=== PATIENT | female | born 1945 | race Caucasian/White ===

== ENCOUNTER 2018-05-04 13:30 | Outpatient (RCR) | payer MEDICARE, OTHER, SELFPAY ==
--- NOTE | 2018-04-10 07:51 | HP.PTEVAL_ITS ---
Patient's Visit Information MAE ISRAEL is a 72 year old F referred to Physical Therapy by Eligio Hathaway PA-C with a diagnosis of L achilles tendonitis. Date of Evaluation: 04/10/18 Physical Therapist: Hai Renteria DPT - Visit Plan Frequency: 2-3x /Week Duration: 4-6 Weeks Plan: Start with US to L achilles tendon, graston/manual, DF stretching. Progress stretching for HEP. Once tolerating add in eccentric strengthening exercises. May trial DN. - Subjective Findings: Pt. is here today for her initial evaluation with diagnosis of L achilles tendonitis. Pt. reports symptoms have been going on for about 2-3 mo nths now, but has been progressively getting worse. Pt. reports increased pain with walking, especially with the first few steps in the morning then again by the end of the day. Pt. reports pain is at her achilles tendon, but does not migrate into the bottom of her foot. She denies N/T in either LE. No pain with sleeping or at rest. Pt. has not trialed any stretching at this point in time. She reports having something similar prior, but was unsure of what LE this occured on. She is hopeful to reduce symptoms in order to get back to all of her ADLs and community mobility with increased tolerance. - Pain L achilles tendon Pain Intensity (Out of 10): 4 Pain Intensity Range: 2, 6 - Objective POSTURE: Pt. has normal posture in stance, she does have increased L knee valgus and slight increased L pronation. . PALPATION: Pt. has increased tenderness at musculotendon junction of L achilles tendon and down to its insertion. Pt. has mild pain at G/S complex, but much less. No plantar fascia pain. NEURO: all intact no issues. ROM: L ankle- DF 6deg, PF 39deg, INV 18deg, IVR 12deg. R an kle- DF 9deg, PF 41deg, INV 28deg, EVR 15deg. MMT: Pt. has 4+/5 throughout bilateral ankles, except had 4/5 L PF with mild increase in symptoms with attempts. GAIT: Pt. has increased L knee valgus, slight increase in L forfoot pronation. Pt. does have an antalgic pattern during L stance phase as well. STAIRS: Step to pattern with loading RLE only. - Goals Goal 1:: Pt. to be I with HEP. Goal Time Frame: 4-6 Weeks Goal 2:: Pt. to have increased L ankle ROM by 25% into DF. Goal Time Frame: 4-6 Weeks Goal 3:: Pt. to have increased L ankle PF strength increased by 1/2 grade with MMT. Goal Time Frame: 4-6 Weeks Goal 4:: Pt. to ambulate community levels distances without increase in symptoms and with normal gait pattern. Goal Time Frame: 4-6 Weeks Goal 5:: Pt. to resume all ADLs without increase in symptoms of L achilles tendon. - Rehabilitation Potential Physical Therapy Diagnosis: Pt. has sigs and symptoms consistent with L achilles tendonitis. Pt. has increased hypomobiity at this region, she is painful to touch and difficulty with heel off phase of gait. Pt. would benefit from PT to increase ROM, decrease symptoms, and progress with eccentric exercises to increase tensile strength of her L achilles tendon. Rehabilitation Potential: Good - Anticipated Interventions Patient/Client Instruction: Educate patient on: Condition, Plan of Care, Risk Factors, Benefits of Fitness Program For the Purpose of:: To improve decision making, To facilitate caregiver knowledge, To improve self management, To prevent re-injury, To improve ability to perform tasks related to life management, To improve tolerance to ADL's Therapeutic Exercise to Include: Strength training, Power training, Flexibilty training, Gait and locomotor training, Passive ROM, Active ROM For the Purpose of:: To decrease pain, To decrease swelling/inflammation, To increase ROM, To improve nutrient delivery to tissue, To increase oxygenation perfusion, To improve muscle performance and motor function, To improve health of tissue, To decrease soft tissue restriction, To increase flexibility/ROM, To improve endurance Manual Therapy Techniques to Include: Passive ROM, Functional dry needling, Soft tissue mobilization Comment: cross friction massage For the Purpose of:: To decrease pain, To decrease swelling/inflammation, To increase ROM, To improve health of tissue Ultrasound (thermal/non thermal): Yes For the Purpose of:: To decrease pain, To decrease swelling/inflammation, To improve nutrient delivery to tissue, To increase oxygenation perfusion Thank you for the opportunity to evaluate your patient. For Medicare and Medicare HMO plans, please review the plan of care and approve it. It will need to be FAXED BACK to us at [phone] for Medicare purposes. For Medicare only, by signing this I certify the plan of care. Please let me know if there are questions or concerns regarding this plan of care. Physician Signature: Date:
--- NOTE | 2018-05-07 09:01 | HP.PTREVAL ---
Eligio Hathaway PA-C, It has been my pleasure to treat MAE ISRAEL over the last 7 visits for L achilles tendonitis. Please see the progress note below for an update on the physical therapy plan of care! Subjective: Pt. reports right now my pain is only like maybe .5 out of 10. She reports being HEp compliant without issues. Pt. reports minimal pain this AM. Objective/Function: pt. tolerated all PT without adverse reaction. pt. is progressing very well. Pt. has overall decreased pain. She is to continue with strengthening adn stretching for HEP. Pt consents. Plan Plan: Pt. to continue with HEP on her own and follow up with PT in 2 weeks if needed. If I do not hear from her I will DC case back to physician. Goals Goal 1:: Pt. to be I with HEP. Goal Time Frame: 4-6 Weeks Goal Progress: Goal Met Goal 2:: Pt. to have increased L ankle ROM by 25% into DF. Goal Time Frame: 4-6 Weeks Goal Progress: Goal Met Goal 3:: Pt. to have increased L ankle PF strength increased by 1/2 grade with MMT. Goal Time Frame: 4-6 Weeks Goal Progress: Goal Met Goal 4:: Pt. to ambulate community levels distances without increase in symptoms and with normal gait pattern. Goal Time Frame: 4-6 Weeks Goal Progress: Progressing Goal 5:: Pt. to resume all ADLs without increase in symptoms of L achilles tendon. Goal Progress: Progressing Anticipated Interventions Patient/Client Instruction: Educate patient on: Condition, Plan of Care, Risk Factors, Benefits of Fitness Program For the Purpose of:: To improve decision making, To facilitate caregiver knowledge, To improve self management, To prevent re-injury, To improve ability to perform tasks related to life management, To improve tolerance to ADL's Therapeutic Exercise to Include: Strength training, Power training, Flexibilty training, Gait and locomotor training, Passive ROM, Active ROM For the Purpose of:: To decrease pain, To decrease swelling/inflammation, To increase ROM, To improve nutrient delivery to tissue, To increase oxygenation perfusion, To improve muscle performance and motor function, To improve health of tissue, To decrease soft tissue restriction, To increase flexibility/ROM, To improve endurance Manual Therapy Techniques to Include: Passive ROM, Functional dry needling, Soft tissue mobilization Comment: cross friction massage For the Purpose of:: To decrease pain, To decrease swelling/inflammation, To increase ROM, To improve health of tissue Ultrasound (thermal/non thermal): Yes For the Purpose of:: To decrease pain, To decrease swelling/inflammation, To improve nutrient delivery to tissue, To increase oxygenation perfusion Please do not hesitate to contact me at [phone] by phone or if you have questions or concerns regarding this new plan of care! Sincerely, OLGA LIDIA WiseT
--- NOTE | 2018-06-27 12:33 | HP.PT.NRP ---
HP - Discharge Summary (1) - Patient Information MAE ISRAEL was seen in my office for initial evaluation on 04/10/18. The following Plan of Care was established for this patient: Initial Frequency: 2-3x /Week Initial Duration: 4-6 Weeks - Anticipated Interventions Patient/Client Instruction: Educate patient on: Condition, Plan of Care, Risk Factors, Benefits of Fitness Program For the Purpose of:: To improve decision making, To facilitate caregiver knowledge, To improve self management, To prevent re-injury, To improve ability to perform tasks related to life management, To improve tolerance to ADL's Therapeutic Exercise to Include: Strength training, Power training, Flexibilty training, Gait and locomotor training, Passive ROM, Active ROM For the Purpose of:: To decrease pain, To decrease swelling/inflammation, To increase ROM, To improve nutrient delivery to tissue, To increase oxygenation perfusion, To improve muscle performance and motor function, To improve health of tissue, To decrease soft tissue restriction, To increase flexibility/ROM, To improve endurance Manual Therapy Techniques to Include: Passive ROM, Functional dry needling, Soft tissue mobilization Comment: cross friction massage For the Purpose of:: To decrease pain, To decrease swelling/inflammation, To increase ROM, To improve health of tissue Ultrasound (thermal/non thermal): Yes For the Purpose of:: To decrease pain, To decrease swelling/inflammation, To improve nutrient delivery to tissue, To increase oxygenation perfusion This patient was last seen in our office 05/04/18. Pertinent comments regarding their Physical therapy will appear below: Pt. was seen for her achilles tendonitis. Pt. progressed very well and was 95% better at her last visit. Pt. has not been seen in ~7 weeks and will be DC from PT at this point in time. At this point I will be discontinuing this patient from physical therapy. I would be happy to see this patient again in the future if found appropriate by the physician. Thank you! OLGA LIDIA WiesT
== END 2018-05-04 19:00 | disposition home or self-care (01) ==
LOC: PT 13:30
PROVIDERS: Family Provider Internal Medicine; PCP Internal Medicine; Referring Provider Physician Assistant; Visit Provider Physician Assistant
DX: M76.62 Achilles tendinitis, left leg (principal)
CPT/HCPCS: 97035; 97110; 97140; 97161

== ENCOUNTER → 2018-11-29 15:37 | Outpatient (CLI) | payer MEDICARE, OTHER, SELFPAY ==
[2015-09-20 23:27] VITALS: BMI 39.1
== END ==
PROVIDERS: Family Provider Internal Medicine; PCP Internal Medicine; Referring Provider Otolaryngology Otolaryngology/Facial Plastic Surgery; Visit Provider Otolaryngology Otolaryngology/Facial Plastic Surgery
DX: H92.10 Otorrhea, unspecified ear (principal)
CPT/HCPCS: 87070; 87075; 87077; 87186; 87205

== ENCOUNTER 2018-12-11 06:42 | Day surgery (SDC) | payer MEDICARE, OTHER, SELFPAY ==
--- NOTE | 2018-12-05 14:58 | EKG12_ITS ---
Test Reason : PRE OP Blood Pressure : / mmHG Vent. Rate : 073 BPM Atrial Rate : 073 BPM P-R Int : 192 ms QRS Dur : 076 ms QT Int : 376 ms P-R-T Axes : -02 005 003 degrees QTc Int : 414 ms Normal sinus rhythm Nonspecific T wave abnormality Abnormal ECG Confirmed by TOYA ANNA ([id number]), manuscript editor CONCHIS WANG ([id number]) on 12/10/2018 3:29:45 PM Referred By: Stephen Solano Confirmed By:TOYA ANNA
[2018-12-05 15:20] LABS: Hematocrit 39.1 % (37-47); Hemoglobin 12.6 g/dL (12.0-15.0); Mean Corp Hgb Conc 32.2 g/dL (32-36); Mean Corpuscular Hgb 27.1 pg (27.0-32.0); Mean Corpuscular Volume 84.1 fL (81-99); Mean Platelet Vol. 10.2 fl (6.2-12.0); Platelet Count 202 K/mm3 (150-450); RBC Distribution Width CV 14.1 % (11.6-14.6); RBC Distribution Width SD 43.1 fl (35.1-43.9); Red Blood Count 4.65 M/mm3 (4.2-5.4); White Blood Count 7.1 K/mm3 (4.4-11.0)
[2018-12-05 15:44] LABS: Anion Gap 5 (5-15); BUN 19 mg/dL (7-18); BUN/Creat Ratio 18.1 RATIO (10-20); Calcium,Total 8.8 mg/dL (8.5-10.1); Chloride 109 mmol/L (98-107); Creatinine, Serum 1.05 mg/dL (0.55-1.02); EST Glomerular Filtration Rate 55 mL/min (>60); Est Glom Filt Rate - Afr Amer 66 mL/min (>60); Glucose 100 mg/dL (74-106); Potassium 4.1 mmol/L (3.5-5.1); Sodium Level 141 mmol/L (136-145)
[2018-12-11 07:00] VITALS: BP 137/71; PULSE 84; RESP 16; TEMP 36.7; O2SAT 98; BMI 40.6
[2018-12-11] MEDS: Lactated Ringers 1,000 ML 100 ML IV (07:40)
[2018-12-11] MEDS: Ciprofloxacin 0.3% 2.5ml Bottle 1 DRP (08:57)
--- NOTE | 2018-12-11 09:06 | OP.PCM_ITS ---
Report of Operation Date of Procedure: 12/11/18 Pre-Operative Diagnosis: Left serous otitis media Post-Operative Diagnosis: Same Surgery/Procedure Performed:: Left myringotomy and insertion of parasol tube Description of Surgical Findings:: Operative procedure left myringotomy and insertion of PE tube Operative diagnosis left serous otitis media Postoperative diagnosis same Procedure the patient was placed supine on the operating room table. After satisfactory general anesthesia been obtained the left ear was examined with the operating microscope. The canal and tympanic membrane were prepped with 70% alcohol. The tympanic membrane appeared to be dull and najma-colored. Inferior incision was made with the Cottonwood knife and copious najma-colored fluid aspirated from the middle ear cleft. After the melena had been evacuated this fluid a parasol tube was placed in position and the tube irrigated with ciprofloxacin ophthalmic solution. The procedure was considered terminated and the patient returned to the recovery room in satisfactory condition. Stephen Solano MD
[2018-12-11 09:15] VITALS: BP 137/68; BP 137/71; PULSE 89; RESP 14; TEMP 36.6; O2SAT 93
[2018-12-11 09:30] VITALS: BP 126/75; BP 137/71; PULSE 76; RESP 16; O2SAT 95
[2018-12-11 09:45] VITALS: BP 116/68; BP 137/71; PULSE 70; RESP 16; O2SAT 92
[2018-12-11 10:04] VITALS: BP 115/76; BP 137/71; PULSE 70; RESP 16; TEMP 36.8; O2SAT 93
[2018-12-11 10:25] VITALS: BP 137/71
== END 2018-12-11 10:33 | disposition home or self-care (01) ==
LOC: SDC 06:43 → AC 06:43
PROVIDERS: Family Provider Internal Medicine; PCP Internal Medicine; Referring Provider Otolaryngology Otolaryngology/Facial Plastic Surgery; Visit Provider Otolaryngology Otolaryngology/Facial Plastic Surgery
DX: H65.22 Chronic serous otitis media, left ear (principal); I10 Essential (primary) hypertension; G47.30 Sleep apnea, unspecified; K21.9 Gastro-esophageal reflux disease without esophagitis; F32.9 Major depressive disorder, single episode, unspecified; F41.9 Anxiety disorder, unspecified; Z78.0 Asymptomatic menopausal state; Z79.82 Long term (current) use of aspirin; Z79.899 Other long term (current) drug therapy; Z87.891 Personal history of nicotine dependence
CPT/HCPCS: 69436; 36415; 80048; 85027; 93005; J7120

== ENCOUNTER 2019-09-05 11:00 | Outpatient (RCR) | payer MEDICARE, OTHER, SELFPAY ==
--- NOTE | 2019-04-17 14:05 | HP.PTEVAL_ITS ---
Patient's Visit Information MAE ISRAEL is a 73 year old F referred to Physical Therapy by DAVIN Kc with a diagnosis of CHRONIC MIDLINE LOW BACK PAIN WITHOUT SCIATICA. Date of Evaluation: 04/17/19 Physical Therapist: Sulma Solorio, PT, Cert MDT - Visit Plan Frequency: 2-3x /Week Duration: 4-6 Weeks Plan: AQUATIC THERAPY FOR PAIN RELIEF, POSTURE CORRECTION/STRENGTHENING, INSTRUCTION IN APPROPRIATE BODY MECHANICS AND ACTIVITY MODIFICATIONS. DLS STARTING WITH A NEUTRAL SPINE PROGRESSING ROM TOLERATED. NAV LE ROM, STRETCHING AND STRENGTHENING. HEP INSTRUCTION. - Subjective Findings: Work/Leisure: RETIRED. Disability: NO. Present symptoms: LOW BACK PAIN. RIGHT HIP PAIN - NEAR CONSTANT. NO RIGHT LE SX'S OTHER THAN NEUROPATHY. NAV FOOT NEUROPATHY. NO LEFT LE SX'S OTHER THAN NEUROPATHY. Present since: CHRONIC LOW BACK AND HIP PAIN. Pain Scale: WORST 5/10, LEAST 1/10. Currently: 03/08. Commenced as a result of: NO APPARENT REASON. Symptoms at onset: LOW BACK. Worse: SITTING, *RISING FROM SITTING*, INITIATING GAIT, RIGHT SDLY, SUPINE LYING, BENDING, LIFTING, TWISTING. RAKING. VACUUMING. Better: IBUPROFEN, SOME EX'S: BRIDGES, WENDIE POSE, FIRE HYDRANTS, QUADRAPED HIP EXT, KITCHEN SINK EX'S. Disturbed sleep: YES. Previous history/Previous treatment: PATIENT THINKS SHE HAD PT FOR HER BACK IN THE PAST BUT IT HAS BEEN A LONG TIME. NO BACK SURGERY. NO BACK INJECTIONS. NO HIP SURGERY OR INJECTIONS. NO PAIN MGMT. CHIROPRACTOR A LONG TIME AGO - DIDN'T SEEM TO HELP. Treatment this episode: THIS PT CONSULT, DOCTOR ORDERED HEP. Coughing/sneezing/straining: POSTIVE. Gait: I FIND MYSELF WALKING WITH A LIMP ON BOTH LEGS TO PROTECT LEFT KNEE AND RIGHT HIP. MY RIGHT LEG IS SHORTER THAN MY LEFT. IT CAN BE PAINFUL TO WALK. I CAN BARELY WALK WHEN I GET OUT OF THE CAR. THEN I LOOSEN UP AND IT IS OK. Difficulty initiating urinatin: YES - CHRONIC. Accidents: NO. Unexplained weight loss: NO. Imaging: LOW BACK AND RIGHT HIP X-RAYS - MILD DDD PER PATIENT REPORT. PMH: SLEEP APNEA, HYPOTHYROIDISM, SLEEP MEDICINE, HTN. LEFT KNEE MENISCUS REPAIR. NAV CTR. OTHER: PATIENT REPORTS SHE INITIALLY WENT TO SEE THE NURSE PRACTITIONER FOR RIGHT RIB CAGE AREA SPASMS AND SHE STILL HAS A CATCH TYPE FEELING IN HER LIVER AREA AND SHE WANTS TO TALK TO THE DOCTOR ABOUT HER GALLBLADDER. SHE REPORTS IT IS BETTER BUT STILL THERE. PATIENT REPORTS SHE DID HAVE A FALL DOING YARD WORK LAST FALL BUT SHE DOESN'T REMEMBER ANY SPECIFICS ABOUT IT. - Objective Sitting/Standing Posture: POOR. Lordosis: REDUCED. Lateral shift: NO. Relev ant shift: N/A. Active Correction of posture: NE. Other Observations: INDEP GAIT INTO PT LIMPING ON LEFT LE. LLE IS LONGER THAN RIGHT WITH LEFT ILIAC CREST HIGHER THAN RIGHT. Motor deficit: NAV LE'S GROSSLY 5/5 WITH MMT'ING EXCEPT HIPS GRADED 4/5. Sensory deficit: NAV LE LIGHT TOUCH SENSATION INTACT AND SYMMETRICAL. ROM deficit: TIGHT NAV HS'S AND GASTROC SOLEUS COMPLEX'S. TIGHT NAV HIP IR AND ER BUT ESPECIALLY RIGHT HIP EXTERNAL ROTATION. Reflexes: NT. Dural Signs: NEGATIVE NAV LE'S. Lumbar mvmt loss: flex - MOD - VERY TIGHT. ext - VALERIA. R SG - VALERIA. L SG - VALERIA. Core strength: POOR. Palpation: NO ACUTE THORACIC, LUMBAR, SACRAL OR HIP TENDERNESS. VERY TIGHT LUMBAR PARASPINALS. OTHER: POSITIVE NAV HIP IVIS TESTS WITH ANTERIOR HIP PAIN BUT PATIENT REPORTS SHE HAS HAD THIS FOR MANY MANY YEARS. TREATMENT: NEUROMUSCULAR REEDUCATION - RETRAINING OF MVMT AND POSTURE FOR SITTING, LYING AND STANDING ACTIVITIES. - Goals Goal 1:: DECREASE C/O BACK AND RIGHT HIP PAIN Goal Time Frame: 4-6 Weeks Goal 2:: IMPROVE LIFTING, WALKING, SITTING, STANDING, SLEEP, TRAVEL AND HOMEMAKING FUNCTION Goal Time Frame: 4-6 Weeks Goal 3:: INSTRUCT IN PROPHYLAXIS Goal Time Frame: 4-6 Weeks - Rehabilitation Potential Rehabilitation Potential: Fair - Anticipated Interventions Patient/Client Instruction: Educate patient on: Condition, Plan of Care, Risk Factors, Benefits of Fitness Program For the Purpose of:: To improve self management Therapeutic Exercise to Include: Strength training, Body mechanics, Postural training, Flexibilty training, Neuromotor development, In an aquatic setting, Dynamic Lumbar Stabilization For the Purpose of:: To decrease pain, To increase ROM, To improve muscle performance and motor function, To increase tolerance to activity/condition/position, To improve ability of physical actions for home/community/work/leisure, To improve gait and locomotor functions Thank you for the opportunity to evaluate your patient. For Medicare and Medicare HMO plans, please review the plan of care and approve it. It will need to be FAXED BACK to us at [phone] for Medicare purposes. For Medicare only, by signing this I certify the plan of care. Please let me know if there are questions or concerns regarding this plan of care. Physician Signature: Date:
--- NOTE | 2019-05-10 13:46 | HP.PTREVAL_ITS ---
Belgica Gan, SALES AGENT [employer]-C, It has been my pleasure to treat MAE ISRAEL over the last 10 visits for CHRONIC MIDLINE LOW BACK PAIN WITHOUT SCIATICA. Please see the progress note below for an update on the physical therapy plan of care! Subjective: PATIENT REPORTS HER HIP PAIN HAS IMRPOVED OVER-ALL. IT STILL HURTS GETTING IN AND OUT OF THE CAR AND SITTING IN THE CAR BUT NOT MUCH BEFORE STARTING THERAPY. MY HIP DOESN'T HURT MUCH IT DID BEFORE. BEING ABLE TO SWEEP THE FLOOR IS BETTER NOW. SPASMS IN BACK ARE BETTER. I ENJOY THE WATER THERAPY EVEN THOUGH I DON'T SWIM BECAUSE LESS PAIN WITH LESS WEIGHT IN THE POOL. PATIENT REPORTS THE NEW EX'S HAVE HELPED HER RIGHT HIP. PROLONGED SITTING AT WAITING FOR DOCTOR TODAY. PATIENT REPORTS SHE HAS THE TIME TO CONTINUE EXERCISING ON HER OWN IT IS JUST A MATTER OR MOTIVATING HERSELF. HAS BEEN DOING HER HEP AT LEAST ONCE A DAY. PATIENT REPORTS 2/10 HIP PAIN ONLY BECAUSE SHE HAS SAT SO MUCH TODAY. Objective/Function: PATIENT WAS SEEN TODAY FOR RE-ASSESSMENT OF PROGRESS TOWARD THE SET PT GOALS AND THE NEED FOR FURTHER PHYSICAL THERAPY VS READINESS FOR DISCHARGE. PATIENT IS MAKING PROGRESS TOWARD ALL PT GOALS AND IS A GOOD CANDIDATE TO CONTINUE PT BASED ON PROGRESS MADE AND ROOM FOR FUTHER IMPROVEMENT. UPON EXAM TODAY: INDEP GAIT INTO PT LIMPING ON LEFT LE. LLE IS LONGER THAN RIGHT WITH LEFT ILIAC CREST HIGHER THAN RIGHT. Motor deficit: NAV LE'S GROSSLY 5/5 WITH MMT'ING EXCEPT HIPS GRADED 4/5. Sensory deficit: NAV LE LIGHT TOUCH SENSATION INTACT AND SYMMETRICAL. ROM deficit: TIGHT NAV HS'S AND GASTROC SOLEUS COMPLEX'S. TIGHT NAV HIP IR AND ER BUT ESPECIALLY RIGHT HIP EXTERNAL ROTATION. Reflexes: NT. Dural Signs: NEGATIVE NAV LE'S. Lumbar mvmt loss: flex - MIN. ext - MOD TO VALERIA. R SG - MOD. L SG - MOD. Core strength: POOR. Palpation: NO ACUTE THORACIC, LUMBAR, SACRAL OR HIP TENDERNESS. Plan Plan: CONT AQUATIC THERAPY PER ORIGINAL POC DECREASING TO 2X'S A WEEK X 2 WEEKS THEN 1 X A WEEK X 2 WEEKS TO PROGRESS THER EX AND HELP PATIENT TRANSITION TO INDEP POOL EX. Goals Goal 1:: DECREASE C/O BACK AND RIGHT HIP PAIN Goal Time Frame: 4-6 Weeks Goal Progress: Progressing Goal 2:: IMPROVE LIFTING, WALKING, SITTING, STANDING, SLEEP, TRAVEL AND HOMEMAKING FUNCTION Goal Time Frame: 4-6 Weeks Goal Progress: Progressing Goal 3:: INSTRUCT IN PROPHYLAXIS Goal Time Frame: 4-6 Weeks Goal Progress: Progressing Anticipated Interventions Patient/Client Instruction: Educate patient on: Condition, Plan of Care, Risk Factors, Benefits of Fitness Program For the Purpose of:: To improve self management Therapeutic Exercise to Include: Strength training, Body mechanics, Postural training, Flexibilty training, Neuromotor development, In an aquatic setting, Dynamic Lumbar Stabilization For the Purpose of:: To decrease pain, To increase ROM, To improve muscle performance and motor function, To increase tolerance to activity/condition/position, To improve ability of physical actions for home/community/work/leisure, To improve gait and locomotor functions Please do not hesitate to contact me at [phone] by phone or if you have questions or concerns regarding this new plan of care! Sincerely, Sulma Solorio, PT, Cert MDT
--- NOTE | 2019-08-06 10:18 | HP.PTREVAL ---
Belgica Gan, JUS-C, It has been my pleasure to treat MAE ISRAEL over the last 15 visits for CHRONIC MIDLINE LOW BACK PAIN WITHOUT SCIATICA. Please see the progress note below for an update on the physical therapy plan of care! Subjective: PATIENT REPORTS SHE HASN'T BEEN HERE BECAUSE OF THE VIRUS. STATES SHE STILL HAS BACK PROBLEMS. TAKING IBUPROFEN AND IT HELPS. STATES SHE ALSO HAD UPPER BACK PAIN DURING THE VIRUS AFTER WEED EATING. PATIENT REPORTS SHE HAS NOT DONE ANY WATER EX AND HAS NOT BEEN CONSISTANT WITH HER HEP SINCE THE VIRUS STARTED. STATES SHE REALLY LIKES THE WATER AND IT WAS REALLY HELPING HER BEFORE SHE HAD TO STOP COMING. Objective/Function: PATIENT WAS SEEN TODAY FOR RE-ASSESSMENT OF PROGRESS TOWARD THE SET PT GOALS AND THE NEED FOR FURTHER PHYSICAL THERAPY VS READINESS FOR DISCHARGE. PATIENT WAS MAKING PROGRESS TOWARD ALL PT GOALS PRIOR DISRUPTION FROM THE VIRUS AND IS A GOOD CANDIDATE TO RESUME PT BASED ON PROGRESS MADE AND ROOM FOR FUTHER IMPROVEMENT. SHE HAS A [employer] MEMBERSHIP HERE AT [employer] AND HER DAUGHTER HAS A POOL. UPON EXAM TODAY: INDEP GAIT INTO PT LIMPING ON LEFT LE. LLE IS LONGER THAN RIGHT WITH LEFT ILIAC CREST HIGHER THAN RIGHT. Motor deficit: NAV LE'S GROSSLY 5/5. Sensory deficit: NAV LE LIGHT TOUCH SENSATION INTACT AND SYMMETRICAL. FEET NT (NEUROPATHY). ROM deficit: TIGHT NAV HS'S AND GASTROC SOLEUS COMPLEX'S. TIGHT NAV HIP IR AND ER BUT ESPECIALLY RIGHT HIP EXTERNAL ROTATION. Reflexes: NT. Dural Signs: NEGATIVE NAV LE'S. Lumbar mvmt loss: flex - MIN. ext - MOD. R SG - MOD. L SG - MOD. Core strength: POOR Plan Plan: RESUME AQUATIC THERAPY PER ORIGINAL POC 2X'S A WEEK X 3 WEEKS THEN 1 X A WEEK X 2 WEEKS TO PROGRESS THER EX AND HELP PATIENT TRANSITION TO INDEP POOL EX. PATIENT IS AGREEABLE. Goals Goal 1:: DECREASE C/O BACK AND RIGHT HIP PAIN Goal Time Frame: 4-6 Weeks Goal Progress: Progressing Goal 2:: IMPROVE LIFTING, WALKING, SITTING, STANDING, SLEEP, TRAVEL AND HOMEMAKING FUNCTION Goal Time Frame: 4-6 Weeks Goal Progress: Progressing Goal 3:: INSTRUCT IN PROPHYLAXIS Goal Time Frame: 4-6 Weeks Goal Progress: Progressing Anticipated Interventions Patient/Client Instruction: Educate patient on: Condition, Plan of Care, Risk Factors, Benefits of Fitness Program For the Purpose of:: To improve self management Therapeutic Exercise to Include: Strength training, Body mechanics, Postural training, Flexibilty training, Neuromotor development, In an aquatic setting, Dynamic Lumbar Stabilization For the Purpose of:: To decrease pain, To increase ROM, To improve muscle performance and motor function, To increase tolerance to activity/condition/position, To improve ability of physical actions for home/community/work/leisure, To improve gait and locomotor functions Please do not hesitate to contact me at [phone] by phone or if you have questions or concerns regarding this new plan of care! Sincerely, Sulma Solorio, PT, Cert MDT
--- NOTE | 2019-09-05 11:37 | HP.PTDCSUM ---
It has been my pleasure to treat MAE ISRAEL referred by DAVIN Kc, with the diagnosis of CHRONIC MIDLINE LOW BACK PAIN WITHOUT SCIATICA for a total of 24 visit(s). Discharge Date: 09/05/19 Please see the following information for a summary of their discharge status. Subjective: I'VE IMPROVED QUITE A BIT. PATIENT REPORTS HER BACK IS REALLY REALLY BETTER AND EVEN HER HIP IS BETTER. ABLE TO SLEEP ON RIGHT HIP SOME NOW BUT NOT VERY LONG. RLE Pain Intensity (Out of 10): 0 SHOULDERS Pain Intensity (Out of 10): 1 Lumbar Spine Pain Intensity (Out of 10): 0 LLE Pain Intensity (Out of 10): 0 % Improvement: 75 Objective/Function: PATIENT WAS SEEN TODAY FOR RE-ASSESSMENT OF PROGRESS TOWARD THE SET PT GOALS AND THE NEED FOR FURTHER PHYSICAL THERAPY VS READINESS FOR DISCHARGE. ALL GOALS HAVE BEEN MET AND SHE IS APPROPRIATE FOR D/C TO INDEP EX AT THIS TIME. PATIENT IS AGREEABLE. UPON EXAM TODAY: Lumbar mvmt loss: flex - MIN. ext - MOD. R SG - MOD. L SG - MOD Goal 1:: DECREASE C/O BACK AND RIGHT HIP PAIN Goal Progress: Goal Met Goal 2:: IMPROVE LIFTING, WALKING, SITTING, STANDING, SLEEP, TRAVEL AND HOMEMAKING FUNCTION Goal Progress: Goal Met Goal 3:: INSTRUCT IN PROPHYLAXIS Goal Progress: Goal Met Plan: D/C TO INDP POOL PROGRAM AT [facility]. PATIENT IS AGREEABLE. If there are questions or concerns regarding this patient's physical therapy, please feel free to call me at [phone]. Thank you for the referral of this patient. Sincerely, Sulma Solorio, PT, Cert MDT
== END 2019-09-05 19:00 | disposition home or self-care (01) ==
LOC: PT 11:00
PROVIDERS: PCP Internal Medicine; Referring Provider Clinical Nurse Specialist; Visit Provider Clinical Nurse Specialist
DX: M54.5 Low back pain (principal); G89.29 Other chronic pain
CPT/HCPCS: 97112; 97113; 97162; 97164; 97530

== ENCOUNTER 2020-04-27 12:26 | Outpatient (RCR) | payer MEDICARE, SELFPAY | END 2020-04-27 23:59 | LOC: IMMUN 12:26 | PROVIDERS: PCP Internal Medicine; Visit Provider Family Medicine | DX: Z23 Encounter for immunization (principal) | CPT/HCPCS: 0011A; 0012A ==

== ENCOUNTER → 2020-09-08 12:42 | Outpatient (CLI) | payer MEDICARE, OTHER, SELFPAY ==
[2020-09-08] MEDS: Methacholine Chloride 18 ml neb kit INHALATION (13:19)
--- NOTE | 2020-09-09 09:54 | BRONCHALL ---
Bronchoprovocation Challenge Bronchoprovocation Challenge Bronchoprovocation Challenge: INTRODUCTION: The patient is a 75-year-old female that presents for a bronchoprovocation challenge secondary to a diagnosis of wheezing. Respiratory therapy reported good patient effort and reproducible results. INTERPRETATION: Initial spirometry did not show any large airways obstructive ventilatory defect and preserved airflows throughout. The patient was then given progressively increasing doses of methacholine in a standardized fashion. The patient did experience a 21% drop in FEV1 during testing, indicating a positive test. The patient's PD 20 FEV1 was noted to be a dose of 0.175. IMPRESSION: Positive methacholine challenge.
== END ==
PROVIDERS: PCP Internal Medicine; Referring Provider Internal Medicine Pulmonary Disease; Visit Provider Internal Medicine Pulmonary Disease
DX: R06.2 Wheezing (principal)
CPT/HCPCS: 94070; 95070

== ENCOUNTER → 2023-06-23 | Outpatient (CLI) | payer MEDICARE, OTHER, SELFPAY ==
--- NOTE | 2023-06-23 10:07 | RAD_ITS ---
STUDY: X-RAY - ESOPHAGUS (BARIUM SWALLOW) WITH FLUOROSCOPY REASON FOR EXAM: Female, 78 years old. HIATAL HERNIA TECHNIQUE: 16 view(s) of the esophagus were obtained following swallowing of barium. FLUOROSCOPY TIME (if supplied): (26 seconds) minutes/seconds COMPARISON: None. FINDINGS: There is no demonstrated esophageal foreign body. There is no demonstrated stricture or mucosal abnormality. Normal gastroesophageal junction, without a demonstrated hiatal hernia. The patient ingested a 12 mm tablet of barium without any difficulty. There is atherosclerotic calcification of the aortic arch with tortuosity of the descending aorta. Normal visualized pulmonary parenchyma. There are degenerative changes of the visualized thoracic spine. RAD/Esophagus Dual Contrast IMPRESSION: Normal plain film x-ray examination (barium swallow) of the esophagus. Electronically Signed: Osmany Wade MD at 10:34 EDT ,
== END | disposition home or self-care (01) ==
LOC: RAD 09:57
PROVIDERS: PCP Internal Medicine; Referring Provider Internal Medicine; Visit Provider Internal Medicine
DX: K44.9 Diaphragmatic hernia without obstruction or gangrene (principal)
CPT/HCPCS: 74221

== ENCOUNTER 2025-01-31 22:22 | Emergency (ER) | payer MEDICARE, OTHER, SELFPAY ==
[2025-01-31 22:23] VITALS: BP 221/133; PULSE 92; RESP 17; TEMP 36.4; O2SAT 97; BMI 38.5
[2025-01-31 22:26] VITALS: BP 181/116; PULSE 88; RESP 14; O2SAT 97
--- NOTE | 2025-01-31 22:44 | CT_ITS ---
PROCEDURE: CT BRAIN/HEAD WITHOUT CONTRAST 01/31/2025 REASON FOR EXAM: HYPERTENSION BLURRED VISION TECHNIQUE: Procedure Code: CTBR Modality: CT Procedure: BRAIN/HEAD WITHOUT CONTRAST Coronal and Sagittal reconstruction series were provided. One or more dose reduction techniques were used (e.g., Automated exposure control, adjustment of the mA and/or kV according to patient size, use of iterative reconstruction technique. RADIATION DOSE SUMMARY: CTDlvol: 44.99 mGy DLP: 829.85 mGycm COMPARISON: None. FINDINGS: No acute intracranial hemorrhage, extra-axial collection, mass effect or evidence of acute infarct. Age-appropriate mild generalized brain parenchymal volume loss and chronic microangiopathic changes. Atherosclerotic vascular calcifications. Absent pilot point ocular lenses. Intact skull base and calvarium. Well-aerated paranasal sinuses and mastoid air cells. CT/Brain/Head without Contrast IMPRESSION: No acute intracranial abnormality. Reading Location: [id number]
--- NOTE | 2025-01-31 22:44 | EKG12_ITS ---
Test Reason : DYSRHYTHMIA Blood Pressure : */* mmHG Vent. Rate : 81 BPM Atrial Rate : 81 BPM P-R Int : 194 ms QRS Dur : 82 ms QT Int : 378 ms P-R-T Axes : -15 4 31 degrees QTcB Int : 439 ms Normal sinus rhythm Normal ECG Confirmed by CARSON MONTEZ, RICK ([id number]), editorial project manager LINUS SHELLEY ([id number]) on 02/03/2025 6:08:35 AM Referred By: NC Confirmed By: RICK BYRD MD
--- OUTSIDE RECORDS SUMMARY | 2025-01-31 22:52 | XMS RPT_ITS | CCD ---
Author Organization [facility] Care Team Providers Care Inspector Finishing Name Role Phone Racquel Centeno MD Primary Care Provider Ria Banegas RN Unavailable Arian RN, Seda Herron Unavailable Racquel Centeno MD Primary Care Provider Arian PADILLA, Seda L Unavailable Christina PADILLA, Saima Unavailable Racquel Centeno MD Primary Care Provider Christina RN, Saima Unavailable Christina RN, Saima Unavailable Christina PADILLA, Saima Unavailable Racquel Centeno MD Primary Care Provider Racquel Centeno Primary Care Unavailable Natalie THERAPEUTIC CASE MANAGER, Felipe Referring Unavailable Natalie THERAPEUTIC CASE MANAGER, Felipe Attending Unavailable Arianna Lorenz RN Unavailable Christina PADILLA, Saima Unavailable Arian PADILLA, Seda L Unavailable Gan DIETITIAN TEACHER.MRI MANAGER, Ton Unavailable Natalie DIETITIAN TEACHER.TICK SEWER, Felipe Unavailable Natalie DIETITIAN TEACHER.TICK SEWER, Felipe Unavailable Natalie DIETITIAN TEACHER.TICK SEWER, Felipe Unavailable Gan DIETITIAN TEACHER.MRI MANAGER, Ton Unavailable Gan DIETITIAN TEACHER.MRI MANAGER, Ton Unavailable RACQUEL CENTENO Attending Unavailable RACQUEL CENTENO Primary Care Unavailable TALAMPAS, RACQUEL D Primary Care Unavailable JESSICA WONG Attending Unavailable TALAMPAS, RACQUEL D Primary Care Unavailable JOHANNE HUTCHINSON Attending Unavailable TALAMPAS, RACQUEL D Primary Care Unavailable FELIPE ESTRADA Attending Unavailable JESSICA WONG Attending Unavailable TALAMPAS, RACQUEL D Primary Care Unavailable TALAMPAS, RACQUEL D Primary Care Unavailable NATALIEFELIPE Referring Unavailable TALAMPAS, RACQUEL D Primary Care Unavailable NATALIEFELIPE Attending Unavailable TALAMPAS, RACQUEL D Referring Unavailable TALAMPAS, RACQUEL D Primary Care Unavailable TALAMPAS, RACQUEL D Primary Care Unavailable RENATO, NISHA Referring Unavailable TALAMPAS, RACQUEL D Primary Care Unavailable RENATO, NISHA Referring Unavailable TALAMPAS, RACQUEL D Primary Care Unavailable TALAMPAS, RACQUEL D Referring Unavailable TALAMPAS, RACQUEL D Primary Care Unavailable TON GAN Attending Unavailable GAN, TON Referring Unavailable TALAMPAS, RACQUEL D Primary Care Unavailable GANCHAPOI Attending Unavailable TALAMPAS, RACQUEL D Primary Care Unavailable ELIGIO FELIX Referring Unavailable TALAMPAS, RACQUEL D Primary Care Unavailable ELIGIO FELIX Attending Unavailable Allergies Allergy Classification Reported Allergen(s) Allergy Type Date of Onset Reaction(s) Facility (20 sources) Atenolol; Translations: [ATENOLOL] Drug Allergy 5 Unknown [facility] Work Phone: (20 sources) Doxepin; Translations: [DOXEPIN] Drug Allergy 6 Other: See Comments [facility] Work Phone: (20 sources) traMADol; Translations: [TRAMADOL] Drug Allergy 4 Other: See Comments [facility] Work Phone: (1 source) Atenolol Drug Allergy 9 [facility] (1 source) Doxepin Drug Allergy 9 [facility] (1 source) traMADol Drug Allergy 9 [facility] Medications Current Medications Medication Drug Class(es) Dates Sig (Normalized) Sig (Original) [id number] 200 actuat albuterol 0.09 mg/actuat metered dose inhaler (20 sources) beta2-Adrenergic Agonist Start: 12-02-2022 End: 10-24-2023 take 2 puff(s) by inhalation every four hours as needed for wheezing albuterol HFA (PROVENTIL HFA, VENTOLIN HFA) 90 mcg/actuation inhaler Inhale 2 Puffs as instructed every 4 hours as needed for wheezing/shortnes s of breath. 18 g 1 10/24/2023 Active Start: 04-29-2022 End: 12-02-2022 take 2 puff(s) by inhalation every four hours as needed for wheezing albuterol HFA (PROVENTIL HFA, VENTOLIN HFA) 90 mcg/actuation inhaler Inhale 2 Puffs as instructed every 4 hours as needed for wheezing/shortness of breath. 8 g 0 04/29/2022 12/02/2022 Discontinued Start: 07-20-2021 End: 04-29-2022 take 2 puff(s) by inhalation every four hours as needed for wheezing albuterol HFA (PROVENTIL HFA, VENTOLIN HFA) 90 mcg/actuation inhaler Inhale 2 Puffs as instructed every 4 hours as needed for wheezing/shortness of breath. 3 Inhaler 3 07/20/2021 09/13/2021 Discontinued Start: 01-14-2020 End: 07-20-2021 take 2 puff(s) by inhalation every four hours as needed albuterol HFA (PROAIR HFA) 90 mcg/actuation inhaler Indications: Wheezing Inhale 2 Puffs as instructed every 4 hours as needed. 18 g 11 01/14/2020 07/20/2021 Discontinued Comment on above: Inhale 2 Puffs as in structed every 4 hours as needed. Inhale 2 Puffs as in structed every 4 hours as needed for wheezing/shortness of breath. Budesonide / formoterol (20 sources) Corticosteroid, beta2-Adrenergic Agonist Start: take 2 puff(s) by inhalation twice daily budesonide-formoter ol (SYMBICORT) 160-4.5 mcg/actuation inhaler Inhale 2 puffs as instructed two times a day. 10.2 g 5 11/04/2024 Active Start: 09-25-2024 End: 11-03-2024 take 2 puff(s) by inhalation twice daily budesonide-formoterol (SYMBICORT) 160-4.5 mcg/actuation inhaler Inhale 2 puffs as instructed two times a day. 10.2 g 5 09/25/2024 11/03/2024 Discontinued Start: 09-25-2024 take 2 puff(s) by in halation twice daily budesonide-formoterol (SYMBICORT) 160-4.5 mcg/actuation inhaler Inhale 2 puffs as instructed two times a day. 10.2 g 5 09/25/2024 Active Start: 03-04-2024 End: 09-25-2024 take 2 puff(s) by inhalation twice daily budesonide-formoterol (SYMBICORT) 160-4.5 mcg/actuation inhaler Indications: Uncomplicated asthma, unspecified asthma severity, unspecified whether persistent (HCC) Inhale 2 Puffs as instructed two times a day. 1 Each 5 03/04/2024 09/25/2024 Discontinued Start: 03-04-2024 take 2 puff(s) by in halation twice daily budesonide-formoterol (SYMBICORT) 160-4.5 mcg/actuation inhaler Indications: Uncomplicated asthma, unspecified asthma severity, unspecified whether persistent (HCC) Inhale 2 Puffs as instructed two times a day. 1 Each 5 03/04/2024 Active Start: 03-04-2024 take 2 puff(s) by in halation twice daily budesonide-formoterol (SYMBICORT) 160-4.5 mcg/actuation inhaler Indications: Uncomplicated asthma, unspecified asthma severity, unspecified whether persistent Inhale 2 Puffs as instructed two times a day. 1 Each 5 03/04/2024 Active Start: 12-20-2023 End: 03-03-2024 take 2 puff(s) by inhalation twice daily budesonide-formoterol (SYMBICORT) 160-4.5 mcg/actuation inhaler Indications: Uncomplicated asthma, unspecified asthma severity, unspecified whether persistent Inhale 2 Puffs as instructed two times a day. 1 Each 5 12/20/2023 03/03/2024 Discontinued Start: 12-20-2023 take 2 puff(s) by in halation twice daily budesonide-formoterol (SYMBICORT) 160-4.5 mcg/actuation inhaler Indications: Uncomplicated asthma, unspecified asthma severity, unspecified whether persistent Inhale 2 Puffs as instructed two times a day. 1 Each 5 12/20/2023 Active Start: 11-27-2023 End: 12-20-2023 take 2 puff(s) by inhalation twice daily budesonide-formoterol (SYMBICORT) 80-4.5 mcg/actuation inhaler Indications: Moderate persistent asthma without complication Inhale 2 Puffs as instructed two times a day. 10.2 Each 2 11/27/2023 12/20/2023 Discontinued Start: 11-27-2023 take 2 puff(s) by in halation twice daily budesonide-formoterol (SYMBICORT) 80-4.5 mcg/actuation inhaler Indications: Moderate persistent asthma without complication Inhale 2 Puffs as instructed two times a day. 10.2 Each 2 11/27/2023 Active Start: 09-12-2023 End: 11-27-2023 take 2 puff(s) by inhalation twice daily budesonide-formoterol (SYMBICORT) 80-4.5 mcg/actuation inhaler Indications: Moderate persistent asthma without complication Inhale 2 Puffs as instructed two times a day. 10.2 Each 2 09/12/2023 11/27/2023 Discontinued Start: 09-12-2023 take 2 puff(s) by in halation twice daily budesonide-formoterol (SYMBICORT) 80-4.5 mcg/actuation inhaler Indications: Moderate persistent asthma without complication Inhale 2 Puffs as instructed two times a day. 10.2 Each 2 09/12/2023 Active Start: 04-14-2023 End: 09-12-2023 take 2 puff(s) by inhalation twice daily budesonide-formoterol (SYMBICORT) 160-4.5 mcg/actuation inhaler Indications: Moderate persistent asthma without complication Inhale 2 Puffs as instructed two times a day. 3 Each 3 04/14/2023 09/12/2023 Discontinued Start: 04-14-2023 take 2 puff(s) by in halation twice daily budesonide-formoterol (SYMBICORT) 160-4.5 mcg/actuation inhaler Indications: Moderate persistent asthma without complication Inhale 2 Puffs as instructed two times a day. 3 Each 3 04/14/2023 Active Comment on above: Inhale 2 Puffs as in structed two times a day. cholecalciferol 0.05 mg oral capsule (7 sources) Vitamin D Start: 10-22-19 take 1 capsule by mouth once daily Cholecalciferol, Vitamin D3, 50 mcg (2,000 unit) cap Take 1 capsule by mouth once daily. 10/21/2024 Active doxycycline hyclate 100 mg oral tablet (1 source) Tetracycline-class Drug Start: 07-31-19 End: 08-10-19 take 1 tablet by mouth twice daily doxycycline (VIBRA-TABS) 100 mg tablet Take 1 tablet by mouth twice daily for 10 days. 20 tablet 0 07/30/2021 08/09/2021 Active Comment on above: Take 1 tablet by nancy th twice daily for 10 days. fluticasone propionate 0.05 mg/actuat metered dose nasal spray (20 sources) Corticosteroid Start: 01-14-20 End: 04-02-19 take 2 spray(s) by mouth once daily fluticasone (FLONASE) 50 mcg/actuation nasal spray Indications: Dysfunction of both eustachian tubes Use 2 Sprays in each nostril once daily. Rinse mouth after 1 Each 11 04/03/2024 Active Comment on above: Use 2 Sprays in each nostril once daily. Rinse mouth after gabapentin 600 mg oral tablet (20 sources) Anti-epileptic Agent Start: 01-22-20 End: 04-03-19 26 take 1 tablet by mouth twice daily gabapentin (NEURONTIN) 600 mg tablet Indications: Idiopathic peripheral autonomic neuropathy Take 1 tablet by mouth two times a day. 180 tablet 3 04/03/2024 04/03/2025 Active Start: 01-13-2021 End: 01-13-2022 take 1 tablet by mouth twice daily gabapentin (NEURONTIN) 600 mg tablet Indications: Idiopathic peripheral autonomic neuropathy Take 1 tablet by mouth twice daily. 180 tablet 3 01/13/2021 01/13/2022 Discontinued Start: 09-20-2015 take 1 tablet by nanyc th twice daily Gabapentin (Gralise) 600 MG tablet extended release 24 hr Active 600 TABLET PO TWICE A DAY September 20, 2015 12:00am Comment on above: Take 1 tablet by nancy twice daily. Take 1 tablet by nancy th two times a day. levothyroxine sodium 0.15 mg oral tablet (20 sources) l-Thyroxine Start: 09-20-19 End: 12-06-19 take 1 tablet by mouth once daily for thyroid dysfunction levothyroxine (SYNTHROID) 150 mcg tablet Indications: Acquired hypothyroidism Take 1 tablet by mouth once daily. Take on empty stomach. For thyroid 90 tablet 3 12/06/2023 Active Comment on above: Take 1 tablet by nancy once daily. Take on empty stomach. For thyroid loratadine 10 mg oral tablet (20 sources) take 1 tablet by mouth once daily loratadine (CLARITIN) 10 mg tablet Take 10 mg by mouth once daily. Active End: 09-12-2023 take 1 capsule by mouth once daily loratadine 10 mg cap Take 1 capsule by mouth once daily. 09/12/2023 Discontinued Comment on above: Take 1 capsule by mo [facility] once daily. LORazepam 0.5 mg oral tablet (3 sources) Benzodiazepine Start: End: take 1 tablet by mouth three times daily as needed for anxiety LORazepam (ATIVAN) 0.5 mg Indications: Situational mixed anxiety and depressive disorder Take 1 tablet by mouth three times a day as needed (anxiety) for up to 7 days. 21 tablet 10/24/2023 10/31/2023 Active Start: 09-20-2015 take 0.5 mg by mouth once daily as needed Lorazepam Active 0.5 MG PO DAILY NEEDED September 20, 2015 12:00am meloxicam 15 mg oral tablet (7 sources) Nonsteroidal Anti-inflammatory Drug Start: 10-21-2024 take 1 tablet by mouth once daily meloxicam (MOBIC) 15 mg tablet Indications: Strain of left shoulder, initial encounter Take 1 tablet by mouth once daily. As directed 30 tablet 1 10/21/2024 Active montelukast 10 mg oral tablet (1 source) Leukotriene Receptor Antagonist Start: 09-25-2024 take 1 tablet by mouth once daily at bedtime montelukast (SINGULAIR) 10 mg tablet Take 1 tablet by mouth daily at bedtime. 30 tablet 5 09/25/2024 Active pantoprazole 40 mg delayed release oral tablet (20 sources) Proton Pump Inhibitor Start: 09-12-2023 End: 09-10-2024 take 1 tablet by mouth once daily before mealtime pantoprazole DR (PROTONIX) 40 mg tablet Take 1 tablet by mouth once daily. Take on empty stomach, 1/2 hr before meal. 90 tablet 3 09/10/2024 Active Start: 04-14-2023 End: 09-12-2023 take 1 tablet by mouth twice daily before mealtime pantoprazole DR (PROTONIX) 40 mg tablet Take 1 tablet by mouth two times a day. Take on empty stomach, 1/2 hr before meal. - September 13, 2021 - take morning and veneing. 180 tablet 3 04/14/2023 09/12/2023 Discontinued (Adjust Sig - Block E-Cancel) Start: 07-26-2022 End: 04-14-2023 take 1 tablet by mouth once daily before breakfast pantoprazole DR (PROTONIX) 40 mg tablet Take 1 tablet by mouth daily before breakfast. Take on empty stomach, 1/2 hr before meal. - September 13, 2021 - take morning and veneing. 180 tablet 3 03/15/2023 04/14/2023 Discontinued Start: 06-30-2020 End: 09-13-2021 take 1 tablet by mouth once daily before breakfast pantoprazole DR (PROTONIX) 40 mg tablet Take 1 tablet by mouth daily before breakfast. Take on empty stomach, 1/2 hr before meal. 180 tablet 3 06/30/2020 08/16/2021 Discontinued Comment on above: Take 1 tablet by nancy th daily before breakfast. Take on empty stomach, 1/2 hr before meal. Take 1 tablet by nancy th daily before breakfast. Take on empty stomach, 1/2 hr before meal. - September 13, 2021 - take morning and veneing. Take 1 tablet by nancy th two times a day. Take on empty stomach, 1/2 hr before meal. - September 13, 2021 - take morning and veneing. PARoxetine hydrochloride 20 mg oral tablet (20 sources) Serotonin Reuptake Inhibitor Start: End: take 1 tablet by mouth once daily PARoxetine (PAXIL) 20 mg tablet Indications: Panic disorder without agoraphobia Take 1 tablet by mouth once daily. 90 tablet 3 04/03/2024 Active Start: 09-20-2015 End: 08-13-2021 take 1 tablet by mouth once daily PARoxetine (PAXIL) 20 mg tablet Indications: Panic disorder without agoraphobia Take 1 tablet by mouth once daily. 90 tablet 3 01/13/2021 08/13/2021 Discontinued Comment on above: Take 1 tablet by nancy th once daily. predniSONE 10 mg oral tablet (1 source) Start: 01-28-2023 End: 02-03-2023 predniSONE (DELTASONE) 10 mg tablet Indications: Chronic cough , SOB (shortness of breath) Take by mouth 6 pills on day 1, 5 pills on day 2, 4 pills on day 3, 3 pills on day 4, 2 pills on day 5, 1 pill on day 6 21 tablet 0 01/28/2023 02/03/2023 Active Comment on above: Take by mouth 6 pill s on day 1, 5 pills on day 2, 4 pills on day 3, 3 pills on day 4, 2 pills on day 5, 1 pill on day 6 valsartan 160 mg oral tablet (5 sources) Angiotensin 2 Receptor Venkatesh Start: 11-07-2024 valsartan (DIOVAN) 160 mg tablet Indications: Essential hypertension Take one tablet two times per day 11/07/2024 Active Start: 10-29-2024 End: 11-07-2024 take 1 tablet by mouth once daily valsartan (DIOVAN) 160 mg tablet Indications: Essential hypertension Take 1 tablet by mouth once daily. 90 tablet 1 10/29/2024 11/07/2024 Discontinued zolpidem tartrate 10 mg oral tablet (20 sources) gamma-Aminobutyric Acid-ergic Agonist Start: 09-20-2015 End: 12-08-2024 take 1 tablet by mouth once daily at bedtime zolpidem (AMBIEN) 10 mg Indications: Insomnia, unspecified type Take 1 tablet by mouth daily at bedtime for 180 days. 90 tablet 1 06/11/2024 12/08/2024 Active Comment on above: Take 1 tablet by mouth daily at bedtime for 90 days. Take 1 tablet by nancy th daily at bedtime for 90 days. Do not start before June 19, 2022. Take 1 tablet by nancy th daily at bedtime for 180 days. Completed/Discontinued Medications Medication Drug Class(es) Dates Sig (Normalized) Sig (Original) 120 actuat budesonide 0.16 mg/actuat / formoterol fumarate 0.0048 mg/actuat / glycopyrrolate 0.009 mg/actuat metered dose inhaler (7 sources) Corticosteroid, beta2-Adrenergic Agonist Start: 03-28-2024 End: 06-11-2024 take 2 puff(s) by inhalation twice daily budesonide-glycopyr- formoterol (BREZTRI AEROSPHERE) 160-9-4.8 mcg/actuation HFA aerosol inhaler Inhale 2 Puffs as instructed two times a day. 1 Each 5 03/28/2024 06/11/2024 Discontinued cetirizine hydrochloride 10 mg oral tablet (2 sources) Histamine-1 Receptor Antagonist Start: 10-21-2024 End: 10-23-2024 take 1 tablet by mouth once daily cetirizine (ZYRTEC) 10 mg tablet Indications: Seasonal allergic rhinitis, unspecified trigger Take 1 tablet by mouth once daily. 10/21/2024 10/23/2024 Discontinued (Course of therapy completed) diphenhydrAMINE (20 sources) Histamine-1 Receptor Antagonist End: 09-12-2023 diphenhydramine HCl (ALLERGY ORAL) Take by mouth. 09/12/2023 Discontinued End: 09-12-2023 diphenhydramine HCl (ALLERGY ORAL) Take by mouth. 0 09/12/2023 Discontinued diphenhydramine HCl (ALLERGY ORAL) Take by mouth. 0 Active Comment on above: Take by mouth. fluticasone / salmeterol (6 sources) Corticosteroid, beta2-Adrenergic Agonist Start: 01-30-2023 End: 04-14-2023 take 1 puff(s) by mouth twice daily fluticasone-salmeterol (ADVAIR, WIXELA) 250-50 mcg/dose inhaler Indications: Moderate persistent asthma with acute exacerbation Inhale 1 Puff as instructed two times a day. Rinse mouth after use 60 Each 3 01/30/2023 04/14/2023 Discontinued Start: 01-30-2023 take 1 puff(s) by [facility] twice daily fluticasone-salmeterol (ADVAIR, WIXELA) 250-50 mcg/dose inhaler Indications: Moderate persistent asthma with acute exacerbation Inhale 1 Puff as instructed two times a day. Rinse mouth after use 60 Each 3 01/30/2023 Active Comment on above: Inhale 1 Puff as ins tructed two times a day. Rinse mouth after use 14 actuat fluticasone furoate 0.1 mg/actuat / vilanterol 0.025 mg/actuat dry powder inhaler (20 sources) Corticosteroid, beta2-Adrenergic Agonist Start: 09-13-2021 End: 03-28-2022 fluticasone-vilanterol (BREO ELLIPTA) 100-25 mcg/dose inhaler Inhale 1 Inhalation as instructed once daily. 30 Each 5 02/16/2022 03/28/2022 Discontinued Start: 08-13-2021 End: 09-13-2021 fluticasone-vilanterol (BREO ELLIPTA) 100-25 mcg/dose inhaler Inhale 1 Inhalation as instructed once daily. 30 Each 5 08/13/2021 09/13/2021 Discontinued Comment on above: Inhale 1 Inhalation as instructed once daily. fluticasone-umeclid in-vilanter (TRELEGY ELLIPTA) 200-62.5-25 mcg inhalation powder (18 sources) Start: End: take 1 puff(s) by inhalation once daily fluticasone-umeclidi n-vilanter (TRELEGY ELLIPTA) 200-62.5-25 mcg inhalation powder Indications: Chronic cough , Shortness of breath , Wheeze Inhale 1 Puff as instructed once daily. 60 Each 2 10/24/2022 12/02/2022 Discontinued Start: 10-24-2022 take 1 puff(s) by inhalation once daily pykcefynztp-iiichberr-mpuiekpy (TRELEGY ELLIPTA) 200-62.5-25 mcg inhalation powder Indications: Chronic cough , Shortness of breath , Wheeze Inhale 1 Puff as instructed once daily. 60 Each 2 10/24/2022 Active Start: 07-11-2022 End: 10-24-2022 take 1 puff(s) by inhalation once daily hjfydlnyijc-xralobeop-neyjtkgx (TRELEGY ELLIPTA) 200-62.5-25 mcg inhalation powder Indications: Chronic cough , Shortness of breath , Wheeze Inhale 1 Puff as instructed once daily. 60 Each 2 07/11/2022 10/24/2022 Discontinued Start: 07-11-2022 take 1 puff(s) by inhalation once daily hpeioxmiyic-vowdzhvsf-rlrjwuem (TRELEGY ELLIPTA) 200-62.5-25 mcg inhalation powder Indications: Chronic cough , Shortness of breath , Wheeze Inhale 1 Puff as instructed once daily. 60 Each 2 07/11/2022 Active Start: 03-28-2022 End: 07-11-2022 take 1 puff(s) by inhalation once daily vppggqmrxkb-zmwkdwbaq-ywmnspan (TRELEGY ELLIPTA) 200-62.5-25 mcg inhalation powder Indications: Chronic cough , Shortness of breath , Wheeze Inhale 1 Puff as instructed once daily. 60 Each 2 03/28/2022 07/11/2022 Discontinued Start: 03-28-2022 take 1 puff(s) by inhalation once daily iuxgdgwpygh-eqckuqhpt-tuzfvoqh (TRELEGY ELLIPTA) 200-62.5-25 mcg inhalation powder Indications: Chronic cough , Shortness of breath , Wheeze Inhale 1 Puff as instructed once daily. 60 Each 2 03/28/2022 Active Comment on above: Inhale 1 Puff as ins tructed once daily. hydroCHLOROthiazide 25 mg / triamterene 37.5 mg oral tablet (20 sources) Potassium-sparing Diuretic, Thiazide Diuretic Start: End: take 1 tablet by mouth once daily triamterene-hydroCH LOROthiazide (MAXZIDE-25) 37.5-25 mg per tablet Take 1 tablet by mouth once daily. 90 tablet 3 10/02/2020 08/13/2021 Discontinued Comment on above: Take 1 tablet by nancy th once daily. Take 0.5 tablets by mouth once daily. ibuprofen 200 mg oral capsule (20 sources) Nonsteroidal Anti-inflammatory Drug End: Ibuprofen 200 mg cap Take by mouth as needed. 12/20/2023 Discontinued (Course of therapy completed) Comment on above: Take by mouth as nee ded. Inhalational Spacing Device (20 sources) Start: End: 023 Inhalational Spacing Device Use as directed with albuterol 1 Each 07/20/2021 12/15/2022 Discontinued Start: 07-20-2021 End: 12-15-2022 Inhalational Spacing Device Use as directed with albuterol 1 Each 0 07/20/2021 12/15/2022 Discontinued Start: 07-20-2021 Inhalational S pacing Device Use as directed with albuterol 1 Each 0 07/20/2021 Active Comment on above: Use as directed with albuterol ipratropium bromide 0.042 mg/actuat metered dose nasal spray (18 sources) Anticholinergic Start: 12-03-19 End: 06-13-19 ipratropium bromide (ATROVENT) 42 mcg (0.06 %) nasal spray Use 2 Sprays in the nose four times a day as needed. 15 mL 1 12/02/2022 06/13/2023 Discontinued Comment on above: Use 2 Sprays in the nose four times a day as needed. losartan potassium 100 mg oral tablet (20 sources) Angiotensin 2 Receptor Venkatesh Start: 09-12-19 End: 10-30-19 take 1 tablet by mouth once daily losartan (COZAAR) 100 mg tablet Indications: Essential hypertension Take 1 tablet by mouth once daily. 90 tablet 1 06/11/2024 10/29/2024 Discontinued (Clinical Decision) Start: 07-26-2022 End: 09-12-2023 take 1 tablet by mouth once daily, then take 1 tablet by mouth once daily losartan (COZAAR) 50 mg tablet Indications: Essential hypertension Take 1 tablet by mouth once daily. PILL DOSE CHANGE DUE TO BACK ORDER, TAKE ONE 50 MG DAILY 90 tablet 3 07/26/2022 06/13/2023 Discontinued Start: 06-30-2020 End: 08-16-2021 take 1 tablet by mouth once daily, then take 1 tablet by mouth once daily losartan (COZAAR) 50 mg tablet Indications: Essential hypertension Take 1 tablet by mouth once daily. PILL DOSE CHANGE DUE TO BACK ORDER, TAKE ONE 50 MG DAILY 90 tablet 3 06/30/2020 08/16/2021 Discontinued Start: 09-20-2015 take 50 mg by mouth once daily Losartan Active 50 MG PO DAILY September 20, 2015 12:00am Comment on above: Take 1 tablet by nancy th once daily. PILL DOSE CHANGE DUE TO BACK ORDER, TAKE ONE 50 MG DAILY omeprazole 40 mg delayed release oral capsule (20 sources) Proton Pump Inhibitor Start: 0 End: 2 take 1 capsule by mouth twice daily omeprazole (PRILOSEC) 40 mg capsule Take 1 capsule by mouth twice daily. 180 capsule 3 01/14/2020 08/16/2021 Discontinued Start: 09-20-2015 take 20 mg by mouth twice mando y Omeprazole Active 20 MG PO TWICE A DAY September 20, 2015 12:00am Comment on above: Take 1 capsule by mo uth twice daily. vitamin b12 1 mg sublingual tablet (20 sources) Vitamin B12 Start: 07-22-2016 End: 06-13-2023 Cyanocobalamin (VITAMIN B-12) 1,000 mcg subl Dissolve 1 tablet under the tongue once daily. 07/22/2016 06/13/2023 Discontinued Start: 09-20-2015 take 1000 ug by mout h once daily Cyanocobalamin (Vitamin B-12) Active 1000 MCG PO DAILY September 20, 2015 12:00am Comment on above: Dissolve 1 tablet un flex the tongue once daily. Problems Active Problems Problem Classification Problem Date Documented Date Episodic/Chronic Abdominal hernia (2 sources) Hiatal hernia; Translations: [Diaphragmatic hernia without obstruction or gangrene] Onset: 06-28-2023 06-13-2023 Episodic Adjustment disorders (2 sources) Mixed anxiety and depressive disorder; Translations: [Adjustment disorder with mixed anxiety and depressed mood] 10-24-2023 Chronic Administrative/socia l admission (1 source) Sickness in the family; Translations: [Other stressful life events affecting family and household] Episodic Anxiety disorders (20 sources) Panic disorder without agoraphobia; Translations: [Panic disorder [episodic paroxysmal anxiety]] Onset: 04-26-2016 11-23-2004 Chronic Asthma (20 sources) Exacerbation of moderate persistent asthma; Translations: [Moderate persistent asthma with (acute) exacerbation] Onset: 03-28-2024 01-30-2023 Chronic Chronic kidney disease (20 sources) Chronic kidney disease stage 3A ; Translations: [Stage 3a chronic kidney disease (HCC)] Onset: 03-28-2021 Chronic Chronic obstructive pulmonary disease and bronchiectasis (1 source) Mucopurulent chronic bronchitis; Translations: [Mucopurulent chronic bronchitis] Chronic Diabetes mellitus without complication (2 sources) Impaired fasting glycemia; Translations: [Impaired fasting glucose] Episodic Disorders of lipid metabolism (1 source) Raised low density lipoprotein cholesterol; Translations: [Pure hypercholesterolemia, unspecified] 12-15-2022 Chronic Esophageal disorders (20 sources) Gastroesophageal reflux disease; Translations: [Gastro-esophageal reflux disease without esophagitis] Onset: 11-23-2004 11-23-2004 Chronic Essential hypertension (20 sources) Essential hypertension; Translations: [Essential (primary) hypertension] Onset: 03-11-2015 03-11-2015 Chronic Hypertension with complications and secondary hypertension (20 sources) Hypertensive renal disease; Translations: [Hypertensive chronic kidney disease with stage 1 through stage 4 chronic kidney disease, or unspecified chronic kidney disease] Onset: 04-27-2022 04-27-2022 Chronic Immunizations and screening for infectious disease (5 sources) Vaccination needed; Translations: [Encounter for immunization] Episodic Miscellaneous mental health disorders (1 source) Psychophysiologic insomnia; Translations: [Psychophysiologic insomnia] Chronic Mood disorders (20 sources) Recurrent major depressive episodes, moderate ; Translations: [Major depressive disorder, recurrent, moderate] Onset: 06-13-2023 06-13-2023 Chronic Nonspecific chest pain (2 sources) Precordial pain; Translations: [Precordial pain] 04-14-2023 Episodic Nutritional deficiencies (3 sources) Vitamin D deficiency; Translations: [Vitamin D deficiency, unspecified] Onset: 10-21-2024 06-11-2024 Chronic Other aftercare (3 sources) Patient encounter status; Translations: [Other halfway (current) drug therapy] 12-02-2022 Episodic Other aftercare (1 source) Long-term current use of drug therapy; Translations: [Other halfway (current) drug therapy] 12-06-2023 Episodic Other circulatory disease (1 source) Disorder of aorta; Translations: [Stricture of artery] 07-28-2023 Chronic Other hereditary and degenerative nervous system conditions (20 sources) Idiopathic peripheral autonomic neuropathy; Translations: [Other idiopathic peripheral autonomic neuropathy] Onset: 04-26-2016 04-26-2016 Chronic Other lower respiratory disease (7 sources) Cough; Translations: [Cough] Episodic Other lower respiratory disease (8 sources) Dyspnea; Translations: [Shortness of breath] Episodic Other lower respiratory disease (8 sources) Wheezing; Translations: [Wheezing] Episodic Other lower respiratory disease (6 sources) Chronic cough; Translations: [Chronic cough] Episodic Other lower respiratory disease (3 sources) Dyspnea on exertion; Translations: [Other forms of dyspnea] Episodic Other lower respiratory disease (1 source) Other forms of dyspnea; Translations: [BURNETT (dyspnea on exertion)] Onset: 11-22-2024 Episodic Other nervous system disorders (20 sources) Carpal tunnel syndrome of right wrist; Translations: [Carpal tunnel syndrome, right upper limb] Onset: 10-18-2013 10-18-2013 Chronic Other nervous system disorders (20 sources) Carpal tunnel syndrome of left wrist; Translations: [Carpal tunnel syndrome, left upper limb] Onset: 10-22-2013 10-22-2013 Chronic Other nervous system disorders (1 source) Polyneuropathy; Translations: [Other specified polyneuropathies] 12-06-2023 Chronic Other nervous system disorders (2 sources) Impaired cognition; Translations: [Other symptoms and signs involving cognitive functions and awareness] 06-11-2024 Episodic Other nutritional; endocrine; and metabolic disorders (20 sources) Obesity; Translations: [Other obesity due to excess calories] 03-28-2021 Chronic Other nutritional; endocrine; and metabolic disorders (20 sources) Obesity caused by energy imbalance; Translations: [Other obesity due to excess calories] 03-28-2021 Chronic Other nutritional; endocrine; and metabolic disorders (1 source) Obese class II; Translations: [Class 2 obesity] 03-28-2024 Chronic Other upper respiratory disease (20 sources) Allergic rhinitis; Translations: [Allergic rhinitis, unspecified] 11-23-2004 Chronic Other upper respiratory disease (1 source) Other seasonal allergic rhinitis; Translations: [Seasonal allergic rhinitis, unspecified trigger] Onset: 10-21-2024 Chronic Other upper respiratory disease (1 source) Allergic rhinitis, unspecified; Translations: [Allergic rhinitis, unspecified seasonality, unspecified trigger] Onset: 09-25-2024 Chronic Other upper respiratory infections (1 source) Upper respiratory infection; Translations: [Acute upper respiratory infection, unspecified] 01-30-2023 Episodic Otitis media and related conditions (3 sources) Dysfunction of bilateral eustachian tubes; Translations: [Other specified disorders of Eustachian tube, bilateral] Episodic Residual codes; unclassified (20 sources) Obstructive sleep apnea syndrome; Translations: [Obstructive sleep apnea (adult) (pediatric)] Onset: 04-26-2016 10-20-2016 Chronic Residual codes; unclassified (20 sources) Insomnia; Translations: [Insomnia, unspecified] 11-23-2004 Episodic Residual codes; unclassified (1 source) Edema of foot; Translations: [Localized edema] 12-06-2023 Episodic Sprains and strains (1 source) Strain of unspecified muscle, fascia and tendon at shoulder and upper arm level, left arm, initial encounter; Translations: [Strain of left shoulder, initial encounter] Onset: 10-21-2024 Episodic Thyroid disorders (20 sources) Hypothyroidism; Translations: [Hypothyroidism, unspecified] Onset: 03-15-2015 03-15-2015 Chronic Past or Other Problems Problem Classification Problem Date Documented Da te Episodic/Chronic Hepatitis (20 sources) 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; Translations: [Hepatitis in viral diseases classified elsewhere] Resolved: 10-25-2013 10-25-2013 Episodic Other aftercare (1 source) Encounter for therapeutic drug level monitoring; Translations: [Encounter for therapeutic drug monitoring] Onset: 09-09-2024 Episodic Other aftercare (1 source) Other ferry terminal agent (current) drug therapy; Translations: [Encounter for long-term current use of medication] Onset: 06-04-2024 Episodic Other and unspecified benign neoplasm (20 sources) Benign neoplasm of skin of upper limb; Translations: [Other benign neoplasm of skin of unspecified upper limb, including shoulder] Onset: 12-05-2008 12-05-2008 Episodic Other connective tissue disease (20 sources) Calcaneal spur; Translations: [Calcaneal spur, unspecified foot] Onset: 09-26-2006 09-26-2006 Episodic Other connective tissue disease (20 sources) Bilateral impingement syndrome of shoulders; Translations: [Impingement syndrome of right shoulder] Onset: 09-09-2013 09-09-2013 Episodic Other injuries and conditions due to external causes (20 sources) H/O: fracture; Translations: [Personal history of (healed) traumatic fracture] Onset: 04-22-2010 09-06-2019 Episodic Other nervous system disorders (1 source) Other symptoms and signs involving cognitive functions and awareness; Translations: [Cognitive impairment] Onset: 09-09-2024 Episodic Other non-traumatic joint disorders (20 sources) Bilateral hip joint pain; Translations: [Pain in right hip] Onset: 08-21-2018 08-21-2018 Episodic Other non-traumatic joint disorders (20 sources) Pain in lower limb; Translations: [Pain in unspecified knee] Onset: 08-13-2008 Resolved: 09-06-2019 09-06-2019 Episodic Other non-traumatic joint disorders (20 sources) Shoulder joint pain; Translations: [Pain in unspecified shoulder] Onset: 09-20-2013 Resolved: 09-06-2019 09-06-2019 Episodic Other nutritional; endocrine; and metabolic disorders (20 sources) Body mass index 40+ - severely obese; Translations: [Morbid (severe) obesity due to excess calories] Onset: 04-04-2019 Resolved: 12-15-2022 04-04-2019 Chronic Other screening for suspected conditions (not mental disorders or infectious disease) (20 sources) Mammography abnormal; Translations: [Other abnormal and inconclusive findings on diagnostic imaging of breast] Onset: 11-05-2008 11-05-2008 Episodic Residual codes; unclassified (1 source) Insomnia, unspecified; Translations: [Insomnia, unspecified type] Onset: 11-23-2004 Episodic Results Test Name Value Interpretation Reference Range Facility [facility] 11-22-2024 OV Office Visit (INTMWS ) MAE GRANT ([id number]) 1945 F Date Time Provider Department 11/22/24 1:00 PM TON GAN INTMWS During your visit today, we recorded the following information about you: Pulse Respiration Blood pressure Weight 71/minute 16/minute 144/89 109 kg Ton Gan APRN.MRI MANAGER 11/22/2024 1:47 PM Signed Subjective Patient ID: Mae is a 79 year old female who presents for Recheck. [facility] Mae Grant is a 79-year-old female with hypertension, presenting for evaluation and management of elevated home blood pressure readings. Hypertension: - Mae Grant is monitoring BP at home; readings range from 140/83 to 201/122. - Mae noted elevated BP after physical activity, such as walking around [employer]. - Mae takes antihypertensive medication at 08:00 and 20:00. - Mae reports occasional mild headaches. - Mae denies chest pain, palpitations, or significant dyspnea. She notes some BURNETT attributed to deconditioning as she has not recently gone to the gym. - Mae is reducing sodium intake. - Mae denies history of CVA or [place]. - Mae expresses concern about potential arterial blockage. - Mae reports being a worrier, which may contribute to stress levels. - Mae joined [employer] to increase physical activity. - Mae reports occasional wobbliness; attributes it to lack of exercise. HTN: Without report of headache, chest pain, palpitations, dyspnea, peripheral edema, orthopnea, fatigue, and PND. Last 14 Encounter BP Readings: Date: BP: 11/22/2024 144/89 11/07/2024 160/94[bp average[ 10/29/2024 164/112 10/21/2024 162/90 09/25/2024 155/94 09/10/2024 122/80 06/11/2024 154/82 03/28/2024 132/82 12/06/2023 137/82 10/24/2023 160/88 09/12/2023 118/68 06/13/2023 102/68 01/30/2023 130/78 01/28/2023 138/82 Objective BP 144/89 Pulse 71 Resp 16 Wt 109 kg (240 lb 4.8 oz) SpO2 94% BMI 38.79 kg/m? Physical Exam Vitals and nursing note reviewed. Constitutional: Appearance: Normal appearance. HENT: Head: Normocephalic and atraumatic. Eyes: Conjunctiva/sclera: Conjunctivae normal. Cardiovascular: Rate and Rhythm: Normal rate and regular rhythm. Heart sounds: Normal heart sounds. Pulmonary: Effort: Pulmonary effort is normal. Breath sounds: Normal breath sounds. Musculoskeletal: Right lower leg: No edema. Left lower leg: No edema. Neurological: Mental Status: She is alert. 1. Essential hypertension (I10) - BP improved by 20 points since last visit; home readings generally good, but occasional elevated readings noted after activity. - On maximum dose of current antihypertensive. - Start amlodipine 2.5 mg PO as needed for SBP >150 mmHg or DBP >80 mmHg. - Educated on proper BP measurement technique: sit and rest for 15 minutes before checking, feet on the floor, arm supported, avoid stressors. - Discussed age-adjusted BP targets (=150/80 mmHg) and rationale for not pursuing lower targets to avoid overtreatment and hypotension. - Advised to continue daily BP monitoring and to take additional amlodipine dose if BP exceeds 150/80 mmHg after proper rest. - Encouraged regular exercise to improve cardiovascular efficiency and overall BP control. - Advised to seek medical attention for chest pain, shortness of breath, or palpitations. If consistently needing amlodipine can switch to daily instead of as needed dosing. If shortness of breath on exertion persist after resuming exercise consider additional testing such as echocardiogram or PFT. Recheck BP NOv. 2. Acquired hypothyroidism (E03.9) Continue present management unchanged. - Refilled thyroid medication. 3. Insomnia, unspecified type (G47.00) Continue present management unchanged. Refilled zolpidem. 4. BURNETT (dyspnea on exertion) (R06.09) - Likely related to allergies and deconditioning. - Encouraged gradual increase in physical activity, starting with walking. Ton Gan APRN.MRI MANAGER Medical Decision Making: Problems: Moderate: 1+ chronic illnesses with change Risk: Moderate: Drug management Medical Decision Making Level: 4 - Moderate Ton Gan APRN.MRI MANAGER 11/22/2024 1:32 PM Addendum - Continue your current blood pressure pills twice daily (one pill at 8 AM and one at 8 PM) as you have been doing. - Sit quietly for 15 minutes before checking your blood pressure: keep your feet flat on the floor, rest your arm at heart level, and avoid stressful stimuli (for example, don?t watch the news--try a relaxing show). - Measure your blood pressure once a day for the next few weeks and record your readings. - If your blood pressure is 150/80 mmHg or higher when you check it, take the small dose of amlodipine that was prescribed as your ?backup? pill. - Start gentle exercise, such as walking with the [facility] bhupinder (more content not included)... Normal [facility] CNOVon 11-07-2024 CNOV Office Visit (INTMWS ) MAE GRANT ([id number]) 1945 F Date Time Provider Department 11/07/24 12:00 PM TON GAN INTMWS During your visit today, we recorded the following information about you: Pulse Respiration Blood pressure Weight 71/minute 16/minute 160/94 110.5 kg Ton Gan APRN.MRI MANAGER 11/07/2024 1:05 PM Addendum , so there Subjective HPI Mae Grant is a 79 year old female. 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 The patient is a 79-year-old female with hypertension, presenting for evaluation of uncontrolled blood pressure. Hypertension: - Recent medication change to Valsartan, taking once daily for at least a week. - Mae's home blood pressure readings consistently high, similar to today's office readings; highest recorded at 195/123 mmHg. - No adverse effects from Valsartan. - Mae has concerns about the effectiveness of current medication. - Denies chest pain or palpitations. - Occasional ankle edema, but not currently present. - Reducing salt intake; denies consuming frozen meals, but occasionally eats out. - Recent lab work showed normal kidney function. Home blood pressure readings are consistent with what is obtained in the office today. Dyspnea: - Dyspnea postprandially, especially when walking. - Denies chest pain, palpitations edema. Anxiety: - for the past year; describes herself as a worrier. - Mae has concerns about high blood pressure and family safety. Daughters are in [place] have included time. Musculoskeletal Pain: - Mild arm pain, suspected muscle strain from weeks ago. - Taking meloxicam PRN, not daily. ANA on CPAP - ICD9: 327.23, ICD10: G47.33 Uses daily with no issues HTN: Without report of headache, chest pain, palpitations, dyspnea, peripheral edema, orthopnea, fatigue, and PND. Last 14 Encounter BP Readings: Date: BP: 11/07/2024 160/94[bp average[ 10/29/2024 164/112 10/21/2024 162/90 09/25/2024 155/94 09/10/2024 122/80 06/11/2024 154/82 03/28/2024 132/82 12/06/2023 137/82 10/24/2023 160/88 09/12/2023 118/68 06/13/2023 102/68 01/30/2023 130/78 01/28/2023 138/82 12/02/2022 80/54 TSH Date Value 09/09/2024 0.968 mIU/L 06/04/2024 6.230 mIU/L 08/25/2020 3.060 uU/mL 09/11/2019 1.830 uU/mL ) Hyperlipidemia. Her most recent lipid panels are: Cholesterol, Total (mg/dL) Date Value 06/04/2024 151 05/24/2023 145 03/30/2017 166 04/06/2016 167 HDL Cholesterol (mg/dL) Date Value 06/04/2024 32 05/24/2023 27 03/30/2017 30 04/06/2016 26 LDL Cholesterol, Calculated (mg/dL) Date Value 06/04/2024 98 05/24/2023 85 03/30/2017 114 04/06/2016 110 LDL Cholesterol Calculated, Nonfasting (mg/dL) Date Value 12/02/2022 82 Triglyceride (mg/dL) Date Value 06/04/2024 104 05/24/2023 163 03/30/2017 110 04/06/2016 157 Creatinine Date Value Ref Range Status 10/29/2024 0.86 0.58 - 0.96 mg/dL Final 09/09/2024 0.92 0.58 - 0.96 mg/dL Final 06/04/2024 0.94 0.58 - 0.96 mg/dL Final 10/17/2023 0.96 0.58 - 0.96 mg/dL Final ROS Cardiovascular: (-) chest pain, (-) palpitations, (-) peripheral edema Respiratory: (+) shortness of breath Musculoskeletal: (+) arm pain Neurological: (+) memory impairment Psychiatric: (+) anxiety Objective BP 160/94 Pulse 71 Resp 16 Wt 110.5 kg (243 lb 9.7 oz) SpO2 96% BMI 39.32 kg/m? Physical Exam Vitals and nursing note reviewed. Constitutional: General: She is not in acute distress. Appearance: She is not ill-appearing or diaphoretic. HENT: Head: Normocephalic and atraumatic. Eyes: Conjunctiva/sclera: Conjunctivae normal. Cardiovascular: Rate and Rhythm: Normal rate. Pulmonary: Effort: Pulmonary effort is normal. No respiratory distress. Breath sounds: Normal breath sounds. No wheezing, rhonchi or rales. Musculoskeletal: Right lower leg: No edema. Left lower leg: No edema. Skin: General: Skin is warm and dry. Neurological: Mental Status: She is (more content not included)... Normal [facility] Basic metabolic 2000 panelon 10-29-2024 Anion gap [Moles/Vol] 12 mmol/L 8 - 15 mmol/L [facility] Calcium [Mass/Vol] 9.3 mg/dL 8.5 - 10. 2 mg/dL [facility] Chloride [Moles/Vol] 105 mmol/L 98 - 10 7 mmol/L [facility] CO2 [Moles/Vol] 22 mmol/L 22 - 30 mmol/L [facility] Creatinine [Mass/Vol] 0.86 mg/dL 0.58 - 0.96 mg/dL [facility] GFR/1.73 sq M.predicted among non-blacks MDRD (S/P/Bld) [Vol rate/Area] 69 mL/min/{1.73_m2} - PINF [facility] Comment on above: Estimated Glomerular Filtration Rate (eGFR) is calculated using the 2020 CKD-EPI creatinine equation. This equation utilizes serum creatinine, sex, and age as parameters. The creatinine assay has traceable calibration to isotope dilution-mass spectrometry. Refer to KDIGO guidelines for clinical interpretation. In patients with unstable renal function, e.g. those with acute kidney injury, the eGFR may not accurately reflect actual GFR. Glucose [Mass/Vol] 91 mg/dL 74 - 99 mg/dL [facility] Comment on above: The [place] Diab[employer] Association (ADA) provides guidance for cutoff values for fasting glucose and random glucose. The ADA defines fasting as no caloric intake for at least 8 hours. Fasting plasma glucose results between 100 to 125 mg/dL indicate increased risk for diabetes (prediabetes). Fasting plasma glucose results greater than or equal to 126 mg/dL meet the criteria for diagnosis of diabetes. In the absence of unequivocal hyperglycemia, results should be confirmed by repeat testing. In a patient with classic symptoms of hyperglycemia or hyperglycemic crisis, random plasma glucose results greater than or equal to 200 mg/dL meet the criteria for diagnosis of diabetes. Reference: Standards of Medical Care in Diabetes 2016, [place] Diabetes Association. Diabetes Care. 2016.39(Suppl 1). Interpretation and review of laboratory results Abnormal [facility] Potassium [Moles/Vol] 4.5 mmol/L 3.7 - 5.1 mmol/L [facility] Sodium [Moles/Vol] 139 mmol/L 136 - 144 mmol/L [facility] Urea nitrogen [Mass/Vol] 23 mg/dL High 7 - 21 mg/dL [facility] Anion gap [Moles/Vol] 12 mmol/L Normal 8-15 [facility] Comment on above: Order Comment: Speci men Type: BLOOD SPECIMEN Ordering Facility: [facility] Address: [address] [place] [address] Performed By: #### 5 7021-8 #### [facility] CLIA [id number] [address] [place], [place] [address] [address] [place] Calcium [Mass/Vol] 9.3 mg/dL Normal 8.5-10.2 [facility] Comment on above: Order Comment: Speci men Type: BLOOD SPECIMEN Ordering Facility: [facility] Address: [address] [place] [address] Performed By: #### 5 7021-8 #### [facility] CLIA [id number] [address] [place] [address] [place] Chloride [Moles/Vol] 105 mmol/L Normal 98-107 [facility] Comment on above: Order Comment: Speci men Type: BLOOD SPECIMEN Ordering Facility: [facility] Address: [address] [place] [address] Performed By: #### 5 7021-8 #### [facility] CLIA [id number] [address] [place] [address] [place] CO2 [Moles/Vol] 22 mmol/L Normal 22-30 [facility] Comment on above: Order Comment: Speci men Type: BLOOD SPECIMEN Ordering Facility: [facility] Address: [address] [place] [address] Performed By: #### 5 7021-8 #### [facility] CLIA [id number] [address] [place] [address] [place] Creatinine [Mass/Vol] 0.86 mg/dL Normal 0.58-0.96 [facility] Comment on above: Order Comment: Speci men Type: BLOOD SPECIMEN Ordering Facility: [facility] Address: [address] [place] [address] Performed By: #### 5 7021-8 #### [facility] CLIA [id number] [address] [place] [address] [place] eGFRcr SerPlBld CKD-EPI 2020 69 mL/min/1.73m??? Normal >=60 [facility] Comment on above: Order Comment: Speci men Type: BLOOD SPECIMEN Ordering Facility: [facility] Address: [address] [place] [address] Result Comment: Nikki mated Glomerular Filtration Rate (eGFR) is calculated using the 2020 CKD-EPI creatinine equation. This equation utilizes serum creatinine, sex, and age as parameters. The creatinine assay has traceable calibration to isotope dilution-mass spectrometry. Refer to KDIGO guidelines for clinical interpretation. In patients with unstable renal function, e.g. those with acute kidney injury, the eGFR may not accurately reflect actual GFR. Performed By: #### 5 7021-8 #### [facility] CLIA [id number] [address] [place] [address] [place] Glucose [Mass/Vol] 91 mg/dL Normal 74-99 [facility] Comment on above: Order Comment: Jennifer hollins Type: BLOOD SPECIMEN Ordering Facility: [facility] Address: [address] [place] [address] Result Comment: The [place] Diabetes Association (ADA) provides guidance for cutoff values for fasting glucose and random glucose. The ADA defines fasting as no caloric intake for at least 8 hours. Fasting plasma glucose results between 100 to 125 mg/dL indicate increased risk for diabetes (prediabetes). Fasting plasma glucose results greater than or equal to 126 mg/dL meet the criteria for diagnosis of diabetes. In the absence of unequivocal hyperglycemia, results should be confirmed by repeat testing. In a patient with classic symptoms of hyperglycemia or hyperglycemic crisis, random plasma glucose results greater than or equal to 200 mg/dL meet the criteria for diagnosis of diabetes. Reference: Standards of Medical Care in Diabetes 2016, [place] [employer]. Diabetes Care. 2016.39(Suppl 1). Performed By: #### 5 7021-8 #### [facility] CLIA [id number] [address] [place] [address] [place] Potassium [Moles/Vol] 4.5 mmol/L Normal 3.7-5.1 [facility] Comment on above: Order Comment: Jennifer hollins Type: BLOOD SPECIMEN Ordering Facility: [facility] Address: [address] [place] [address] Performed By: #### 5 7021-8 #### [facility] CLIA [id number] [address] [place] [address] [place] Sodium [Moles/Vol] 139 mmol/L Normal 136-144 [facility] Comment on above: Order Comment: Speci men Type: BLOOD SPECIMEN Ordering Facility: [facility] Address: [address] [place] [address] Performed By: #### 5 7021-8 #### [facility] CLIA [id number] [address] [place] [address] [place] Urea nitrogen [Mass/Vol] 23 mg/dL High 7-21 [facility] Comment on above: Order Comment: Speci men Type: BLOOD SPECIMEN Ordering Facility: [facility] Address: [address] [place] [address] Performed By: #### 5 7021-8 #### [facility] CLIA [id number] [address] [place] [address] [place] CNOVon 10-29-2024 CNOV Office Visit (FAMPWS ) MAE GRANT ([id number]) 1945 F Date Time Provider Department 10/29/24 11:40 AM [facility] During your visit today, we recorded the following information about you: Pulse Respiration Blood pressure Weight 72/minute 14/minute 164/112 111.3 kg Eligio Felix MD 10/29/2024 12:23 PM Signed Chief Complaint Patient presents with: Blood Pressure: Hypertension HPI Mae Grant is a 79 year old female who presents here today for Above Complaints.. Patient with Hx of HTN. Mae Grant is a 79-year-old female with a history of HTN, presenting with elevated blood pressure readings over the past week. Mae reports elevated blood pressure readings since the , with home measurements ranging from 123/77 to 183/111, most frequently in the 150s/90s. She denies cephalalgia, blurred vision, or chest tightness. She notes chronic dyspnea, particularly when walking uphill to retrieve mail, requiring occasional pauses to catch her breath; however, she reports no worsening of dyspnea over the past week. Mae has observed increased pedal edema but denies swelling extending to the legs. She mentions dietary habits have not changed recently. She took her antihypertensive medication, losartan 100 mg, this morning. Past medical history, appointments, medications, allergies reviewed. Previous Medical History PAST MEDICAL HISTORY Diagnosis Date Abdominal pain, unspecified site Acute gastritis without mention of hemorrhage Allergic rhinitis, cause unspecified Allergic rhinitis Arthritis Cough variant asthma (HCC) DDD (degenerative disc disease), cervical mild to moderate on MRI June 2013 Diarrhea Esophageal reflux Hepatitis in viral diseases classified elsewhere(573.1) Associated with mono (EBV) infection in early 2001 Insomnia, unspecified Obesity, unspecified ANA (obstructive sleep apnea) On CPAP Osteopenia Panic disorder without agoraphobia Unspecified essential hypertension Unspecified hypothyroidism Previous Surgical History PAST SURGICAL HISTORY Procedure Laterality Date ABDOMINAL SURGERY HX BIOPSY BREAST OPEN INCISIONAL Right Bx of breast, incisional BREAST SURGERY HX BX BREAST PERC VACUUM/ROTN 11/10/2008 Left COLONOSCOPY FLX DX W/COLLJ SPEC WHEN PFRMD 10/20/2006 10 yr repeat COLONOSCOPY FLX DX W/COLLJ SPEC WHEN PFRMD 05/12/2016 Colonoscopy mac EGD TRANSORAL BIOPSY SINGLE/MULTIPLE 10/20/2006 ESOPHAGOGASTRODUODENOS COPY TRANSORAL DIAGNOSTIC 05/12/2016 EGD mac EYE SURGERY HX INCISE FINGER TENDON SHEATH Right 09/10/2020 Right thumb and ring trigger finger releases KNEE ARTHROSCOPY Left 2016 LIG/TRNSXJ FLP TUBE ABDL/VAG APPR UNI/BI Tubal ligation NEUROPLASTY AND/TRANSPOS MEDIAN NRV CARPAL TUNNE 11/01/2013 Carpal tunnel decomp left PAST SURGICAL HISTORY OF 03/[address] solano , uvelctomy PAST SURGICAL HISTORY OF mole head and wrist PAST SURGICAL HISTORY OF b/l cataract surgery REVISE MEDIAN N/CARPAL TUNNEL SURG 10/18/2013 right Family History FAMILY HISTORY Problem Relation Age of Onset Cancer Father bladder Hypertension Father Diabetes Maternal Grandmother of blood clot Asthma Maternal Grandmother Heart Maternal Grandfather of mi , alcoholic Alzheimer's Disease Paternal Grandfather Allergies Paternal Grandfather other (Psoriatic arthritis) Grandson Asthma Granddaughter 2 granddaughters Patient Allergies ALLERGIES Allergen Reactions Atenolol palpitations, chest discomfort Silenor [Doxepin] Other: See Comments palpitations (heart fluttered and chest felt strange) Tramadol Other: See Comments Unable to sleep - keeps her hyper Current Medications Current Outpatient Medications on File Prior to Visit Medication Sig loratadine (CLARITIN) 10 mg tablet Take 10 mg by mouth once daily. meloxicam (MOBIC) 15 mg tablet Take 1 tablet by mouth once daily. As directed Cholecalciferol, Vitamin D3, 50 mcg (2,000 unit) cap Take 1 capsule by mouth once daily. budesonide-formoterol (SYMBICORT) 160-4.5 mcg/actuation inhaler Inhale 2 puffs as instructed two times a day. pantoprazole DR (PROTONIX) 40 mg tablet Take 1 tablet by mouth once daily. Take on empty stomach, 1/2 hr before meal. zolpidem (AMBIEN) 10 mg Take 1 tablet by mouth daily at bedtime for 180 days. losartan (COZAAR) 100 mg tablet Take 1 tablet by mouth once daily. fluticasone (FLONASE) 50 mcg/actuation nasal spray Use 2 Sprays in each nostril once daily. Rinse mouth after gabapentin (NEURONTIN) 600 mg tablet Take 1 tablet by mouth two times a day. PARoxetine (PAXIL) 20 mg tablet Take 1 tablet by mouth once daily. levothyroxine (SYNTHROID) 150 mcg tablet Take 1 tablet by mouth once daily. Take on empty stomach. For thyroid albuterol HFA (PROVENTIL HFA, VENTOLIN HFA) 90 mcg/actuation inhaler I (more content not included)... Normal [facility] CNOVon 10-23-2024 CNOV Office Visit (PULMWS ) MAE GRANT ([id number]) 1945 F Date Time Provider Department 10/23/24 8:30 AM JESSICA WONG [facility] During your visit today, we recorded the following information about you: Pulse Respiration Weight 85/minute 15/minute 110.7 kg Jessica Wong APRN.[facility] 10/23/2024 9:02 AM Signed Pulmonary Medicine Patients name: Mae Grant PCP: Racquel Centeno MD CC: follow-up HPI: Mae Grant is a 79 year old female never smoker with PMH significant for obesity, ANA on CPAP, HTN, hypothyroidism, GERD, allergic rhinitis, and chronic cough. Previously with normal Spirometry but Jong elevated. ADAMARIS 09/25/24 with persistent cough and exertional dyspnea, had run out of inhaled therapy. Started Singulair. Current therapy with Symbicort, Singulair, and Albuterol as needed. She presents today for follow-up. Since her last visit, she tried using Singulair for 3 weeks and didn't feel it was helpful. Discontinued use about a week ago and started Loratadine. Today, patient reports overall improvement in cough since using antihistamine. Cough with clear sputum. Sinus congestion is improved. No wheezing or chest tightness. Has had some hoarseness with the inhaler. Denies dyspnea at rest and exertional dyspnea has improved, especially with the cooler weather. No recent hospitalizations or ED visits or upper respiratory infections. Albuterol use about once a week. 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 If you have any questions, ask your nurse or doctor. CONTINUE taking these medications albuterol HFA 90 mcg/actuation inhaler Commonly known as: PROVENTIL HFA, VENTOLIN HFA Inhale 2 Puffs as instructed every 4 hours as needed for wheezing/shortness of breath. budesonide-formoterol 160-4.5 mcg/actuation inhaler Commonly known as: SYMBICORT Inhale 2 puffs as instructed two times a day. cetirizine 10 mg tablet Commonly known as: ZYRTEC Take 1 tablet by mouth once daily. Cholecalciferol (Vitamin D3) 50 mcg (2,000 unit) Cap Take 1 capsule by mouth once daily. fluticasone 50 mcg/actuation nasal spray Commonly known as: FLONASE Use 2 Sprays in each nostril once daily. Rinse mouth after gabapentin 600 mg tablet Commonly known as: NEURONTIN Take 1 tablet by mouth two times a day. levothyroxine 150 mcg tablet Commonly known as: SYNTHROID Take 1 tablet by mouth once daily. Take on empty stomach. For thyroid losartan 100 mg tablet Commonly known as: COZAAR Take 1 tablet by mouth once daily. meloxicam 15 mg tablet Commonly known as: MOBIC Take 1 tablet by mouth once daily. As directed pantoprazole DR 40 mg tablet Commonly known as: PROTONIX Take 1 tablet by mouth once daily. Take on empty stomach, 1/2 hr before meal. PARoxetine 20 mg tablet Commonly known as: PAXIL Take 1 tablet by mouth once daily. zolpidem 10 mg Commonly known as: AMBIEN Take 1 tablet by mouth daily at bedtime for 180 days. DATA: I personally reviewed and analyzed all labs, radiographs and available pulmonary function testing PFT: 03/28/2024 Spirometry is normal. Review of Systems Constitutional: Negative for activity change, appetite change, fever and unexpected weight change. HENT: Positive for postnasal drip. Negative for congestion, mouth sores and sinus pain. Respiratory: Positive for cough and shortness of breath. Negative for chest tightness and wheezing. Cardiovascular: Negative for chest pain, palpitations and leg swelling. Allergic/Immunologic: Positive for environmental allergies. Neurological: Negative for dizziness and weakness. BP (P) 148/94 Pulse 85 Resp 15 Wt 110.7 kg (244 lb) SpO2 95% BMI 39.38 kg/m? Physical Exam Vitals reviewed. Constitutional: General: She is not in acute distress. Appearance: Normal appearance. She is not ill-appearing. HENT: Head: Normocephalic. Mouth/Throat: Mouth: Mucous membranes are moist. Pharynx: No oropharyngeal exu (more content not included)... Normal [facility] CNOVon 10-21-2024 CNOV Office Visit (INTMWS ) MAE GRANT ([id number]) 1945 F Date Time Provider Department 10/21/24 6:20 PM RACQUEL CENTENO INTMWS During your visit today, we recorded the following information about you: Temperature Pulse Respiration Blood pressure 98.9 degrees 78/minute 14/minute 162/90 Weight Height 110.7 kg 1.676 m Racquel Centeno MD 11/28/2024 2:16 AM Signed Subjective Mae Grant is a 79 year old female. HPI SUBJECTIVE: Mae Grant is a 79-year-old female with a history of asthma, presenting with left shoulder pain. Mae reports left shoulder pain that began approximately one month ago while performing yard work, including weeding and mowing. She does not recall a specific injury but notes that the pain has persisted without improvement. The pain is localized to the deltoid region and is exacerbated by abduction of the arm. She denies pain at rest or with forward flexion of the arm. She has not been taking any regular medication for pain or inflammation, only occasionally taking something for pain. She also reports seasonal allergies and is currently taking [id number] cetirizine, which has helped with post-nasal drip. She was previously prescribed Singulair but discontinued it due to lack of efficacy. She is also on Symbicort for asthma management. She mentions a recent low vitamin D level but has not yet started supplementation. 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 Take on empty stomach, 1/2 hr before meal. fluticasone (FLONASE) 50 mcg/actuation nasal spray Use 2 Sprays in each nostril once daily. Rinse mouth after gabapentin (NEURONTIN) 600 mg tablet Take 1 tablet by mouth two times a day. PARoxetine (PAXIL) 20 mg tablet Take 1 tablet by mouth once daily. albuterol HFA (PROVENTIL HFA, VENTOLIN HFA) 90 mcg/actuation inhaler Inhale 2 Puffs as instructed every 4 hours as needed for wheezing/shortness of breath. levothyroxine (SYNTHROID) 150 mcg tablet Take 1 tablet by mouth once daily. Take on empty stomach. For thyroid [START ON 12/14/2024] zolpidem (AMBIEN) 10 mg Take 1 tablet by mouth daily at bedtime for 180 days. Patient should start on December 14, 2024. amLODIPine (NORVASC) 2.5 mg tablet Take 1 tablet by mouth once daily. Take this in addition to your valsartan for BP 150/80 or greater. valsartan (DIOVAN) 160 mg tablet Take one tablet two times per day budesonide-formoterol (SYMBICORT) 160-4.5 mcg/actuation inhaler Inhale 2 puffs as instructed two times a day. loratadine (CLARITIN) 10 mg tablet Take 10 mg by mouth once daily. meloxicam (MOBIC) 15 mg tablet Take 1 tablet by mouth once daily. As directed (Patient taking differently: Take 15 mg by mouth once daily as needed. As directed) Cholecalciferol, Vitamin D3, 50 mcg (2,000 unit) cap Take 1 capsule by mouth once daily. No current facility-administered medications for this visit. Review of Systems Objective BP 162/90 Pulse 78 Temp 37.2 ?C (98.9 ?F) (Temporal) Resp 14 Ht 167.6 cm (5' 6) Wt 110.7 kg (244 lb 0.8 oz) SpO2 97% BMI 39.39 kg/m? Last 5 Encounter Wt Readings: Date: Wt: 10/21/2024 110.7 kg (244 lb 0.8 oz) 09/25/2024 108 kg (238 lb) 09/10/2024 108.4 kg (238 lb 15.7 oz) 06/11/2024 108.9 kg (240 lb 1.3 oz) 03/28/2024 110.2 kg (243 lb) No waist measurement recorded Estimated body mass index is 39.39 kg/m? as calculated from the following: Height as of this encounter: 167.6 cm (5' 6). Weight as of this encounter: 110.7 kg (244 lb 0.8 oz). Last 5 Encounter BP Readings: Date: BP: 10/21/2024 144/90 09/25/2024 155/94 09/10/2024 122/80 06/11/2024 154/82 03/28/2024 132/82 Physical Exam Musculoskeletal: Left shoulder: No tenderness. Decreased range of motion (Cannot rabduct past 90 degresse but can forward extend shoulder almost all the way up but still hurts in deltoid muscle area). Arms: # Strain of left shoulder, initial encounter (S42.142J) - Persistent left shoulder pain for over a month, likely due to overuse during yard work; pain localized to the deltoid region, exacerbated by abduction and lifting, with no tenderness over the rotator cuff. (more content not included)... Normal [facility] CNOVon 09-25-2024 CNOV Office Visit (PULMWS ) MAE GRANT ([id number]) 1945 F Date Time Provider Department 09/25/24 1:00 PM JESSICA WONG PULMWS During your visit today, we recorded the following information about you: Pulse Blood pressure Weight 68/minute 155/94 108 kg Jessica Wong APRN.[facility] 09/25/2024 1:45 PM Signed Pulmonary Medicine Patients name: Mae Grant PCP: Racquel Centeno MD CC: follow-up cough HPI: Mae Grant is a 79 year old female never smoker with PMH significant for obesity, ANA on CPAP, HTN, hypothyroidism, GERD, allergic rhinitis, and chronic cough. Spirometry normal but Jong elevated. ADAMARIS 02/2024 with c/o exertional dypsnea and chest tightness. Current inhaled therapy with Symbicort and Albuterol as needed. She presents today for follow-up. At her ADAMARIS, she was prescribed Breztri d/t persistent symptoms. She reports today she never got it filled d/t cost. Has continued using Symbicort. Continues to experience exertional dyspnea, specifically with walking up an incline and is worse in the high heat/humidity. She also reports waking up in the morning with a cough in order to clear mucus but symptoms will often linger on through the day. Frequently feels like she's clearing her throat. Has sinus congestion and drainage, uses Flonase at night. She has always felt like she has allergies but does not know what exactly. Previously had negative [facility] testing in the fall and was negative. She ran out of Symbicort last week and didn't have it for a few days and felt like she coughed less and had less sputum production. Has since had it refilled and is now using again. Today, she denies wheezing or chest tightness. No dyspnea at rest. No fevers, chills, or night sweats. No unintended weight loss. GERD/heartburn managed with PPI. No recent hospitalizations or ED visits or upper respiratory infections. Albuterol use is approximately once a week and does find it beneficial. 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 If you have any questions, ask your nurse or doctor. CONTINUE taking these medications albuterol HFA 90 mcg/actuation inhaler Commonly known as: PROVENTIL HFA, VENTOLIN HFA Inhale 2 Puffs as instructed every 4 hours as needed for wheezing/shortness of breath. budesonide-formoterol 160-4.5 mcg/actuation inhaler Commonly known as: SYMBICORT Inhale 2 Puffs as instructed two times a day. fluticasone 50 mcg/actuation nasal spray Commonly known as: FLONASE Use 2 Sprays in each nostril once daily. Rinse mouth after gabapentin 600 mg tablet Commonly known as: NEURONTIN Take 1 tablet by mouth two times a day. levothyroxine 150 mcg tablet Commonly known as: SYNTHROID Take 1 tablet by mouth once daily. Take on empty stomach. For thyroid losartan 100 mg tablet Commonly known as: COZAAR Take 1 tablet by mouth once daily. pantoprazole DR 40 mg tablet Commonly known as: PROTONIX Take 1 tablet by mouth once daily. Take on empty stomach, 1/2 hr before meal. PARoxetine 20 mg tablet Commonly known as: PAXIL Take 1 tablet by mouth once daily. zolpidem 10 mg Commonly known as: AMBIEN Take 1 tablet by mouth daily at bedtime for 180 days. DATA: I personally reviewed and analyzed all labs, radiographs and available pulmonary function testing PFT: 02/2024 Oral Exhaled Nitric Oxide measurement (Previous Encounters) Test Date Oral Exhaled Nitric Oxide (ppb) 03/28/2024 25.0 12/20/2023 36.0 (A) 09/21/2021 37.0 (A) 05/20/2020 33.0 NAME: ROSANNA Kelly PATIENT NAME: Mae Grant DATE: March 28, 2024 TIME: 12:58 PM Spirometry is normal. CXR: Last XR Chest - Impression Only XR CHEST 2V FRONTAL/LAT Exam End: 01/28/2023 9:07 AM (Final result) Impression: IMPRESSION: No acute radiographic abnormality. ... Labs: WBC (k/uL) Date Value 09/09/2024 6.55 08/25/2020 8.05 RBC (m/uL) Date Value 09/09/2024 5.49 08/25/2020 5.10 Hemogl (more content not included)... Normal [facility] CNOVon 09-10-2024 CNOV Office Visit (INTMWS ) MAE GRANT ([id number]) 1945 F Date Time Provider Department 09/10/24 1:00 PM FELIPE ESTRADA INTMWS During your visit today, we recorded the following information about you: Pulse Respiration Blood pressure Weight 78/minute 16/minute 122/80 108.4 kg Felipe Estrada APRN.[facility] 09/10/2024 1:30 PM Signed SUBJECTIVE Mae Grant is a 79 year old female here today for a check up on her medical problems. Chief Complaint Patient presents with: Follow Up: 3 months HPI Mae Grant is a 79-year-old female with a history of hypothyroidism and asthma, presenting for follow-up on recent lab results. Mae expresses concern about her recent lab results, particularly noting elevated blood glucose levels, which she attributes to increased consumption of pastries and ice cream during a stressful August. She reports a history of improper levothyroxine administration, previously taking it with other medications and without regard to food intake. She has since adjusted her regimen, now taking levothyroxine a couple of hours after lunch, which she notes has made a significant difference. She inquires if this new timing is appropriate. She also reports difficulty getting sun exposure due to hot and humid weather, which exacerbates her asthma symptoms. She reports a history of anxiety, which has been exacerbated by a recent incident involving her 27-year-old grandson, who suffered a severe case of colitis leading to significant weight loss and a subsequent fall resulting in a head injury and colonic artery rupture. This event occurred during a family camping trip, and she expresses gratitude that her grandson was not alone during the incident. She describes herself as a worrier, particularly concerned about the safety of her family members. She reports good sleep quality, attributing it to the use of a sleeping pill and the absence of her hearing aids at night. She also notes a recent weight loss of 2 pounds, with a previous weight of 262-264 pounds last year, which she attributes to stress and loss of appetite following the deaths of her mother and . Recording using [employer] software for draft documentation of the visit was discussed with the patient/authorized food service representative; all questions welcomed and answered. Patient/authorized food service representative agreed to proceed Her medications were reviewed today and her list is now up to date. Medications Current Outpatient Medications Medication Sig zolpidem (AMBIEN) 10 mg Take 1 tablet by mouth daily at bedtime for 180 days. losartan (COZAAR) 100 mg tablet Take 1 tablet by mouth once daily. fluticasone (FLONASE) 50 mcg/actuation nasal spray Use 2 Sprays in each nostril once daily. Rinse mouth after gabapentin (NEURONTIN) 600 mg tablet Take 1 tablet by mouth two times a day. PARoxetine (PAXIL) 20 mg tablet Take 1 tablet by mouth once daily. budesonide-formoterol (SYMBICORT) 160-4.5 mcg/actuation inhaler Inhale 2 Puffs as instructed two times a day. levothyroxine (SYNTHROID) 150 mcg tablet Take 1 tablet by mouth once daily. Take on empty stomach. For thyroid albuterol HFA (PROVENTIL HFA, VENTOLIN HFA) 90 mcg/actuation inhaler Inhale 2 Puffs as instructed every 4 hours as needed for wheezing/shortness of breath. pantoprazole DR (PROTONIX) 40 mg tablet Take 1 tablet by mouth once daily. Take on empty stomach, 1/2 hr before meal. No current facility-administered medications for this visit. ALLERGIES Allergen Reactions Atenolol palpitations, chest discomfort Silenor [Doxepin] Other: See Comments palpitations (heart fluttered and chest felt strange) Tramadol Other: See Comments Unable to sleep - keeps her hyper ACTIVE PROBLEM LIST Moderate Persistent Asthma Without Complication ([facility]) - 09/10/2024 Moderate Recurrent Major Depression ([facility]) - 06/13/2023 Hypertensive Kidney Disease With Stage 3a Chronic Kidney Disease ([facility]) - 04/27/2022 Stage 3a Chronic Kidney Disease ([facility]) - 03/28/2021 Pain of Both Hip Joints - 08/21/2018 Ana On Cpap - 04/26/2016 Idiopathic Peripheral Autonomic Neuropathy - 04/26/2016 Anxiety and Depression - 04/26/2016 Left Carpal Tunnel Syndrome - 10/22/2013 Right Carpal Tunnel Syndrome - 10/18/2013 Impingement Syndrome of Both Shoulders - 09/09/2013 History of Fracture of Tibia - 04/22/2010 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, Including Shoulder - 12/05/2008 Abnormal Mammogram, Unspecified - 11/05/2008 [place] - 09/26/2006 Panic Disorder Without Agoraphobia Class 2 Obesity Due to Excess Calories Without Serious Comorbidity With Body Mass Index (Bmi) of 39.0 to 39.9 in Adult Insomnia, Unspecified Allergic Rhinitis, Cause Unspecified Comment: Allergic rhinitis Essential Hypertension Hypothyroidism Esophageal Reflux Social History Tobacco Use Smoking status: (more content not included)... Normal [facility] 25(OH)D3 [facility] 2024 25-hydroxyvitamin D3 [Mass/Vol] 18.6 ng/mL Low 31.0-80.0 [facility] Comment on above: Order Comment: Speci men Type: BLOOD SPECIMEN Ordering Facility: [facility] Address: [address] [place] [address] Result Comment: Clas sification of 25 [place] Vitamin D status: Deficiency/Insufficiency: < or = 30 ng/ml. Sufficiency/Optimal Levels: 31-80 ng/mL Toxicity: > 100 ng/mL. Test performed by chemiluminescent immunoassay. Performed By: #### 5 7021-8 #### [facility] CLIA [id number] [address] [place] [address] [place] [address] [place] CBC W Auto Differential pane l (Bld)on 09-09-2024 Basophils (Bld) [#/Vol] 0.05 10*3/uL Normal <0.11 [facility] Comment on above: Order Comment: Speci men Type: BLOOD SPECIMEN Ordering Facility: [facility] Address: [address] [place] [address] Performed By: #### 5 7021-8 #### [facility] CLIA [id number] [address] [place] [address] [place] Basophils/100 WBC (Bld) 0.8 % Normal [facility] Comment on above: Order Comment: Speci men Type: BLOOD SPECIMEN Ordering Facility: [facility] Address: [address] [place] [address] Performed By: #### 5 7021-8 #### [facility] CLIA [id number] [address] [place] [address] [place] Differential cell count method Nom (Bld) Auto Normal [facility] Comment on above: Order Comment: Speci men Type: BLOOD SPECIMEN Ordering Facility: [facility] Address: [address] [place] [address] Performed By: #### 5 7021-8 #### [facility] CLIA [id number] [address] [place] [address] [place] Eosinophils (Bld) [#/Vol] 0.15 10*3/uL Normal <0.46 [facility] Comment on above: Order Comment: Speci men Type: BLOOD SPECIMEN Ordering Facility: [facility] Address: [address] [place] [address] Performed By: #### 5 7021-8 #### [facility] CLIA [id number] [address] [place] [address] [place] Eosinophils/100 WBC (Bld) 2.3 % Normal [facility] Comment on above: Order Comment: Speci men Type: BLOOD SPECIMEN Ordering Facility: [facility] Address: [address] [place] [address] Performed By: #### 5 7021-8 #### [facility] CLIA [id number] [address] [place] [address] [place] Erythrocyte distribution width (RBC) [Ratio] 14.3 % Normal 11.5-15.0 [facility] Comment on above: Order Comment: Speci men Type: BLOOD SPECIMEN Ordering Facility: [facility] Address: [address] [place] [address] Performed By: #### 5 7021-8 #### [facility] CLIA [id number] [address] [place] [address] [place] Hematocrit (Bld) [Volume fraction] 44.8 % Normal 36.0-46.0 [facility] Comment on above: Order Comment: Speci men Type: BLOOD SPECIMEN Ordering Facility: [facility] Address: [address] [place] [address] Performed By: #### 5 7021-8 #### [facility] CLIA [id number] [address] [place] [address] [place] Hemoglobin (Bld) [Mass/Vol] 14.9 g/dL Normal 11.5-15.5 [facility] Comment on above: Order Comment: Speci men Type: BLOOD SPECIMEN Ordering Facility: [facility] Address: [address] [place] [address] Performed By: #### 5 7021-8 #### [facility] CLIA [id number] [address] [place] [address] [place] Immature granulocytes (Bld) [#/Vol] 0.03 10*3/uL Normal <0.10 [facility] Comment on above: Order Comment: Speci men Type: BLOOD SPECIMEN Ordering Facility: [facility] Address: [address] [place] [address] Performed By: #### 5 7021-8 #### [facility] CLIA [id number] [address] [place] [address] [place] Immature granulocytes/100 WBC (Bld) 0.5 % Normal [facility] Comment on above: Order Comment: Speci men Type: BLOOD SPECIMEN Ordering Facility: [facility] Address: [address] [place] [address] Performed By: #### 5 7021-8 #### [facility] CLIA [id number] [address] [place] [address] [place] Lymphocytes (Bld) [#/Vol] 1.65 10*3/uL Normal 1.00-4.00 [facility] Comment on above: Order Comment: Speci men Type: BLOOD SPECIMEN Ordering Facility: [facility] Address: [address] [place] [address] Performed By: #### 5 7021-8 #### [facility] CLIA [id number] [address] [place] [address] [place] Lymphocytes/100 WBC (Bld) 25.2 % Normal [facility] Comment on above: Order Comment: Speci men Type: BLOOD SPECIMEN Ordering Facility: [facility] Address: [address] [place] [address] Performed By: #### 5 7021-8 #### [facility] CLIA [id number] [address] [place] [address] [place] MCH (RBC) [Entitic mass] 27.1 pg Normal 26.0-34.0 [facility] Comment on above: Order Comment: Speci men Type: BLOOD SPECIMEN Ordering Facility: [facility] Address: [address] [place] [address] Performed By: #### 5 7021-8 #### [facility] CLIA [id number] [address] [place] [address] [place] MCHC (RBC) [Mass/Vol] 33.3 g/dL Normal 30.5-36.0 [facility] Comment on above: Order Comment: Speci men Type: BLOOD SPECIMEN Ordering Facility: [facility] Address: [address] [place] [address] Performed By: #### 5 7021-8 #### [facility] CLIA [id number] [address] [place] [address] [place] MCV (RBC) [Entitic vol] 81.6 fL Normal 80.0-100.0 [facility] Comment on above: Order Comment: Speci men Type: BLOOD SPECIMEN Ordering Facility: [facility] Address: [address] [place] [address] Performed By: #### 5 7021-8 #### [facility] CLIA [id number] [address] [place] [address] [place] Monocytes (Bld) [#/Vol] 0.51 10*3/uL Normal <0.87 [facility] Comment on above: Order Comment: Speci men Type: BLOOD SPECIMEN Ordering Facility: [facility] Address: [address] [place] [address] Performed By: #### 5 7021-8 #### [facility] CLIA [id number] [address] [place] [address] [place] Monocytes/100 WBC (Bld) 7.8 % Normal [facility] Comment on above: Order Comment: Speci men Type: BLOOD SPECIMEN Ordering Facility: [facility] Address: [address] [place] [address] Performed By: #### 5 7021-8 #### [facility] CLIA [id number] [address] [place] [address] [place] Neutrophils (Bld) [#/Vol] 4.16 10*3/uL Normal 1.45-7.50 [facility] Comment on above: Order Comment: Speci men Type: BLOOD SPECIMEN Ordering Facility: [facility] Address: [address] [place] [address] Performed By: #### 5 7021-8 #### [facility] CLIA [id number] [address] [place] [address] [place] Neutrophils/100 WBC (Bld) 63.4 % Normal [facility] Comment on above: Order Comment: Speci men Type: BLOOD SPECIMEN Ordering Facility: [facility] Address: [address] [place] [address] Performed By: #### 5 7021-8 #### [facility] CLIA [id number] [address] [place] [address] [place] Nucleated RBC (Bld) [#/Vol] 10*3/uL Normal <0.01 [facility] Comment on above: Order Comment: Speci men Type: BLOOD SPECIMEN Ordering Facility: [facility] Address: [address] [place] [address] Performed By: #### 5 7021-8 #### [facility] CLIA [id number] [address] [place] [address] [place] Nucleated RBC/100 WBC (Bld) [Ratio] 0.0 /100 WBC Normal [facility] Comment on above: Order Comment: Speci men Type: BLOOD SPECIMEN Ordering Facility: [facility] Address: [address] [place] [address] Performed By: #### 5 7021-8 #### [facility] CLIA [id number] [address] [place] [address] [place] Platelet mean volume (Bld) [Entitic vol] 10.6 fL Normal 9.0-12.7 [facility] Comment on above: Order Comment: Speci men Type: BLOOD SPECIMEN Ordering Facility: [facility] Address: [address] [place] [address] Performed By: #### 5 7021-8 #### [facility] CLIA [id number] [address] [place] [address] [place] Platelets (Bld) [#/Vol] 226 10*3/uL Normal 150-400 [facility] Comment on above: Order Comment: Speci men Type: BLOOD SPECIMEN Ordering Facility: [facility] Address: [address] [place] [address] Performed By: #### 5 7021-8 #### [facility] CLIA [id number] [address] [place] [address] [place] RBC (Bld) [#/Vol] 5.49 10*6/uL High 3.90-5.20 [facility] Comment on above: Order Comment: Speci men Type: BLOOD SPECIMEN Ordering Facility: [facility] Address: [address] [place] [address] Performed By: #### 5 7021-8 #### [facility] CLIA [id number] [address] [place] [address] [place] WBC (Bld) [#/Vol] 6.55 10*3/uL Normal 3.70-11.00 [facility] Comment on above: Order Comment: Speci men Type: BLOOD SPECIMEN Ordering Facility: [facility] Address: [address] [place] [address] Performed By: #### 5 7021-8 #### [facility] CLIA [id number] [address] [place] [address] [place] Comprehensive metabolic 2000 panelon 09-09-2024 Albumin [Mass/Vol] 4.1 g/dL Normal 3.9-4.9 [facility] Comment on above: Order Comment: Speci men Type: BLOOD SPECIMEN Ordering Facility: [facility] Address: [address] [place] [address] Performed By: #### 3 016-3, 3024-7, 3051-0, 51562-2 #### [facility] CLIA [id number] [address] [place] [address] [place] ALP [Catalytic activity/Vol] 117 U/L Normal 34-123 [facility] Comment on above: Order Comment: Speci men Type: BLOOD SPECIMEN Ordering Facility: [facility] Address: [address] [place] [address] Performed By: #### 3 016-3, 3024-7, 305-0, 23247-5 #### [facility] CLIA [id number] [address] [place] [address] [place] ALT [Catalytic activity/Vol] 10 U/L Normal 7-38 [facility] Comment on above: Order Comment: Speci men Type: BLOOD SPECIMEN Ordering Facility: [facility] Address: [address] [place] [address] Performed By: #### 3 016-3, 3024-7, 305-0, 34720-5 #### [facility] CLIA [id number] [address] [place] [address] [place] Anion gap [Moles/Vol] 11 mmol/L Normal 8-15 [facility] Comment on above: Order Comment: Speci men Type: BLOOD SPECIMEN Ordering Facility: [facility] Address: [address] [place] [address] Performed By: #### 3 016-3, 302-7, 305-0, 76180-4 #### [facility] CLIA [id number] [address] [place] [address] [place] AST [Catalytic activity/Vol] 13 U/L Normal 13-35 [facility] Comment on above: Order Comment: Speci men Type: BLOOD SPECIMEN Ordering Facility: [facility] Address: [address] [place] [address] Performed By: #### 3 016-3, 3024-7, 305-0, 90023-1 #### [facility] CLIA [id number] [address] [place] [address] [place] Bilirubin [Mass/Vol] 1.0 mg/dL Normal 0.2-1.3 [facility] Comment on above: Order Comment: Speci men Type: BLOOD SPECIMEN Ordering Facility: [facility] Address: [address] [place], [place] [address] Performed By: #### 3 016-3, 3024-7, 305-0, 33616-9 #### [facility] CLIA [id number] [address] [place] [address] [place] Calcium [Mass/Vol] 9.4 mg/dL Normal 8.5-10.2 [facility] Comment on above: Order Comment: Speci men Type: BLOOD SPECIMEN Ordering Facility: [facility] Address: [address] [place] [address] Performed By: #### 3 016-3, 3024-7, 305-0, 08533-7 #### [facility] CLIA [id number] [address] [place] [address] [place] Chloride [Moles/Vol] 104 mmol/L Normal 98-107 [facility] Comment on above: Order Comment: Speci men Type: BLOOD SPECIMEN Ordering Facility: [facility] Address: [address] [place] [address] Performed By: #### 3 016-3, 3024-7, 305-0, 51468-0 #### [facility] CLIA [id number] [address] [place] [address] [place] CO2 [Moles/Vol] 24 mmol/L Normal 22-30 [facility] Comment on above: Order Comment: Speci men Type: BLOOD SPECIMEN Ordering Facility: [facility] Address: [address] [place] [address] Performed By: #### 3 016-3, 3024-7, 305-0, 29974-0 #### [facility] CLIA [id number] [address] [place] [address] [place] Creatinine [Mass/Vol] 0.92 mg/dL Normal 0.58-0.96 [facility] Comment on above: Order Comment: Speci men Type: BLOOD SPECIMEN Ordering Facility: [facility] Address: [address] [place] [address] Performed By: #### 3 016-3, 3024-7, 3051-0, 22221-6 #### [facility] CLIA [id number] [address] [place] [address] [place] Creatinine and Glomerular filtration rate.predicted panel (S/P/Bld) 63 mL/min/1.73m??? Normal >=60 [facility] Comment on above: Order Comment: Jennifer hollins Type: BLOOD SPECIMEN Ordering Facility: [facility] Address: [address] [place] [address] Result Comment: Nikki mated Glomerular Filtration Rate (eGFR) is calculated using the 2020 CKD-EPI creatinine equation. This equation utilizes serum creatinine, sex, and age as parameters. The creatinine assay has traceable calibration to isotope dilution-mass spectrometry. Refer to KDIGO guidelines for clinical interpretation. In patients with unstable renal function, e.g. those with acute kidney injury, the eGFR may not accurately reflect actual GFR. Performed By: #### 3 016-3, 3024-7, 3051-0, 63456-3 #### [facility] CLIA [id number] [address] [place] [address] [place] Glucose [Mass/Vol] 105 mg/dL High 74-99 [facility] Comment on above: Order Comment: Jennifer hollins Type: BLOOD SPECIMEN Ordering Facility: [facility] Address: [address] [place] [address] Result Comment: The [place] [employer] (ADA) provides guidance for cutoff values for fasting glucose and random glucose. The ADA defines fasting as no caloric intake for at least 8 hours. Fasting plasma glucose results between 100 to 125 mg/dL indicate increased risk for diabetes (prediabetes). Fasting plasma glucose results greater than or equal to 126 mg/dL meet the criteria for diagnosis of diabetes. In the absence of unequivocal hyperglycemia, results should be confirmed by repeat testing. In a patient with classic symptoms of hyperglycemia or hyperglycemic crisis, random plasma glucose results greater than or equal to 200 mg/dL meet the criteria for diagnosis of diabetes. Reference: Standards of Medical Care in Diabetes 2016, [place] [employer]. Diabetes Care. 2016.39(Suppl 1). Performed By: #### 3 016-3, 3024-7, 3051-0, 31956-3 #### [facility] CLIA [id number] [address] [place] [address] [place] Potassium [Moles/Vol] 4.3 mmol/L Normal 3.7-5.1 [facility] Comment on above: Order Comment: Speci men Type: BLOOD SPECIMEN Ordering Facility: [facility] Address: [address] [place] [address] Performed By: #### 3 016-3, 3024-7, 3051-0, 37436-5 #### [facility] CLIA [id number] [address] [place] [address] [place] Protein [Mass/Vol] 7.5 g/dL Normal 6.3-8.0 [facility] Comment on above: Order Comment: Speci men Type: BLOOD SPECIMEN Ordering Facility: [facility] Address: [address] [place] [address] Performed By: #### 3 016-3, 3024-7, 305-0, 89053-8 #### [facility] CLIA [id number] [address] [place] [address] [place] Sodium [Moles/Vol] 139 mmol/L Normal 136-144 [facility] Comment on above: Order Comment: Speci men Type: BLOOD SPECIMEN Ordering Facility: [facility] Address: [address] [place] [address] Performed By: #### 3 016-3, 3024-7, 3051-0, 90020-1 #### [facility] CLIA [id number] [address] [place] [address] [place] Urea nitrogen [Mass/Vol] 17 mg/dL Normal 7-21 [facility] Comment on above: Order Comment: Speci men Type: BLOOD SPECIMEN Ordering Facility: [facility] Address: [address] [place] [address] Performed By: #### 3 016-3, 3024-7, 305-0, 34407-4 #### [facility] CLIA [id number] [address] [place] [address] [place] T3Free SerPl-mCncon 09-10-19 25 Free T3 [Mass/Vol] 2.8 pg/mL Normal 2.3-4.1 [facility] Comment on above: Order Comment: Speci men Type: BLOOD SPECIMEN Ordering Facility: [facility] Address: [address] [place] [address] Performed By: #### 3 016-3, 302-7, 3050, 79088-3 #### [facility] CLIA [id number] [address] [place] [address] [place] T4 Free SerPl-mCncon 025 Free T4 [Mass/Vol] 1.5 ng/dL Normal 0.9-1.7 [facility] Comment on above: Order Comment: Speci men Type: BLOOD SPECIMEN Ordering Facility: [facility] Address: [address] [place] [address] Performed By: #### 3 016-3, 302-7, 305-0, #### [facility] CLIA [id number] [address] [place] [address] [place] TSH SerPl-aCncon 09-09-2024 TSH Qn 0.968 m[IU]/L Normal 0.270-4.200 [facility] Comment on above: Order Comment: Speci men Type: BLOOD SPECIMEN Ordering Facility: [facility] Address: [address] [place] [address] Performed By: #### 3 016-3, 3024-7, 305-0, 12409-1 #### [facility] CLIA [id number] [address] [place] [address] [place] Vit B12 SerPl-mCncon 07-14-2 025 Cobalamin (Vitamin B12) [Mass/Vol] 264 pg/mL Normal 232-1245 [facility] Comment on above: Order Comment: Speci men Type: BLOOD SPECIMEN Ordering Facility: [facility] Address: [address] [place] [address] Performed By: #### 5 7021-8 #### [facility] CLIA [id number] [address] [place] [address] [facility] CNOVon 06-11-2024 CNOV Office Visit (INTMWS ) MAE GRANT ([id number]) 1945 F Date Time Provider Department 06/11/24 1:00 PM FELIPE ESTRADA INTMWS During your visit today, we recorded the following information about you: Pulse Blood pressure Weight Height 73/minute 154/82 108.9 kg 1.685 m Felipe Estrada APRN.TICK SEWER 06/11/2024 2:25 PM Signed SUBJECTIVE Maejoaquina Grant is a 79 year old female here today for a check up on her medical problems. Chief Complaint Patient presents with: Medicare Wellness Exam: left shoulder pain discuss labs of elevated TSH and alkaline phosphate HPI Maejm Grant is a 79 year old female. She is an established patient. Presents today for follow up, considered medicare wellness visit but has other issues to address. Recent labs showed elevated TSH. She has been taking synthroid with other pills. She also notes some issues with slower thinking- seems like she repeats, and poor recall, increased brain fog. She questions if this is from her thyroid being underactive. Concerned about possible cognitive impairment. She also has some sleep issues, Ambien still helpful. Using her CPAP: Feels like it disturbs her sleep more if she uses. Over the last month stopped using it. Will go to fresh air to see if can be replaced because mask is giving her issues.Mood is okay, still some increased depression with the loss of her mom and her . Blood pressure is doing okay outside of the office. Breathing is doing well. Taking Symbicort for her asthma. Her medications were reviewed today and her list is now up to date. Medications Current Outpatient Medications Medication Sig fluticasone (FLONASE) 50 mcg/actuation nasal spray Use 2 Sprays in each nostril once daily. Rinse mouth after gabapentin (NEURONTIN) 600 mg tablet Take 1 tablet by mouth two times a day. PARoxetine (PAXIL) 20 mg tablet Take 1 tablet by mouth once daily. budesonide-formoterol (SYMBICORT) 160-4.5 mcg/actuation inhaler Inhale 2 Puffs as instructed two times a day. levothyroxine (SYNTHROID) 150 mcg tablet Take 1 tablet by mouth once daily. Take on empty stomach. For thyroid albuterol HFA (PROVENTIL HFA, VENTOLIN HFA) 90 mcg/actuation inhaler Inhale 2 Puffs as instructed every 4 hours as needed for wheezing/shortness of breath. pantoprazole DR (PROTONIX) 40 mg tablet Take 1 tablet by mouth once daily. Take on empty stomach, 1/2 hr before meal. - September 13, 2021 - take morning and veneing. zolpidem (AMBIEN) 10 mg Take 1 tablet by mouth daily at bedtime for 180 days. losartan (COZAAR) 100 mg tablet Take 1 tablet by mouth once daily. No current facility-administered medications for this visit. ALLERGIES Allergen Reactions Atenolol palpitations, chest discomfort Silenor [Doxepin] Other: See Comments palpitations (heart fluttered and chest felt strange) Tramadol Other: See Comments Unable to sleep - keeps her hyper ACTIVE PROBLEM LIST Moderate Recurrent Major Depression (Hcc) - 06/13/2023 Hypertensive Kidney Disease With Stage 3a Chronic Kidney Disease (Hcc) - 04/27/2022 Stage 3a Chronic Kidney Disease (Hcc) - 03/28/2021 Pain of Both Hip Joints - 08/21/2018 Ana On Cpap - 04/26/2016 Idiopathic Peripheral Autonomic Neuropathy - 04/26/2016 Anxiety and Depression - 04/26/2016 Left Carpal Tunnel Syndrome - 10/22/2013 Right Carpal Tunnel Syndrome - 10/18/2013 Impingement Syndrome of Both Shoulders - 09/09/2013 History of Fracture of Tibia - 04/22/2010 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, 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 HENT: Negative. Respiratory: Negative. Cardiovascular: Negative. Gastrointestinal: Positive for abdominal distention. Musculoskeletal: Positive for arthralgias, back pain and myalgias. Neurological: Negative. Psychiatric/Behavioral : Positive for decreased concentration. All other systems reviewed and are negative. OBJECTIVE BP 154/82 Pulse 73 Ht 5' 6.339 (1.69m) Wt 240 lb 1.3 oz (108.9kg) SpO2 98% BMI 38.36 kg/(m2). Physical Exam Vitals and nursing note reviewed. Constitutional: General: She is awake. She is not in acute distress. Appearance: Normal appearance. She is well-developed and well-groomed. She is not ill-appearing, toxic-appearing or diaphoret (more content not included)... Normal [facility] CBC panel Auto (Bld)on 06-04 Erythrocyte distribution width (RBC) [Ratio] 14.6 % Normal 11.5-15.0 [facility] Comment on above: Order Comment: Jennifer hollins Type: BLOOD SPECIMEN Ordering Facility: [facility] Address: [address] [place] [address] Performed By: #### 5 7021-8 #### [facility] CLIA [id number] [address] [place] [address] [place] Hematocrit (Bld) [Volume fraction] 42.7 % Normal 36.0-46.0 [facility] Comment on above: Order Comment: Jennifer hollins Type: BLOOD SPECIMEN Ordering Facility: [facility] Address: [address] [place] [address] Performed By: #### 5 7021-8 #### [facility] CLIA [id number] [address] [place] [address] [place] Hemoglobin (Bld) [Mass/Vol] 14.1 g/dL Normal 11.5-15.5 [facility] Comment on above: Order Comment: Speci men Type: BLOOD SPECIMEN Ordering Facility: [facility] Address: [address] [place] [address] Performed By: #### 5 7021-8 #### [facility] CLIA [id number] [address] [place] [address] [place] MCH (RBC) [Entitic mass] 27.4 pg Normal 26.0-34.0 [facility] Comment on above: Order Comment: Speci men Type: BLOOD SPECIMEN Ordering Facility: [facility] Address: [address] [place] [address] Performed By: #### 5 7021-8 #### [facility] CLIA [id number] [address] [place] [address] [place] MCHC (RBC) [Mass/Vol] 33.0 g/dL Normal 30.5-36.0 [facility] Comment on above: Order Comment: Speci men Type: BLOOD SPECIMEN Ordering Facility: [facility] Address: [address] [place] [address] Performed By: #### 5 7021-8 #### [facility] CLIA [id number] [address] [place] [address] [place] MCV (RBC) [Entitic vol] 83.1 fL Normal 80.0-100.0 [facility] Comment on above: Order Comment: Speci men Type: BLOOD SPECIMEN Ordering Facility: [facility] Address: [address] [place] [address] Performed By: #### 5 7021-8 #### [facility] CLIA [id number] [address] [place] [address] [place] Nucleated RBC (Bld) [#/Vol] 10*3/uL Normal <0.01 [facility] Comment on above: Order Comment: Speci men Type: BLOOD SPECIMEN Ordering Facility: [facility] Address: [address] [place] [address] Performed By: #### 5 7021-8 #### [facility] CLIA [id number] [address] [place] [address] [place] Platelet mean volume (Bld) [Entitic vol] 10.4 fL Normal 9.0-12.7 [facility] Comment on above: Order Comment: Speci men Type: BLOOD SPECIMEN Ordering Facility: [facility] Address: [address] [place] [address] Performed By: #### 5 7021-8 #### [facility] CLIA [id number] [address] [place] [address] [place] Platelets (Bld) [#/Vol] 217 10*3/uL Normal 150-400 [facility] Comment on above: Order Comment: Speci men Type: BLOOD SPECIMEN Ordering Facility: [facility] Address: [address] [place] [address] Performed By: #### 5 7021-8 #### [facility] CLIA [id number] [address] [place] [address] [place] RBC (Bld) [#/Vol] 5.14 10*6/uL Normal 3.90-5.20 [facility] Comment on above: Order Comment: Speci men Type: BLOOD SPECIMEN Ordering Facility: [facility] Address: [address] [place] [address] Performed By: #### 5 7021-8 #### [facility] CLIA [id number] [address] [place] [address] [place] WBC (Bld) [#/Vol] 6.75 10*3/uL Normal 3.70-11.00 [facility] Comment on above: Order Comment: Speci men Type: BLOOD SPECIMEN Ordering Facility: [facility] Address: [address] [place] [address] Performed By: #### 5 7021-8 #### [facility] CLIA [id number] [address] [place] [address] [place] Comprehensive metabolic 2000 panelon 06-04-2024 Albumin [Mass/Vol] 4.0 g/dL Normal 3.9-4.9 [facility] Comment on above: Order Comment: Speci men Type: BLOOD SPECIMEN Ordering Facility: [facility] Address: [address] [place] [address] Performed By: #### 5 7021-8 #### [facility] CLIA [id number] [address] [place] [address] [place] ALP [Catalytic activity/Vol] 130 U/L High 34-123 [facility] Comment on above: Order Comment: Speci men Type: BLOOD SPECIMEN Ordering Facility: [facility] Address: [address] [place] [address] Performed By: #### 5 7021-8 #### [facility] CLIA [id number] [address] [place] [address] [place] ALT [Catalytic activity/Vol] 11 U/L Normal 7-38 [facility] Comment on above: Order Comment: Speci men Type: BLOOD SPECIMEN Ordering Facility: [facility] Address: [address] [place] [address] Performed By: #### 5 7021-8 #### [facility] CLIA [id number] [address] [place] [address] [place] Anion gap [Moles/Vol] 10 mmol/L Normal 8-15 [facility] Comment on above: Order Comment: Speci men Type: BLOOD SPECIMEN Ordering Facility: [facility] Address: [address] [place] [address] Performed By: #### 5 7021-8 #### [facility] CLIA [id number] [address] [place] [address] [place] AST [Catalytic activity/Vol] 13 U/L Normal 13-35 [facility] Comment on above: Order Comment: Speci men Type: BLOOD SPECIMEN Ordering Facility: [facility] Address: [address] [place] [address] Performed By: #### 5 7021-8 #### [facility] CLIA [id number] [address] [place] [address] [place] Bilirubin [Mass/Vol] 0.5 mg/dL Normal 0.2-1.3 [facility] Comment on above: Order Comment: Speci men Type: BLOOD SPECIMEN Ordering Facility: [facility] Address: [address] [place] [address] Performed By: #### 5 7021-8 #### [facility] CLIA [id number] [address] [place] [address] [place] Calcium [Mass/Vol] 9.4 mg/dL Normal 8.5-10.2 [facility] Comment on above: Order Comment: Speci men Type: BLOOD SPECIMEN Ordering Facility: [facility] Address: [address] [place] [address] Performed By: #### 5 7021-8 #### [facility] CLIA [id number] [address] [place] [address] [place] Chloride [Moles/Vol] 107 mmol/L Normal 98-107 [facility] Comment on above: Order Comment: Speci men Type: BLOOD SPECIMEN Ordering Facility: [facility] Address: [address] [place] [address] Performed By: #### 5 7021-8 #### [facility] CLIA [id number] [address] [place] [address] [place] CO2 [Moles/Vol] 24 mmol/L Normal 22-30 [facility] Comment on above: Order Comment: Speci men Type: BLOOD SPECIMEN Ordering Facility: [facility] Address: [address] [place] [address] Performed By: #### 5 7021-8 #### [facility] CLIA [id number] [address] [place] [address] [place] Creatinine [Mass/Vol] 0.94 mg/dL Normal 0.58-0.96 [facility] Comment on above: Order Comment: Speci men Type: BLOOD SPECIMEN Ordering Facility: [facility] Address: [address] [place] [address] Performed By: #### 5 7021-8 #### [facility] CLIA [id number] [address] [place] [address] [place] Creatinine and Glomerular filtration rate.predicted panel (S/P/Bld) 62 mL/min/1.73m??? Normal >=60 [facility] Comment on above: Order Comment: Speci men Type: BLOOD SPECIMEN Ordering Facility: [facility] Address: [address] [place] [address] Result Comment: Nikki mated Glomerular Filtration Rate (eGFR) is calculated using the 2020 CKD-EPI creatinine equation. This equation utilizes serum creatinine, sex, and age as parameters. The creatinine assay has traceable calibration to isotope dilution-mass spectrometry. Refer to KDIGO guidelines for clinical interpretation. In patients with unstable renal function, e.g. those with acute kidney injury, the eGFR may not accurately reflect actual GFR. Performed By: #### 5 7021-8 #### [facility] CLIA [id number] [address] [place] [address] [place] Glucose [Mass/Vol] 99 mg/dL Normal 74-99 [facility] Comment on above: Order Comment: Speci men Type: BLOOD SPECIMEN Ordering Facility: [facility] Address: [address] [place] [address] Result Comment: The [place] Diabetes Association (ADA) provides guidance for cutoff values for fasting glucose and random glucose. The ADA defines fasting as no caloric intake for at least 8 hours. Fasting plasma glucose results between 100 to 125 mg/dL indicate increased risk for diabetes (prediabetes). Fasting plasma glucose results greater than or equal to 126 mg/dL meet the criteria for diagnosis of diabetes. In the absence of unequivocal hyperglycemia, results should be confirmed by repeat testing. In a patient with classic symptoms of hyperglycemia or hyperglycemic crisis, random plasma glucose results greater than or equal to 200 mg/dL meet the criteria for diagnosis of diabetes. Reference: Standards of Medical Care in Diabetes 2016, [place] Diabetes Association. Diabetes Care. 2016.39(Suppl 1). Performed By: #### 5 7021-8 #### [facility] CLIA [id number] [address] [place] [address] [place] Potassium [Moles/Vol] 4.5 mmol/L Normal 3.7-5.1 [facility] Comment on above: Order Comment: Speci men Type: BLOOD SPECIMEN Ordering Facility: [facility] Address: [address] [place] [address] Performed By: #### 5 7021-8 #### [facility] CLIA [id number] [address] [place] [address] [place] Protein [Mass/Vol] 7.3 g/dL Normal 6.3-8.0 [facility] Comment on above: Order Comment: Speci men Type: BLOOD SPECIMEN Ordering Facility: [facility] Address: [address] [place] [address] Performed By: #### 5 7021-8 #### [facility] CLIA [id number] [address] [place] [address] [place] Sodium [Moles/Vol] 141 mmol/L Normal 136-144 [facility] Comment on above: Order Comment: Speci men Type: BLOOD SPECIMEN Ordering Facility: [facility] Address: [address] [place] [address] Performed By: #### 5 7021-8 #### [facility] CLIA [id number] [address] [place] [address] [place] Urea nitrogen [Mass/Vol] 18 mg/dL Normal 7-21 [facility] Comment on above: Order Comment: Jennifer hollins Type: BLOOD SPECIMEN Ordering Facility: [facility] Address: [address] [place] [address] Performed By: #### 5 7021-8 #### [facility] CLIA [id number] [address] [place] [address] [place] HbA1c (Bld)on 06-04-2024 Average glucose Estimated from glycated hemoglobin (Bld) [Mass/Vol] 100 mg/dL Normal [facility] Comment on above: Order Comment: Jennifer hollins Type: BLOOD SPECIMEN Ordering Facility: [facility] Address: [address] [place] [address] Result Comment: eAG: (Estimated average glucose) is a calculated value from HgbA1c and is food service representative of the average blood glucose level in the last 2-3 month period. Performed By: #### 5 7021-8 #### [facility] CLIA [id number] [address] [place] [address] [place] HbA1c (Bld) [Mass fraction] 5.1 % Normal 4.3-5.6 [facility] Comment on above: Order Comment: Jennifer hollins Type: BLOOD SPECIMEN Ordering Facility: [facility] Address: [address] [place] [address] Result Comment: [place] Diabetes Association guidelines indicate that patients with HgbA1c in the range 5.7-6.4% are at increased risk for development of diabetes, and intervention by lifestyle modification may be beneficial. HgbA1c greater or equal to 6.5% is considered diagnostic of diabetes. Performed By: #### 5 7021-8 #### [facility] CLIA [id number] [address] [place], [place] [address] [place] Lipid 1996 panelon Cholesterol [Mass/Vol] 151 mg/dL Normal <200 [facility] Comment on above: Order Comment: Speci men Type: BLOOD SPECIMEN Ordering Facility: [facility] Address: [address] [place] [address] Result Comment: <200 mg/dL, Desirable 200-239 mg/dL, Borderline high >239 mg/dL, High Performed By: #### 5 7021-8 #### [facility] CLIA [id number] [address] [place] [address] [place] Cholesterol in HDL [Mass/Vol] 32 mg/dL Low >39 [facility] Comment on above: Order Comment: Jacei men Type: BLOOD SPECIMEN Ordering Facility: [facility] Address: [address] [place] [address] Result Comment: 40-5 9 mg/dL, Acceptable >59 mg/dL, High: Negative risk factor for coronary heart disease <40 mg/dL, Low: Positive risk factor for coronary heart disease Performed By: #### 5 7021-8 #### [facility] CLIA [id number] [address] [place] [address] [place] Cholesterol in LDL [Mass/Vol] 98 mg/dL Normal <100 [facility] Comment on above: Order Comment: Jennifer gurvinder Type: BLOOD SPECIMEN Ordering Facility: [facility] Address: [address] [place] [address] Result Comment: <100 mg/dL, Optimal 100-129 mg/dL, Near optimal/above optimal 130-159 mg/dL, Borderline high 160-189 mg/dL, High >189 mg/dL, Very high Secondary prevention optimal LDL Cholesterol levels are recommended to be < 70 mg/dL Performed By: #### 5 7021-8 #### [facility] CLIA [id number] [address] [place] [address] [place] Cholesterol in LDL/Cholesterol in HDL [Mass ratio] 3.06 {ratio} High <2.54 [facility] Comment on above: Order Comment: Jennifer hollins Type: BLOOD SPECIMEN Ordering Facility: [facility] Address: [address] [place] [address] Result Comment: Refsanjuana avitia: 1. National Cholesterol Education Program ATP III Guideline At-A-Glance Quick Desk Reference: National Heart, Lung, and Blood [place]. National Institutes of Health. 2001: NIH Publication No. 01-3305. 2. An International Atherosclerosis Society position paper: global recommendations for the management of dyslipidemia: executive summary, Atherosclerosis. 2014: 232(2):410-413. Performed By: #### 5 7021-8 #### [facility] CLIA [id number] [address] [place], [place] [address] [place] [address] [place] Cholesterol in VLDL [Mass/Vol] 21 mg/dL Normal <30 [facility] Comment on above: Order Comment: Speci men Type: BLOOD SPECIMEN Ordering Facility: [facility] Address: [address] [place] [address] Performed By: #### 5 7021-8 #### [facility] CLIA [id number] [address] [place] [address] [place] Cholesterol non HDL [Mass/Vol] 119 mg/dL Normal <130 [facility] Comment on above: Order Comment: Jennifer hollins Type: BLOOD SPECIMEN Ordering Facility: [facility] Address: [address] [place] [address] Result Comment: <130 mg/dL, Optimal 130-159 mg/dL, Near optimal/above optimal 160-189 mg/dL, Borderline high 190-219 mg/dL, High >219 mg/dL, Very high Secondary prevention optimal non HDL Cholesterol levels are recommended to be <100 mg/dL Performed By: #### 5 7021-8 #### [facility] CLIA [id number] [address] [place] [address] [place] Cholesterol.total/Cho lesterol in HDL [Mass ratio] 4.72 {ratio} Normal <5.10 [facility] Comment on above: Order Comment: Jennifer hollins Type: BLOOD SPECIMEN Ordering Facility: [facility] Address: [address] [place] [address] Performed By: #### 5 7021-8 #### [facility] CLIA [id number] [address] [place] [address] [place] FASTING TIME 12 hrs Normal [facility] Comment on above: Order Comment: Speci men Type: BLOOD SPECIMEN Ordering Facility: [facility] Address: [address] [place] [address] Performed By: #### 5 7021-8 #### [facility] CLIA [id number] [address] [place] [address] [place] Triglyceride [Mass/Vol] 104 mg/dL Normal <150 [facility] Comment on above: Order Comment: Speci men Type: BLOOD SPECIMEN Ordering Facility: [facility] Address: [address] [place] [address] Result Comment: <150 mg/dL, Normal 150-199 mg/dL, Borderline high 200-499 mg/dL, High >499 mg/dL, Very high Performed By: #### 5 7021-8 #### [facility] CLIA [id number] [address] [place] [address] [place] Magnesium SerPl-mCncon 06-04 Magnesium [Mass/Vol] 2.2 mg/dL Normal 1.7-2.3 [facility] Comment on above: Order Comment: Speci men Type: BLOOD SPECIMEN Ordering Facility: [facility] Address: [address] [place] [address] Performed By: #### 3 016-3, 3024-7, 3051-0, 82318-4 #### [facility] CLIA [id number] [address] [place] [address] [place] T3Free SerPl-mCncon 06-05-19 25 Free T3 [Mass/Vol] 2.5 pg/mL Normal 2.3-4.1 [facility] Comment on above: Order Comment: Speci men Type: BLOOD SPECIMEN Ordering Facility: [facility] Address: [address] [place] [address] Performed By: #### 5 7021-8 #### [facility] CLIA [id number] [address] [place] [address] [place] T4 Free SerPl-mCncon 025 Free T4 [Mass/Vol] 1.1 ng/dL Normal 0.9-1.7 [facility] Comment on above: Order Comment: Speci men Type: BLOOD SPECIMEN Ordering Facility: [facility] Address: [address] [place] [address] Performed By: #### 5 7021-8 #### [facility] CLIA [id number] [address] [place] [address] [place] TSH SerPl-aCncon 06-04-2024 TSH Qn 6.230 m[IU]/L High 0.270-4.200 [facility] Comment on above: Order Comment: Speci men Type: BLOOD SPECIMEN Ordering Facility: [facility] Address: [address] [place] [address] Performed By: #### 3 016-3, 3024-7, 3051-0, 44664-7 #### [facility] CLIA [id number] [address] [place] [address] [place] CNOVon 03-28-2024 CNOV Office Visit (PULMWS ) JHONATANMAE Cohen ([id number]) 1945 F Date Time Provider Department 03/28/24 1:15 PM JOHANNE HUTCHINSON PULMWS During your visit today, we recorded the following information about you: Pulse Respiration Blood pressure Weight 74/minute 17/minute 132/82 110.2 kg Height 1.699 m Johanne Hutchinson MD 03/28/2024 2:49 PM [facility] Respiratory [place] Note Patient name: Mae Grant PCP: Racquel Centeno MD CC: Follow-up cough HPI: Mae Grant 78 year old female never smoker with PMH significant for obesity, ANA on CPAP, HTN, hypothyroidism, GERD, allergic rhinitis, and chronic cough. Spirometry normal but Jong elevated. Started on low dose Symbicort and as needed albuterol. She was last evaluated in clinic in November after a two year hiatus with complaints of increased cough. History notable for three parakeets at home. Exhaled nitric oxide remained elevated. Symbicort increased to 160 ug, continued PPI for GERD and labs ordered for HP. Her laboratory testing normal. Today she states her cough has improved but she has been having some difficulty with exertional shortness of breath and chest tightness. She feels as if she cannot take a deep breath. It has somewhat interfered with her activities. She has not heard any wheezing. She is not been recently ill. Her exhaled nitric oxide level today was normal and pulmonary function test showed minimal small airways obstruction. GERD symptoms controlled with proton pump inhibitor. No nocturnal awakenings. DATA: ASTHMA CONTROL TEST Date: 03/28/2024 In the last 4 weeks, how much of the time did your asthma keep you from getting as much done at work or home that you wanted to do? Some of the time (3) In the last 4 weeks, how often have you had shortness of breath? Once a day (2) In the last 4 weeks, how often did your asthma symptoms (wheezing, coughing, shortness of breath, chest tightness or pain) wake you up at night or earlier than usual? Not at all (5) In the last 4 weeks, how often have you used your rescue inhaler or nebulizer medication (such as Albuterol, Proventil, Ventolin, Maxair, Xoponex, or Primatene Mist)? A few times per week (3) In the last 4 weeks, how would you rate your asthma control? Somewhat controlled (3) Total: 16-19 SERVICE DATE: 03/28/2024 SERVICE TIME: 12:58 PM Oral Exhaled Nitric Oxide measurement: 25.0 (ppb) Oral Exhaled Nitric Oxide measurement (Previous Encounters) Test Date Oral Exhaled Nitric Oxide (ppb) 03/28/2024 25.0 12/20/2023 36.0 (A) 09/21/2021 37.0 (A) 05/20/2020 33.0 PFT: Labs: Component Ref Range AND Units 3 mo ago IgE <114.0 kU/l 21.0 Component Ref Range AND Units 3 mo ago Teec Nos Pos Tree IgE <0.35 kU/l <0.35 [place] Tree Class Class 0 Class 0 Maynor Grass IgE <0.35 kU/l <0.35 Maynor Grass Class Class 0 Class 0 Jamilah Grass IgE <0.35 kU/l <0.35 Jamilah Grass Class Class 0 Class 0 Short Ragweed IgE <0.35 kU/l <0.35 Short Ragweed Class Class 0 Class 0 Perea's Quarters IgE <0.35 kU/l <0.35 Perea's Quarters Class Class 0 Class 0 Cat Dander IgE <0.35 kU/l <0.35 Cat Dander Class Class 0 Class 0 Dog Dander IgE <0.35 kU/l <0.35 Dog Dander Class Class 0 Class 0 Cladosporium herbarum IgE <0.35 kU/l <0.35 Cladosporium herbarum Class Class 0 Class 0 Alternaria tenuis IgE <0.35 kU/l <0.35 Alternaria tenuis Class Class 0 Class 0 Dermatophagoides Farinae IgE <0.35 kU/l <0.35 Dermatophagoides Farinae Class Class 0 Class 0 Component Ref Range AND Units 3 mo ago Aspergillus fumigatus 1 None Detected None Detected Aspergillus fumigatus 6 None Detected See Note Comment: A. fumigatus #6 Ab, Precipitin testing not performed due to reagent backorder. A credit will be issued for this component. Aureobasidium pullulans None Detected None Detected [place] Serum AB None Detected None Detected Micropolyspora faeni None Detected None Detected PAST MEDICAL HISTORY Diagnosis Date Abdominal pain, unspecified site Acute gastritis without mention of hemorrhage Allergic rhinitis, cause unspecified Allergic rhinitis Arthritis Cough variant asthma DDD (degenerative disc disease), cervical mild to moderate on MRI June 2013 Diarrhea Esophageal reflux Hepatitis in viral diseases classified elsewhere(573.1) Associated with mono (EBV) infection in early 2001 Insomnia, unspecified Obesity, unspecified ANA (obstructive sleep apnea) On CPAP Osteopenia Panic disorder without agoraphobia Unspecified essential hypertension Unspecified hypothyroidism ALLERGIES Allergen Reactions Atenolol palpitations, chest discomfort Silenor [Doxepin] Other: See Comments palpitations (heart fluttered and chest felt strange) Tramadol Other: See Comments Unable to sleep - keeps her hyper (more content not included)... Normal [facility] NITRIC OXIDE, EXHALEDon 03-01 Jayson Trimble RPF T 03/28/2024 1:00 PM RESPIRATORY THERAPY ORAL EXHALED NITRIC OXIDE SERVICE DATE: 03/28/2024 SERVICE TIME: 12:58 PM Oral Exhaled Nitric Oxide measurement: 25.0 (ppb) Normal: Adult <25 ppb, pediatric (<12 years) <20 ppb High Normal / Increased: Adult 25-50 ppb, pediatric (<12 years) 20-35 ppb Moderately raised exhaled Nitric Oxide may indicate underlying inflammation, but note that: Cold and influenza can raise exhaled Nitric Oxide and some patients have higher baseline exhaled Nitric Oxide levels than others. High: Adult >50 ppb, pediatric (<12 years) >35 ppb Indicative of ongoing eosinophilic inflammation. Symptomatic patient likely to respond to steroids. Possible causes (if already on steroids): Poor compliance, recent allergen exposure, steroid dose inadequate, and steroid resistance. Note that not all patients with high exhaled nitric oxide levels display symptoms. Oral Exhaled Nitric Oxide measurement (Previous Encounters) Test Date Oral Exhaled Nitric Oxide (ppb) 03/28/2024 25.0 12/20/2023 36.0 (A) 09/21/2021 37.0 (A) 05/20/2020 33.0 NAME: Jayson TrimbleROSANNA PATIENT NAME: Mae Grant DATE: March 28, 2024 TIME: 12:58 PM [facility] NITRIC OXIDE, EXHALEDOrdered By: Jayson Trimble on 03-28-2024 [facility] SPIROMETRY WITH DILATOR IF O BSTRUCTEDon 03-28-2024 FEF25% PRE (L/S) 4.78 L/S [facility] OYV34-42% LLN (L/S) 0.71 L/S [facility] RDP38-32% PRE (L/S) 1.24 [facility] KPG46-04% PREDICTED (L/S) 1.69 L/S [facility] FEF75% LLN (L/S) 0.13 L/S [facility] FEF75% PRE (L/S0 0.40 L/S [facility] FEF75% PREDICTED (L/S) 0.38 L/S [facility] FEF75% ULN (L/S) 1.13 L/S [facility] FET PRE (S) 7.37 S [facility] FEV1 LLN (L) 1.49 L [facility] FEV1 PRE (L) 2.14 L [facility] FEV1 PREDICTED (L) 2.19 L [facility] FEV1 ULN (L) 2.84 L [facility] FEV1/FVC LLN (%) 64 % [facility] FEV1/FVC PRE (%) 72 % [facility] FEV1/FVC PREDICTED (%) 77 % [facility] FVC LLN (L) 2.00 L [facility] FVC PRE (L) 2.98 L [facility] FVC PREDICTED (L) 2.89 L [facility] FVC ULN (L) 3.81 L [facility] PEF LLN (L/S) 3.49 L/S [facility] PEF PRE (L/S) 6.60 L/S [facility] PEF ULN (L/S) 7.23 L/S [facility] [address] [place] [address] Test Date: 2024-03-28 Pat Name: MAE GRANT Department: Room: 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 No contraindications or sensitivities were noted. Meds taken: symbicort 4 /hours before testing. Current ATS/ERS acceptability and repeatability standards for spirometry met. Start of test and EOFE criteria met. IMPRESSION: Spirometry is normal. Electronically Signed On 03-28-2024 16:14:11 EST by Johanne Hutchinson MD ID: [id number] Name: MAE GRANT Race: White Ht: 66.91 in Wt: 243.00 lbs Age: 78 Gender: Female : 1945 Dx: Unspecified asthma, uncomplicated Smoking Hx: Non-smoker Doctor: NISHA GROSS Test Date: 03/28/2024 Site: Tech: Jayson Trimble PRE-BRONCH POST-BRONCH Pre LLN Pred ULN %Pred Post %Pred %Chg SPIROMETRY FVC (L) 2.98 2.00 2.89 3.81 102 FEV1 (L) 2.14 1.49 2.19 2.84 97 FEV1/FVC 0.72 0.64 0.77 0.88 93 PEF L/s (L/sec) 6.60 3.49 5.36 7.23 123 FEF50 (L/sec) 1.63 1.52 3.13 4.73 52 FIF50 (L/sec) 4.22 FEF50/FIF50 0.39 90-100 FIVC (L) 2.96 SQQ87-41 (L/sec) 1.24 0.71 1.69 3.15 73 Time (sec) 7.37 FET PEF (sec) 0.09 CLIVE (L) 0.07 Vol Extrap % (%) 2 Comments: Medications and Allergies were reviewed for possible drug interactions per policy. No contraindications or sensitivities were noted. Meds taken: symbicort 4 /hours before testing. Current ATS/ERS acceptability and repeatability standards for spirometry met. Start of test and EOFE criteria met. PULMONARY FUNCTION LAB [facility] Miguel 03-11-2024 JENNIFER Telephone (INTMWS) MAE GRANT ([id number]) 1945 F Date Time Provider Department 03/11/24 RACQUEL CENTENO INTYvanWS During your visit today, we recorded the following information about you: Nilsa Parker LPN 03/11/2024 3:21 PM Signed Received Pap 30 day Compliance report after pressure changes to patient's AutoCpap. Please review and advise. RC Nelson Liza D, MD 03/20/2024 2:36 PM Signed Noted Allergies As of Date: 03/11/2024 Noted Allergy Reaction ATENOLOL 11/23/2004 Comments: palpitations, chest discomfort SILENOR (DOXEPIN) 07/22/2015 14 - Other: See Comments Comments: palpitations (heart fluttered and chest felt strange) TRAMADOL 11/05/2013 14 - Other: See Comments Comments: Unable to sleep - keeps her hyper Date Reviewed: 12/20/2023 Reviewed by: Nisha Gross PA-C - Fully Assessed Reason for Visit: Pap compliance report after changes [Other] Prescriptions as of 03/21/2024 - losartan (COZAAR) 100 mg tablet Take 1 tablet by mouth once daily. - budesonide-formoterol (SYMBICORT) 160-4.5 mcg/actuation inhaler Inhale 2 Puffs as instructed two times a day. - levothyroxine (SYNTHROID) 150 mcg tablet Take 1 tablet by mouth once daily. Take on empty stomach. For thyroid - albuterol HFA (PROVENTIL HFA, VENTOLIN HFA) 90 mcg/actuation inhaler Inhale 2 Puffs as instructed every 4 hours as needed for wheezing/shortness of breath. - zolpidem (AMBIEN) 10 mg Take 1 tablet by mouth daily at bedtime for 180 days. - pantoprazole DR (PROTONIX) 40 mg tablet Take 1 tablet by mouth once daily. Take on empty stomach, 1/2 hr before meal. - September 13, 2021 - take morning and veneing. - gabapentin (NEURONTIN) 600 mg tablet Take 1 tablet by mouth two times a day. - PARoxetine (PAXIL) 20 mg tablet Take 1 tablet by mouth once daily. - fluticasone (FLONASE) 50 mcg/actuation nasal spray Use 2 Sprays in each nostril once daily. 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, Includin*12/05/2008 History of fracture of tibia [Z87.81] 04/22/2010 Impingement syndrome of both shoulders [M75.41,*09/09/2013 Pain in joint, shoulder region [M25.519] 09/20/2013 09/06/2019 Right carpal tunnel syndrome [G56.01] 10/18/2013 Left carpal tunnel syndrome [G56.02] 10/22/2013 ANA on CPAP [G47.33] 04/26/2016 Idiopathic peripheral autonomic neuropathy [G90*04/26/2016 Anxiety and depression [F41.9, F32.A] 04/26/2016 Pain of both hip joints [M25.551, M25.552] 08/21/2018 Obesity, Class III, BMI >= 40 [E66.01] 04/04/2019 12/15/2022 Stage 3a chronic kidney disease (HCC) [N18.31] 03/28/2021 Hypertensive kidney disease with stage 3a chron*04/27/2022 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 Routine screening mammogram is recommended. Annual mammogram will be due in 1 year. BI-RADS Category 2: Benign RISK: Based on the Tyrer-Cuzick (TC) risk assessment model, this patient has a 1.3% lifetime risk of developing breast cancer, meaning they are at average risk for developing breast cancer. However, this is only an estimate based on available history provided on the patient's questionnaire. We encourage all patients to talk with their providers about these results, further recommendations for managing breast health, and appropriate supplemental screening options if the patient has dense breast tissue. Interpreting Radiologist: Rosalinn Jania, M.D. Electronically signed on: 01/02/2024 Atomic Fuel Assembler: [email or web address] Montesribe Date/Time: Jan 01 2024 2:13P Dictated by: BERNARDINO DYKES MD This examination was interpreted and the report reviewed and electronically signed by: BERNARDINO DYKES MD on Jan 02 2024 9:58AM [facility] DIVISION OF RADIOLOGY * * *Final Report* * * DATE OF EXAM: Jan 01 2024 2:25PM [facility] 0581 - ANDRE SCREENING / PROCEDURE REASON: Encounter for screening mammogram for breast cancer * * * * Physician Interpretation * * * * RESULT: [facility] [address] [place] [address] HISTORY: Patient is 78 years old and is seen for screening and is asymptomatic in both breasts. Patient states no personal history of breast cancer. Patient states no personal history of other cancers. COMPARISON STUDIES: The present examination has been compared to prior imaging studies dated 05/08/2018 (mammogram), 06/26/2020 (mammogram), 06/30/2021 (mammogram) and 07/27/2022 (mammogram). MAMMOGRAM TECHNIQUE: The study was acquired using full field digital technology and interpreted from soft copy. Digital Breast Tomosynthesis (DBT) images were obtained and used to assist in the interpretation of this examination. Computer-aided detection was utilized by the radiologist in the interpretation of this examination. MAMMOGRAM FINDINGS: The breasts are almost entirely fatty. There is a stable biopsy marker in the left breast. No suspicious masses, calcifications or other abnormalities are seen in either breast. DIVISION OF RADIOLOGY Provider, [facility] - 01/02/2024 * * *Final Report* * * DATE OF EXAM: Jan 01 2024 2:25PM [facility] 0581 - ANDRE SCREENING / PROCEDURE REASON: Encounter for screening mammogram for breast cancer * * * * Physician Interpretation * * * * RESULT: [facility] [address] [place] [address] HISTORY: Patient is 78 years old and is seen for screening and is asymptomatic in both breasts. Patient states no personal history of breast cancer. Patient states no personal history of other cancers. COMPARISON STUDIES: The present examination has been compared to prior imaging studies dated 05/08/2018 (mammogram), 06/26/2020 (mammogram), 06/30/2021 (mammogram) and 07/27/2022 (mammogram). MAMMOGRAM TECHNIQUE: The study was acquired using full field digital technology and interpreted from soft copy. Digital Breast Tomosynthesis (DBT) images were obtained and used to assist in the interpretation of this examination. Computer-aided detection was utilized by the radiologist in the interpretation of this examination. MAMMOGRAM FINDINGS: The breasts are almost entirely fatty. There is a stable biopsy marker in the left breast. No suspicious masses, calcifications or other abnormalities are seen in either breast. IMPRESSION IMPRESSION: There is no mammographic evidence of malignancy. Routine screening mammogram is recommended. Annual mammogram will be due in 1 year. BI-RADS Category 2: Benign RISK: Based on the Tyrer-Cuzick (TC) risk assessment model, this patient has a 1.3% lifetime risk of developing breast cancer, meaning they are at average risk for developing breast cancer. However, this is only an estimate based on available history provided on the patient's questionnaire. We encourage all patients to talk with their providers about these results, further recommendations for managing breast health, and appropriate supplemental screening options if the patient has dense breast tissue. Interpreting Radiologist: Bernardino Dykes M.D. Electronically signed on: 01/02/2024 Atomic Fuel Assembler: [email or web address] Transcribe Date/Time: Jan 01 2024 2:13P Dictated by: BERNARDINO DYKES MD This examination was interpreted and the report reviewed and electronically signed by: BERNARDINO DYKES MD on Jan 02 2024 9:58AM EST [facility] MG Breast ScreeningOrdered B y: [facility] Provider on 01-02-2024 [facility] ANDRE SCREENINGon 01-01-2024 [facility] SCREENING * * *Final Report* * * DATE OF EXAM: Jan 01 2024 2:25PM [facility] 0581 - [facility] SCREENING / PROCEDURE REASON: Encounter for screening mammogram for breast cancer * * * * Physician Interpretation * * * * RESULT: [place] [address] [place] [address] HISTORY: Patient is 78 years old and is seen for screening and is asymptomatic in both breasts. Patient states no personal history of breast cancer. Patient states no personal history of other cancers. COMPARISON STUDIES: The present examination has been compared to prior imaging studies dated 05/08/2018 (mammogram), 06/26/2020 (mammogram), 06/30/2021 (mammogram) and 07/27/2022 (mammogram). MAMMOGRAM TECHNIQUE: The study was acquired using full field digital technology and interpreted from soft copy. Digital Breast Tomosynthesis (DBT) images were obtained and used to assist in the interpretation of this examination. Computer-aided detection was utilized by the radiologist in the interpretation of this examination. MAMMOGRAM FINDINGS: The breasts are almost entirely fatty. There is a stable biopsy marker in the left breast. No suspicious masses, calcifications or other abnormalities are seen in either breast. IMPRESSION: There is no mammographic evidence of malignancy. Routine screening mammogram is recommended. Annual mammogram will be due in 1 year. BI-RADS Category 2: Benign RISK: Based on the Tyrer-Cuzick (TC) risk assessment model, this patient has a 1.3% lifetime risk of developing breast cancer, meaning they are at average risk for developing breast cancer. However, this is only an estimate based on available history provided on the patient's questionnaire. We encourage all patients to talk with their providers about these results, further recommendations for managing breast health, and appropriate supplemental screening options if the patient has dense breast tissue. Interpreting Radiologist: Bernardino Dykes M.D. Electronically signed on: 01/02/2024 Atomic Fuel Assembler: [email or web address] Transcribe Date/Time: Jan 01 2024 2:13P Dictated by: BERNARDINO DYKES MD This examination was interpreted and the report reviewed and electronically signed by: BERNARDINO DYKES MD on Jan 02 2024 9:58AM EST [id number] Normal [facility] Breast Screeningon 2023 Radiology Study observation (narrative) [facility] No Panel Informationon 12-19 Jayson Trimble RPF T 12/20/2023 2:26 PM RESPIRATORY THERAPY ORAL EXHALED NITRIC OXIDE SERVICE DATE: 12/20/2023 SERVICE TIME: 2:26 PM Oral Exhaled Nitric Oxide measurement: 36.0 (ppb) Normal: Adult <25 ppb, pediatric (<12 years) <20 ppb High Normal / Increased: Adult 25-50 ppb, pediatric (<12 years) 20-35 ppb Moderately raised exhaled Nitric Oxide may indicate underlying inflammation, but note that: Cold and influenza can raise exhaled Nitric Oxide and some patients have higher baseline exhaled Nitric Oxide levels than others. High: Adult >50 ppb, pediatric (<12 years) >35 ppb Indicative of ongoing eosinophilic inflammation. Symptomatic patient likely to respond to steroids. Possible causes (if already on steroids): Poor compliance, recent allergen exposure, steroid dose inadequate, and steroid resistance. Note that not all patients with high exhaled nitric oxide levels display symptoms. Oral Exhaled Nitric Oxide measurement (Previous Encounters) Test Date Oral Exhaled Nitric Oxide (ppb) 12/20/2023 36.0 (A) 09/21/2021 37.0 (A) 05/20/2020 33.0 NAME: ROSANNA Kelly PATIENT NAME: Mae Grant DATE: December 20, 2023 TIME: 2:26 PM [facility] Esophagus Dual Contraston Esophagus Dual Contrast [facility] [address] [place] [id number] Esophagus Dual Contrast MR#: [id number] Acct: [id number] Name: MAE GRANT Rep #: [id number] : 1945 F 78 From: Osmany plasencia MD PCP: Dr. Racquel Centeno MD Status: REG CL Study: Esophagus Dual Contrast Date of Exam: 06/23/23 Exam# [id number] Ordering Dr: Felipe Estrada THERAPEUTIC CASE MANAGER THERAPEUTIC CASE MANAGER-C [id number] STUDY: X-RAY - ESOPHAGUS (BARIUM SWALLOW) WITH FLUOROSCOPY REASON FOR EXAM: Female, 78 years old. HIATAL HERNIA TECHNIQUE: 16 view(s) of the esophagus were obtained following swallowing of barium. FLUOROSCOPY TIME (if supplied): (26 seconds) minutes/seconds COMPARISON: None. FINDINGS: There is no demonstrated esophageal foreign body. There is no demonstrated stricture or mucosal abnormality. Normal gastroesophageal junction, without a demonstrated hiatal hernia. The patient ingested a 12 mm tablet of barium without any difficulty. There is atherosclerotic calcification of the aortic arch with tortuosity of the descending aorta. Normal visualized pulmonary parenchyma. There are degenerative changes of the visualized thoracic spine. RAD/Esophagus Dual Contrast IMPRESSION: Normal plain film x-ray examination (barium swallow) of the esophagus. Electronically Signed: Osmany Wade MD at 10:34 EDT , CC: DAVIN Estrada; Dr. Racquel Centeno MD Atomic Fuel Assembler: Signed Normal [facility] ECG COMPLETEon 04-18-2023 Atrial Rate 75 BPM [facility] Calculated R [place] -3 degrees [facility] Calculated T [place] 1 degrees [facility] P-R Interval 168 ms [facility] QRS Duration 74 ms [facility] QT Interval 376 ms [facility] QTC Calculation (Bazett) 419 ms [facility] Ventricular Rate 75 BPM [facility] XR Chest PA and Lateralon IMPRESSION: No acute radiographic abnormality. Atomic Fuel Assembler: PSCB Transcribe Date/Time: Jan 28 2023 10:30A Dictated by : JOSE RAMON HOLLEY MD This examination was interpreted and the report reviewed and electronically signed by: JOSE RAMON HOLLEY MD on Jan 28 2023 10:30AM [facility] DIVISION OF RADIOLOGY * * *Final Report* * * DATE OF EXAM: Jan 28 2023 9:07AM WOX [id number] - XR CHEST 2V FRONTAL/LAT / PROCEDURE REASON: multiple diagnoses * * * * Physician Interpretation * * * * EXAMINATION: CHEST RADIOGRAPH (2 VIEW FRONTAL & LATERAL) CLINICAL HISTORY: Chronic cough SOB (shortness of breath) MQ: XC2_6 EXAM DATE/TIME: 01/28/2023 9:07 AM COMPARISON: 09/13/2021 RESULT: Lines, tubes, and devices: None. Lungs and pleura: No consolidation. No lung mass. No pleural effusion. No pneumothorax. Bibasilar atelectasis/scar. Cardiomediastinal silhouette: Normal cardiomediastinal silhouette. Bones and soft tissues: Unremarkable. DIVISION OF RADIOLOGY Provider, [facility] - 01/28/2023 * * *Final Report* * * DATE OF EXAM: Jan 28 2023 9:07AM [facility] [id number] - XR CHEST 2V FRONTAL/LAT / PROCEDURE REASON: multiple diagnoses * * * * Physician Interpretation * * * * EXAMINATION: CHEST RADIOGRAPH (2 VIEW FRONTAL & LATERAL) CLINICAL HISTORY: Chronic cough SOB (shortness of breath) MQ: XC2_6 EXAM DATE/TIME: 01/28/2023 9:07 AM COMPARISON: 09/13/2021 RESULT: Lines, tubes, and devices: None. Lungs and pleura: No consolidation. No lung mass. No pleural effusion. No pneumothorax. Bibasilar atelectasis/scar. Cardiomediastinal silhouette: Normal cardiomediastinal silhouette. Bones and soft tissues: Unremarkable. IMPRESSION IMPRESSION: No acute radiographic abnormality. Atomic Fuel Assembler: CHUCKY Transcribe Date/Time: Jan 28 2023 10:30A Dictated by : JOSE RAMON HOLLEY MD This examination was interpreted and the report reviewed and electronically signed by: JOSE RAMON HOLLEY MD on Jan 28 2023 10:30AM EST [facility] Radiology Study observation (narrative) [facility] XR Chest PA and LateralOrder ed By: [facility] Provider on 01-28-2023 [facility] CBC panel Auto (Bld)on 12-03 Erythrocyte distribution width (RBC) [Ratio] 14.5 % 11.5 - 15.0 % [facility] Hematocrit (Bld) [Volume fraction] 46.0 % 36.0 - 46.0 % [facility] Hemoglobin (Bld) [Mass/Vol] 15.1 g/dL 11.5 - 15.5 g/dL [facility] MCH (RBC) [Entitic mass] 27.6 pg 26.0 - 34.0 pg [facility] MCHC (RBC) [Mass/Vol] 32.8 g/dL 30.5 - 36.0 g/dL [facility] MCV (RBC) [Entitic vol] 84.1 fL 80.0 - 100.0 fL [facility] Nucleated RBC (Bld) [#/Vol] <0.01 k/uL [facility] Platelet mean volume (Bld) [Entitic vol] 10.3 fL 9.0 - 12.7 fL [facility] Platelets (Bld) [#/Vol] 246 10*3/uL 150 - 400 k/uL [facility] RBC (Bld) [#/Vol] 5.47 10*6/uL High 3.90 - 5.2 0 m/uL [facility] WBC (Bld) [#/Vol] 9.79 10*3/uL 3.70 - 11. 00 k/uL [facility] Comprehensive metabolic 2000 panelon 12-03-2022 Albumin [Mass/Vol] 4.4 g/dL 3.9 - 4.9 g/dL Cl [facility] ALP [Catalytic activity/Vol] 100 U/L 34 - 123 U/L [facility] ALT [Catalytic activity/Vol] 14 U/L 7 - 38 U/L [facility] Anion gap [Moles/Vol] 12 mmol/L 9 - 18 mmol/L [facility] AST [Catalytic activity/Vol] 15 U/L 13 - 35 U/L [facility] Bilirubin [Mass/Vol] 0.8 mg/dL 0.2 - 1 .3 mg/dL [facility] Calcium [Mass/Vol] 9.9 mg/dL 8.5 - 10. 2 mg/dL [facility] Chloride [Moles/Vol] 102 mmol/L 97 - 10 5 mmol/L [facility] CO2 [Moles/Vol] 24 mmol/L 22 - 30 mmol/L [facility] Creatinine [Mass/Vol] 1.14 mg/dL High 0.58 - 0.96 mg/dL [facility] Estimated Glomerular Filtration Rate 50 mL/min/1.73m Low >=60 mL/min/1.73m [facility] Glucose [Mass/Vol] 129 mg/dL High 74 - 99 mg/dL [facility] Potassium [Moles/Vol] 4.0 mmol/L 3.7 - 5.1 mmol/L [facility] Protein [Mass/Vol] 7.6 g/dL 6.3 - 8.0 g/dL [facility] Sodium [Moles/Vol] 138 mmol/L 136 - 144 mmol/L [facility] Urea nitrogen [Mass/Vol] 27 mg/dL High 7 - 21 mg/dL [facility] HbA1c (Bld)on 12-03-2022 Average glucose Estimated from glycated hemoglobin (Bld) [Mass/Vol] 105 mg/dL [facility] HbA1c (Bld) [Mass fraction] 5.3 % 4.3 - 5.6 % [facility] LIPID PANEL, NONFASTINGon Cholesterol [Mass/Vol] 154 mg/dL <200 mg/dL [facility] HDL Cholesterol, Nonfasting 25 mg/dL Low >39 mg/dL [facility] LDL Cholesterol, Nonfasting 82 mg/dL <100 mg/dL [facility] LDL/HDL Ratio, Nonfasting 3.28 mg/dL High <2.54 mg/dL [facility] Non HDL Cholesterol, Nonfasting 129 mg/dL <130 mg/dL [facility] Total Chol/HDL Ratio, Nonfasting 6.16 mg/dL High <5.10 mg/dL [facility] Triglycerides, Nonfasting 235 mg/dL High <150 mg/dL [facility] VLDL Cholesterol, Nonfasting 47 mg/dL High <30 mg/dL [facility] MAGNESIUM Don 12-03-2022 Magnesium [Mass/Vol] 2.1 mg/dL 1.7 - 2 .3 mg/dL [facility] T4 FREE/FREE THYROXon 2022 Free T4 [Mass/Vol] 1.6 ng/dL 0.9 - 1.7 ng/dL [facility] TSH Don 12-03-2022 TSH Qn 0.615 m[IU]/L 0.270 - 4.200 mIU/L [facility] NITRIC OXIDE, EXHALEDon 08-28 [facility] SPIROMETRY WITH DILATOR IF O BSTRUCTEDon 09-21-2021 [id number]% PRE (L/S) 1.82 L/S [facility] FEV1 PRE (L) 2.37 L [facility] FEV1/FVC PRE (%) 0.75 % [facility] FVC PRE (L) 3.15 L [facility] PEF PRE (L/S) 6.72 L/S [facility] XR Chest PA and Lateralon IMPRESSION: Diminished interstitial prominence and bronchial wall thickening when compared to most recent July 2021 study. There is no focal consolidation or acute pleural process. There is no vascular redistribution to suggest pulmonary edema. [employer]er: CHUCKY Transcribe Date/Time: Sep 13 2021 5:20P Dictated by : RAJAN KATE MD This examination was interpreted and the report reviewed and electronically signed by: RAJAN KATE MD on Sep 13 2021 5:24PM EST ZZZ_DO_NOT_US E_DIVISION OF RADIOLOGY * * *Final Report* * * DATE OF EXAM: Sep 13 2021 1:27PM WOX 5291 - XR CHEST 2V FRONTAL/LAT / PROCEDURE REASON: multiple diagnoses * * * * Physician Interpretation * * * * EXAMINATION: CHEST RADIOGRAPH (2 VIEW FRONTAL & LATERAL) CLINICAL HISTORY: Chronic cough. iWbairon MQ: XC2_6 EXAM DATE/TIME: 09/13/2021 1:27 PM COMPARISON: No relevant prior studies available. RESULT: Lines, tubes, and devices: None. Lungs and pleura: Diffuse and bilateral interstitial prominence present on the prior study has improved. There is less bronchial wall thickening suggesting improving airways inflammation. Pleural parenchymal stranding at both bases could represent atelectasis or scar. There is no focal consolidation or acute pleural fluid. There is no vascular redistribution to suggest pulmonary edema. Cardiomediastinal silhouette: Unchanged cardiomediastinal silhouette with unfolded descending thoracic aorta. Bones/soft tissues: The bony structures are intact with mild degenerative change. No bony destructive process noted. ZZZ_DO_NOT_US E_DIVISION OF RADIOLOGY Provider, [facility] - 09/13/2021 * * *Final Report* * * DATE OF EXAM: Sep 13 2021 1:27PM WOX 5291 - XR CHEST 2V FRONTAL/LAT / PROCEDURE REASON: multiple diagnoses * * * * Physician Interpretation * * * * EXAMINATION: CHEST RADIOGRAPH (2 VIEW FRONTAL & LATERAL) CLINICAL HISTORY: Chronic cough. iWbairon MQ: XC2_6 EXAM DATE/TIME: 09/13/2021 1:27 PM COMPARISON: No relevant prior studies available. RESULT: Lines, tubes, and devices: None. Lungs and pleura: Diffuse and bilateral interstitial prominence present on the prior study has improved. There is less bronchial wall thickening suggesting improving airways inflammation. Pleural parenchymal stranding at both bases could represent atelectasis or scar. There is no focal consolidation or acute pleural fluid. There is no vascular redistribution to suggest pulmonary edema. Cardiomediastinal silhouette: Unchanged cardiomediastinal silhouette with unfolded descending thoracic aorta. Bones/soft tissues: The bony structures are intact with mild degenerative change. No bony destructive process noted. IMPRESSION IMPRESSION: Diminished interstitial prominence and bronchial wall thickening when compared to most recent July 2021 study. There is no focal consolidation or acute pleural process. There is no vascular redistribution to suggest pulmonary edema. [employer] As[employer]er: CHUCKY Transcribe Date/Time: Sep 13 2021 5:20P Dictated by : RAJAN KATE MD This examination was interpreted and the report reviewed and electronically signed by: RAJAN KATE MD on Sep 13 2021 5:24PM EST [facility] Radiology Study observation (narrative) [facility] XR Chest PA and LateralOrder ed By: [facility] Provider on 09-13-2021 [facility] XR Chest PA and Lateralon IMPRESSION: Diffuse interstitial prominence is present especially centrally and in the lower lung zones where there is either atelectasis or scar. Bilateral hilar prominence and central vascular redistribution is also present. There is no skin appreciable pleural fluid. Differential considerations would include interstitial pneumonitis/reactive airway disease or interstitial pneumonia. [employer] As[employer]er: [facility] Transcribe Date/Time: Aug 13 2021 1:58P Dictated by : RAJAN KATE MD This examination was interpreted and the report reviewed and electronically signed by: RAJAN KATE MD on Aug 13 2021 2:02PM EST [facility]_DO_NOT_US E_DIVISION OF RADIOLOGY * * *Final Report* * * DATE OF EXAM: Aug 13 2021 10:08AM WOX 5291 - XR CHEST 2V FRONTAL/LAT / PROCEDURE REASON: multiple diagnoses * * * * Physician Interpretation * * * * EXAMINATION: CHEST RADIOGRAPH (2 VIEW FRONTAL & LATERAL) CLINICAL HISTORY: Cough and SOB (shortness of breath). Wheezing. MQ: XC2_6 EXAM DATE/TIME: 08/13/2021 10:08 AM COMPARISON: There are no prior relevant examinations available for comparison within the [facility] Imaging Archives. Comparison to bilateral shoulder study dated 08/20/2013 performed which includes the mid and upper lung zones. RESULT: Lines, tubes, and devices: None. Lungs and pleura: Chronic interstitial lung changes with lingular and bibasilar fibrotic scarring is present. Diffuse interstitial prominence is present especially centrally and in the lower lung zones where there is either atelectasis or scar. Bilateral hilar prominence and central vascular redistribution is also present. There is no skin appreciable pleural fluid. Differential considerations would include interstitial pneumonitis/reactive airway disease or interstitial pneumonia. Cardiomediastinal silhouette: The cardiomediastinal silhouette demonstrates enlarged aortic knob and unfolded descending thoracic aorta as well as mildly prominent cardiac silhouette Bones/soft tissues: The bony structures are intact with mild degenerative change. No bony destructive process noted. ZZZ_DO_NOT_US E_DIVISION OF RADIOLOGY Provider, [facility] - 08/13/2021 * * *Final Report* * * DATE OF EXAM: Aug 13 2021 10:08AM WOX 5291 - XR CHEST 2V FRONTAL/LAT / PROCEDURE REASON: multiple diagnoses * * * * Physician Interpretation * * * * EXAMINATION: CHEST RADIOGRAPH (2 VIEW FRONTAL & LATERAL) CLINICAL HISTORY: Cough and SOB (shortness of breath). Wheezing. MQ: XC2_6 EXAM DATE/TIME: 08/13/2021 10:08 AM COMPARISON: There are no prior relevant examinations available for comparison within the [facility] Imaging Archives. Comparison to bilateral shoulder study dated 08/20/2013 performed which includes the mid and upper lung zones. RESULT: Lines, tubes, and devices: None. Lungs and pleura: Chronic interstitial lung changes with lingular and bibasilar fibrotic scarring is present. Diffuse interstitial prominence is present especially centrally and in the lower lung zones where there is either atelectasis or scar. Bilateral hilar prominence and central vascular redistribution is also present. There is no skin appreciable pleural fluid. Differential considerations would include interstitial pneumonitis/reactive airway disease or interstitial pneumonia. Cardiomediastinal silhouette: The cardiomediastinal silhouette demonstrates enlarged aortic knob and unfolded descending thoracic aorta as well as mildly prominent cardiac silhouette Bones/soft tissues: The bony structures are intact with mild degenerative change. No bony destructive process noted. IMPRESSION IMPRESSION: Diffuse interstitial prominence is present especially centrally and in the lower lung zones where there is either atelectasis or scar. Bilateral hilar prominence and central vascular redistribution is also present. There is no skin appreciable pleural fluid. Differential considerations would include interstitial pneumonitis/reactive airway disease or interstitial pneumonia. [employer] As[employer]er: [facility] Transcribe Date/Time: Aug 13 2021 1:58P Dictated by : RAJNA KATE MD This examination was interpreted and the report reviewed and electronically signed by: RAJAN KATE MD on Aug 13 2021 2:02PM EST [facility] Radiology Study observation (narrative) [facility] XR Chest PA and LateralOrder ed By: [facility] Provider on 08-13-2021 [facility] Vital Signs Date Time Vital Sign Value Performing Clinician Facility 11-07-2024 12:31-0400 Diastolic blood pressure 94 mm[Hg] [facility] DIETITIAN TEACHER.MRI MANAGER Work Phone: [facility] Comment on above: bp average 11-07-2024 12:31-0400 Heart rate 71 /min [facility] DIETITIAN TEACHER.MRI MANAGER Work Phone: [facility] 11-07-2024 12:31-0400 Systolic blood pressure 160 mm[Hg] [facility] DIETITIAN TEACHER.MRI MANAGER Work Phone: [facility] Comment on above: bp average 11-07-2024 12:23-0400 Body mass index (BMI) [Ratio] 39.32 kg/m2 [facility] DIETITIAN TEACHER.MRI MANAGER Work Phone: [facility] 11-07-2024 12:23-0400 Body weight 110.5 kg Tno Gan DIETITIAN TEACHER.MRI MANAGER Work Phone: [facility] 11-07-2024 12:23-0400 Respiratory rate 16 /min [facility] DIETITIAN TEACHER.MRI MANAGER Work Phone: [facility] 11-07-2024 12:23-0400 SaO2% (BldA) [Mass fraction] 96 % Ton Gan DIETITIAN TEACHER.MRI MANAGER Work Phone: [facility] 10-29-2024 11:37-0400 Body mass index (BMI) [Ratio] 39.61 kg/m2 Eligio Felix MD Work Phone: [facility] 10-29-2024 11:37-0400 Body weight 111.31 kg Eligio Felix MD Work Phone: [facility] 10-29-2024 11:37-0400 Diastolic blood pressure 112 mm[Hg] Eligio Felix MD Work Phone: [facility] 10-29-2024 11:37-0400 Heart rate 72 /min Eligio Felix MD Work Phone: [facility] 10-29-2024 11:37-0400 Respiratory rate 14 /min Eligio Felix MD Work Phone: [facility] 10-29-2024 11:37-0400 SaO2% (BldA) [Mass fraction] 96 % Eligio Felix MD Work Phone: [facility] 10-29-2024 11:37-0400 Systolic blood pressure 164 mm[Hg] Eligio Felix MD Work Phone: [facility] 10-23-2024 08:14-0400 Body mass index (BMI) [Ratio] 39.38 kg/m2 Jessica Click DIETITIAN TEACHER.TICK SEWER Work Phone: [facility] 10-23-2024 08:14-0400 Body weight 110.68 kg Jessica Click DIETITIAN TEACHER.TICK SEWER Work Phone: [facility] 10-23-2024 08:14-0400 Heart rate 85 /min Jessica Click DIETITIAN TEACHER.TICK SEWER Work Phone: [facility] 10-23-2024 08:14-0400 Respiratory rate 15 /min Jessica Click DIETITIAN TEACHER.TICK SEWER Work Phone: [facility] 10-23-2024 08:14-0400 SaO2% (BldA) [Mass fraction] 95 % Jessica Click DIETITIAN TEACHER.TICK SEWER Work Phone: [facility] 09-25-2024 12:42-0400 Body mass index (BMI) [Ratio] 38.02 kg/m2 Jessica Click DIETITIAN TEACHER.TICK SEWER Work Phone: [facility] 09-25-2024 12:42-0400 Body weight 107.96 kg Jessica Click DIETITIAN TEACHER.TICK SEWER Work Phone: [facility] 09-25-2024 12:42-0400 Diastolic blood pressure 94 mm[Hg] Jessica Click DIETITIAN TEACHER.TICK SEWER Work Phone: [facility] 09-25-2024 12:42-0400 Heart rate 68 /min Jessica Click DIETITIAN TEACHER.TICK SEWER Work Phone: [facility] 09-25-2024 12:42-0400 SaO2% (BldA) [Mass fraction] 97 % Jesscia Click DIETITIAN TEACHER.TICK SEWER Work Phone: [facility] 09-25-2024 12:42-0400 Systolic blood pressure 155 mm[Hg] Jessica Click DIETITIAN TEACHER.TICK SEWER Work Phone: [facility] 09-10-2024 12:48-0400 Body mass index (BMI) [Ratio] 38.18 kg/m2 Felipe Natalie DIETITIAN TEACHER.TICK SEWER Work Phone: [facility] 09-10-2024 12:48-0400 Body weight 108.4 kg Felipe Natalie DIETITIAN TEACHER.TICK SEWER Work Phone: [facility] 09-10-2024 12:48-0400 Diastolic blood pressure 80 mm[Hg] Felipe Natalie DIETITIAN TEACHER.TICK SEWER Work Phone: [facility] 09-10-2024 12:48-0400 Heart rate 78 /min Felipe Natalie DIETITIAN TEACHER.TICK SEWER Work Phone: [facility] 09-10-2024 12:48-0400 Respiratory rate 16 /min Felipe Natalie DIETITIAN TEACHER.TICK SEWER Work Phone: [facility] 09-10-2024 12:48-0400 SaO2% (BldA) [Mass fraction] 98 % Felipe Natalie DIETITIAN TEACHER.TICK SEWER Work Phone: [facility] 09-10-2024 12:48-0400 Systolic blood pressure 122 mm[Hg] Felipe Natalie DIETITIAN TEACHER.TICK SEWER Work Phone: [facility] 06-11-2024 13:13-0400 Diastolic blood pressure 82 mm[Hg] Felipe Natalie DIETITIAN TEACHER.TICK SEWER Work Phone: [facility] 06-11-2024 13:13-0400 Systolic blood pressure 154 mm[Hg] Felipe Natalie DIETITIAN TEACHER.TICK SEWER Work Phone: [facility] 06-11-2024 13:10-0400 Body height 168.5 cm Felipe Natalie DIETITIAN TEACHER.TICK SEWER Work Phone: [facility] 06-11-2024 13:10-0400 Body mass index (BMI) [Ratio] 38.36 kg/m2 Felipe Natalie DIETITIAN TEACHER.TICK SEWER Work Phone: [facility] 06-11-2024 13:10-0400 Body weight 108.9 kg Felipe Natalie DIETITIAN TEACHER.TICK SEWER Work Phone: [facility] 06-11-2024 13:10-0400 Heart rate 73 /min Felipe Natalie DIETITIAN TEACHER.TICK SEWER Work Phone: [facility] 06-11-2024 13:10-0400 SaO2% (BldA) [Mass fraction] 98 % Felipe Natalie DIETITIAN TEACHER.TICK SEWER Work Phone: [facility] 03-28-2024 13:00-0500 Diastolic blood pressure 82 mm[Hg] Johanne Hutchinson MD Work Phone: [facility] 03-28-2024 13:00-0500 Heart rate 74 /min Johanne Hutchinson MD Work Phone: [facility] 03-28-2024 13:00-0500 Respiratory rate 17 /min Johanne Hutchinson MD Work Phone: [facility] 03-28-2024 13:00-0500 SaO2% (BldA) [Mass fraction] 93 % Johanne Hutchinson MD Work Phone: [facility] 03-28-2024 13:00-0500 Systolic blood pressure 132 mm[Hg] Johanne Hutchinson MD Work Phone: [facility] 03-28-2024 12:56-0500 Body height 169.9 cm Pulm Wstr Work Phone: [facility] 03-28-2024 12:56-0500 Body mass index (BMI) [Ratio] 38.17 kg/m2 Pulm Wstr Work Phone: [facility] 03-28-2024 12:56-0500 Body weight 110.22 kg Pulm Wstr Work Phone: [facility] 12-20-2023 13:58-0400 Body mass index (BMI) [Ratio] 36.6 kg/m2 Nisha Mode De Faire PA-C Work Phone: [facility] 12-20-2023 13:58-0400 Body weight 105.69 kg Nisha Mode De Faire PA-C Work Phone: [facility] 12-06-2023 10:00-0400 Body mass index (BMI) [Ratio] 37.33 kg/m2 Racquel Centeno MD Work Phone: [facility] 12-06-2023 10:00-0400 Body temperature 98.01 [degF] Racquel Centeno MD Work Phone: [facility] 12-06-2023 10:00-0400 Body weight 107.8 kg Racquel Centeno MD Work Phone: [facility] 12-06-2023 10:00-0400 Diastolic blood pressure 82 mm[Hg] Racquel Centeno MD Work Phone: [facility] 12-06-2023 10:00-0400 Heart rate 75 /min Racquel Centeno MD Work Phone: [facility] 12-06-2023 10:00-0400 Respiratory rate 18 /min Racquel Centeno MD Work Phone: [facility] 12-06-2023 10:00-0400 SaO2% (BldA) [Mass fraction] 97 % Racquel Centeno MD Work Phone: [facility] 12-06-2023 10:00-0400 Systolic blood pressure 137 mm[Hg] Racquel Centeno MD Work Phone: [facility] 10-24-2023 10:01-0400 Diastolic blood pressure 88 mm[Hg] Felipe Natalie DIETITIAN TEACHER.TICK SEWER Work Phone: [facility] 10-24-2023 10:01-0400 Systolic blood pressure 160 mm[Hg] Felipe Natalie DIETITIAN TEACHER.TICK SEWER Work Phone: [facility] 10-24-2023 09:58-0400 Body mass index (BMI) [Ratio] 37.02 kg/m2 Felipe Natalie DIETITIAN TEACHER.TICK SEWER Work Phone: [facility] 10-24-2023 09:58-0400 Body weight 106.9 kg Felipe Natalie DIETITIAN TEACHER.TICK SEWER Work Phone: [facility] 10-24-2023 09:58-0400 Heart rate 73 /min Felipe Natalie DIETITIAN TEACHER.TICK SEWER Work Phone: [facility] 10-24-2023 09:58-0400 SaO2% (BldA) [Mass fraction] 97 % Felipe Natalie DIETITIAN TEACHER.TICK SEWER Work Phone: [facility] 09-12-2023 10:52-0400 Body mass index (BMI) [Ratio] 37.7 kg/m2 Felipe Natalie DIETITIAN TEACHER.TICK SEWER Work Phone: [facility] 09-12-2023 10:52-0400 Body weight 108.86 kg Felipe Natalie DIETITIAN TEACHER.TICK SEWER Work Phone: [facility] 09-12-2023 10:52-0400 Diastolic blood pressure 68 mm[Hg] Felipe Natalie DIETITIAN TEACHER.TICK SEWER Work Phone: [facility] 09-12-2023 10:52-0400 Heart rate 81 /min Felipe Natalie DIETITIAN TEACHER.TICK SEWER Work Phone: [facility] 09-12-2023 10:52-0400 SaO2% (BldA) [Mass fraction] 98 % Felipe Natalie DIETITIAN TEACHER.TICK SEWER Work Phone: [facility] 09-12-2023 10:52-0400 Systolic blood pressure 118 mm[Hg] Felipe Natalie DIETITIAN TEACHER.TICK SEWER Work Phone: [facility] 06-13-2023 11:13-0400 Body weight 110.22 kg Felipe Natalie DIETITIAN TEACHER.TICK SEWER Work Phone: [facility] 06-13-2023 11:13-0400 Diastolic blood pressure 68 mm[Hg] Felipe Natalie DIETITIAN TEACHER.TICK SEWER Work Phone: [facility] 06-13-2023 11:13-0400 Heart rate 77 /min Felipe Natalie DIETITIAN TEACHER.TICK SEWER Work Phone: [facility] 06-13-2023 11:13-0400 SaO2% (BldA) [Mass fraction] 93 % Felipe Natalie DIETITIAN TEACHER.TICK SEWER Work Phone: [facility] 06-13-2023 11:13-0400 Systolic blood pressure 102 mm[Hg] Felipe Natalie DIETITIAN TEACHER.TICK SEWER Work Phone: [facility] 01-30-2023 13:47-0500 Body weight 108.41 kg Felipe Natalie DIETITIAN TEACHER.TICK SEWER Work Phone: [facility] 01-30-2023 13:47-0500 Diastolic blood pressure 78 mm[Hg] Felipe Natalie DIETITIAN TEACHER.TICK SEWER Work Phone: [facility] 01-30-2023 13:47-0500 Heart rate 85 /min Felipe Natalie DIETITIAN TEACHER.TICK SEWER Work Phone: [facility] 01-30-2023 13:47-0500 Respiratory rate 16 /min Felipe Natalie DIETITIAN TEACHER.TICK SEWER Work Phone: [facility] 01-30-2023 13:47-0500 SaO2% (BldA) [Mass fraction] 97 % Felipe Natalie DIETITIAN TEACHER.TICK SEWER Work Phone: [facility] 01-30-2023 13:47-0500 Systolic blood pressure 130 mm[Hg] Felipe Baughr DIETITIAN TEACHER.TICK SEWER Work Phone: [facility] 12-02-2022 14:39-0400 Body weight 108.41 kg Racquel Centeno MD Work Phone: [facility] 12-02-2022 14:39-0400 Diastolic blood pressure 54 mm[Hg] Racquel Centeno MD Work Phone: [facility] 12-02-2022 14:39-0400 Heart rate 90 /min Racquel Centeno MD Work Phone: [facility] 12-02-2022 14:39-0400 SaO2% (BldA) [Mass fraction] 96 % Racquel Centeno MD Work Phone: [facility] 12-02-2022 14:39-0400 Systolic blood pressure 80 mm[Hg] Racquel Centeno MD Work Phone: [facility] 04-29-2022 16:35-0500 Body temperature 99.7 [degF] Racquel Centeno MD Work Phone: [facility] 04-29-2022 16:35-0500 Body weight 109.77 kg Racquel Centeno MD Work Phone: [facility] 04-29-2022 16:35-0500 Diastolic blood pressure 78 mm[Hg] Racquel Centeno MD Work Phone: [facility] 04-29-2022 16:35-0500 Heart rate 78 /min Racquel Centeno MD Work Phone: [facility] 04-29-2022 16:35-0500 Respiratory rate 18 /min Racquel Centeno MD Work Phone: [facility] 04-29-2022 16:35-0500 SaO2% (BldA) [Mass fraction] 98 % Racquel Centeno MD Work Phone: [facility] 04-29-2022 16:35-0500 Systolic blood pressure 126 mm[Hg] Racquel Centeno MD Work Phone: [facility] 09-21-2021 12:43-0400 Body height 169.9 cm Respiratory Wstr Work Phone: [facility] 09-21-2021 12:43-0400 Body weight 113.13 kg Respiratory Wstr Work Phone: [facility] 09-17-2021 09:49-0400 Body weight 113.4 kg Johanne Hutchinson MD Work Phone: [facility] 09-17-2021 09:49-0400 Diastolic blood pressure 82 mm[Hg] Johanne Hutchinson MD Work Phone: [facility] 09-17-2021 09:49-0400 Heart rate 83 /min Johanne Hutchinson MD Work Phone: [facility] 09-17-2021 09:49-0400 Respiratory rate 16 /min Johanne Hutchinson MD Work Phone: [facility] 09-17-2021 09:49-0400 SaO2% (BldA) [Mass fraction] 96 % Johanne Hutchinson MD Work Phone: [facility] 09-17-2021 09:49-0400 Systolic blood pressure 136 mm[Hg] Johanne Hutchinson MD Work Phone: [facility] 09-13-2021 12:21-0400 Body weight 110.68 kg Ton Gan DIETITIAN TEACHER.MRI MANAGER Work Phone: [facility] 09-13-2021 12:21-0400 Diastolic blood pressure 68 mm[Hg] Ton Gan DIETITIAN TEACHER.MRI MANAGER Work Phone: [facility] 09-13-2021 12:21-0400 Heart rate 71 /min Ton Gan DIETITIAN TEACHER.MRI MANAGER Work Phone: [facility] 09-13-2021 12:21-0400 Respiratory rate 16 /min Ton Gan DIETITIAN TEACHER.MRI MANAGER Work Phone: [facility] 09-13-2021 12:21-0400 SaO2% (BldA) [Mass fraction] 95 % Ton Gan APRN.MRI MANAGER Work Phone: [facility] 09-13-2021 12:21-0400 Systolic blood pressure 110 mm[Hg] Ton Gan APRN.MRI MANAGER Work Phone: [facility] 07-30-2021 11:22-0400 Body temperature 97.81 [degF] Lilliana Barker APRN.TICK SEWER Work Phone: [facility] 07-30-2021 11:22-0400 Body weight 115.21 kg Lilliana Barker APRN.TICK SEWER Work Phone: [facility] 07-30-2021 11:22-0400 Diastolic blood pressure 70 mm[Hg] Lilliana Barker APRN.TICK SEWER Work Phone: [facility] 07-30-2021 11:22-0400 Heart rate 87 /min Lilliana Barker APRN.TICK SEWER Work Phone: [facility] 07-30-2021 11:22-0400 Respiratory rate 20 /min Lilliana Barker APRN.TICK SEWER Work Phone: [facility] 07-30-2021 11:22-0400 SaO2% (BldA) [Mass fraction] 97 % Lilliana Barker APRN.TICK SEWER Work Phone: [facility] 07-30-2021 11:22-0400 Systolic blood pressure 122 mm[Hg] Lilliana Barker APRN.TICK SEWER Work Phone: [facility] Encounters Encounter Date Encounter Type Care Provider Facility Start: 11-22-2024 End: 11-22-2024 ambulatory RACQUEL CENTENO Facility:[facility] Start: 11-07-2024 End: 11-07-2024 E-mail encounter from caregiver Ton Gan MRI MANAGER Work Phone: [facility] [place] Start: 11-07-2024 End: 11-07-2024 Follow-up encounter Ton Gan APRN.MRI MANAGER Work Phone: [facility] [place] Comment on above: Follow up Start: 11-07-2024 End: 11-07-2024 Office outpatient visit 25 minutes Ton Gan APRN.MRI MANAGER Work Phone: [facility] [place] Comment on above: Essential hypertensi on Start: 11-07-2024 End: 11-07-2024 ambulatory RACQUEL D TALAMPAS Facility:[facility] Start: 11-03-2024 End: 11-04-2024 Refill Jessica Wong DIETITIAN TEACHER.TICK SEWER Work Phone: Pulmonary Medicine Comment on above: Refill Request Start: 10-29-2024 End: 10-29-2024 Patient encounter procedure Eligio Felix MD Work Phone: [facility] [place] Comment on above: Essential hypertensi on (Primary Dx) Start: 10-29-2024 End: 10-29-2024 ambulatory RACQUEL D TALAMPAS Facility:[facility] Start: 10-23-2024 End: 10-23-2024 Office outpatient visit 15 minutes Jessica Wong DIETITIAN TEACHER.TICK SEWER Work Phone: Pulmonary Medicine Comment on above: Cough variant asthma (HCC) (Primary Dx); Allergic rhinitis, unspecified seasonality, unspecified trigger; Essential hypertension Start: 10-23-2024 End: 10-25-2024 ambulatory Racquel Centeno MD Work Phone: [facility] [place] Comment on above: Blood pressure Start: 10-21-2024 End: 10-22-2024 ambulatory Racquel Centeno MD Work Phone: [facility] [place] Comment on above: Left shoulder Start: 09-25-2024 End: 09-25-2024 Office outpatient visit 40 minutes Jessica Wong DIETITIAN TEACHER.TICK SEWER Work Phone: Pulmonary Medicine Comment on above: Cough variant asthma (HCC) (Primary Dx); Allergic rhinitis, unspecified seasonality, unspecified trigger; Gastroesophageal reflux disease, unspecified whether esophagitis present Start: 09-25-2024 End: 09-25-2024 ambulatory RACQUEL D TALAMPAS Facility:[facility] Start: 09-10-2024 End: 09-10-2024 Patient encounter procedure Felipe Estrada DIETITIAN TEACHER.TICK SEWER Work Phone: [facility] [place] Comment on above: Insomnia, unspecifie d type (Primary Dx); Vitamin D deficiency; Essential hypertension; Moderate recurrent major depression (HCC); Situational mixed anxiety and depressive disorder; Acquired hypothyroidism; Moderate persistent asthma without complication (HCC) Start: 09-10-2024 End: 09-10-2024 [facility] Start: 09-09-2024 End: 09-09-2024 ambulatory [facility] Facility:[facility] Start: 07-09-2024 End: 09-08-2024 Follow-up encounter Felipe Estrada APRN.CNP Work Phone: [facility] [place] Start: 06-11-2024 End: 06-11-2024 ambulatory RACQUEL D [facility] Facility:[facility] Start: 06-11-2024 End: 06-11-2024 Patient encounter procedure Felipe Estrada APRN.CNP Work Phone: Internal [facility] [place] Comment on above: Insomnia, unspecifie d type (Primary Dx); ANA on CPAP; Moderate recurrent major depression (HCC); Cognitive impairment; Essential hypertension; Stage 3a chronic kidney disease (HCC); Acquired hypothyroidism; Moderate persistent asthma without complication (HCC); Encounter for therapeutic drug monitoring; Vitamin D deficiency Start: 06-04-2024 End: 06-04-2024 ambulatory RACQUEL D [facility] Facility:[facility] Start: 05-01-2024 End: 05-01-2024 ambulatory Stacy Vang MA [employer] [facility] [place] Start: 05-01-2024 End: 05-01-2024 Patient encounter procedure [facility] [place] Comment on above: Population Health Na vigation Outreach [facility] Start: 04-02-2024 End: 04-03-2024 ambulatory Johanne Hutchinson MD Work Phone: Pulmonary Medicine Comment on above: Breztri prescription Refill Request Start: 04-01-2024 End: 04-01-2024 ambulatory Stacy Vang MA [employer] [facility] [place] Start: 04-01-2024 End: 04-01-2024 Patient encounter [facility] [place] Comment on above: Population Health Na vigation Outreach (NICKO DONYA WALKER) Start: 03-28-2024 End: 03-28-2024 ambulatory Pulm Lab [facility] Work Phone: PULM LAB [facility] Comment on above: Spirometry Start: 03-28-2024 End: 03-28-2024 Patient encounter procedure Pulm Lab [facility] Work Phone: PUL [facility] Comment on above: Cough variant asthma (Primary Dx); Gastroesophageal reflux disease, unspecified whether esophagitis present; Class 2 obesity Start: 03-11-2024 End: 03-21-2024 Refill Racquel Centeno MD Work Phone: [facility] [place] Comment on above: Refill Request Pap compliance repor t after changes Start: 03-03-2024 End: 03-11-2024 Refill Nisha Gross PA-C Work Phone: Pulmonary Medicine Comment on above: Refill Request Losartan - new presc ription needed. Start: 03-01-2024 End: 03-01-2024 Refill Racquel Centeno MD Work Phone: [facility] [place] Comment on above: Refill Request Start: 01-30-2024 End: 01-30-2024 ambulatory Arianna Lorenz RN Work Phone: [employer] Comment on above: community monitoring outreach (Monthly cdm call) Start: 01-02-2024 End: 01-03-2024 ambulatory Arianna Lorenz RN Work Phone: [employer] Comment on above: community monitoring outreach (Monthly cdm call) Start: 01-01-2024 End: 01-01-2024 ambulatory RACQUEL CENTENO Facility:[facility] Start: 01-01-2024 End: 01-01-2024 Subsequent hospital visit by physician Screen Mammo [facility] Mammogram Comment on above: Encounter for screen ing mammogram for breast cancer [Z12.31] Start: 12-25-2023 End: 01-09-2024 Telephone encounter Racquel Centeno MD Work Phone: [facility] [place] Comment on above: Patient Question Start: 12-20-2023 End: 12-20-2023 ambulatory Pulm Lab [facility] Comment on above: Spirometry Start: 12-20-2023 End: 12-20-2023 Patient encounter procedure Pulm Lab [facility] Work Phone: PUL LAB [facility] Comment on above: Uncomplicated asthma , unspecified asthma severity, unspecified whether persistent (Primary Dx); Allergic rhinitis, unspecified seasonality, unspecified trigger; Gastroesophageal reflux disease, unspecified whether esophagitis present Start: 12-11-2023 End: 12-29-2023 ambulatory Racquel Centeno MD Work Phone: [facility] [place] Comment on above: C-Pap machine Start: 12-06-2023 End: 12-06-2023 Office outpatient visit 25 minutes Racquel Centeno MD Work Phone: [facility] [place] Comment on above: Acquired hypothyroid ism (Primary Dx); ANA on CPAP; Pedal edema; Encounter for immunization; Class 2 obesity due to excess calories without serious comorbidity with body mass index (BMI) of 37.0 to 37.9 in adult; Other polyneuropathy; Mild intermittent asthma without complication; Encounter for long-term current use of medication; Essential hypertension Start: 12-01-2023 End: 12-01-2023 ambulatory Arianna Lorenz RN Work Phone: [employer] Comment on above: community monitoring outreach (Monthly cdm call) Start: 11-27-2023 End: 11-27-2023 ambulatory Racquel Centeno MD Work Phone: [facility] [place] Comment on above: Budesonide and Formo terol Fuarate Dihydrate Refill Request Start: 11-07-2023 End: 11-07-2023 ambulatory Arianna Lorenz RN Work Phone: [employer] Comment on above: community monitoring outreach (Monthly cdm call) Start: 10-24-2023 End: 10-24-2023 Patient encounter procedure Felipe Estrada APRN.TICK SEWER Work Phone: Internal Medicine [place] Comment on above: Essential hypertensi on (Primary Dx); Situational mixed anxiety and depressive disorder; Acquired hypothyroidism; Insomnia, unspecified type; Stage 3a chronic kidney disease (HCC); Gastroesophageal reflux disease without esophagitis; Mild intermittent asthma without complication Start: 10-10-2023 ambulatory Saima herron RN Work Phone: [employer] Comment on above: community monitoring outreach (CDM outreach telephonic/) Start: 09-24-2023 ambulatory Felipe GRIMALDO.TICK SEWER Work Phone: [facility] [place] Comment on above: Pulmonary visit Start: 09-12-2023 ambulatory Saima herron RN Work Phone: [employer] Comment on above: community monitoring outreach (CDM outreach telephonic/) Start: 09-12-2023 End: 09-12-2023 Patient encounter procedure Felipe Estrada APRN.TICK SEWER Work Phone: [facility] [place] Comment on above: Stage 3a chronic kid stanton disease (HCC) (Primary Dx); Essential hypertension; Moderate persistent asthma without complication; Gastroesophageal reflux disease without esophagitis Start: 08-16-2023 End: 10-24-2023 ambulatory Saima Vasquez RN Work Phone: [employer] Comment on above: community monitoring outreach (CDM outreach telephonic/) My Mom, Marion menendez. She is your patient also. 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] Start: 07-17-2023 ambulatory Saima herron RN Work Phone: [employer] Comment on above: community monitoring outreach (CDM outreach telephonic/) Start: 06-23-2023 End: 06-23-2023 ambulatory Racquel Centeno [facility] Work Phone: Start: 06-23-2023 End: 06-23-2023 Patient encounter procedure [facility], [facility] Work Phone: Start: 06-14-2023 ambulatory Saima herron RN Work Phone: [employer] Comment on above: community monitoring outreach (CDM outreach telephonic/) Start: 06-13-2023 End: 06-13-2023 Patient encounter procedure Felipe Estrada TICK SEWER Work Phone: Internal Medicine [place] Comment on above: Hiatal hernia (Prima ry Dx); Precordial pain; Insomnia, unspecified type; Essential hypertension; Moderate recurrent major depression (HCC); Stage 3a chronic kidney disease (HCC) Start: 05-30-2023 ambulatory Racquel menendez MD Work Phone: [facility] [place] Comment on above: My recent stress norma t Start: 05-17-2023 ambulatory Saima herron RN Work Phone: [employer] Comment on above: community monitoring outreach (CDM outreach telephonic/) Start: 05-01-2023 ambulatory Racquel menendez MD Work Phone: [facility] [place] Comment on above: The old shortness o f breath issue Start: 04-19-2023 ambulatory Saima herron RN Work Phone: [employer] Comment on above: community monitoring outreach (CDM outreach telephonic/) Missed phone call Start: 04-17-2023 Telephone encounter Racquel ortiz MD Work Phone: [facility] [place] Comment on above: Insurance Authorizat ion Start: 04-14-2023 End: 04-19-2023 Office outpatient visit 25 minutes Racquel Centeno MD Work Phone: [facility] [place] Comment on above: Precordial pain (Cindy yara Dx); Shortness of breath; Moderate persistent asthma without complication; Essential hypertension Start: 04-10-2023 ambulatory Racquel menendez MD Work Phone: [facility] [place] Comment on above: Asthma Start: 04-05-2023 ambulatory Saima herron RN Work Phone: [employer] Comment on above: community monitoring outreach (CDM outreach telephonic/) Start: 04-04-2023 ambulatory Racquel menendez MD Work Phone: [facility] [place] Comment on above: Advair DiskU AER 250 /50 Start: 02-14-2023 ambulatory Saima herron RN Work Phone: [employer] Comment on above: community monitoring outreach (CDM outreach telephonic/) Start: 01-30-2023 End: 01-30-2023 Patient encounter procedure Felipe Estrada APRN.CNP Work Phone: [facility] [place] Comment on above: Moderate persistent asthma with acute exacerbation (Primary Dx); Upper respiratory tract infection, unspecified type Start: 01-28-2023 End: 01-28-2023 Subsequent hospital visit by physician Xr [facility] [place] Work Phone: Radiology Comment on above: Chronic cough [R05.3 ] Start: 12-21-2022 Telephone encounter Racquel ortiz MD Work Phone: [facility] [place] Comment on above: Insurance Authorizat ion Start: 12-19-2022 ambulatory Saima herron RN Work Phone: [employer] Comment on above: community monitoring outreach (CDM outreach telephonic/) Start: 12-14-2022 Refill Racquel menendez MD Work Phone: [facility] [place] Comment on above: Refill Request; Refi ll Request Start: 12-02-2022 End: 12-02-2022 Office outpatient visit 25 minutes Racquel Centeno MD Work Phone: [facility] [place] Comment on above: Essential hypertensi on (Primary Dx); IFG (impaired fasting glucose); Acquired hypothyroidism; Class 2 obesity due to excess calories with body mass index (BMI) of 37.0 to 37.9 in adult, unspecified whether serious comorbidity present; Elevated LDL cholesterol level; Encounter for immunization; Encounter for long-term current use of medication; Stage 3a chronic kidney disease (HCC) Start: 11-21-2022 Refill Racquel menendez MD Work Phone: [employer] Comment on above: Refill Request Start: 11-14-2022 ambulatory Saima herron RN Work Phone: [employer] Comment on above: community monitoring outreach (CDM outreach telephonic/) Start: 10-24-2022 Refill Racquel menendez MD Work Phone: [facility] [place] Comment on above: Refill Request Start: 10-17-2022 ambulatory Saima herron RN Work Phone: [employer] Comment on above: communiy monitoring outreach (CDM outreach telephonic/) Refill Request Start: 10-14-2022 ambulatory Saima herron RN Work Phone: [employer] Comment on above: community monitoring outreach (CDM outreach telephonic/) Start: 10-03-2022 Refill Racquel menendez MD Work Phone: [facility] [place] Comment on above: Refill Request Start: 09-16-2022 Refill Racquel menendez MD Work Phone: [facility] [place] Comment on above: Refill Request Start: 09-15-2022 ambulatory Saima herron RN Work Phone: [employer] Comment on above: community monitoring outreach (CDM outreach engagement/) Start: 08-31-2022 ambulatory [facility] Vang [facility] [place] Comment on above: Population Health Na vigation Outreach ([facility]I [place] [facility]) Start: 07-11-2022 Refill Racquel menendez MD Work Phone: [facility] [place] Comment on above: Refill Request Start: 07-06-2022 Refill Racquel menendez MD Work Phone: [facility] [place] Comment on above: Refill Request Start: 04-29-2022 End: 04-29-2022 Office outpatient visit 25 minutes Racquel Centeno MD Work Phone: [facility] [place] Comment on above: Insomnia, unspecifie d type (Primary Dx); Dysfunction of both eustachian tubes; Class 2 obesity due to excess calories without serious comorbidity with body mass index (BMI) of 38.0 to 38.9 in adult; Stress due to illness of family member Start: 04-20-2022 ambulatory Saima herron RN Work Phone: [employer] Comment on above: Community Monitoring Outreach (CDM outreach engagement/) Start: 03-26-2022 ambulatory Racquel menendez MD Work Phone: [facility] [place] Comment on above: fluticasone-vilanter ol 100-25 mcg/dose inhaler Commonly known as: BREO ELLIPTA Start: 02-16-2022 Refill Ton Gan A PRN.MRI MANAGER Work Phone: [facility] [place] Comment on above: Refill Request Start: 01-13-2022 Refill Ton Gan A PRN.MRI MANAGER Work Phone: [facility] [place] Comment on above: Refill Request Gabapentin 600 mg Start: 09-21-2021 End: 09-21-2021 ambulatory Respiratory Therapist [facility] Work Phone: Pulmonary Medicine Comment on above: Spirometry Zolpidem Testing Start: 09-21-2021 E-mail encounter fro m caregiver [facility] Hutchinson MD [facility] Start: 09-21-2021 End: 09-21-2021 Patient encounter procedure Respiratory Therapist [facility] Work Phone: [facility] Start: 09-17-2021 Telephone encounter Johanne Hutchinson MD Work Phone: Respiratory [place] Comment on above: Orders Start: 09-17-2021 End: 09-17-2021 Patient encounter procedure Johanne Hutchinson MD Work Phone: Pulmonary Medicine Comment on above: Subacute cough (Prim wilfredo Dx); Bronchitis, mucopurulent recurrent (HCC); Gastroesophageal reflux disease, unspecified whether esophagitis present Start: 09-13-2021 End: 09-13-2021 Subsequent hospital visit by physician Milly [facility] [place] Work Phone: Radiology Comment on above: Chronic cough [R05.3 ] Start: 09-13-2021 End: 09-13-2021 Patient encounter procedure Ton Gan APRN.MRI MANAGER Work Phone: [facility] [place] Comment on above: Chronic cough (Prima ry Dx); Wheeze; Encounter for immunization; Need for shingles vaccine; Stage 3a chronic kidney disease (HCC); Gastroesophageal reflux disease without esophagitis; Acquired hypothyroidism Start: 09-06-2021 ambulatory Ton LAKEMRI MANAGER Work Phone: [facility] [place] Comment on above: Lab work Start: 09-03-2021 Telephone encounter [facility] Comment on above: Scheduling Start: 08-16-2021 Refill Racquel menendez MD Work Phone: [facility] [place] Comment on above: Refill Request Start: 08-14-2021 ambulatory Racquel menendez MD Work Phone: Internal [facility] [place] Comment on above: Inhaler update Results of X-ray Start: 08-13-2021 End: 08-13-2021 Refill Ton Gan APRN.MRI MANAGER Work Phone: Internal Medicine [place] Comment on above: Refill Request Steroid inhaler New Prescriptions ne eded ov Start: 08-13-2021 End: 08-13-2021 Office outpatient visit 15 minutes Racquel Centeno MD Work Phone: [facility] [place] Comment on above: Wheezing (Primary Dx ); Cough, unspecified type; BURNETT (dyspnea on exertion) Start: 08-12-2021 Telephone encounter Racquel ortiz MD Work Phone: [facility] [place] Comment on above: patient update/futur e apt Start: 07-30-2021 End: 07-30-2021 Patient encounter procedure Lilliana Barker VERONICA.TICK SEWER Work Phone: [facility] Comment on above: Cough (Primary Dx) Start: 07-29-2021 ambulatory Racquel menendez MD Work Phone: [facility] [place] Comment on above: Excess phlem and tig htness, coughing, and spitting out the mucus Start: 07-20-2021 Refill Racquel menendez MD Work Phone: [facility] [place] Start: 07-13-2021 ambulatory Ria garcia RN Work Phone: [employer] Comment on above: community monitoring outreach (check-in) community monitoring outreach (escalation) Start: 06-30-2021 Documentation procedure Mammog bryan Coordinator [facility] Start: 06-30-2021 Letter encounter Mammography Coordinator [facility] Department Start: 06-25-2021 End: 06-25-2021 Nursing evaluation of patient and report Mi Nurse Work Phone: Family Medicine [place] Comment on above: Need for vaccination (Primary Dx) Start: 06-15-2021 ambulatory Racquel menendez MD Work Phone: Internal Medicine [place] Comment on above: Mammogram prescripti on needed at [facility] [place] Start: 05-26-2021 ambulatory Ria garcia RN Work Phone: [employer] Comment on above: community monitoring outreach (enrollment) Procedures Date Procedure Procedure Detail Performing Clinician Start: 03-28-2024 Nitric oxide gas determination Nisha DOLWINGC Work Phone: Start: 03-28-2024 Brncdilat rspse spmt ry pre&post-brncdilat admn Nisha DOWLINGC Work Phone: Start: 12-20-2023 Nitric oxide gas determination Nisha DOWLINGC Work Phone: Start: 06-23-2023 Radiography of esophagus Start: 04-14-2023 Ecg routine ecg w/le ast 12 lds i&r only Racquel Centeno MD Work Phone: Start: 01-28-2023 Radiologic exam ches t 2 views Heriberto Lynn MD Work Phone: Start: 12-02-2022 INFLUENZA VACCINE, P RSV FREE, AGE 65+ YR, HIGH DOSE, QUADRIVALENT (FLUZONE HIGH-DOSE) Racquel Centeno MD Work Phone: Start: 12-02-2022 PFIZER-BIONTECH COVI D-19 VACCINE ( SEASON) AGE 12+ YR Racquel Centeno MD Work Phone: Start: 09-21-2021 Nitric oxide gas determination Johanne Hutchinson MD Work Phone: Start: 09-21-2021 Brncdilat rspse spmt ry pre&post-brncdilat admn Johanne Hutchinson MD Work Phone: Start: 09-13-2021 Radiologic exam ches t 2 views Ton Gan DIETITIAN TEACHER.MRI MANAGER Work Phone: Start: 08-13-2021 Radiologic exam ches t 2 views Racquel Centeno MD Work Phone: Start: 06-25-2021 PFIZER-BIONTECH COVI D-19 VACCINE, AGE 12+ YR ([place] TOP) Racquel Centeno MD Work Phone: Plan of Treatment Date Care Activity Detail Author Start: 10-30-2027 Diabetes Screening Diabetes Screening [facility] Start: 09-10-2027 Diabetes Screening Diabetes Screening [facility] Start: 06-05-2027 Diabetes Screening Diabetes Screening [facility] Start: 10-16-2026 Diabetes Screening Diabetes Screening [facility] Start: 09-07-2026 Diabetes Screening Diabetes Screening [facility] Start: 05-23-2026 Diabetes Screening Diabetes Screening [facility] Start: 04-12-2026 Diabetes Screening Diabetes Screening [facility] Start: 12-02-2025 Diabetes Screening Diabetes Screening [facility] Start: 11-07-2025 Annual PCP Team Chronic Disease Visit Annual PCP Team Chronic Disease Visit [facility] Start: 10-29-2025 Annual PCP Team Chronic Disease Visit Annual PCP Team Chronic Disease Visit [facility] Start: 10-29-2025 Creatinine measurement Serum Creatinine [facility] Start: 10-21-2025 Annual PCP Team Chronic Disease Visit Annual PCP Team Chronic Disease Visit [facility] Start: 09-10-2025 Annual PCP Team Chronic Disease Visit Annual PCP Team Chronic Disease Visit [facility] Start: 09-09-2025 Creatinine measurement Serum Creatinine [facility] Start: 06-11-2025 Annual PCP Team Chronic Disease Visit Annual PCP Team Chronic Disease Visit [facility] Start: 06-04-2025 Creatinine measurement Serum Creatinine [facility] Start: 03-18-2025 End: 03-18-2025 Patient encounter procedure [facility] [place] Comment on above: Medicare Wellness follow up Start: 02-21-2025 End: 02-21-2025 Patient encounter procedure 02/21/2025 1:00 PM EST Office Visit Pulmonary Medicine [address] [place] [address] Jessica Wong APRN.TICK SEWER [address] [place] [address] 4 MTH F/U ASTHMA Pulmonary Medicine Comment on above: 4 MTH F/U ASTHMA Start: 02-19-2025 End: 02-19-2025 Patient encounter procedure 02/19/2025 11:30 AM EST Office Visit Pulmonary Medicine [address] [place] [address] Jessica Wong APRN.TICK SEWER [address] [place] [address] 4 MTH F/U ASTHMA Pulmonary Medicine Comment on above: 4 MTH F/U ASTHMA Start: 12-05-2024 Annual PCP Team Chronic Disease Visit Annual PCP Team Chronic Disease Visit [facility] Start: 11-22-2024 End: 11-22-2024 ambulatory 11/22/2024 1:00 PM EDT [facility] [place] [address] [place] [address] Ton Gan APRN.MRI MANAGER [address] [place] [address] medicare wellness per [facility] [place] Comment on above: medicare wellness per Start: 11-22-2024 End: 11-22-2024 Patient encounter procedure 11/22/2024 1:00 PM EDT Office Visit [facility] [place] [address] [facility] [place] [address] Ton Gan, DIETITIAN TEACHER.MRI MANAGER [address] [place] [address] medicare wellness per Internal Ulises Uribe Comment on above: medicare wellness per Start: 11-07-2024 End: 11-07-2024 Patient encounter procedure 11/07/2024 12:00 PM EDT Office Visit Internal [facility] [place] [address] [facility] [place] [address] Ton Gan, DIETITIAN TEACHER.MRI MANAGER [address] [place] [address] elevated blood pressure [facility] [place] Comment on above: elevated blood pressure Start: 10-28-2024 Influenza vaccination Influenza Vaccine (#1) [facility] Start: 10-23-2024 Annual PCP Team Chronic Disease Visit Annual PCP Team Chronic Disease Visit [facility] Start: 10-23-2024 End: 10-23-2024 Patient encounter procedure Pulmonary Medicine Comment on above: 6 MTH F/U ASTHMA Start: 10-16-2024 Creatinine measurement Serum Creatinine [facility] Start: 09-25-2024 End: 09-25-2024 Patient encounter procedure Pulmonary Medicine Comment on above: 6 MTH F/U ASTHMA Start: 09-11-2024 Annual PCP Team Chronic Disease Visit Annual PCP Team Chronic Disease Visit [facility] Start: 09-11-2024 BP Controlled (<130/80) BP Controlled (<130/80) [facility] in Start: 09-10-2024 End: 12-10-2024 25-hydroxyvitamin D3 [Mass/volume] in Serum or Plasma VITAMIN D 25 HYDROXY Lab Routine Cognitive impairment Vitamin D deficiency Expected: 09/10/2024, Expires: 12/10/2024 [facility] Comment on above: Expected: 09/10/2024, Expires: Start: 09-10-2024 End: 12-10-2024 CBC W Auto Differential panel - Blood COMPLETE BLOOD COUNT AND DIFFERENTIAL Lab Routine Encounter for therapeutic drug monitoring Expected: 09/10/2024, Expires: 12/10/2024 [facility] Work Phone: Comment on above: Expected: 09/10/2024, Expires: Start: 09-10-2024 End: 12-10-2024 Cobalamin (Vitamin B12) [Mass/volume] in Serum or Plasma VITAMIN B12 Lab Routine Cognitive impairment Expected: 09/10/2024, Expires: 12/10/2024 [facility] Comment on above: Expected: 09/10/2024, Expires: Start: 09-10-2024 End: 12-10-2024 Comprehensive metabolic 2000 panel - Serum or Plasma COMPREHENSIVE METABOLIC PANEL Lab Routine Cognitive impairment Encounter for therapeutic drug monitoring Expected: 09/10/2024, Expires: 12/10/2024 [facility] Comment on above: Expected: 09/10/2024, Expires: Start: 09-10-2024 End: 12-10-2024 Thyrotropin [Units/volume] in Serum or Plasma THYROID STIMULATING HORMONE Lab Routine Cognitive impairment Acquired hypothyroidism Expected: 09/10/2024, Expires: 12/10/2024 [facility] Comment on above: Expected: 09/10/2024, Expires: Start: 09-10-2024 End: 12-10-2024 Thyroxine (T4) free [Mass/volume] in Serum or Plasma T4 FREE/FREE THYROXINE Lab Routine Cognitive impairment Acquired hypothyroidism Expected: 09/10/2024, Expires: 12/10/2024 [facility] Comment on above: Expected: 09/10/2024, Expires: Start: 09-10-2024 End: 12-10-2024 Triiodothyronine (T3) Free [Mass/volume] in Serum or Plasma T3, FREE Lab Routine Cognitive impairment Acquired hypothyroidism Expected: 09/10/2024, Expires: 12/10/2024 [facility] Comment on above: Expected: 09/10/2024, Expires: Start: 09-10-2024 End: 09-10-2024 Patient encounter procedure 09/10/2024 1:00 PM EDT Office Visit [facility] [place] [address] [place] [address] Felipe Estrada APRN.TICK SEWER [address] [place] [address] 3 month follow up Internal [facility] [place] Comment on above: 3 month follow up Start: 09-10-2024 End: 09-10-2024 ambulatory 09/10/2024 8:30 AM EDT [facility] [address] [place] [address] [place] [facility] Start: 09-08-2024 DIABETES SCREEN DIABETES SCREEN [facility] Start: 09-08-2024 Diabetes Screening Diabetes Screening [facility] Start: 09-07-2024 Creatinine measurement Serum Creatinine [facility] Start: 06-12-2024 Annual PCP Team Chronic Disease Visit Annual PCP Team Chronic Disease Visit [facility] Start: 06-12-2024 BP Controlled (<130/80) BP Controlled (<130/80) [facility] Start: 06-11-2024 End: 06-11-2024 Patient encounter procedure 06/11/2024 1:00 PM EDT Office Visit Internal Medicine [place] [address] [place] [address] Felipe Estrada APRN.TICK SEWER [address] [place] [address] MEDICARE WELLNESS [facility] [place] Comment on above: MEDICARE WELLNESS Start: 05-23-2024 Creatinine measurement Serum Creatinine [facility] Start: 05-05-2024 End: 08-04-2024 CBC panel - Blood by Automated count COMPLETE BLOOD COUNT Lab Routine Encounter for long-term current use of medication Essential hypertension Expected: 05/05/2024 (Approximate), Expires: 08/04/2024 [facility] Comment on above: Expected: 05/05/2024 (Approximate), Expi res: 08/04/2024 Start: 05-05-2024 End: 08-04-2024 Comprehensive metabolic 2000 panel - Serum or Plasma COMPREHENSIVE METABOLIC PANEL Lab Routine Encounter for long-term current use of medication Essential hypertension Expected: 05/05/2024 (Approximate), Expires: 08/04/2024 [facility] Work Phone: Comment on above: Expected: 05/05/2024 (Approximate), Expi res: 08/04/2024 Start: 05-05-2024 End: 08-04-2024 Hemoglobin A1c in Blood HEMOGLOBIN A1C Lab Routine Encounter for long-term current use of medication Expected: 05/05/2024 (Approximate), Expires: 08/04/2024 [facility] Comment on above: Expected: 05/05/2024 (Approximate), Expi res: 08/04/2024 Start: 05-05-2024 End: 08-04-2024 Lipid 1996 panel - Serum or Plasma LIPID PANEL BASIC Lab Routine Encounter for long-term current use of medication Essential hypertension Expected: 05/05/2024 (Approximate), Expires: 08/04/2024 [facility] Comment on above: Expected: 05/05/2024 (Approximate), Expi res: 08/04/2024 Start: 05-05-2024 End: 08-04-2024 Magnesium [Mass/volume] in Serum or Plasma MAGNESIUM Lab Routine Encounter for long-term current use of medication Expected: 05/05/2024 (Approximate), Expires: 08/04/2024 [facility] Comment on above: Expected: 05/05/2024 (Approximate), Expi res: 08/04/2024 Start: 05-05-2024 End: 08-04-2024 Thyrotropin [Units/volume] in Serum or Plasma THYROID STIMULATING HORMONE Lab Routine Acquired hypothyroidism Encounter for long-term current use of medication Expected: 05/05/2024 (Approximate), Expires: 08/04/2024 [facility] Comment on above: Expected: 05/05/2024 (Approximate), Expi res: 08/04/2024 Start: 05-05-2024 End: 08-04-2024 Thyroxine (T4) free [Mass/volume] in Serum or Plasma T4 FREE/FREE THYROXINE Lab Routine Acquired hypothyroidism Encounter for long-term current use of medication Expected: 05/05/2024 (Approximate), Expires: 08/04/2024 [facility] Comment on above: Expected: 05/05/2024 (Approximate), Expi res: 08/04/2024 Start: 05-05-2024 End: 08-04-2024 Triiodothyronine (T3) Free [Mass/volume] in Serum or Plasma T3, FREE Lab Routine Acquired hypothyroidism Encounter for long-term current use of medication Expected: 05/05/2024 (Approximate), Expires: 08/04/2024 [facility] Comment on above: Expected: 05/05/2024 (Approximate), Expi res: 08/04/2024 Start: 04-14-2024 Annual PCP Team Chronic Disease Visit Annual PCP Team Chronic Disease Visit [facility] Start: 04-14-2024 BP Controlled (<130/80) BP Controlled (<130/80) [facility] Start: 04-12-2024 Complete blood count Hemoglobin/Hematocrit [facility] Start: 04-12-2024 Creatinine measurement Serum Creatinine [facility] Start: 03-28-2024 End: 03-28-2024 Patient encounter procedure 03/28/2024 1:15 PM EST Office Visit Pulmonary Medicine [address] [place] [address] Johanne Hutchinson MD [address] [place] [address] asthma Pulmonary Medicine Comment on above: asthma Start: 03-28-2024 End: 03-28-2024 ambulatory 03/28/2024 12:45 PM EST Procedure PULM LAB [facility] [address] [place] [address] Wstr, Pulm Lab [facility] [address] [place] [address] ana with dilator PULM LAB [facility] Comment on above: ana with dilator Start: 02-28-2024 Advance Directive Discussion Advance Directive Discussion [facility] Start: 01-31-2024 Annual PCP Team Chronic Disease Visit Annual PCP Team Chronic Disease Visit [facility] Start: 12-20-2023 End: 03-20-2024 ALGN [place] GRP [facility] Comment on above: Expected: 12/20/2023, Expires: 5 Start: 12-20-2023 End: 03-20-2024 HYPERSEN PNEUMON AB [facility] Comment on above: Expected: 12/20/2023, Expires: 5 Start: 12-20-2023 End: 03-20-2024 IgE [Units/volume] in Serum or Plasma [facility] Work Phone: Comment on above: Expected: 12/20/2023, Expires: 5 Start: 12-06-2023 End: 12-06-2023 Patient encounter procedure 12/06/2023 9:20 AM EDT Office Visit Internal Medicine [place] [address] [place] [address] Racquel Centeno MD [address] [place] [address] 6 month follow up/med check Internal Medicine [place] Comment on above: 6 month follow up/med check Start: 12-03-2023 Annual PCP Team Chronic Disease Visit Annual PCP Team Chronic Disease Visit [facility] Start: 12-03-2023 BP Controlled (<130/80) BP Controlled (<130/80) [facility] Start: 12-03-2023 Complete blood count Hemoglobin/Hematocrit [facility] Start: 12-03-2023 Creatinine measurement Serum Creatinine [facility] Start: 12-03-2023 Hemoglobin/Hematocrit Hemoglobin/Hematocrit [facility] Start: 12-03-2023 Serum Creatinine Serum Creatinine [facility] Start: 12-03-2023 Shingrix Vaccine (2 of 3) [facility]ingrix [facility]ine (2 of 3) [facility] Comment on above: Postponed from 04/19/2010 (Declined at t his time) Start: 12-03-2023 Urine microalbumin profile DTaP,Tdap,Td Vaccine (2 - Tdap) [facility] Comment on above: Postponed from 01/07/2006 (Declined at t his time) Start: 10-29-2023 Covid-19 Vaccine ( season) Covid-19 Vaccine ( season) [facility] Start: 10-29-2023 Covid-19 Vaccine ( season) Covid-19 Vaccine ( season) [facility] Start: 10-29-2023 Influenza vaccination Influenza Vaccine (#1) [facility] Start: 10-24-2023 End: 10-24-2023 Patient encounter procedure 10/24/2023 10:00 AM EDT Office Visit Internal Medicine [place] [address] [facility] [place] [address] Felipe Estrada APRN.TICK SEWER [address] [place] [address] medication follow up Internal Medicine [place] Comment on above: medication follow up Start: 10-17-2023 End: 01-16-2024 Basic metabolic 2000 panel - Serum or Plasma BASIC METABOLIC PANEL Lab Routine Essential hypertension Expected: 10/17/2023, Expires: 01/16/2024 [facility] Work Phone: Comment on above: Expected: 10/17/2023, Expires: Start: 10-17-2023 End: 10-17-2023 ambulatory 10/17/2023 10:30 AM EDT Results Only [facility] [address] [facility] [place] [address] [facility] Start: 09-12-2023 End: 12-12-2023 Comprehensive metabolic 2000 panel - Serum or Plasma COMPREHENSIVE METABOLIC PANEL Lab Routine Stage 3a chronic kidney disease (HCC) Expected: 09/12/2023, Expires: 12/12/2023 [facility] Work Phone: Comment on above: Expected: 09/12/2023, Expires: Start: 09-12-2023 End: 09-12-2023 Follow-up encounter Internal Medicine [place] Comment on above: 3 month follow up for blood pressure liam ck 3 month follow up fo r blood pressure check; Needs to address whether patinet is compliant with CPAP, and whether patient is benefiting from CPAP; Office note needs to be faxed to Brittany Start: 08-26-2023 DIABETES SCREEN DIABETES SCREEN [facility] Start: 07-28-2023 End: 07-28-2023 Patient encounter procedure 07/28/2023 9:00 AM EDT Appointment Radiology [address] [place] [address] 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] Radiology Comment on above: 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] Start: 04-30-2023 ANNUAL PCP TEAM CHRONIC DISEASE VISIT ANNUAL PCP TEAM CHRONIC DISEASE VISIT [facility] Start: 04-30-2023 BP CONTROLLED (<130/80) BP CONTROLLED (<130/80) [facility] Start: 04-10-2023 End: 07-10-2023 CBC panel - Blood by Automated count CBC Lab Routine BURNETT (dyspnea on exertion) Encounter for long-term current use of medication Expected: 04/10/2023, Expires: 07/10/2023 [facility] Work Phone: Comment on above: Expected: 04/10/2023, Expires: 4 Start: 04-10-2023 End: 07-10-2023 Comprehensive metabolic 2000 panel - Serum or Plasma COMP METABOLIC PANEL Lab Routine BURNETT (dyspnea on exertion) Encounter for long-term current use of medication Expected: 04/10/2023, Expires: 07/10/2023 [facility] Work Phone: Comment on above: Expected: 04/10/2023, Expires: 4 Start: 04-10-2023 End: 07-10-2023 Natriuretic peptide.B prohormone N-Terminal [Mass/volume] in Serum or Plasma NT PRO BNP Lab Routine BURNETT (dyspnea on exertion) Encounter for long-term current use of medication Expected: 04/10/2023, Expires: 07/10/2023 [facility] Work Phone: Comment on above: Expected: 04/10/2023, Expires: 4 Start: 04-10-2023 End: 07-10-2023 Thyrotropin [Units/volume] in Serum or Plasma TSH BLD Lab Routine BURNETT (dyspnea on exertion) Acquired hypothyroidism Encounter for long-term current use of medication Expected: 04/10/2023, Expires: 07/10/2023 [facility] Work Phone: Comment on above: Expected: 04/10/2023, Expires: 4 Start: 04-10-2023 End: 07-10-2023 Thyroxine (T4) free [Mass/volume] in Serum or Plasma T4 FREE/FREE THYROX Lab Routine BURNETT (dyspnea on exertion) Acquired hypothyroidism Encounter for long-term current use of medication Expected: 04/10/2023, Expires: 07/10/2023 [facility] Work Phone: Comment on above: Expected: 04/10/2023, Expires: 4 Start: 04-10-2023 End: 07-10-2023 Triiodothyronine (T3) Free [Mass/volume] in Serum or Plasma T3 FREE BLD Lab Routine BURNETT (dyspnea on exertion) Acquired hypothyroidism Encounter for long-term current use of medication Expected: 04/10/2023, Expires: 07/10/2023 [facility] Work Phone: Comment on above: Expected: 04/10/2023, Expires: 4 Start: 04-04-2023 Covid-19 Vaccine ( season) Covid-19 Vaccine () [facility] Start: 02-27-2023 Advance Directive Discussion Advance Directive Discussion [facility] Start: 10-28-2022 Influenza vaccination [facility] Start: 09-13-2022 BP CONTROLLED (<130/80) BP CONTROLLED (<130/80) [facility] Start: 09-08-2022 HEMOGLOBIN/HEMATOCRIT HEMOGLOBIN/HEMATOCRIT [facility] Start: 09-08-2022 SERUM CREATININE SERUM CREATININE [facility] Start: 08-28-2022 COVID-19 VACCINE (6 - Moderna series) COVID-19 VACCINE (6 - Moderna series) [facility] Start: 08-13-2022 ANNUAL PCP TEAM CHRONIC DISEASE VISIT ANNUAL PCP TEAM CHRONIC DISEASE VISIT [facility] Start: 07-30-2022 BP CONTROLLED (<130/80) BP CONTROLLED (<130/80) [facility] Start: 02-27-2022 ADVANCE DIRECTIVE DISCUSSION ADVANCE DIRECTIVE DISCUSSION [facility] Start: 01-13-2022 ANNUAL PCP TEAM CHRONIC DISEASE VISIT ANNUAL PCP TEAM CHRONIC DISEASE VISIT [facility] Start: 10-28-2021 Influenza vaccination INFLUENZA (#1) [facility] Start: 09-07-2021 End: 11-07-2021 CBC W Auto Differential panel - Blood CBC + DIFF Lab Routine Essential hypertension Gastroesophageal reflux disease without esophagitis Expected: 09/07/2021, Expires: 11/07/2021 [facility] Work Phone: Comment on above: Expected: 09/07/2021, Expires: 2 Start: 09-07-2021 End: 11-07-2021 Comprehensive metabolic 2000 panel - Serum or Plasma COMP METABOLIC PANEL Lab Routine Essential hypertension Acquired hypothyroidism Expected: 09/07/2021, Expires: 11/07/2021 [facility] Work Phone: Comment on above: Expected: 09/07/2021, Expires: 2 Start: 09-07-2021 End: 11-07-2021 Hemoglobin A1c in Blood HGB A1C Lab Routine IFG (impaired fasting glucose) Expected: 09/07/2021, Expires: 11/07/2021 [facility] Work Phone: Comment on above: Expected: 09/07/2021, Expires: 2 Start: 09-07-2021 End: 11-07-2021 Magnesium [Mass/volume] in Serum or Plasma MAGNESIUM BLD Lab Routine Gastroesophageal reflux disease without esophagitis Expected: 09/07/2021, Expires: 11/07/2021 [facility] Work Phone: Comment on above: Expected: 09/07/2021, Expires: 2 Start: 09-07-2021 End: 11-07-2021 Thyrotropin [Units/volume] in Serum or Plasma TSH BLD Lab Routine Acquired hypothyroidism Expected: 09/07/2021, Expires: 11/07/2021 [facility] Work Phone: Comment on above: Expected: 09/07/2021, Expires: 2 Start: 09-07-2021 End: 11-07-2021 Thyroxine (T4) free [Mass/volume] in Serum or Plasma T4 FREE/FREE THYROX Lab Routine Acquired hypothyroidism Expected: 09/07/2021, Expires: 11/07/2021 [facility] Work Phone: Comment on above: Expected: 09/07/2021, Expires: 2 Start: 08-25-2021 HEMOGLOBIN/HEMATOCRIT HEMOGLOBIN/HEMATOCRIT [facility] Start: 08-25-2021 SERUM CREATININE SERUM CREATININE [facility] Start: 08-20-2021 COVID-19 VACCINE (5 - Booster for Moderna series) COVID-19 VACCINE (5 - Booster for Moderna series) [facility] Start: 02-27-2021 ADVANCE DIRECTIVE DISCUSSION ADVANCE DIRECTIVE DISCUSSION [facility] Start: 2020 RSV Vaccine (1 - 1-dose 75+ series) RSV Vaccine (1 - 1-dose 75+ series) [facility] Start: 03-01-2012 PNEUMOCOCCAL: 65+ (1 - PCV) PNEUMOCOCCAL: 65+ (1 - PCV) [facility] Start: 04-27-2010 Medicare Annual Wellness Visit Medicare Annual Wellness Visit [facility] Start: 04-19-2010 SHINGRIX VACCINE (2 of 3) SHINGRIX VACCINE (2 of 3) [facility] Start: 01-07-2006 Urine microalbumin profile [facility] Start: 2005 RSV Vaccine (1 - 1-dose 60+ series) RSV Vaccine (1 - 1-dose 60+ series) [facility] Start: 05-23-1963 BP CONTROLLED (<130/80) BP CONTROLLED (<130/80) [facility] ECG COMPLETE ECG COMPLETE ECG 04/14/2023 11:27 AM EST [facility] MG Breast Screening ANDRE SCREENIN G Radiology Routine Encounter for screening mammogram for breast cancer 01/01/2024 2:26 PM EST [facility] Work Phone: End: 10-17-2022 NITRIC OXIDE, EXHALED NITRIC OXIDE, EXHALED PFT Routine Subacute cough 1 Occurrences starting 09/17/2021 until 10/17/2022 [facility] Work Phone: Comment on above: 1 Occurrences starting 09/17/2021 until 10/17/2022 End: 01-18-2025 NITRIC OXIDE, EXHALED NITRIC OXIDE, EXHALED PFT Routine Uncomplicated asthma, unspecified asthma severity, unspecified whether persistent Allergic rhinitis, unspecified seasonality, unspecified trigger 1 Occurrences starting 12/20/2023 until 01/18/2025 [facility] Comment on above: 1 Occurrences starting 12/20/2023 until 01/18/2025 End: 09-11-2022 Radiologic exam chest 2 views XR CHEST 2V FRONTAL/LAT Radiology Routine Cough SOB (shortness of breath) Wheezing 1 Occurrences starting 08/12/2021 until 09/11/2022 [facility] Work Phone: Comment on above: 1 Occurrences starting 08/12/2021 until 09/11/2022 Radiologic exam ches t 2 views XR CHEST 2V FRONTAL/LAT Radiology Routine Chronic cough Wheeze 09/13/2021 1:27 PM EDT [facility] Work Phone: End: 07-17-2022 Screening mammography bi 2-view breast inc cad ANDRE SCREENING Radiology Routine Encounter for screening mammogram for breast cancer 1 Occurrences starting 06/17/2021 until 07/17/2022 [facility] Work Phone: Comment on above: 1 Occurrences starting 06/17/2021 until 07/17/2022 End: 10-17-2022 SPIROMETRY WITH DILATOR IF OBSTRUCTED SPIROMETRY WITH DILATOR IF OBSTRUCTED PFT Routine Subacute cough 1 Occurrences starting 09/17/2021 until 10/17/2022 [facility] Work Phone: Comment on above: 1 Occurrences starting 09/17/2021 until 10/17/2022 End: 01-18-2025 SPIROMETRY WITH DILATOR IF OBSTRUCTED SPIROMETRY WITH DILATOR IF OBSTRUCTED PFT Routine Uncomplicated asthma, unspecified asthma severity, unspecified whether persistent 1 Occurrences starting 12/20/2023 until 01/18/2025 [facility] Comment on above: 1 Occurrences starting 12/20/2023 until 01/18/2025 End: 04-14-2024 STRESS ECHO TREADMILL STRESS ECHO TREADMILL Cardiology Routine Precordial pain Shortness of breath 1 Occurrences starting 04/14/2023 until 04/14/2024 [facility] Work Phone: Comment on above: 1 Occurrences starting 04/14/2023 until 04/14/2024 US Abdominal Aorta US ABD AORTA Radiology Routine Tortuous aorta (HCC) 07/28/2023 9:10 AM EDT [facility] Work Phone: US.doppler Thoracic and abdominal aorta US DOPPLER AORTA Radiology Routine Tortuous aorta (HCC) 07/28/2023 9:10 AM EDT [facility] End: 07-12-2024 XR Esophagus Views W contrast PO XR ESOPHAGRAM Radiology Routine Hiatal hernia 1 Occurrences starting 06/13/2023 until 07/12/2024 [facility] Work Phone: Comment on above: 1 Occurrences starting 06/13/2023 until 07/12/2024 [facility] Immunizations Immunization Date Immunization Notes Care Provider Mary hargrove 12-06-2023 influenza, high dose seasonal, [facility] 12-06-2023 influenza virus vacc ine, unspecified formulation Felipe Estrada DIETITIAN TEACHER.TICK SEWER Work Phone: [facility] 12-02-2022 COVID-19 vaccine, ag e 12+ yr, 2022- season (PFIZER-BIONTorgangir.am) Racquel Centeno MD Work Phone: [facility] Work Phone: 12-02-2022 influenza (HD-IIV4) vaccine, age 65+ yr, high dose, quadrivalent, PF (FLUZONE HIGH-DOSE) Racquel Centeno MD Work Phone: [facility] Work Phone: 12-02-2022 influenza virus vacc ine, unspecified formulation Felipe Estrada DIETITIAN TEACHER.TICK SEWER Work Phone: [facility] 04-28-2022 COVID-19 booster vaccine, age 12+ yr, bivalent (PFIZER-BIONTECH) Racquel Centeno MD Work Phone: [facility] 06-25-2021 COVID-19 vaccine, ag e 12+ yr (PFIZER-BIONTECH - [place]) Mi Nurse Work Phone: [facility] Work Phone: 01-13-2021 influenza, high-dose , quadrivalent vaccine (FLUZONE HIGH DOSE QUADRIVALENT) Ria Banegas RN Work Phone: [facility] 01-13-2021 influenza virus vacc ine, unspecified formulation Saima Vasquez RN Work Phone: [facility] 05-25-2020 COVID-19 vaccine, fu ll dose (MODERNA) Ria Banegas RN Work Phone: [facility] 04-27-2020 COVID-19 vaccine, fu ll dose (MODERNA) Ria Banegas RN Work Phone: [facility] 11-25-2019 influenza, high-dose , quadrivalent vaccine (FLUZONE HIGH DOSE QUADRIVALENT) Ria Banegas RN Work Phone: [facility] 12-19-2018 influenza, high dose seasonal, preservative-free Ria Banegas RN Work Phone: [facility] 11-18-2017 influenza, high dose seasonal, preservative-free Ria Banegas RN Work Phone: [facility] Work Phone: 11-29-2016 influenza, high dose seasonal, preservative-free Ria Banegas RN Work Phone: [facility] 01-02-2016 influenza, high dose seasonal, preservative-free Ria Banegas RN Work Phone: [facility] 11-05-2014 pneumococcal conjuga te vaccine, 13 valent Ria Banegas RN Work Phone: [facility] 10-30-2014 influenza, seasonal, injectable Ria Banegas RN Work Phone: [facility] 03-01-2011 pneumococcal polysaccharide vaccine, 23 valent Ria Banegas RN Work Phone: [facility] 02-22-2010 zoster vaccine, live Ria Banegas RN Work Phone: [facility] 01-08-1996 diphtheria and tetan us toxoids, adsorbed for pediatric use Ria Banegas RN Work Phone: [facility] Work Phone: Payers Date Payer Category Payer Self-pay [id number] [phone] [id number] 2015 Private Health Insurance HUMANA HUMANA MEDICARE SUPPLEMENT [id number] 2015-Present [phone] [address] [address] [place] [address] Indemnity [id number] 2015 Private Health Insurance [id number] 2012 Private Health Insurance [id number] 2010 Medicare MEDICARE MEDICAR E A AND B [id number] 2010-Present [phone] [address] [address] [place] [address] Medicare [id number] 2010 Medicare [id number] 2010 Medicare [id number] [facility] [id number] Social History Date Type Detail Facility Start: 10-21-2010 End: 01-28-2023 Tobacco smoking status NHIS Never smoked tobacco [facility] Work Phone: Start: 01-13-2021 End: 11-07-2024 Alcohol intake Current non-drinker of alcohol (finding) [facility] Start: 1945 Sex Assigned At Female C [facility] Start: 05-25-2021 End: 09-13-2021 Exposure to SARS-CoV-2 (event) Not sure [facility] Work Phone: Start: 10-21-2010 End: 01-28-2023 Tobacco use and exposure Smokeless tobacco non-user [facility] Work Phone: Start: 04-29-2022 End: 11-25-2022 History of Social function [facility] Start: 04-29-2022 End: 11-25-2022 Tobacco use panel [facility] Start: 05-16-2021 Gender identity Identifies as female gender (finding) [facility] Start: 01-29-2012 Adult Depression Screening Assessment 1 [facility] Start: 01-28-2023 Tobacco Comment dad was smoker when she was growing up [facility] Has the [employer], or [employer] threatened to shut off services in your home in past 12Mo No [facility] Do you belong to any clubs or organizations such as roman catholic groups, unions, fraternal or athletic groups, or school groups? Yes [facility] Are you now , , , , never or living with a partner? [facility] How often to you hav e a drink containing alcohol? Never [facility] Do you feel stress - tense, restless, nervous, or anxious, or unable to sleep at night because your mind is troubled all the time - these days [OSQ] To some extent [facility] (I/We) worried italo er (my/our) food would run out before (I/we) got money to buy more. Never true [facility] Start: 12-10-2018 Tobacco smoking stat us NHIS Unknown if ever smoked [facility] Start: 12-10-2018 Non-smoker [facility] Medical Equipment Procedure Code Equipment Code Equipment Origin al Text Equipment Identifier Dates TUBE, EAR PARASOL.040 [facility] Start: 12-11-2018 TUBE, EAR PARASOL.040 [facility] Start: 12-11-2018 Goals Date Patient Goal Desired Activity /State Personal health goal Comment on above: Formatting of this n ote might be different from the original. Looking forward to getting the garden beds ready for planting malik. Personal health goal Comment on above: Formatting of this n ote might be different from the original. Patient has the following High Blood Pressure/Hypertension Goals: Two PCP Visits annually and BMP annually HTN Education to be given and reviewed with patient -- Medication compliance education, Checking your Blood Pressure at Home, High Blood Pressure: Talking to Your Health Care Provider, High Blood Pressure - When to Seek Emergency Care, and High Blood Pressure and Nutrition Patient will meet these goals by 02/27/2024 Comment on above: Formatting of this n ote might be different from the original. Looking forward to getting the garden beds ready for planting malik. Functional Status Date Assessment Result Facility 09-05-2024 Total score [AUDIT-C] 0 09/06/19 10:49 PM EDT User, Daphne [facility] 09-05-2024 How often to you hav e a drink containing alcohol? Never 09/05/2024 10:49 PM EDT User, Daphne Never [facility] 09-05-2024 Functional status Patient does n ot drink 09/05/2024 10:49 PM EDT User, Daphne Patient does not drink [facility] 09-05-2024 How often do you hav e 6 or more drinks on 1 occasion? Never 09/05/2024 10:49 PM EDT User, Daphne Never [facility] 09-15-2014 Are you deaf, or do you have serious difficulty hearing No 09/15/2014 3:[address] RN No [facility] 09-15-2014 Are you blind, or do you have serious difficulty seeing, even when wearing glasses No 09/15/2014 3:[address] RN No [facility] 09-15-2014 Do you have serious difficulty walking or climbing stairs No 09/15/2014 3:[address] RN No [facility] 09-15-2014 Do you have difficul ty dressing or bathing No 09/15/2014 3:[address] RN No [facility] 09-15-2014 Because of a physica l, mental, or emotional condition, do you have difficulty doing errands alone such as visiting a physician's office or shopping No 09/15/2014 3:[address] RN No [facility] Mental Status Date Assessment Result Facility 09-15-2014 Because of a physica l, mental, or emotional condition, do you have serious difficulty concentrating, remembering, or making decisions No 09/15/2014 3:[address] RN No [facility] Clinical Notes 09-20-2013 to 11-22-2024 Patient InstructionsBroTon hernandez APRN.MRI MANAGER - 11/07/2024 12:40 PM EDTTelephone Encounter - Ivy Bo LPN - 11/04/2024 8:03 AM EDTPatient InstructionsPatient InstructionsPatient Instructions Note Date & Type Note Facility 11-22-2024 Note HNO ID: [id number] Author: TON GAN APRN.MRI MANAGER Service: ? Author Type: Nurse Specialist Type: Progress Notes Filed: 11/22/2024 13:47 Note Text: Subjective Patient ID: Mae is a 79 year old female who presents for Recheck. HPI Mae Grant is a 79-year-old female with hypertension, presenting for evaluation and management of elevated home blood pressure readings. Hypertension: - Mae Grant is monitoring BP at home; readings range from 140/83 to 201/122. - Mae noted elevated BP after physical activity, such as walking around [employer]. - Mae takes antihypertensive medication at 08:00 and 20:00. - Mae reports occasional mild headaches. - Mae denies chest pain, palpitations, or significant dyspnea. She notes some BURNETT attributed to deconditioning as she has not recently gone to the gym. - Mae is reducing sodium intake. - Mae denies history of CVA or [place]. - Mae expresses concern about potential arterial blockage. - Mae reports being a worrier, which may contribute to stress levels. - Mae joined [employer] to increase physical activity. - Mae reports occasional wobbliness; attributes it to lack of exercise. HTN: Without report of headache, chest pain, palpitations, dyspnea, peripheral edema, orthopnea, fatigue, and PND. Last 14 Encounter BP Readings: Date: BP: 11/22/2024 144/89 11/07/2024 160/94[bp average[ 10/29/2024 164/112 10/21/2024 162/90 09/25/2024 155/94 09/10/2024 122/80 06/11/2024 154/82 03/28/2024 132/82 12/06/2023 137/82 10/24/2023 160/88 09/12/2023 118/68 06/13/2023 102/68 01/30/2023 130/78 01/28/2023 138/82 Objective BP 144/89 Pulse 71 Resp 16 Wt 109 kg (240 lb 4.8 oz) SpO2 94% BMI 38.79 kg/m? Physical Exam Vitals and nursing note reviewed. Constitutional: Appearance: Normal appearance. HENT: Head: Normocephalic and atraumatic. Eyes: Conjunctiva/sclera: Conjunctivae normal. Cardiovascular: Rate and Rhythm: Normal rate and regular rhythm. Heart sounds: Normal heart sounds. Pulmonary: Effort: Pulmonary effort is normal. Breath sounds: Normal breath sounds. Musculoskeletal: Right lower leg: No edema. Left lower leg: No edema. Neurological: Mental Status: She is alert. 1. Essential hypertension (I10) - BP improved by 20 points since last visit; home readings generally good, but occasional elevated readings noted after activity. - On maximum dose of current antihypertensive. - Start amlodipine 2.5 mg PO as needed for SBP >150 mmHg or DBP >80 mmHg. - Educated on proper BP measurement technique: sit and rest for 15 minutes before checking, feet on the floor, arm supported, avoid stressors. - Discussed age-adjusted BP targets (=150/80 mmHg) and rationale for not pursuing lower targets to avoid overtreatment and hypotension. - Advised to continue daily BP monitoring and to take additional amlodipine dose if BP exceeds 150/80 mmHg after proper rest. - Encouraged regular exercise to improve cardiovascular efficiency and overall BP control. - Advised to seek medical attention for chest pain, shortness of breath, or palpitations. If consistently needing amlodipine can switch to daily instead of as needed dosing. If shortness of breath on exertion persist after resuming exercise consider additional testing such as echocardiogram or PFT. Recheck BP NOv. 2. Acquired hypothyroidism (E03.9) Continue present management unchanged. - Refilled thyroid medication. 3. Insomnia, unspecified type (G47.00) Continue present management unchanged. Refilled zolpidem. 4. BURNETT (dyspnea on exertion) (R06.09) - Likely related to allergies and deconditioning. - Encouraged gradual increase in physical activity, starting with walking. Ton Gna APRN.CNS Medical Decision Making: Problems: Moderate: 1+ chronic illnesses with change Risk: Moderate: Drug management Medical Decision Making Level: 4 - Moderate [facility] 11-07-2024 Instructions Ton Gan APRN.CNS - 11/07/2024 12:57 PM EDT - Increase your valsartan to two tablets per day--take one tablet in the morning and one in the evening. - Take your levothyroxine (Synthroid) at bedtime on an empty stomach. - Take your pantoprazole before breakfast on an empty stomach. - You may take all other prescribed medications with food as usual. - Continue using meloxicam as needed for your arm pain. - If you experience any side effects or do not feel well after increasing your valsartan dose, contact our office right away. - If your home blood pressure readings remain high after five days on the increased dose, call us to discuss adding another medication. - Attend your upcoming follow-up appointment in person so we can check your blood pressure and heart rate. documented in this encounter [facility] 11-07-2024 Note HNO ID: [id number] Author: JOHANNE SYED MA Service: ? Author Type: Nurse Specialist Type: Progress Notes Filed: 12/25/2024 11:35 Note Text: , so there Subjective HPI Mae Grant is a 79 year old female. 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 The patient is a 79-year-old female with hypertension, presenting for evaluation of uncontrolled blood pressure. Hypertension: - Recent medication change to Valsartan, taking once daily for at least a week. - Mae's home blood pressure readings consistently high, similar to today's office readings; highest recorded at 195/123 mmHg. - No adverse effects from Valsartan. - Mae has concerns about the effectiveness of current medication. - Denies chest pain or palpitations. - Occasional ankle edema, but not currently present. - Reducing salt intake; denies consuming frozen meals, but occasionally eats out. - Recent lab work showed normal kidney function. Home blood pressure readings are consistent with what is obtained in the office today. Dyspnea: - Dyspnea postprandially, especially when walking. - Denies chest pain, palpitations edema. Anxiety: - for the past year; describes herself as a worrier. - Mae has concerns about high blood pressure and family safety. Daughters are in [place] have included time. Musculoskeletal Pain: - Mild arm pain, suspected muscle strain from weeks ago. - Taking meloxicam PRN, not daily. ANA on CPAP - ICD9: 327.23, ICD10: G47.33 Uses daily with no issues HTN: Without report of headache, chest pain, palpitations, dyspnea, peripheral edema, orthopnea, fatigue, and PND. Last 14 Encounter BP Readings: Date: BP: 11/07/2024 160/94[bp average[ 10/29/2024 164/112 10/21/2024 162/90 09/25/2024 155/94 09/10/2024 122/80 06/11/2024 154/82 03/28/2024 132/82 12/06/2023 137/82 10/24/2023 160/88 09/12/2023 118/68 06/13/2023 102/68 01/30/2023 130/78 01/28/2023 138/82 12/02/2022 80/54 TSH Date Value 09/09/2024 0.968 mIU/L 06/04/2024 6.230 mIU/L 08/25/2020 3.060 uU/mL 09/11/2019 1.830 uU/mL ) Hyperlipidemia. Her most recent lipid panels are: Cholesterol, Total (mg/dL) Date Value 06/04/2024 151 05/24/2023 145 03/30/2017 166 04/06/2016 167 HDL Cholesterol (mg/dL) Date Value 06/04/2024 32 05/24/2023 27 03/30/2017 30 04/06/2016 26 LDL Cholesterol, Calculated (mg/dL) Date Value 06/04/2024 98 05/24/2023 85 03/30/2017 114 04/06/2016 110 LDL Cholesterol Calculated, Nonfasting (mg/dL) Date Value 12/02/2022 82 Triglyceride (mg/dL) Date Value 06/04/2024 104 05/24/2023 163 03/30/2017 110 04/06/2016 157 Creatinine Date Value Ref Range Status 10/29/2024 0.86 0.58 - 0.96 mg/dL Final 09/09/2024 0.92 0.58 - 0.96 mg/dL Final 06/04/2024 0.94 0.58 - 0.96 mg/dL Final 10/17/2023 0.96 0.58 - 0.96 mg/dL Final ROS Cardiovascular: (-) chest pain, (-) palpitations, (-) peripheral edema Respiratory: (+) shortness of breath Musculoskeletal: (+) arm pain Neurological: (+) memory impairment Psychiatric: (+) anxiety Objective BP 160/94 Pulse 71 Resp 16 Wt 110.5 kg (243 lb 9.7 oz) SpO2 96% BMI 39.32 kg/m? Physical Exam Vitals and nursing note reviewed. Constitutional: General: She is not in acute distress. Appearance: She is not ill-appearing or diaphoretic. HENT: Head: Normocephalic and atraumatic. Eyes: Conjunctiva/sclera: Conjunctivae normal. Cardiovascular: Rate and Rhythm: Normal rate. Pulmonary: Effort: Pulmonary effort is normal. No respiratory distress. Breath sounds: Normal breath sounds. No wheezing, rhonchi or rales. Musculoskeletal: Right lower leg: No edema. Left lower leg: No edema. Skin: General: Skin is warm and dry. Neurological: Mental Status: She is alert and oriented to person, place, and time. ALLERGIES Allergen Reactions Atenolol palpitations, chest discomfort Silenor [Doxepin] Other: See Comments palpitations (heart fluttered and chest felt strange) Tramadol Other: See Comments Unable to s (more content not included)... [facility] 11-07-2024 History of Present illness Narrative , so there Subjective HPI Mae Grant is a 79 year old female. 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 The patient is a 79-year-old female with hypertension, presenting for evaluation of uncontrolled blood pressure. Hypertension: - Recent medication change to Valsartan, taking once daily for at least a week. - Mae's home blood pressure readings consistently high, similar to today's office readings; highest recorded at 195/123 mmHg. - No adverse effects from Valsartan. - Mae has concerns about the effectiveness of current medication. - Denies chest pain or palpitations. - Occasional ankle edema, but not currently present. - Reducing salt intake; denies consuming frozen meals, but occasionally eats out. - Recent lab work showed normal kidney function. Home blood pressure readings are consistent with what is obtained in the office today. Dyspnea: - Dyspnea postprandially, especially when walking. - Denies chest pain, palpitations edema. Anxiety: - for the past year; describes herself as a worrier. - Mae has concerns about high blood pressure and family safety. Daughters are in [place] have included time. Musculoskeletal Pain: - Mild arm pain, suspected muscle strain from weeks ago. - Taking meloxicam PRN, not daily. HTN: Without report of headache, chest pain, palpitations, dyspnea, peripheral edema, orthopnea, fatigue, and PND. Last 14 Encounter BP Readings: Date: BP: 11/07/2024 160/94[bp average[ 10/29/2024 164/112 10/21/2024 162/90 09/25/2024 155/94 09/10/2024 122/80 06/11/2024 154/82 03/28/2024 132/82 12/06/2023 137/82 10/24/2023 160/88 09/12/2023 118/68 06/13/2023 102/68 01/30/2023 130/78 01/28/2023 138/82 12/02/2022 80/54 TSH Date Value 09/09/2024 0.968 mIU/L 06/04/2024 6.230 mIU/L 08/25/2020 3.060 uU/mL 09/11/2019 1.830 uU/mL ) Hyperlipidemia. Her most recent lipid panels are: Cholesterol, Total (mg/dL) Date Value 06/04/2024 151 05/24/2023 145 03/30/2017 166 04/06/2016 167 HDL Cholesterol (mg/dL) Date Value 06/04/2024 32 05/24/2023 27 03/30/2017 30 04/06/2016 26 LDL Cholesterol, Calculated (mg/dL) Date Value 06/04/2024 98 05/24/2023 85 03/30/2017 114 04/06/2016 110 LDL Cholesterol Calculated, Nonfasting (mg/dL) Date Value 12/02/2022 82 Triglyceride (mg/dL) Date Value 06/04/2024 104 05/24/2023 163 03/30/2017 110 04/06/2016 157 Creatinine Date Value Ref Range Status 10/29/2024 0.86 0.58 - 0.96 mg/dL Final 09/09/2024 0.92 0.58 - 0.96 mg/dL Final 06/04/2024 0.94 0.58 - 0.96 mg/dL Final 10/17/2023 0.96 0.58 - 0.96 mg/dL Final ROS Cardiovascular: (-) chest pain, (-) palpitations, (-) peripheral edema Respiratory: (+) shortness of breath Musculoskeletal: (+) arm pain Neurological: (+) memory impairment Psychiatric: (+) anxiety Objective BP 160/94 Pulse 71 Resp 16 Wt 110.5 kg (243 lb 9.7 oz) SpO2 96% BMI 39.32 kg/m Physical Exam Vitals and nursing note reviewed. Constitutional: General: She is not in acute distress. Appearance: She is not ill-appearing or diaphoretic. HENT: Head: Normocephalic and atraumatic. Eyes: Conjunctiva/sclera: Conjunctivae normal. Cardiovascular: Rate and Rhythm: Normal rate. Pulmonary: Effort: Pulmonary effort is normal. No respiratory distress. Breath sounds: Normal breath sounds. No wheezing, rhonchi or rales. Musculoskeletal: Right lower leg: No edema. Left lower leg: No edema. Skin: General: Skin is warm and dry. Neurological: Mental Status: She is alert and oriented to person, place, and time. ALLERGIES Allergen Reactions Atenolol palpitations, chest discomfort Silenor [Doxepin] Other: See Comments palpitations (heart fluttered and chest felt strange) Tramadol Other: See Comments Unable to sleep - keeps her hyper Current Outpatient Medications Medication Sig budesonide-formoterol (SYMBICORT) 160-4.5 mcg/actuation inhaler Inhale 2 puffs as instructed two times a day. valsartan (DIOVAN) 160 mg tablet Take 1 tablet by mouth once daily. loratadine (CLARITIN) 10 mg tablet Take 10 mg by mouth once daily. meloxicam (MOBIC) 15 mg tablet Take 1 tablet by mouth once daily. As directed Cholecalciferol, Vitamin D3, 50 mcg (2,000 unit) cap Take 1 capsule by mouth once daily. pantoprazole DR (PROTONIX) 40 mg tablet Take 1 tablet by mouth once daily. Take on empty stomach, 1/2 hr before meal. zolpidem (AMBIEN) 10 mg Take 1 tablet by mouth daily at bedtime for 180 days. fluticasone (FLONASE) 50 mcg/actuation nasal spray Use 2 Sprays in each nostril once daily. Rinse mouth after gabapentin (NEURONTIN) 600 mg tablet Take 1 tablet by mouth two times a day. PARoxetine (PAXIL) 20 mg tablet Take 1 tablet by mouth once daily. levothyroxine (SYNTHROID) 150 mcg tablet Take 1 tablet by mouth once daily. Take on empty stomach. For thyroid albuterol HFA (PROVENTIL HFA, VENTOLIN HFA) 90 mcg/actuation inhaler Inhale 2 Puffs as instructed every 4 hours as needed for wheezing/shortness of breath. No current facility-administered medications for this visit. PAST MEDICAL HISTORY Diagnosis Date Abdominal pain, unspecified site Acute gastritis without mention of hemorrhage Allergic rhinitis, cause unspecified Allergic rhinitis Arthritis Cough variant asthma (HCC) DDD (degenerative disc disease), cervical mild to moderate on MRI June 2013 Diarrhea Esophageal reflux Hepatitis in viral diseases classified elsewhere(573.1) Associated with mono (EBV) infection in early 2001 Insomnia, unspecified Obesity, unspecified ANA (obstructive sleep apnea) On CPAP Osteopenia Panic disorder without agoraphobia Unspecified essential hypertension Unspecified hypothyroidism reports that she has never smoked. She has never used smokeless tobacco. She reports that she does not drink alcohol and does not use drugs. Latest Ref Rng 06/04/2024 09/09/2024 10/29/2024 WBC 3.70 - 11.00 k/uL 6.75 6.55 RBC 3.90 - 5.20 m/uL 5.14 5.49 (H) Hemoglobin 11.5 - 15.5 g/dL 14.1 14.9 Hematocrit 36.0 - 46.0 % 42.7 44.8 MCV 80.0 - 100.0 fL 83.1 81.6 MCH 26.0 - 34.0 pg 27.4 27.1 MCHC 30.5 - 36.0 g/dL 33.0 33.3 RDW-CV 11.5 - 15.0 % 14.6 14.3 Platelet Count 150 - 400 k/uL 217 226 MPV 9.0 - 12.7 fL 10.4 10.6 Neut% % 63.4 Abs Neut (ANC) 1.45 - 7.50 k/uL 4.16 Lymph% % 25.2 Abs Lymph 1.00 - 4.00 k/uL 1.65 [place]% % 7.8 Abs [place] <0.87 k/uL 0.51 Eosin% % 2.3 Abs Eosin <0.46 k/uL 0.15 Baso% % 0.8 Abs Baso <0.11 k/uL 0.05 Immature Gran % % 0.5 IMMATURE GRANS (ABS) <0.10 k/uL 0.03 NRBC /100 WBC 0.0 Absolute nRBC <0.01 k/uL <0.01 <0.01 DTYPE Auto Protein, Total 6.3 - 8.0 g/dL 7.3 7.5 Albumin 3.9 - 4.9 g/dL 4.0 4.1 Calcium 8.5 - 10.2 mg/dL 9.4 9.4 9.3 Bilirubin, Total 0.2 - 1.3 mg/dL 0.5 1.0 Alkaline Phosphatase 34 - 123 U/L 130 (H) 117 AST 13 - 35 U/L 13 13 ALT 7 - 38 U/L 11 10 Glucose 74 - 99 mg/dL 99 105 (H) 91 BUN 7 - 21 mg/dL 18 17 23 (H) Creatinine 0.58 - 0.96 mg/dL 0.94 0.92 0.86 Sodium 136 - 144 mmol/L 141 139 139 Potassium 3.7 - 5.1 mmol/L 4.5 4.3 4.5 Chloride 98 - 107 mmol/L 107 104 105 CO2 22 - 30 mmol/L 24 24 22 Anion Gap 8 - 15 mmol/L 10 11 12 eGFR >=60 mL/min/1.73m 62 63 69 Cholesterol, Total <200 mg/dL 151 Triglyceride <150 mg/dL 104 HDL Cholesterol >39 mg/dL 32 (L) Non HDL Cholesterol <130 mg/dL 119 Fasting Time hrs 12 VLDL Cholesterol <30 mg/dL 21 TC:HDL Ratio <5.10 4.72 LDL Cholesterol, Calculated <100 mg/dL 98 LDL:HDL Ratio <2.54 3.06 (H) Hemoglobin A1C 4.3 - 5.6 % 5.1 Estimated Average Glucose mg/dL 100 Magnesium 1.7 - 2.3 mg/dL 2.2 TSH 0.270 - 4.200 mIU/L 6.230 (H) 0.968 Free T4 0.9 - 1.7 ng/dL 1.1 1.5 Free T3 2.3 - 4.1 pg/mL 2.5 2.8 Vitamin B12 232 - 1,245 pg/mL 264 Vitamin D 25 Hydroxy 31.0 - 80.0 ng/mL 18.6 (L) 1. Essential hypertension (I10) - Persistent elevated BP readings at home and in office; highest recorded 195/123 mmHg. - Recent medication change to valsartan with no significant improvement in BP control. - Kidney function labs reviewed and within normal limits. - Increase valsartan 160 mg to BID dosing; instructed to to take one tablet in the morning and one in the evening. - Advised to monitor BP at home and report if readings remain elevated after 5 days on increased dose; discussed potential to add another antihypertensive if necessary. - Educated on potential causes of elevated BP, including dietary sodium and stress; advised to continue reducing salt intake and monitor for patterns related to restaurant meals. - Follow-up in clinic for in-person BP and heart rate check at next scheduled appointment. Ton Gan APRN.KELSEY Medical Decision Making: Problems: Moderate: 1+ chronic illnesses with change Data: Unique test result(s) reviewed: 3+ Risk: Moderate: Drug management Medical Decision Making Level: 4 - Moderate documented in this encounter [facility] 11-04-2024 Telephone encounter Note [facility] 10/23/24 Patient phones requesting refills as follows: Requested Prescriptions Pending Prescriptions Disp Refills budesonide-formoterol (SYMBICORT) 160-4.5 mcg/actuation inhaler 10.2 g 5 Sig: Inhale 2 puffs as instructed two times a day. Please review and advise. Ivy Bo LPN [facility] 11-04-2024 Miscellaneous Notes [facility] 10/23/24 Patient phones requesting refills as follows: Requested Prescriptions Pending Prescriptions Disp Refills budesonide-formoterol (SYMBICORT) 160-4.5 mcg/actuation inhaler 10.2 g 5 Sig: Inhale 2 puffs as instructed two times a day. Please review and advise. Ivy Bo LPN documented in this encounter [facility] 10-29-2024 Instructions Eligio Felix MD - 10/29/2024 11:52 AM EDT We discussed your elevated blood pressure: - Your blood pressure readings at home have been elevated, ranging from 123/77 to 183/111, with most readings in the 150s/90s or higher. - I am changing your blood pressure medication from Losartan to Valsartan 160 mg once daily, as Losartan may not be providing full 24-hour coverage. This prescription has been sent to your preferred pharmacy ([facility]). - Please start Valsartan tomorrow morning. Today, you may take an extra dose of Losartan around 4:00 PM to help manage your blood pressure until you begin the new medication. - It may take up to 4 weeks for the Valsartan to fully stabilize your blood pressure, but you should notice some improvement within a few days. We discussed your kidney function: - I ordered a kidney function blood test to ensure there have been no changes from your baseline. You can complete this test today before leaving the clinic. We discussed your symptoms of shortness of breath and foot swelling: - Your shortness of breath when walking uphill and mild foot swelling are not new and have not worsened recently. - I did not find any concerning signs during your physical exam today. Follow-up: - Please monitor your blood pressure at home and let me know if it remains elevated or if you experience any new or worsening symptoms, such as severe shortness of breath, chest pain, or significant swelling in your legs. - Schedule a follow-up appointment with me in 4 weeks to assess how the new medication is working. documented in this encounter [facility] 10-29-2024 Note HNO ID: [id number] Author: ELIGIO FELIX MD Service: ? Author Type: Physician Type: Progress Notes Filed: 10/29/2024 12:23 Note Text: Chief Complaint Patient presents with: Blood Pressure: Hypertension HPI Mae Grant is a 79 year old female who presents here today for Above Complaints.. Patient with Hx of HTN. aMe Grant is a 79-year-old female with a history of HTN, presenting with elevated blood pressure readings over the past week. Mae reports elevated blood pressure readings since the , with home measurements ranging from 123/77 to 183/111, most frequently in the 150s/90s. She denies cephalalgia, blurred vision, or chest tightness. She notes chronic dyspnea, particularly when walking uphill to retrieve mail, requiring occasional pauses to catch her breath; however, she reports no worsening of dyspnea over the past week. Mae has observed increased pedal edema but denies swelling extending to the legs. She mentions dietary habits have not changed recently. She took her antihypertensive medication, losartan 100 mg, this morning. Past medical history, appointments, medications, allergies reviewed. Previous Medical History PAST MEDICAL HISTORY Diagnosis Date Abdominal pain, unspecified site Acute gastritis without mention of hemorrhage Allergic rhinitis, cause unspecified Allergic rhinitis Arthritis Cough variant asthma (HCC) DDD (degenerative disc disease), cervical mild to moderate on MRI June 2013 Diarrhea Esophageal reflux Hepatitis in viral diseases classified elsewhere(573.1) Associated with mono (EBV) infection in early 2001 Insomnia, unspecified Obesity, unspecified ANA (obstructive sleep apnea) On CPAP Osteopenia Panic disorder without agoraphobia Unspecified essential hypertension Unspecified hypothyroidism Previous Surgical History PAST SURGICAL HISTORY Procedure Laterality Date ABDOMINAL SURGERY HX BIOPSY BREAST OPEN INCISIONAL Right Bx of breast, incisional BREAST SURGERY HX BX BREAST PERC VACUUM/ROTN 11/10/2008 Left COLONOSCOPY FLX DX W/COLLJ SPEC WHEN PFRMD 10/20/2006 10 yr repeat COLONOSCOPY FLX DX W/COLLJ SPEC WHEN PFRMD 05/12/2016 Colonoscopy mac EGD TRANSORAL BIOPSY SINGLE/MULTIPLE 10/20/2006 ESOPHAGOGASTRODUODENOSCOPY TRANSORAL DIAGNOSTIC 05/12/2016 EGD mac EYE SURGERY HX INCISE FINGER TENDON SHEATH Right 09/10/2020 Right thumb and ring trigger finger releases KNEE ARTHROSCOPY Left 2015 LIG/TRNSXJ FLP TUBE ABDL/VAG APPR UNI/BI Tubal ligation NEUROPLASTY AND/TRANSPOS MEDIAN NRV CARPAL TUNNE 11/01/2013 Carpal tunnel decomp left PAST SURGICAL HISTORY OF 03/[address] solano , uvelctomy PAST SURGICAL HISTORY OF mole head and wrist PAST SURGICAL HISTORY OF b/l cataract surgery REVISE MEDIAN N/CARPAL TUNNEL SURG 10/18/2013 right Family History FAMILY HISTORY Problem Relation Age of Onset Cancer Father bladder Hypertension Father Diabetes Maternal Grandmother of blood clot Asthma Maternal Grandmother Heart Maternal Grandfather of mi , alcoholic Alzheimer's Disease Paternal Grandfather Allergies Paternal Grandfather other (Psoriatic arthritis) Grandson Asthma Granddaughter 2 granddaughters Patient Allergies ALLERGIES Allergen Reactions Atenolol palpitations, chest discomfort Silenor [Doxepin] Other: See Comments palpitations (heart fluttered and chest felt strange) Tramadol Other: See Comments Unable to sleep - keeps her hyper Current Medications Current Outpatient Medications on File Prior to Visit Medication Sig loratadine (CLARITIN) 10 mg tablet Take 10 mg by mouth once daily. meloxicam (MOBIC) 15 mg tablet Take 1 tablet by mouth once daily. As directed Cholecalciferol, Vitamin D3, 50 mcg (2,000 unit) cap Take 1 capsule by mouth once daily. budesonide-formoterol (SYMBICORT) 160-4.5 mcg/actuation inhaler Inhale 2 puffs as instructed two times a day. pantoprazole DR (PROTONIX) 40 mg tablet Take 1 tablet by mouth once daily. Take on empty stomach, 1/2 hr before meal. zolpidem (AMBIEN) 10 mg Take 1 tablet by mouth daily at bedtime for 180 days. losartan (COZAAR) 100 mg tablet Take 1 tablet by mouth once daily. fluticasone (FLONASE) 50 mcg/actuation nasal spray Use 2 Sprays in each nostril once daily. Rinse mouth after gabapentin (NEURONTIN) 600 mg tablet Take 1 tablet by mouth two times a day. PARoxetine (PAXIL) 20 mg tablet Take 1 tablet by mouth once daily. levothyroxine (SYNTHROID) 150 mcg tablet Take 1 tablet by mouth once daily. Take on empty stomach. For thyroid albuterol HFA (PROVENTIL HFA, VENTOLIN HFA) 90 mcg/actuation inhaler Inhale 2 Puffs as instructed every 4 hours as needed for wheezing/shortness of breath. No current facility-administered medications on file prior to visit. Social History SOCIAL HISTORY[1] Review of Symptoms REVIEW OF SYSTEMS Head: (-) headache Eyes: (-) blurred (more content not included)... [facility] 10-29-2024 History of Present illness Narrative Chief Complaint Patient presents with: Blood Pressure: Hypertension HPI Mae Grant is a 79 year old female who presents here today for Above Complaints.. Patient with Hx of HTN. Mae Grant is a 79-year-old female with a history of HTN, presenting with elevated blood pressure readings over the past week. Mae reports elevated blood pressure readings since the , with home measurements ranging from 123/77 to 183/111, most frequently in the 150s/90s. She denies cephalalgia, blurred vision, or chest tightness. She notes chronic dyspnea, particularly when walking uphill to retrieve mail, requiring occasional pauses to catch her breath; however, she reports no worsening of dyspnea over the past week. Mae has observed increased pedal edema but denies swelling extending to the legs. She mentions dietary habits have not changed recently. She took her antihypertensive medication, losartan 100 mg, this morning. Past medical history, appointments, medications, allergies reviewed. Previous Medical History PAST MEDICAL HISTORY Diagnosis Date Abdominal pain, unspecified site Acute gastritis without mention of hemorrhage Allergic rhinitis, cause unspecified Allergic rhinitis Arthritis Cough variant asthma (HCC) DDD (degenerative disc disease), cervical mild to moderate on MRI June 2013 Diarrhea Esophageal reflux Hepatitis in viral diseases classified elsewhere(573.1) Associated with mono (EBV) infection in early 2001 Insomnia, unspecified Obesity, unspecified ANA (obstructive sleep apnea) On CPAP Osteopenia Panic disorder without agoraphobia Unspecified essential hypertension Unspecified hypothyroidism Previous Surgical History PAST SURGICAL HISTORY Procedure Laterality Date ABDOMINAL SURGERY HX BIOPSY BREAST OPEN INCISIONAL Right Bx of breast, incisional BREAST SURGERY HX BX BREAST PERC VACUUM/ROTN 11/10/2008 Left COLONOSCOPY FLX DX W/COLLJ SPEC WHEN PFRMD 10/20/2006 10 yr repeat COLONOSCOPY FLX DX W/COLLJ SPEC WHEN PFRMD 05/12/2016 Colonoscopy mac EGD TRANSORAL BIOPSY SINGLE/MULTIPLE 10/20/2006 ESOPHAGOGASTRODUODENOSCOPY TRANSORAL DIAGNOSTIC 05/12/2016 EGD mac EYE SURGERY HX INCISE FINGER TENDON SHEATH Right 09/10/2020 Right thumb and ring trigger finger releases KNEE ARTHROSCOPY Left 2015 LIG/TRNSXJ FLP TUBE ABDL/VAG APPR UNI/BI Tubal ligation NEUROPLASTY &/TRANSPOS MEDIAN NRV CARPAL TUNNE 11/01/2013 Carpal tunnel decomp left PAST SURGICAL HISTORY OF 03/[address] solano , uvelctomy PAST SURGICAL HISTORY OF mole head and wrist PAST SURGICAL HISTORY OF b/l cataract surgery REVISE MEDIAN N/CARPAL TUNNEL SURG 10/18/2013 right Family History FAMILY HISTORY Problem Relation Age of Onset Cancer Father bladder Hypertension Father Diabetes Maternal Grandmother of blood clot Asthma Maternal Grandmother Heart Maternal Grandfather of mi , alcoholic Alzheimer's Disease Paternal Grandfather Allergies Paternal Grandfather other (Psoriatic arthritis) Grandson Asthma Granddaughter 2 granddaughters Patient Allergies ALLERGIES Allergen Reactions Atenolol palpitations, chest discomfort Silenor [Doxepin] Other: See Comments palpitations (heart fluttered and chest felt strange) Tramadol Other: See Comments Unable to sleep - keeps her hyper Current Medications Current Outpatient Medications on File Prior to Visit Medication Sig loratadine (CLARITIN) 10 mg tablet Take 10 mg by mouth once daily. meloxicam (MOBIC) 15 mg tablet Take 1 tablet by mouth once daily. As directed Cholecalciferol, Vitamin D3, 50 mcg (2,000 unit) cap Take 1 capsule by mouth once daily. budesonide-formoterol (SYMBICORT) 160-4.5 mcg/actuation inhaler Inhale 2 puffs as instructed two times a day. pantoprazole DR (PROTONIX) 40 mg tablet Take 1 tablet by mouth once daily. Take on empty stomach, 1/2 hr before meal. zolpidem (AMBIEN) 10 mg Take 1 tablet by mouth daily at bedtime for 180 days. losartan (COZAAR) 100 mg tablet Take 1 tablet by mouth once daily. fluticasone (FLONASE) 50 mcg/actuation nasal spray Use 2 Sprays in each nostril once daily. Rinse mouth after gabapentin (NEURONTIN) 600 mg tablet Take 1 tablet by mouth two times a day. PARoxetine (PAXIL) 20 mg tablet Take 1 tablet by mouth once daily. levothyroxine (SYNTHROID) 150 mcg tablet Take 1 tablet by mouth once daily. Take on empty stomach. For thyroid albuterol HFA (PROVENTIL HFA, VENTOLIN HFA) 90 mcg/actuation inhaler Inhale 2 Puffs as instructed every 4 hours as needed for wheezing/shortness of breath. No current facility-administered medications on file prior to visit. Social History SOCIAL HISTORY[1] Review of Symptoms REVIEW OF SYSTEMS Head: (-) headache Eyes: (-) blurred vision Cardiovascular: (+) pedal edema, (-) leg edema Respiratory: (+) dyspnea SEE HPI EXAM: BP 164/112 Pulse 72 Resp 14 Wt 111.3 kg (245 lb 6.4 oz) SpO2 96% BMI 39.61 kg/m Last 5 Encounter BP Readings: Date: BP: 10/29/2024 164/112 10/21/2024 162/90 09/25/2024 155/94 09/10/2024 122/80 06/11/2024 154/82 General Appearance: Well appearing, alert, in no acute distress, well-hydrated, well nourished.. Neck: Supple, no adenopathy; thyroid symmetric, normal size, no bruits. Lungs: Lungs clear to auscultation. No wheezing, rhonchi, rales.. Heart: RRR without murmur, gallop, or rubs. No ectopy. Abdomen: Normal abdominal exam, Abdomen soft, non-tender. Bowel sounds normal. No masses, organomegaly. Extremities: No deformities, edema, skin discoloration, . Good capillary refill. . Health Maintenance List DTaP,Tdap,Td Vaccine(2 - Tdap) due on 01/07/2006 Shingrix Vaccine(2 of 3) due on 04/19/2010 Medicare Annual Wellness Visit Never done RSV Vaccine(1 - 1-dose 75+ series) Never done Influenza Vaccine(1) due on 10/28/2024 Serum Creatinine due on 09/09/2025 Annual PCP Team Chronic Disease Visit due on 10/21/2025 Diabetes Screening due on 09/10/2027 Bone Density Screening Completed Advance Directive Discussion Completed Pneumococcal Vaccine: 50+ Completed Mammogram Screening Discontinued Colorectal Cancer Screening Discontinued Data reviewed Assessment and Plan 1. Essential hypertension (I10) Recent home BP readings have been consistently elevated, with systolic values ranging from 123 to 183 mmHg and diastolic values from 77 to 111 mmHg, most commonly in the 150s/90s or higher. Current regimen of losartan 100 mg daily appears to be insufficient for 24-hour BP control. - Discontinue losartan 100 mg daily. - Start valsartan 160 mg daily. - Advised patient to take an additional dose of losartan at 4 PM today, then begin valsartan tomorrow morning. - Ordered kidney function test to establish baseline prior to medication change. - Educated patient that improvement may be noticed within a few days, but full effect may take up to 4 weeks. Requested Prescriptions Signed Prescriptions Disp Refills valsartan (DIOVAN) 160 mg tablet 90 tablet 1 Sig: Take 1 tablet by mouth once daily. Has an appt in 2 weeks with diad team for HTN. Eligio Felix MD Recording using [employer] software for draft documentation of the visit was discussed with the patient/authorized food service representative; all questions welcomed and answered. Patient/authorized food service representative agreed to proceed [1] Social History Tobacco Use Smoking status: Never Smokeless tobacco: Never Tobacco comments: dad was smoker when she was growing up Substance Use Topics Alcohol use: No Drug use: No documented in this encounter [facility] 10-24-2024 Telephone encounter Note [facility] Work Phone: 10-24-2024 Miscellaneous Notes documented in this encounter [facility] 10-23-2024 Instructions Jessica Wong APRN.CNP - 10/23/2024 8:44 AM EDT Continue Symbicort. Try using the spacer and see if it helps with your voice. Continue rinsing your mouth out well after you use Symbicort. Continue Albuterol as needed. Continue on Claritin (over the counter allergy medicine). Follow-up in 4 months. documented in this encounter [facility] 10-23-2024 History of Present illness Narrative Images from the original note were not included. Pulmonary Medicine Patients name: Mae Grant PCP: Racquel Centeno MD CC: follow-up HPI: Mae Grant is a 79 year old female never smoker with PMH significant for obesity, ANA on CPAP, HTN, hypothyroidism, GERD, allergic rhinitis, and chronic cough. Previously with normal Spirometry but Jong elevated. ADAMARIS 09/25/24 with persistent cough and exertional dyspnea, had run out of inhaled therapy. Started Singulair. Current therapy with Symbicort, Singulair, and Albuterol as needed. She presents today for follow-up. Since her last visit, she tried using Singulair for 3 weeks and didn't feel it was helpful. Discontinued use about a week ago and started Loratadine. Today, patient reports overall improvement in cough since using antihistamine. Cough with clear sputum. Sinus congestion is improved. No wheezing or chest tightness. Has had some hoarseness with the inhaler. Denies dyspnea at rest and exertional dyspnea has improved, especially with the cooler weather. No recent hospitalizations or ED visits or upper respiratory infections. Albuterol use about once a week. 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 If you have any questions, ask your nurse or doctor. CONTINUE taking these medications albuterol HFA 90 mcg/actuation inhaler Commonly known as: PROVENTIL HFA, VENTOLIN HFA Inhale 2 Puffs as instructed every 4 hours as needed for wheezing/shortness of breath. budesonide-formoterol 160-4.5 mcg/actuation inhaler Commonly known as: SYMBICORT Inhale 2 puffs as instructed two times a day. cetirizine 10 mg tablet Commonly known as: ZYRTEC Take 1 tablet by mouth once daily. Cholecalciferol (Vitamin D3) 50 mcg (2,000 unit) Cap Take 1 capsule by mouth once daily. fluticasone 50 mcg/actuation nasal spray Commonly known as: FLONASE Use 2 Sprays in each nostril once daily. Rinse mouth after gabapentin 600 mg tablet Commonly known as: NEURONTIN Take 1 tablet by mouth two times a day. levothyroxine 150 mcg tablet Commonly known as: SYNTHROID Take 1 tablet by mouth once daily. Take on empty stomach. For thyroid losartan 100 mg tablet Commonly known as: COZAAR Take 1 tablet by mouth once daily. meloxicam 15 mg tablet Commonly known as: MOBIC Take 1 tablet by mouth once daily. As directed pantoprazole DR 40 mg tablet Commonly known as: PROTONIX Take 1 tablet by mouth once daily. Take on empty stomach, 1/2 hr before meal. PARoxetine 20 mg tablet Commonly known as: PAXIL Take 1 tablet by mouth once daily. zolpidem 10 mg Commonly known as: AMBIEN Take 1 tablet by mouth daily at bedtime for 180 days. DATA: I personally reviewed and analyzed all labs, radiographs and available pulmonary function testing PFT: 03/28/2024 Spirometry is normal. Review of Systems Constitutional: Negative for activity change, appetite change, fever and unexpected weight change. HENT: Positive for postnasal drip. Negative for congestion, mouth sores and sinus pain. Respiratory: Positive for cough and shortness of breath. Negative for chest tightness and wheezing. Cardiovascular: Negative for chest pain, palpitations and leg swelling. Allergic/Immunologic: Positive for environmental allergies. Neurological: Negative for dizziness and weakness. BP (P) 148/94 Pulse 85 Resp 15 Wt 110.7 kg (244 lb) SpO2 95% BMI 39.38 kg/m Physical Exam Vitals reviewed. Constitutional: General: She is not in acute distress. Appearance: Normal appearance. She is not ill-appearing. HENT: Head: Normocephalic. Mouth/Throat: Mouth: Mucous membranes are moist. Pharynx: No oropharyngeal exudate or posterior oropharyngeal erythema. Cardiovascular: Rate and Rhythm: Normal rate and regular rhythm. Heart sounds: Normal heart sounds. Pulmonary: Effort: Pulmonary effort is normal. No respiratory distress. Breath sounds: No wheezing or rhonchi. Musculoskeletal: Right lower leg: No edema. Left lower leg: No edema. Skin: General: Skin is warm and dry. Capillary Refill: Capillary refill takes less than 2 seconds. Neurological: General: No focal deficit present. Mental Status: She is alert. ASSESSMENT/PLAN: 1. Cough variant asthma (HCC) - ICD9: 493.82, ICD10: J45.991 (primary diagnosis) - symptoms improving with Loratadine. - Continue Symbicort. Provided with spacer d/t hoarse voice at times. - Continue Albuterol as needed. - discontinue Singulair as it was not helpful. - Asthma education: Reviewed asthma signs, symptoms and monitoring and Rinsing after each inhaled steroid use 2. Allergic rhinitis, unspecified seasonality, unspecified trigger - ICD9: 477.9, ICD10: J30.9 - continue Loratadine and Flonase. 3. Essential hypertension - ICD9: 401.9, ICD10: I10 - patient concerned about most recent blood pressure readings. Slightly elevated today despite recheck. She is being managed for BP by primary care. - Recommend obtaining home blood pressure monitor, to bring results to next PCP visit. - Encouraged monitoring of sodium intake, currently snacking a lot vs eating meals. - Recommend regular exercise. F/u 4 months Portions of this documentation were copied and pasted from previous office visit notes in order to provide a cohesive continuity of the history. The note has been reviewed and edited and updated as necessary. Jessica Wong APRN.KYLAH I spent a total of 20 minutes on the date of the service which included preparing to see the patient, [id number] patient care, completing clinical documentation, performing a medically appropriate examination, and counseling and educating the patient/family/caregiver. documented in this encounter [facility] 10-23-2024 Note HNO ID: [id number] Author: JESSICA WONG APRN.TICK SEWER Service: ? Author Type: Nurse Practitioner Type: Progress Notes Filed: 10/23/2024 09:02 Note Text: Pulmonary Medicine Patients name: Mae rGant PCP: Racquel Centeno MD CC: follow-up HPI: Mae Grant is a 79 year old female never smoker with PMH significant for obesity, ANA on CPAP, HTN, hypothyroidism, GERD, allergic rhinitis, and chronic cough. Previously with normal Spirometry but Jong elevated. ADAMARIS 09/25/24 with persistent cough and exertional dyspnea, had run out of inhaled therapy. Started Singulair. Current therapy with Symbicort, Singulair, and Albuterol as needed. She presents today for follow-up. Since her last visit, she tried using Singulair for 3 weeks and didn't feel it was helpful. Discontinued use about a week ago and started Loratadine. Today, patient reports overall improvement in cough since using antihistamine. Cough with clear sputum. Sinus congestion is improved. No wheezing or chest tightness. Has had some hoarseness with the inhaler. Denies dyspnea at rest and exertional dyspnea has improved, especially with the cooler weather. No recent hospitalizations or ED visits or upper respiratory infections. Albuterol use about once a week. 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 If you have any questions, ask your nurse or doctor. CONTINUE taking these medications albuterol HFA 90 mcg/actuation inhaler Commonly known as: PROVENTIL HFA, VENTOLIN HFA Inhale 2 Puffs as instructed every 4 hours as needed for wheezing/shortness of breath. budesonide-formoterol 160-4.5 mcg/actuation inhaler Commonly known as: SYMBICORT Inhale 2 puffs as instructed two times a day. cetirizine 10 mg tablet Commonly known as: ZYRTEC Take 1 tablet by mouth once daily. Cholecalciferol (Vitamin D3) 50 mcg (2,000 unit) Cap Take 1 capsule by mouth once daily. fluticasone 50 mcg/actuation nasal spray Commonly known as: FLONASE Use 2 Sprays in each nostril once daily. Rinse mouth after gabapentin 600 mg tablet Commonly known as: NEURONTIN Take 1 tablet by mouth two times a day. levothyroxine 150 mcg tablet Commonly known as: SYNTHROID Take 1 tablet by mouth once daily. Take on empty stomach. For thyroid losartan 100 mg tablet Commonly known as: COZAAR Take 1 tablet by mouth once daily. meloxicam 15 mg tablet Commonly known as: MOBIC Take 1 tablet by mouth once daily. As directed pantoprazole DR 40 mg tablet Commonly known as: PROTONIX Take 1 tablet by mouth once daily. Take on empty stomach, 1/2 hr before meal. PARoxetine 20 mg tablet Commonly known as: PAXIL Take 1 tablet by mouth once daily. zolpidem 10 mg Commonly known as: AMBIEN Take 1 tablet by mouth daily at bedtime for 180 days. DATA: I personally reviewed and analyzed all labs, radiographs and available pulmonary function testing PFT: 03/28/2024 Spirometry is normal. Review of Systems Constitutional: Negative for activity change, appetite change, fever and unexpected weight change. HENT: Positive for postnasal drip. Negative for congestion, mouth sores and sinus pain. Respiratory: Positive for cough and shortness of breath. Negative for chest tightness and wheezing. Cardiovascular: Negative for chest pain, palpitations and leg swelling. Allergic/Immunologic: Positive for environmental allergies. Neurological: Negative for dizziness and weakness. BP (P) 148/94 Pulse 85 Resp 15 Wt 110.7 kg (244 lb) SpO2 95% BMI 39.38 kg/m? Physical Exam Vitals reviewed. Constitutional: General: She is not in acute distress. Appearance: Normal appearance. She is not ill-appearing. HENT: Head: Normocephalic. Mouth/Throat: Mouth: Mucous membranes are moist. Pharynx: No oropharyngeal exudate or posterior oropharyngeal erythema. Cardiovascular: Rate and Rhythm: Normal rate and regular rhythm. Heart sounds: Normal heart sounds. Pulmonary: Effort: Pulmonary effort is normal. No respiratory distress. Breath sounds: No whe (more content not included)... [facility] 10-21-2024 Note HNO ID: [id number] Author: RACQUEL CENTENO MD Service: ? Author Type: Physician Type: Progress Notes Filed: 11/28/2024 02:16 Note Text: Subjective Mae Grant is a 79 year old female. HPI SUBJECTIVE: Mae Grant is a 79-year-old female with a history of asthma, presenting with left shoulder pain. Mae reports left shoulder pain that began approximately one month ago while performing yard work, including weeding and mowing. She does not recall a specific injury but notes that the pain has persisted without improvement. The pain is localized to the deltoid region and is exacerbated by abduction of the arm. She denies pain at rest or with forward flexion of the arm. She has not been taking any regular medication for pain or inflammation, only occasionally taking something for pain. She also reports seasonal allergies and is currently taking [id number] cetirizine, which has helped with post-nasal drip. She was previously prescribed Singulair but discontinued it due to lack of efficacy. She is also on Symbicort for asthma management. She mentions a recent low vitamin D level but has not yet started supplementation. 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 Take on empty stomach, 1/2 hr before meal. fluticasone (FLONASE) 50 mcg/actuation nasal spray Use 2 Sprays in each nostril once daily. Rinse mouth after gabapentin (NEURONTIN) 600 mg tablet Take 1 tablet by mouth two times a day. PARoxetine (PAXIL) 20 mg tablet Take 1 tablet by mouth once daily. albuterol HFA (PROVENTIL HFA, VENTOLIN HFA) 90 mcg/actuation inhaler Inhale 2 Puffs as instructed every 4 hours as needed for wheezing/shortness of breath. levothyroxine (SYNTHROID) 150 mcg tablet Take 1 tablet by mouth once daily. Take on empty stomach. For thyroid [START ON 12/14/2024] zolpidem (AMBIEN) 10 mg Take 1 tablet by mouth daily at bedtime for 180 days. Patient should start on December 14, 2024. amLODIPine (NORVASC) 2.5 mg tablet Take 1 tablet by mouth once daily. Take this in addition to your valsartan for BP 150/80 or greater. valsartan (DIOVAN) 160 mg tablet Take one tablet two times per day budesonide-formoterol (SYMBICORT) 160-4.5 mcg/actuation inhaler Inhale 2 puffs as instructed two times a day. loratadine (CLARITIN) 10 mg tablet Take 10 mg by mouth once daily. meloxicam (MOBIC) 15 mg tablet Take 1 tablet by mouth once daily. As directed (Patient taking differently: Take 15 mg by mouth once daily as needed. As directed) Cholecalciferol, Vitamin D3, 50 mcg (2,000 unit) cap Take 1 capsule by mouth once daily. No current facility-administered medications for this visit. Review of Systems Objective BP 162/90 Pulse 78 Temp 37.2 ?C (98.9 ?F) (Temporal) Resp 14 Ht 167.6 cm (5' 6) Wt 110.7 kg (244 lb 0.8 oz) SpO2 97% BMI 39.39 kg/m? Last 5 Encounter Wt Readings: Date: Wt: 10/21/2024 110.7 kg (244 lb 0.8 oz) 09/25/2024 108 kg (238 lb) 09/10/2024 108.4 kg (238 lb 15.7 oz) 06/11/2024 108.9 kg (240 lb 1.3 oz) 03/28/2024 110.2 kg (243 lb) No waist measurement recorded Estimated body mass index is 39.39 kg/m? as calculated from the following: Height as of this encounter: 167.6 cm (5' 6). Weight as of this encounter: 110.7 kg (244 lb 0.8 oz). Last 5 Encounter BP Readings: Date: BP: 10/21/2024 144/90 09/25/2024 155/94 09/10/2024 122/80 06/11/2024 154/82 03/28/2024 132/82 Physical Exam Musculoskeletal: Left shoulder: No tenderness. Decreased range of motion (Cannot rabduct past 90 degresse but can forward extend shoulder almost all the way up but still hurts in deltoid muscle area). Arms: # Strain of left shoulder, initial encounter (S46.049L) - Persistent left shoulder pain for over a month, likely due to overuse during yard work; pain localized to the deltoid region, exacerbated by abduction and lifting, with no tenderness over the rotator cuff. - Start meloxicam 15 mg PO daily for inflammation and pain; may reduce to half tablet if full dose is not tolerated. - Educated on alternating heat and cold therapy to manage inflammation and muscle tightness. - Advised to maintain range of motion exercises to prevent adhesive capsulitis. - If no improvemen (more content not included)... [facility] 09-25-2024 Instructions Jessica Wong APRN.KYLAH - 09/25/2024 1:30 PM EDT Continue Symbicort, 2 puffs twice a day. Remember to rinse your mouth after use. Continue Albuterol as needed. Start Singulair, 1 tablet at bedtime. Side effects to be aware of include Agitation, anxiety, depression, suicidal thoughts and actions, hallucinations, nightmares, sleepwalking, memory problems, confusion, irritability, hostility, and attention problems. If you experience any of these side effects, please discontinue immediately. If you take Singulair for a month and don't note any improvement, we will stop it and consider adjusting your inhaler. Follow-up in 1 month. documented in this encounter [facility] 09-25-2024 Note HNO ID: [id number] Author: JESSICA WONG APRN.KYLAH Service: ? Author Type: Nurse Practitioner Type: Progress Notes Filed: 09/25/2024 13:45 Note Text: Pulmonary Medicine Patients name: Mae Grant PCP: Racquel Centeno MD CC: follow-up cough HPI: Mae Grant is a 79 year old female never smoker with PMH significant for obesity, ANA on CPAP, HTN, hypothyroidism, GERD, allergic rhinitis, and chronic cough. Spirometry normal but Jong elevated. [facility] 02/2024 with c/o exertional dypsnea and chest tightness. Current inhaled therapy with Symbicort and Albuterol as needed. She presents today for follow-up. At her [facility], she was prescribed Breztri d/t persistent symptoms. She reports today she never got it filled d/t cost. Has continued using Symbicort. Continues to experience exertional dyspnea, specifically with walking up an incline and is worse in the high heat/humidity. She also reports waking up in the morning with a cough in order to clear mucus but symptoms will often linger on through the day. Frequently feels like she's clearing her throat. Has sinus congestion and drainage, uses Flonase at night. She has always felt like she has allergies but does not know what exactly. Previously had negative [facility] testing in the fall and was negative. She ran out of Symbicort last week and didn't have it for a few days and felt like she coughed less and had less sputum production. Has since had it refilled and is now using again. Today, she denies wheezing or chest tightness. No dyspnea at rest. No fevers, chills, or night sweats. No unintended weight loss. GERD/heartburn managed with PPI. No recent hospitalizations or ED visits or upper respiratory infections. Albuterol use is approximately once a week and does find it beneficial. 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 If you have any questions, ask your nurse or doctor. CONTINUE taking these medications albuterol HFA 90 mcg/actuation inhaler Commonly known as: PROVENTIL HFA, VENTOLIN HFA Inhale 2 Puffs as instructed every 4 hours as needed for wheezing/shortness of breath. budesonide-formoterol 160-4.5 mcg/actuation inhaler Commonly known as: SYMBICORT Inhale 2 Puffs as instructed two times a day. fluticasone 50 mcg/actuation nasal spray Commonly known as: FLONASE Use 2 Sprays in each nostril once daily. Rinse mouth after gabapentin 600 mg tablet Commonly known as: NEURONTIN Take 1 tablet by mouth two times a day. levothyroxine 150 mcg tablet Commonly known as: SYNTHROID Take 1 tablet by mouth once daily. Take on empty stomach. For thyroid losartan 100 mg tablet Commonly known as: COZAAR Take 1 tablet by mouth once daily. pantoprazole DR 40 mg tablet Commonly known as: PROTONIX Take 1 tablet by mouth once daily. Take on empty stomach, 1/2 hr before meal. PARoxetine 20 mg tablet Commonly known as: PAXIL Take 1 tablet by mouth once daily. zolpidem 10 mg Commonly known as: AMBIEN Take 1 tablet by mouth daily at bedtime for 180 days. DATA: I personally reviewed and analyzed all labs, radiographs and available pulmonary function testing PFT: 02/2024 Oral Exhaled Nitric Oxide measurement (Previous Encounters) Test Date Oral Exhaled Nitric Oxide (ppb) 03/28/2024 25.0 12/20/2023 36.0 (A) 09/21/2021 37.0 (A) 05/20/2020 33.0 NAME: ROSANNA Kelly PATIENT NAME: Mae Grant DATE: March 28, 2024 TIME: 12:58 PM Spirometry is normal. CXR: Last XR Chest - Impression Only XR CHEST 2V FRONTAL/LAT Exam End: 01/28/2023 9:07 AM (Final result) Impression: IMPRESSION: No acute radiographic abnormality. ... Labs: WBC (k/uL) Date Value 09/09/2024 6.55 08/25/2020 8.05 RBC (m/uL) Date Value 09/09/2024 5.49 08/25/2020 5.10 Hemoglobin (g/dL) Date Value 09/09/2024 14.9 08/25/2020 14.0 Hematocrit (%) Date Value 09/09/2024 44.8 08/25/2020 41.8 Platelet Count (k/uL) Date Value 09/09/2024 226 08/25/2020 216 MPV (fL) Date Value 09/09/2024 10.6 06/ (more content not included)... [facility] 09-25-2024 History of Present illness Narrative Images from the original note were not included. Pulmonary Medicine Patients name: Mae Grant PCP: Racquel Cneteno MD CC: follow-up cough HPI: Mae Grant is a 79 year old female never smoker with PMH significant for obesity, ANA on CPAP, HTN, hypothyroidism, GERD, allergic rhinitis, and chronic cough. Spirometry normal but Jong elevated. [facility] 02/2024 with c/o exertional dypsnea and chest tightness. Current inhaled therapy with Symbicort and Albuterol as needed. She presents today for follow-up. At her [facility], she was prescribed Breztri d/t persistent symptoms. She reports today she never got it filled d/t cost. Has continued using Symbicort. Continues to experience exertional dyspnea, specifically with walking up an incline and is worse in the high heat/humidity. She also reports waking up in the morning with a cough in order to clear mucus but symptoms will often linger on through the day. Frequently feels like she's clearing her throat. Has sinus congestion and drainage, uses Flonase at night. She has always felt like she has allergies but does not know what exactly. Previously had [place] [facility] [place] in the fall and was negative. She ran out of Symbicort last week and didn't have it for a few days and felt like she coughed less and had less sputum production. Has since had it refilled and is now using again. Today, she denies wheezing or chest tightness. No dyspnea at rest. No fevers, chills, or night sweats. No unintended weight loss. GERD/heartburn managed with PPI. No recent hospitalizations or ED visits or upper respiratory infections. Albuterol use is approximately once a week and does find it beneficial. 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 If you have any questions, ask your nurse or doctor. CONTINUE taking these medications albuterol HFA 90 mcg/actuation inhaler Commonly known as: PROVENTIL HFA, VENTOLIN HFA Inhale 2 Puffs as instructed every 4 hours as needed for wheezing/shortness of breath. budesonide-formoterol 160-4.5 mcg/actuation inhaler Commonly known as: SYMBICORT Inhale 2 Puffs as instructed two times a day. fluticasone 50 mcg/actuation nasal spray Commonly known as: FLONASE Use 2 Sprays in each nostril once daily. Rinse mouth after gabapentin 600 mg tablet Commonly known as: NEURONTIN Take 1 tablet by mouth two times a day. levothyroxine 150 mcg tablet Commonly known as: SYNTHROID Take 1 tablet by mouth once daily. Take on empty stomach. For thyroid losartan 100 mg tablet Commonly known as: COZAAR Take 1 tablet by mouth once daily. pantoprazole DR 40 mg tablet Commonly known as: PROTONIX Take 1 tablet by mouth once daily. Take on empty stomach, 1/2 hr before meal. PARoxetine 20 mg tablet Commonly known as: PAXIL Take 1 tablet by mouth once daily. zolpidem 10 mg Commonly known as: AMBIEN Take 1 tablet by mouth daily at bedtime for 180 days. DATA: I personally reviewed and analyzed all labs, radiographs and available pulmonary function testing PFT: 02/2024 Oral Exhaled Nitric Oxide measurement (Previous Encounters) Test Date Oral Exhaled Nitric Oxide (ppb) 03/28/2024 25.0 12/20/2023 36.0 (A) 09/21/2021 37.0 (A) 05/20/2020 33.0 NAME: Jayson Trimble [facility] PATIENT NAME: Mae Grant DATE: March 28, 2024 TIME: 12:58 PM Spirometry is normal. CXR: Last XR Chest - Impression Only XR CHEST 2V FRONTAL/LAT Exam End: 01/28/2023 9:07 AM (Final result) Impression: IMPRESSION: No acute radiographic abnormality. ... Labs: WBC (k/uL) Date Value 09/09/2024 6.55 08/25/2020 8.05 RBC (m/uL) Date Value 09/09/2024 5.49 08/25/2020 5.10 Hemoglobin (g/dL) Date Value 09/09/2024 14.9 08/25/2020 14.0 Hematocrit (%) Date Value 09/09/2024 44.8 08/25/2020 41.8 Platelet Count (k/uL) Date Value 09/09/2024 226 08/25/2020 216 MPV (fL) Date Value 09/09/2024 10.6 08/25/2020 9.8 Neutrophils % (%) Date Value 09/09/2024 63.4 Eosinophils % (%) Date Value 09/09/2024 2.3 Basophils % (%) Date Value 09/09/2024 0.8 Abs Neut (k/uL) Date Value 09/09/2024 4.16 Abs [place] (k/uL) Date Value 09/09/2024 0.51 Abs Eosin Date Value 09/09/2024 0.15 k/uL 08/25/2020 0.25 K/uL Abs Baso (k/uL) Date Value 09/09/2024 0.05 IgE Date Value 12/20/2023 21.0 kU/l 08/25/2020 19.1 kU/L Review of Systems Constitutional: Negative for activity change, appetite change, fever and unexpected weight change. HENT: Positive for congestion and postnasal drip. Negative for mouth sores and sinus pressure. Respiratory: Positive for cough and shortness of breath. Negative for chest tightness and wheezing. Cardiovascular: Negative for chest pain and palpitations. Neurological: Negative for dizziness and weakness. BP 155/94 Pulse 68 Wt 108 kg (238 lb) SpO2 97% BMI 38.02 kg/m Physical Exam Vitals reviewed. Constitutional: General: She is not in acute distress. Appearance: Normal appearance. She is not ill-appearing. HENT: Head: Normocephalic. Mouth/Throat: Mouth: Mucous membranes are moist. Pharynx: No oropharyngeal exudate. Cardiovascular: Rate and Rhythm: Normal rate and regular rhythm. Heart sounds: Normal heart sounds. Pulmonary: Effort: Pulmonary effort is normal. No respiratory distress. Breath sounds: No wheezing or rhonchi. Musculoskeletal: Right lower leg: No edema. Left lower leg: No edema. Lymphadenopathy: Cervical: No cervical adenopathy. Skin: General: Skin is warm and dry. Capillary Refill: Capillary refill takes less than 2 seconds. Neurological: General: No focal deficit present. Mental Status: She is alert. ASSESSMENT/PLAN: 1. Cough variant asthma (HCC) - ICD9: 493.82, ICD10: J45.991 (primary diagnosis) - persistent cough with mucus production and exertional dyspnea. - Continue Symbicort. - start Singulair, educated on adverse effects. If no improvement, will increase to triple therapy. - continue Albuterol as needed. - Avoidance of triggers recommended - Asthma education: Reviewed asthma signs, symptoms and monitoring and Rinsing after each inhaled steroid use 2. Allergic rhinitis, unspecified seasonality, unspecified trigger - ICD9: 477.9, ICD10: J30.9 - negative [place] - continue Flonase 3. Gastroesophageal reflux disease, unspecified whether esophagitis present - ICD9: 530.81, ICD10: K21.9 - controlled symptoms on PPI F/u 1 month Portions of this documentation were copied and pasted from previous office visit notes in order to provide a cohesive continuity of the history. The note has been reviewed and edited and updated as necessary. Jessica Wong APRN.CNP I spent a total of 44 minutes on the date of the service which included preparing to see the patient, [id number] patient care, completing clinical documentation, performing a medically appropriate examination, counseling and educating the patient/family/caregiver, and ordering medications, tests, or procedures. documented in this encounter [facility] 09-10-2024 Note HNO ID: [id number] Author: FELIPE ESTRADA APRN.CNP Service: ? Author Type: Nurse Practitioner Type: Progress Notes Filed: 09/10/2024 13:30 Note Text: SUBJECTIVE Mae Grant is a 79 year old female here today for a check up on her medical problems. Chief Complaint Patient presents with: Follow Up: 3 months HPI Mae Grant is a 79-year-old female with a history of hypothyroidism and asthma, presenting for follow-up on recent lab results. Mae expresses concern about her recent lab results, particularly noting elevated blood glucose levels, which she attributes to increased consumption of pastries and ice cream during a stressful August. She reports a history of improper levothyroxine administration, previously taking it with other medications and without regard to food intake. She has since adjusted her regimen, now taking levothyroxine a couple of hours after lunch, which she notes has made a significant difference. She inquires if this new timing is appropriate. She also reports difficulty getting sun exposure due to hot and humid weather, which exacerbates her asthma symptoms. She reports a history of anxiety, which has been exacerbated by a recent incident involving her 27-year-old grandson, who suffered a severe case of colitis leading to significant weight loss and a subsequent fall resulting in a head injury and colonic artery rupture. This event occurred during a family camping trip, and she expresses gratitude that her grandson was not alone during the incident. She describes herself as a worrier, particularly concerned about the safety of her family members. She reports good sleep quality, attributing it to the use of a sleeping pill and the absence of her hearing aids at night. She also notes a recent weight loss of 2 pounds, with a previous weight of 262-264 pounds last year, which she attributes to stress and loss of appetite following the deaths of her mother and . Recording using [employer] software for draft documentation of the visit was discussed with the patient/authorized food service representative; all questions welcomed and answered. Patient/authorized food service representative agreed to proceed Her medications were reviewed today and her list is now up to date. Medications Current Outpatient Medications Medication Sig zolpidem (AMBIEN) 10 mg Take 1 tablet by mouth daily at bedtime for 180 days. losartan (COZAAR) 100 mg tablet Take 1 tablet by mouth once daily. fluticasone (FLONASE) 50 mcg/actuation nasal spray Use 2 Sprays in each nostril once daily. Rinse mouth after gabapentin (NEURONTIN) 600 mg tablet Take 1 tablet by mouth two times a day. PARoxetine (PAXIL) 20 mg tablet Take 1 tablet by mouth once daily. budesonide-formoterol (SYMBICORT) 160-4.5 mcg/actuation inhaler Inhale 2 Puffs as instructed two times a day. levothyroxine (SYNTHROID) 150 mcg tablet Take 1 tablet by mouth once daily. Take on empty stomach. For thyroid albuterol HFA (PROVENTIL HFA, VENTOLIN HFA) 90 mcg/actuation inhaler Inhale 2 Puffs as instructed every 4 hours as needed for wheezing/shortness of breath. pantoprazole DR (PROTONIX) 40 mg tablet Take 1 tablet by mouth once daily. Take on empty stomach, 1/2 hr before meal. No current facility-administered medications for this visit. ALLERGIES Allergen Reactions Atenolol palpitations, chest discomfort Silenor [Doxepin] Other: See Comments palpitations (heart fluttered and chest felt strange) Tramadol Other: See Comments Unable to sleep - keeps her hyper ACTIVE PROBLEM LIST Moderate Persistent Asthma Without Complication (Hcc) - 09/10/2024 Moderate Recurrent Major Depression (Hcc) - 06/13/2023 Hypertensive Kidney Disease With Stage 3a Chronic Kidney Disease (Hcc) - 04/27/2022 Stage 3a Chronic Kidney Disease (Hcc) - 03/28/2021 Pain of Both Hip Joints - 08/21/2018 Ana On Cpap - 04/26/2016 Idiopathic Peripheral Autonomic Neuropathy - 04/26/2016 Anxiety and Depression - 04/26/2016 Left Carpal Tunnel Syndrome - 10/22/2013 Right Carpal Tunnel Syndrome - 10/18/2013 Impingement Syndrome of Both Shoulders - 09/09/2013 History of Fracture of Tibia - 04/22/2010 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, 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 Respiratory: Negative. Cardiovascular: Negative. OBJECTIVE (more content not included)... [facility] 09-10-2024 History of Present illness Narrative SUBJECTIVE Mae Grant is a 79 year old female here today for a check up on her medical problems. Chief Complaint Patient presents with: Follow Up: 3 months HPI Mae Grant is a 79-year-old female with a history of hypothyroidism and asthma, presenting for follow-up on recent lab results. Mae expresses concern about her recent lab results, particularly noting elevated blood glucose levels, which she attributes to increased consumption of pastries and ice cream during a stressful August. She reports a history of improper levothyroxine administration, previously taking it with other medications and without regard to food intake. She has since adjusted her regimen, now taking levothyroxine a couple of hours after lunch, which she notes has made a significant difference. She inquires if this new timing is appropriate. She also reports difficulty getting sun exposure due to hot and humid weather, which exacerbates her asthma symptoms. She reports a history of anxiety, which has been exacerbated by a recent incident involving her 27-year-old grandson, who suffered a severe case of colitis leading to significant weight loss and a subsequent fall resulting in a head injury and colonic artery rupture. This event occurred during a family camping trip, and she expresses gratitude that her grandson was not alone during the incident. She describes herself as a worrier, particularly concerned about the safety of her family members. She reports good sleep quality, attributing it to the use of a sleeping pill and the absence of her hearing aids at night. She also notes a recent weight loss of 2 pounds, with a previous weight of 262-264 pounds last year, which she attributes to stress and loss of appetite following the deaths of her mother and . Recording using [employer] software for draft documentation of the visit was discussed with the patient/authorized food service representative; all questions welcomed and answered. Patient/authorized food service representative agreed to proceed Her medications were reviewed today and her list is now up to date. Medications Current Outpatient Medications Medication Sig zolpidem (AMBIEN) 10 mg Take 1 tablet by mouth daily at bedtime for 180 days. losartan (COZAAR) 100 mg tablet Take 1 tablet by mouth once daily. fluticasone (FLONASE) 50 mcg/actuation nasal spray Use 2 Sprays in each nostril once daily. Rinse mouth after gabapentin (NEURONTIN) 600 mg tablet Take 1 tablet by mouth two times a day. PARoxetine (PAXIL) 20 mg tablet Take 1 tablet by mouth once daily. budesonide-formoterol (SYMBICORT) 160-4.5 mcg/actuation inhaler Inhale 2 Puffs as instructed two times a day. levothyroxine (SYNTHROID) 150 mcg tablet Take 1 tablet by mouth once daily. Take on empty stomach. For thyroid albuterol HFA (PROVENTIL HFA, VENTOLIN HFA) 90 mcg/actuation inhaler Inhale 2 Puffs as instructed every 4 hours as needed for wheezing/shortness of breath. pantoprazole DR (PROTONIX) 40 mg tablet Take 1 tablet by mouth once daily. Take on empty stomach, 1/2 hr before meal. No current facility-administered medications for this visit. ALLERGIES Allergen Reactions Atenolol palpitations, chest discomfort Silenor [Doxepin] Other: See Comments palpitations (heart fluttered and chest felt strange) Tramadol Other: See Comments Unable to sleep - keeps her hyper ACTIVE PROBLEM LIST Moderate Persistent Asthma Without Complication ([facility]) - 09/10/2024 Moderate Recurrent Major Depression ([facility]) - 06/13/2023 Hypertensive Kidney Disease With Stage 3a Chronic Kidney Disease ([facility]) - 04/27/2022 Stage 3a Chronic Kidney Disease ([facility]) - 03/28/2021 Pain of Both Hip Joints - 08/21/2018 Ana On Cpap - 04/26/2016 Idiopathic Peripheral Autonomic Neuropathy - 04/26/2016 Anxiety and Depression - 04/26/2016 Left Carpal Tunnel Syndrome - 10/22/2013 Right Carpal Tunnel Syndrome - 10/18/2013 Impingement Syndrome of Both Shoulders - 09/09/2013 History of Fracture of Tibia - 04/22/2010 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, 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 Respiratory: Negative. Cardiovascular: Negative. OBJECTIVE BP 122/80 Pulse 78 Resp 16 Wt 238 lb 15.7 oz (108.4kg) SpO2 98% Physical Exam Vitals and nursing note reviewed. Constitutional: General: She is awake. She is not in acute distress. Appearance: Normal appearance. She is well-developed and well-groomed. She is not ill-appearing, toxic-appearing or diaphoretic. HENT: Head: Normocephalic. Right Ear: External ear normal. Left Ear: External ear normal. Nose: Nose normal. Eyes: General: Vision grossly intact. Conjunctiva/sclera: Conjunctivae normal. Pupils: Pupils are equal, round, and reactive to light. Neck: Vascular: No JVD. Trachea: Trachea normal. Cardiovascular: Rate and Rhythm: Normal rate and regular rhythm. Pulses: Normal pulses. Heart sounds: Normal heart sounds. No murmur heard. Pulmonary: Effort: Pulmonary effort is normal. No accessory muscle usage, prolonged expiration or respiratory distress. Breath sounds: Normal breath sounds. Musculoskeletal: Cervical back: Neck supple. Skin: General: Skin is warm and dry. Capillary Refill: Capillary refill takes less than 2 seconds. Neurological: General: No focal deficit present. Mental Status: She is alert and oriented to person, place, and time. Mental status is at baseline. Psychiatric: Attention and Perception: Attention and perception normal. Mood and Affect: Mood and affect normal. Speech: Speech normal. Behavior: Behavior normal. Behavior is cooperative. Thought Content: Thought content normal. Cognition and Memory: Cognition and memory normal. Judgment: Judgment normal. ASSESSMENT/PLAN: 1. Insomnia, unspecified type (G47.00) Well-controlled with current medication. Continue current medication regimen. 2. Vitamin D deficiency (E55.9) Laboratory results indicate low vitamin D levels. Initiate [id number] vitamin D supplementation. 3. Essential hypertension (I10) Blood pressure readings are stable. Continue current management. 4. 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 Continue current management. Monitor for any changes in symptoms. 5. Acquired hypothyroidism (E03.9) Thyroid function tests are within normal limits. Patient has adjusted medication timing to improve absorption. Continue current medication regimen with adjusted timing. Re-evaluate thyroid function in 6 months. 6. Moderate persistent asthma without complication (HCC) (J45.40) Patient reports difficulty with outdoor activities due to humidity. Follow-up appointment scheduled with pulmonology on the of this month at 1300 with Jessica Click. Portions of this note have been entered by ancillary staff. I have reviewed and when necessary edited, so that they are an adequate record of my encounter with this patient Please note that parts of this document were created using voice recognition software and therefore may contain grammatical errors. Patient verbalizes understanding of instructions from today's visit and in agreement with treatment plan. Questions answered. Agrees to call the office if questions, concerns of issues with acute symptoms not improving or if they worsen. See diagnoses and orders for additional plan(s). Allergies and medications were reviewed, list was updated, and refills given if needed. Past medical, surgical, social, and family history reviewed and updated as appropriate. Encouraged proper diet & exercise as well as compliance with taking medications. Age-appropriate health preventative measures were discussed. Return in about 6 months (around 03/13/2025) for medicare wellness. PRICE Perez documented in this encounter [facility] 07-09-2024 Progress note Formatting of t his note might be different from the original. Plan to go over result at up coming follow up appointment. [facility] 07-09-2024 Miscellaneous Notes Plan to go over result at up coming follow up appointment. documented in this encounter [facility] 06-11-2024 Note HNO ID: [id number] Author: FELIPE ESTRADA APRN.CNP Service: ? Author Type: Nurse Practitioner Type: Progress Notes Filed: 06/11/2024 14:25 Note Text: SUBJECTIVE Mae Grant is a 79 year old female here today for a check up on her medical problems. Chief Complaint Patient presents with: Medicare Wellness Exam: left shoulder pain discuss labs of elevated TSH and alkaline phosphate HPI Mae Grant is a 79 year old female. She is an established patient. Presents today for follow up, considered medicare wellness visit but has other issues to address. Recent labs showed elevated TSH. She has been taking synthroid with other pills. She also notes some issues with slower thinking- seems like she repeats, and poor recall, increased brain fog. She questions if this is from her thyroid being underactive. Concerned about possible cognitive impairment. She also has some sleep issues, Ambien still helpful. Using her CPAP: Feels like it disturbs her sleep more if she uses. Over the last month stopped using it. Will go to fresh air to see if can be replaced because mask is giving her issues.Mood is okay, still some increased depression with the loss of her mom and her . Blood pressure is doing okay outside of the office. Breathing is doing well. Taking Symbicort for her asthma. Her medications were reviewed today and her list is now up to date. Medications Current Outpatient Medications Medication Sig fluticasone (FLONASE) 50 mcg/actuation nasal spray Use 2 Sprays in each nostril once daily. Rinse mouth after gabapentin (NEURONTIN) 600 mg tablet Take 1 tablet by mouth two times a day. PARoxetine (PAXIL) 20 mg tablet Take 1 tablet by mouth once daily. budesonide-formoterol (SYMBICORT) 160-4.5 mcg/actuation inhaler Inhale 2 Puffs as instructed two times a day. levothyroxine (SYNTHROID) 150 mcg tablet Take 1 tablet by mouth once daily. Take on empty stomach. For thyroid albuterol HFA (PROVENTIL HFA, VENTOLIN HFA) 90 mcg/actuation inhaler Inhale 2 Puffs as instructed every 4 hours as needed for wheezing/shortness of breath. pantoprazole DR (PROTONIX) 40 mg tablet Take 1 tablet by mouth once daily. Take on empty stomach, 1/2 hr before meal. - September 13, 2021 - take morning and veneing. zolpidem (AMBIEN) 10 mg Take 1 tablet by mouth daily at bedtime for 180 days. losartan (COZAAR) 100 mg tablet Take 1 tablet by mouth once daily. No current facility-administered medications for this visit. ALLERGIES Allergen Reactions Atenolol palpitations, chest discomfort Silenor [Doxepin] Other: See Comments palpitations (heart fluttered and chest felt strange) Tramadol Other: See Comments Unable to sleep - keeps her hyper ACTIVE PROBLEM LIST Moderate Recurrent Major Depression (Hcc) - 06/13/2023 Hypertensive Kidney Disease With Stage 3a Chronic Kidney Disease (Hcc) - 04/27/2022 Stage 3a Chronic Kidney Disease (Hcc) - 03/28/2021 Pain of Both Hip Joints - 08/21/2018 Ana On Cpap - 04/26/2016 Idiopathic Peripheral Autonomic Neuropathy - 04/26/2016 Anxiety and Depression - 04/26/2016 Left Carpal Tunnel Syndrome - 10/22/2013 Right Carpal Tunnel Syndrome - 10/18/2013 Impingement Syndrome of Both Shoulders - 09/09/2013 History of Fracture of Tibia - 04/22/2010 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, 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 HENT: Negative. Respiratory: Negative. Cardiovascular: Negative. Gastrointestinal: Positive for abdominal distention. Musculoskeletal: Positive for arthralgias, back pain and myalgias. Neurological: Negative. Psychiatric/Behavioral: Positive for decreased concentration. All other systems reviewed and are negative. OBJECTIVE BP 154/82 Pulse 73 Ht 5' 6.339 (1.69m) Wt 240 lb 1.3 oz (108.9kg) SpO2 98% BMI 38.36 kg/(m2). Physical Exam Vitals and nursing note reviewed. Constitutional: General: She is awake. She is not in acute distress. Appearance: Normal appearance. She is well-developed and well-groomed. She is not ill-appearing, toxic-appearing or diaphoretic. HENT: Head: Normocephalic. Right Ear: External ear normal. Left Ear: External ear normal. Nose: Nose normal. Eyes: General: Vision grossly intact. Conjunctiva/sclera: Conjunctivae normal. Pupils: Pupils are equal, round, and reactive (more content not included)... [facility] 06-11-2024 History of Present illness Narrative SUBJECTIVE Mae Grant is a 79 year old female here today for a check up on her medical problems. Chief Complaint Patient presents with: Medicare Wellness Exam: left shoulder pain discuss labs of elevated TSH and alkaline phosphate HPI Mae Grant is a 79 year old female. She is an established patient. Presents today for follow up, considered medicare wellness visit but has other issues to address. Recent labs showed elevated TSH. She has been taking synthroid with other pills. She also notes some issues with slower thinking- seems like she repeats, and poor recall, increased brain fog. She questions if this is from her thyroid being underactive. Concerned about possible cognitive impairment. She also has some sleep issues, Ambien still helpful. Using her CPAP: Feels like it disturbs her sleep more if she uses. Over the last month stopped using it. Will go to fresh air to see if can be replaced because mask is giving her issues.Mood is okay, still some increased depression with the loss of her mom and her . Blood pressure is doing okay outside of the office. Breathing is doing well. Taking Symbicort for her asthma. Her medications were reviewed today and her list is now up to date. Medications Current Outpatient Medications Medication Sig fluticasone (FLONASE) 50 mcg/actuation nasal spray Use 2 Sprays in each nostril once daily. Rinse mouth after gabapentin (NEURONTIN) 600 mg tablet Take 1 tablet by mouth two times a day. PARoxetine (PAXIL) 20 mg tablet Take 1 tablet by mouth once daily. budesonide-formoterol (SYMBICORT) 160-4.5 mcg/actuation inhaler Inhale 2 Puffs as instructed two times a day. levothyroxine (SYNTHROID) 150 mcg tablet Take 1 tablet by mouth once daily. Take on empty stomach. For thyroid albuterol HFA (PROVENTIL HFA, VENTOLIN HFA) 90 mcg/actuation inhaler Inhale 2 Puffs as instructed every 4 hours as needed for wheezing/shortness of breath. pantoprazole DR (PROTONIX) 40 mg tablet Take 1 tablet by mouth once daily. Take on empty stomach, 1/2 hr before meal. - September 13, 2021 - take morning and veneing. zolpidem (AMBIEN) 10 mg Take 1 tablet by mouth daily at bedtime for 180 days. losartan (COZAAR) 100 mg tablet Take 1 tablet by mouth once daily. No current facility-administered medications for this visit. ALLERGIES Allergen Reactions Atenolol palpitations, chest discomfort Silenor [Doxepin] Other: See Comments palpitations (heart fluttered and chest felt strange) Tramadol Other: See Comments Unable to sleep - keeps her hyper ACTIVE PROBLEM LIST Moderate Recurrent Major Depression (Hcc) - 06/13/2023 Hypertensive Kidney Disease With Stage 3a Chronic Kidney Disease (Hcc) - 04/27/2022 Stage 3a Chronic Kidney Disease (Hcc) - 03/28/2021 Pain of Both Hip Joints - 08/21/2018 Ana On Cpap - 04/26/2016 Idiopathic Peripheral Autonomic Neuropathy - 04/26/2016 Anxiety and Depression - 04/26/2016 Left Carpal Tunnel Syndrome - 10/22/2013 Right Carpal Tunnel Syndrome - 10/18/2013 Impingement Syndrome of Both Shoulders - 09/09/2013 History of Fracture of Tibia - 04/22/2010 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, 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 HENT: Negative. Respiratory: Negative. Cardiovascular: Negative. Gastrointestinal: Positive for abdominal distention. Musculoskeletal: Positive for arthralgias, back pain and myalgias. Neurological: Negative. Psychiatric/Behavioral: Positive for decreased concentration. All other systems reviewed and are negative. OBJECTIVE BP 154/82 Pulse 73 Ht 5' 6.339 (1.69m) Wt 240 lb 1.3 oz (108.9kg) SpO2 98% BMI 38.36 kg/(m^2). Physical Exam Vitals and nursing note reviewed. Constitutional: General: She is awake. She is not in acute distress. Appearance: Normal appearance. She is well-developed and well-groomed. She is not ill-appearing, toxic-appearing or diaphoretic. HENT: Head: Normocephalic. Right Ear: External ear normal. Left Ear: External ear normal. Nose: Nose normal. Eyes: General: Vision grossly intact. Conjunctiva/sclera: Conjunctivae normal. Pupils: Pupils are equal, round, and reactive to light. Neck: Vascular: No JVD. Trachea: Trachea normal. Cardiovascular: Rate and Rhythm: Normal rate and regular rhythm. Pulses: Normal pulses. Heart sounds: Normal heart sounds. No murmur heard. Pulmonary: Effort: Pulmonary effort is normal. No accessory muscle usage, prolonged expiration or respiratory distress. Breath sounds: Normal breath sounds. Musculoskeletal: Cervical back: Neck supple. Skin: General: Skin is warm and dry. Capillary Refill: Capillary refill takes less than 2 seconds. Neurological: General: No focal deficit present. Mental Status: She is alert and oriented to person, place, and time. Mental status is at baseline. Psychiatric: Attention and Perception: Attention and perception normal. Mood and Affect: Mood and affect normal. Speech: Speech normal. Behavior: Behavior normal. Behavior is cooperative. Thought Content: Thought content normal. Cognition and Memory: Cognition normal. Memory is impaired (very forgetful). Judgment: Judgment normal. Brief Assessment of Cognitive Health (BACH) Results: The patient endorsed mild depression symptoms on PHQ-8[1]. The patient endorsed a minimal level of stress. The patient reported getting about 8 hours of sleep per night, which falls into the recommended category based on National Sleep Foundation Guidelines [2].They endorsed mild recent sleep problems. The patient s cognitive test performance was VALID. When invalid, probability of cognitive impairment score should be disregarded. Probability of cognitive impairment [3]: 21.69% Above 50% - Probable cognitive impairment; Specialty evaluation may be warranted 20-50% - Possible cognitive impairment; Address moderate to severe depression and sleep issues and retest Below 20% - Very low chance of cognitive impairment Moderate to severe levels of depression or stress may contribute to subjective cognitive complaints in the absence of cognitive impairment [1] Leidy K, Niko TW, Marta RL, Seamus ALEX, Elias JT, Chel AH. The PHQ-8 as a measure of current depression in the general population. J Affect Disord. 2009;114(1-3):163-173. doi: 10.1016/j.gayle.2008.06.026 [2] Latricia et al. National Sleep Foundation's sleep time duration recommendations: methodology and results summary. Sleep Health. 2015 Mar;1(1):40-43. doi: 10.1016/j.sleh.2014.12.010. [3] Trevor RM, Bhavik O, Kyler AF, Ralph DP. Automated detection of cognitive impairment in clinical practice. J Neurol. 2023Jul 31. doi: 10.1007/z02860-049-13732-3. Epub ahead of print. PMID: [id number]. ASSESSMENT/PLAN: 1. Insomnia, unspecified type - ICD9: 780.52, ICD10: G47.00 (primary diagnosis) Sleep is not always the greatest, renew Ambien script, discussed strategies to get improved sleep. - ZOLPIDEM 10 MG TABLET 2. ANA on CPAP - ICD9: 327.23, ICD10: G47.33 Planning to go to PAP provider to get new mask and supplies. 3. Moderate recurrent major depression (HCC) - ICD9: 296.32, ICD10: F33.1 Doing okay mood escamilla but could be better. Still processing loss of her mother and . 4. Cognitive impairment - ICD9: 294.9, ICD10: R41.89 Mini-cog was 5 but CARLA has concern of possible cognitive impairment and patient does too. Check labs in 3 months, can schedule with geriatrics if she would like but right now she does not want to. - CONSULT TO GERIATRICS - COMPREHENSIVE METABOLIC PANEL - THYROID STIMULATING HORMONE - VITAMIN B12 - VITAMIN D 25 HYDROXY - T3, FREE - T4 FREE/FREE THYROXINE 5. Essential hypertension - ICD9: 401.9, ICD10: I10 - Factors affecting control: diet adherence - Continue current medications - Recommend home blood pressure monitoring, to bring results to next visit - Encouraged sodium restriction, DASH or Mediterranean diet - Recommend regular aerobic exercise - LOSARTAN 100 MG TABLET 6. Stage 3a chronic kidney disease (HCC) - ICD9: 585.3, ICD10: N18.31 - eGFR: 62 Stable - Counseled on avoiding NSAIDs, adequate hydration - Counseled on low sodium diet 7. Acquired hypothyroidism - ICD9: 244.9, ICD10: E03.9 - Instructed patient on importance of taking on an empty stomach either first thing in the morning or at bedtime. - THYROID STIMULATING HORMONE - T3, FREE - T4 FREE/FREE THYROXINE 8. Moderate persistent asthma without complication (HCC) - ICD9: 493.90, ICD10: J45.40 - Moderate persistent asthma stable - Continue current medications - Avoidance of triggers recommended 9. Encounter for therapeutic drug monitoring - ICD9: V58.83, ICD10: Z51.81 - COMPLETE BLOOD COUNT AND DIFFERENTIAL - COMPREHENSIVE METABOLIC PANEL 10. Vitamin D deficiency - ICD9: 268.9, ICD10: E55.9 - VITAMIN D 25 HYDROXY Felipe Natalie, DIETITIAN TEACHER.TICK SEWER Portions of this note have been entered by ancillary staff. I have reviewed and when necessary edited, so that they are an adequate record of my encounter with this patient Please note that parts of this document were created using voice recognition software and therefore may contain grammatical errors. Patient verbalizes understanding of instructions from today's visit and in agreement with treatment plan. Questions answered. Agrees to call the office if questions, concerns of issues with acute symptoms not improving or if they worsen. See diagnoses and orders for additional plan(s). Allergies and medications were reviewed, list was updated, and refills given if needed. Past medical, surgical, social, and family history reviewed and updated as appropriate. Encouraged proper diet & exercise as well as compliance with taking medications. Age-appropriate health preventative measures were discussed. Return in about 3 months (around 09/10/2024). Felipe Estrada APRN-KYLAH documented in this encounter [facility] 05-01-2024 Note HNO ID: [id number] Author: STACY VANG MA Service: ? Author Type: Transport Tech Type: Progress Notes Filed: 05/01/2024 13:09 Note Text: POPULATION HEALTH NAVIGATION OUTREACH Action/FYI Spoke to [facility]. Scheduled wellness exam Reason for Outreach Returned Call/MyChart Patient Contacted: Spoke to patient/parent/or legal guardian Patient identified by name and date of : Yes Returned call/MyChart actions taken: Patient scheduled/pended orders: Medicare Annual Wellness Visit Controlling Blood Pressure 06/11/2024 in [facility] with FELIPE ESTRADA - MEDICARE WELLNESS 09/25/2024 in [facility] with JESSICA WONG 6 [facility] F/U ASTHMA Navigation Signature: Stacy Vang MA May 01, 2024 1:08 PM [facility] 05-01-2024 History of Present illness Narrative POPULATION HEALTH NAVIGATION OUTREACH Action/FYI Spoke to [facility]. Scheduled wellness exam Reason for Outreach Returned Call/MyChart Patient Contacted: Spoke to patient/parent/or legal guardian Patient identified by name and date of : Yes Returned call/MyChart actions taken: Patient scheduled/pended orders: Medicare Annual Wellness Visit Controlling Blood Pressure 06/11/2024 [facility] with FELIPE ESTRADA - MEDICARE WELLNESS 09/25/2024 in [facility] with JESSICA WONG 6 M[facility] F/U ASTHMA Navigation Signature: Stacy Vang MA May 01, 2024 1:08 PM POPULATION HEALTH NAVIGATION OUTREACH Action/FYI [facility] VobiHART MESSAGE SENT HCC Topic Due (Y or N) Comments Medicare Wellness Y DUE IN MAY PCP Follow up Colorectal Cancer Screening Controlling Blood Pressure Y A1C HCC Y Flu Vaccine Care Everywhere Reviewed MyChart Activation Updated Appointment Note Reason for Outreach Care Gap/HCC or Scheduling Wellness Visits Care Gaps due: Medicare Annual Wellness Visit Controlling Blood Pressure Patient Contacted: Unable or unnecessary to reach patient: Left message Letter mailed HCC related Navigation Signature: Stacy Vang MA May 01, 2024 11:39 AM documented in this encounter [facility] 05-01-2024 Note HNO ID: [id number] Author: STACY VANG MA Service: ? Author Type: Transport Tech Type: Progress Notes Filed: 05/01/2024 11:44 Note Text: POPULATION HEALTH NAVIGATION OUTREACH Action/I [employer] MESSAGE SENT HCC Topic Due (Y or N) Comments Medicare Wellness Y DUE IN MAY PCP Follow up Colorectal Cancer Screening Controlling Blood Pressure Y A1C HCC Y Flu Vaccine Care Everywhere Reviewed SlimTraderhart Activation Updated Appointment Note Reason for Outreach Care Gap/HCC or Scheduling Wellness Visits Care Gaps due: Medicare Annual Wellness Visit Controlling Blood Pressure Patient Contacted: Unable or unnecessary to reach patient: Left message Letter mailed HCC related Navigation Signature: Stacy Vang MA May 01, 2024 11:39 AM [facility] 05-01-2024 Note Patient Outreach (TATI TNMYRIAM) JHONATANMAE ([id number]) 1945 F Date Time Provider Department 05/01/24 STACY VANG During your visit today, we recorded the following information about you: Stacy Vang MA 05/01/2024 11:44 AM Signed POPULATION HEALTH NAVIGATION OUTREACH Action/FYI [facility] MYCHART MESSAGE SENT HCC Topic Due (Y or N) Comments Medicare Wellness Y DUE IN MAY PCP Follow up Colorectal Cancer Screening Controlling Blood Pressure Y A1C HCC Y Flu Vaccine Care Everywhere Reviewed MyChart Activation Updated Appointment Note Reason for Outreach Care Gap/HCC or Scheduling Wellness Visits Care Gaps due: Medicare Annual Wellness Visit Controlling Blood Pressure Patient Contacted: Unable or unnecessary to reach patient: Left message Letter mailed HCC related Navigation Signature: Stacy Vang MA May 01, 2024 11:39 AM Stacy Vang MA 05/01/2024 1:09 PM Signed POPULATION HEALTH NAVIGATION OUTREACH Action/FYI Spoke to Mae. Scheduled wellness exam Reason for Outreach Returned Call/MyChart Patient Contacted: Spoke to patient/parent/or legal guardian Patient identified by name and date of : Yes Returned call/MyChart actions taken: Patient scheduled/pended orders: Medicare Annual Wellness Visit Controlling Blood Pressure 06/11/2024 in [facility] with FELIPE ESTRADA - MEDICARE WELLNESS 09/25/2024 in [facility] with JESSICA WONG 6 MTH F/U ASTHMA Navigation Signature: Stacy Vang MA May 01, 2024 1:08 PM Allergies As of Date: 05/01/2024 Noted Allergy Reaction ATENOLOL 11/23/2004 Comments: palpitations, chest discomfort SILENOR (DOXEPIN) 07/22/2015 14 - Other: See Comments Comments: palpitations (heart fluttered and chest felt strange) TRAMADOL 11/05/2013 14 - Other: See Comments Comments: Unable to sleep - keeps her hyper Date Reviewed: 03/28/2024 Reviewed by: Johanne Hutchinson MD - Fully Assessed Reason for Visit: Population Health Navigation Outreach [5190] Cmt: [employer] RONY PPCSA Prescriptions as of 05/01/2024 - fluticasone (FLONASE) 50 mcg/actuation nasal spray Use 2 Sprays in each nostril once daily. Rinse mouth after - gabapentin (NEURONTIN) 600 mg tablet Take 1 tablet by mouth two times a day. - PARoxetine (PAXIL) 20 mg tablet Take 1 tablet by mouth once daily. - snpxztktos-hyiumtzf-vcxwezitxa (BREZTRI AEROSPHERE) 160-9-4.8 mcg/actuation HFA aerosol inhaler Inhale 2 Puffs as instructed two times a day. - losartan (COZAAR) 100 mg tablet Take 1 tablet by mouth once daily. - budesonide-formoterol (SYMBICORT) 160-4.5 mcg/actuation inhaler Inhale 2 Puffs as instructed two times a day. - levothyroxine (SYNTHROID) 150 mcg tablet Take 1 tablet by mouth once daily. Take on empty stomach. For thyroid - albuterol HFA (PROVENTIL HFA, VENTOLIN HFA) 90 mcg/actuation inhaler Inhale 2 Puffs as instructed every 4 hours as needed for wheezing/shortness of breath. - zolpidem (AMBIEN) 10 mg Take 1 tablet by mouth daily at bedtime for 180 days. - pantoprazole DR (PROTONIX) 40 mg tablet Take 1 tablet by mouth once daily. Take on empty stomach, 1/2 hr before meal. - September 13, 2021 - take morning and veneing. 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, Includin*12/05/2008 History of fracture of tibia [Z87.81] 04/22/2010 Impingement syndrome of both shoulders [M75.41,*09/09/2013 Pain in joint, shoulder region [M25.519] 09/20/2013 09/06/2019 Right carpal tunnel syndrome [G56.01] 10/18/2013 Left carpal tunnel syndrome [G56.02] 10/22/2013 ANA on CPAP [G47.33] 04/26/2016 Idiopathic peripheral autonomic neuropathy [G90*04/26/2016 Anxiety and depression [F41.9, F32.A] 04/26/2016 Pain of both hip joints [M25.551, M25.552] 08/21/2018 Obesity, Class III, BMI >= 40 [E66.01] 04/04/2019 12/15/2022 Stage 3a chronic kidney disease (HCC) [N18.31] 03/28/2021 Hypertensive kidney disease with stage 3a chron*04/27/2022 Moderate recurrent major depression (HCC) [F33.*06/13/2023 Encounter Status:Closed by STACY VANG on 05/01/24 [facility] 04-03-2024 Telephone encounter Note The following approved medication requests have been transmitted electronically. Requested Prescriptions Signed Prescriptions Disp Refills gabapentin (NEURONTIN) 600 mg tablet 180 tablet 3 Sig: Take 1 tablet by mouth two times a day. Authorizing Provider: RACQUEL CENTENO PARoxetine (PAXIL) 20 mg tablet 90 tablet 3 Sig: Take 1 tablet by mouth once daily. Authorizing Provider: RACQUEL CENTENO MD [facility] 04-03-2024 Miscellaneous Notes The following approved medication requests have been transmitted electronically. Requested Prescriptions Signed Prescriptions Disp Refills gabapentin (NEURONTIN) 600 mg tablet 180 tablet 3 Sig: Take 1 tablet by mouth two times a day. Authorizing Provider: RACQUEL CENTENO PARoxetine (PAXIL) 20 mg tablet 90 tablet 3 Sig: Take 1 tablet by mouth once daily. Authorizing Provider: RACQUEL CENTENO MD Patient has been identified by name and date of : Yes Patient phones for refill(s): Requested Prescriptions Pending Prescriptions Disp Refills gabapentin (NEURONTIN) 600 mg tablet 180 tablet 3 Sig: Take 1 tablet by mouth two times a day. PARoxetine (PAXIL) 20 mg tablet 90 tablet 3 Sig: Take 1 tablet by mouth once daily. Date of last office visit in primary care: 12/06/2023 Date of next office visit in primary care: Visit date not found Please advise. Thank you. Jeniffer Alonzo LPN. documented in this encounter [facility] 04-03-2024 Telephone encounter Note The following approved medication requests have been transmitted electronically. Requested Prescriptions Signed Prescriptions Disp Refills fluticasone (FLONASE) 50 mcg/actuation nasal spray 1 Each 11 Sig: Use 2 Sprays in each nostril once daily. Rinse mouth after Authorizing Provider: RACQUEL CENTENO MD [facility] 04-03-2024 Miscellaneous Notes The following approved medication requests have been transmitted electronically. Requested Prescriptions Signed Prescriptions Disp Refills fluticasone (FLONASE) 50 mcg/actuation nasal spray 1 Each 11 Sig: Use 2 Sprays in each nostril once daily. Rinse mouth after Authorizing Provider: RACQUEL CENTENO MD Patient has been identified by name and date of : Yes Patient phones for refill(s): Requested Prescriptions Pending Prescriptions Disp Refills fluticasone (FLONASE) 50 mcg/actuation nasal spray 1 Each 11 Sig: Use 2 Sprays in each nostril once daily. Rinse mouth after Date of last office visit in primary care: 12/06/2023 Date of next office visit in primary care: 04/02/2024 Please advise. Thank you. Jeniffer Alonzo LPN. documented in this encounter [facility] 04-02-2024 Telephone encounter Note Patient has been identified by name and date of : Yes Patient phones for refill(s): Requested Prescriptions Pending Prescriptions Disp Refills fluticasone (FLONASE) 50 mcg/actuation nasal spray 1 Each 11 Sig: Use 2 Sprays in each nostril once daily. Rinse mouth after Date of last office visit in primary care: 12/06/2023 Date of next office visit in primary care: 04/02/2024 Please advise. Thank you. Jeniffer Alonzo LPN. [facility] 04-02-2024 Telephone encounter Note Patient has been identified by name and date of : Yes Patient phones for refill(s): Requested Prescriptions Pending Prescriptions Disp Refills gabapentin (NEURONTIN) 600 mg tablet 180 tablet 3 Sig: Take 1 tablet by mouth two times a day. PARoxetine (PAXIL) 20 mg tablet 90 tablet 3 Sig: Take 1 tablet by mouth once daily. Date of last office visit in primary care: 12/06/2023 Date of next office visit in primary care: Visit date not found Please advise. Thank you. Jeniffer Alonzo LPN. [facility] 04-01-2024 Note HNO ID: [id number] Author: STACY VANG MA Service: ? Author Type: Transport Tech Type: Progress Notes Filed: 04/01/2024 15:11 Note Text: POPULATION HEALTH NAVIGATION OUTREACH Action/FYI Topic Due (Y or N) Comments Medicare Wellness PCP Follow up Y DUE IN MAY Mammogram Colorectal Cancer Screening A1C Dilated Retinal Exam (RASHIDA) KED (UACR and eGFR) HCC Y Flu Vaccine Care Everywhere Reviewed MyChart Activation Updated Appointment Note BP CONTROL Y Reason for Outreach Care Gap/HCC or Scheduling Wellness Visits Care Gaps due: Follow-up Appointment Controlling Blood Pressure Patient Contacted: Unable or unnecessary to reach patient: Left message MyChart message sent HCC related Navigation Signature: Stacy Vang MA April 01, 2024 3:04 PM [facility] 04-01-2024 History of Present illness Narrative POPULATION HEALTH NAVIGATION OUTREACH Action/FYI Topic Due (Y or N) Comments Medicare Wellness PCP Follow up Y DUE IN MAY Mammogram Colorectal Cancer Screening A1C Dilated Retinal Exam (RASHIDA) KED (UACR and eGFR) HCC Y Flu Vaccine Care Everywhere Reviewed MyChart Activation Updated Appointment Note BP CONTROL Y Reason for Outreach Care Gap/HCC or Scheduling Wellness Visits Care Gaps due: Follow-up Appointment Controlling Blood Pressure Patient Contacted: Unable or unnecessary to reach patient: Left message SlimTraderhart message sent HCC related Navigation Signature: Stacy Vang MA April 01, 2024 3:04 PM documented in this encounter [facility] 04-01-2024 Note Patient Outreach (NE TNAV) MAE GRANT ([id number]) 1945 F Date Time Provider Department 04/01/24 STACY VANG NETNAV During your visit today, we recorded the following information about you: Stacy Vang MA 04/01/2024 3:11 PM Signed POPULATION HEALTH NAVIGATION OUTREACH Action/FYI Topic Due (Y or N) Comments Medicare Wellness PCP Follow up Y DUE IN MAY Mammogram Colorectal Cancer Screening A1C Dilated Retinal Exam (RASHIDA) KED (UACR and eGFR) HCC Y Flu Vaccine Care Everywhere Reviewed MyChart Activation Updated Appointment Note BP CONTROL Y Reason for Outreach Care Gap/HCC or Scheduling Wellness Visits Care Gaps due: Follow-up Appointment Controlling Blood Pressure Patient Contacted: Unable or unnecessary to reach patient: Left message SlimTraderhart message sent HCC related Navigation Signature: Stacy Vang MA April 01, 2024 3:04 PM Allergies As of Date: 04/01/2024 Noted Allergy Reaction ATENOLOL 11/23/2004 Comments: palpitations, chest discomfort SILENOR (DOXEPIN) 07/22/2015 14 - Other: See Comments Comments: palpitations (heart fluttered and chest felt strange) TRAMADOL 11/05/2013 14 - Other: See Comments Comments: Unable to sleep - keeps her hyper Date Reviewed: 03/28/2024 Reviewed by: Johanne Hutchinson MD - Fully Assessed Reason for Visit: Population Health Navigation Outreach [3910] Cmt: EDI URIBE PCSA Prescriptions as of 04/01/2024 - fxpbepykcd-qpmwukus-iukptslbxo (BREZTRI AEROSPHERE) 160-9-4.8 mcg/actuation HFA aerosol inhaler Inhale 2 Puffs as instructed two times a day. - losartan (COZAAR) 100 mg tablet Take 1 tablet by mouth once daily. - budesonide-formoterol (SYMBICORT) 160-4.5 mcg/actuation inhaler Inhale 2 Puffs as instructed two times a day. - levothyroxine (SYNTHROID) 150 mcg tablet Take 1 tablet by mouth once daily. Take on empty stomach. For thyroid - albuterol HFA (PROVENTIL HFA, VENTOLIN HFA) 90 mcg/actuation inhaler Inhale 2 Puffs as instructed every 4 hours as needed for wheezing/shortness of breath. - zolpidem (AMBIEN) 10 mg Take 1 tablet by mouth daily at bedtime for 180 days. - pantoprazole DR (PROTONIX) 40 mg tablet Take 1 tablet by mouth once daily. Take on empty stomach, 1/2 hr before meal. - September 13, 2021 - take morning and veneing. - gabapentin (NEURONTIN) 600 mg tablet Take 1 tablet by mouth two times a day. - PARoxetine (PAXIL) 20 mg tablet Take 1 tablet by mouth once daily. - fluticasone (FLONASE) 50 mcg/actuation nasal spray Use 2 Sprays in each nostril once daily. 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, Includin*12/05/2008 History of fracture of tibia [Z87.81] 04/22/2010 Impingement syndrome of both shoulders [M75.41,*09/09/2013 Pain in joint, shoulder region [M25.519] 09/20/2013 09/06/2019 Right carpal tunnel syndrome [G56.01] 10/18/2013 Left carpal tunnel syndrome [G56.02] 10/22/2013 ANA on CPAP [G47.33] 04/26/2016 Idiopathic peripheral autonomic neuropathy [G90*04/26/2016 Anxiety and depression [F41.9, F32.A] 04/26/2016 Pain of both hip joints [M25.551, M25.552] 08/21/2018 Obesity, Class III, BMI >= 40 [E66.01] 04/04/2019 12/15/2022 Stage 3a chronic kidney disease (HCC) [N18.31] 03/28/2021 Hypertensive kidney disease with stage 3a chron*04/27/2022 Moderate recurrent major depression (HCC) [F33.*06/13/2023 Encounter Status:Closed by STACY VANG on 04/01/24 [facility] 03-28-2024 History of Present illness Narrative Images from the original note were not included. . Respiratory [place] Note Patient name: Mae Grant PCP: Racquel Centeno MD CC: Follow-up cough HPI: Mae Grant 78 year old female never smoker with PMH significant for obesity, ANA on CPAP, HTN, hypothyroidism, GERD, allergic rhinitis, and chronic cough. Spirometry normal but Jong elevated. Started on low dose Symbicort and as needed albuterol. She was last evaluated in clinic in November after a two year hiatus with complaints of increased cough. History notable for three parakeets at home. Exhaled nitric oxide remained elevated. Symbicort increased to 160 ug, continued PPI for GERD and labs ordered for HP. Her laboratory testing normal. Today she states her cough has improved but she has been having some difficulty with exertional shortness of breath and chest tightness. She feels as if she cannot take a deep breath. It has somewhat interfered with her activities. She has not heard any wheezing. She is not been recently ill. Her exhaled nitric oxide level today was normal and pulmonary function test showed minimal small airways obstruction. GERD symptoms controlled with proton pump inhibitor. No nocturnal awakenings. DATA: ASTHMA CONTROL TEST Date: 03/28/2024 In the last 4 weeks, how much of the time did your asthma keep you from getting as much done at work or home that you wanted to do? Some of the time (3) In the last 4 weeks, how often have you had shortness of breath? Once a day (2) In the last 4 weeks, how often did your asthma symptoms (wheezing, coughing, shortness of breath, chest tightness or pain) wake you up at night or earlier than usual? Not at all (5) In the last 4 weeks, how often have you used your rescue inhaler or nebulizer medication (such as Albuterol, Proventil, Ventolin, Maxair, Xoponex, or Primatene Mist)? A few times per week (3) In the last 4 weeks, how would you rate your asthma control? Somewhat controlled (3) Total: 16-19 SERVICE DATE: 03/28/2024 SERVICE TIME: 12:58 PM Oral Exhaled Nitric Oxide measurement: 25.0 (ppb) Oral Exhaled Nitric Oxide measurement (Previous Encounters) Test Date Oral Exhaled Nitric Oxide (ppb) 03/28/2024 25.0 12/20/2023 36.0 (A) 09/21/2021 37.0 (A) 05/20/2020 33.0 PFT: Labs: Component Ref Range & Units 3 mo ago IgE <114.0 kU/l 21.0 Component Ref Range & Units 3 mo ago [place] IgE <0.35 kU/l <0.35 [place] Class Class 0 Class 0 [place] Grass IgE <0.35 kU/l <0.35 Maynor Grass Class Class 0 Class 0 Jamil[place] Grass IgE <0.35 kU/l <0.35 Jamilah Grass Class Class 0 Class 0 Short Ragweed IgE <0.35 kU/l <0.35 Short Ragweed Class Class 0 Class 0 [place] Quarters IgE <0.35 kU/l <0.35 [place] Class Class 0 Class 0 Cat Dander IgE <0.35 kU/l <0.35 Cat Dander Class Class 0 Class 0 Dog Dander IgE <0.35 kU/l <0.35 Dog Dander Class Class 0 Class 0 Cladosporium herbarum IgE <0.35 kU/l <0.35 Cladosporium herbarum Class Class 0 Class 0 Alternaria tenuis IgE <0.35 kU/l <0.35 Alternaria tenuis Class Class 0 Class 0 Dermatophagoides Farinae IgE <0.35 kU/l <0.35 Dermatophagoides Farinae Class Class 0 Class 0 Component Ref Range & Units 3 mo ago Aspergillus fumigatus 1 None Detected None Detected Aspergillus fumigatus 6 None Detected See Note Comment: A. fumigatus #6 Ab, Precipitin testing not performed due to reagent backorder. A credit will be issued for this component. Aureobasidium pullulans None Detected None Detected [place] Serum AB None Detected None Detected Micropolyspora faeni None Detected None Detected PAST MEDICAL HISTORY Diagnosis Date Abdominal pain, unspecified site Acute gastritis without mention of hemorrhage Allergic rhinitis, cause unspecified Allergic rhinitis Arthritis Cough variant asthma DDD (degenerative disc disease), cervical mild to moderate on MRI June 2013 Diarrhea Esophageal reflux Hepatitis in viral diseases classified elsewhere(573.1) Associated with mono (EBV) infection in early 2001 Insomnia, unspecified Obesity, unspecified ANA (obstructive sleep apnea) On CPAP Osteopenia Panic disorder without agoraphobia Unspecified essential hypertension Unspecified hypothyroidism ALLERGIES Allergen Reactions Atenolol palpitations, chest discomfort Silenor [Doxepin] Other: See Comments palpitations (heart fluttered and chest felt strange) Tramadol Other: See Comments Unable to sleep - keeps her hyper budesonide-formoterol (SYMBICORT) 160-4.5 mcg/actuation inhaler Inhale 2 Puffs as instructed two times a day. albuterol HFA (PROVENTIL HFA, VENTOLIN HFA) 90 mcg/actuation inhaler Inhale 2 Puffs as instructed every 4 hours as needed for wheezing/shortness of breath. pantoprazole DR (PROTONIX) 40 mg tablet Take 1 tablet by mouth once daily. Take on empty stomach, 1/2 hr before meal. - September 13, 2021 - take morning and veneing. fluticasone (FLONASE) 50 mcg/actuation nasal spray Use 2 Sprays in each nostril once daily. Rinse mouth after dxfgmzpmey-idkkdwvq-usaevloqmb (BREZTRI AEROSPHERE) 160-9-4.8 mcg/actuation HFA aerosol inhaler Inhale 2 Puffs as instructed two times a day. losartan (COZAAR) 100 mg tablet Take 1 tablet by mouth once daily. levothyroxine (SYNTHROID) 150 mcg tablet Take 1 tablet by mouth once daily. Take on empty stomach. For thyroid zolpidem (AMBIEN) 10 mg Take 1 tablet by mouth daily at bedtime for 180 days. gabapentin (NEURONTIN) 600 mg tablet Take 1 tablet by mouth two times a day. PARoxetine (PAXIL) 20 mg tablet Take 1 tablet by mouth once daily. Social History Tobacco Use Smoking status: Never Smokeless tobacco: Never Tobacco comments: dad was smoker when she was growing up Substance Use Topics Alcohol use: No Drug use: No FAMILY HISTORY Problem Relation Age of Onset Cancer Father bladder Hypertension Father Diabetes Maternal Grandmother of blood clot Asthma Maternal Grandmother Heart Maternal Grandfather of mi , alcoholic Alzheimer's Disease Paternal Grandfather Allergies Paternal Grandfather other (Psoriatic arthritis) Grandson Asthma Granddaughter 2 granddaughters PAST SURGICAL HISTORY Procedure Laterality Date ABDOMINAL SURGERY HX BIOPSY BREAST OPEN INCISIONAL Right Bx of breast, incisional BREAST SURGERY HX BX BREAST PERC VACUUM/ROTN 11/10/2008 Left COLONOSCOPY FLX DX W/COLLJ SPEC WHEN PFRMD 10/20/2006 10 yr repeat COLONOSCOPY FLX DX W/COLLJ SPEC WHEN PFRMD 05/12/2016 Colonoscopy mac EGD TRANSORAL BIOPSY SINGLE/MULTIPLE 10/20/2006 ESOPHAGOGASTRODUODENOSCOPY TRANSORAL DIAGNOSTIC 05/12/2016 EGD mac EYE SURGERY HX INCISE FINGER TENDON SHEATH Right 09/10/2020 Right thumb and ring trigger finger releases KNEE ARTHROSCOPY Left 2015 LIG/TRNSXJ FLP TUBE ABDL/VAG APPR UNI/BI Tubal ligation NEUROPLASTY &/TRANSPOS MEDIAN NRV CARPAL TUNNE 11/01/2013 Carpal tunnel decomp left PAST SURGICAL HISTORY OF 03/[address] solano , uvelctomy PAST SURGICAL HISTORY OF mole head and wrist PAST SURGICAL HISTORY OF b/l cataract surgery REVISE MEDIAN N/CARPAL TUNNEL SURG 10/18/2013 right PMH, Social history, family history and surgical history reviewed and updated in EMR REVIEW OF SYSTEMS: CONSTITUTIONAL: No fevers, chills, nightsweats, unintended weight loss HEENT: Denies nasal congestion/sinus symptoms, allergy problems. CARDIOVASCULAR: No angina, palpitations, orthopnea. Edema PULM: See HPI GI: No dysphagia/odynophagia, problematic reflux. INTEGUMENTARY: No new skin changes PHYSICAL EXAMINATION: BP 132/82 Pulse 74 Resp 17 Ht 5' 6.9 (1.70m) Wt 243 lb (110.2kg) SpO2 93% BMI 38.18 kg/(m^2). General Appearance: Obese female, NAD. Skin: Skin color, texture, turgor normal, no suspicious rashes or lesions. Head: Normocephalic, no masses, lesions, tenderness or abnormalities. Oropharynx: No oral lesions or thrush. Neck: No masses or adenopathy. Lungs: Not labored, normal to percussion, no wheezes or crackles. Heart: Regular rate and rhythm, no murmurs or gallops. Extremities: No clubbing. Mild edema Assessment/Plan: 1. Cough variant asthma -Although exhaled nitric oxide level has returned to normal level, she still has some symptoms of exertional dyspnea and chest tightness -Changed inhaled therapy to Breztri -Continue albuterol as needed 2. GERD -Antireflux measures including no late night snacking which is a problem for her -She will continue on her pump inhibitor -Weight loss advised 3. Class II obesity -BMI 38 -Weight loss advised as obesity pretends poor control of her asthma Johanne Hutchinson MD Respiratory [place] documented in this encounter [facility] 03-28-2024 Note HNO ID: [id number] Author: JOHANNE HUTCHINSON MD Service: ? Author Type: Physician Type: Progress Notes Filed: 03/28/2024 14:49 Note Text: . Res[facility] [place] Note Patient name: Mae Grant PCP: Racquel Centeno MD CC: Follow-up cough HPI: Mae Grant 78 year old female never smoker with PMH significant for obesity, ANA on CPAP, HTN, hypothyroidism, GERD, allergic rhinitis, and chronic cough. Spirometry normal but Jong elevated. Started on low dose Symbicort and as needed albuterol. She was last evaluated in clinic in November after a two year hiatus with complaints of increased cough. History notable for three parakeets at home. Exhaled nitric oxide remained elevated. Symbicort increased to 160 ug, continued PPI for GERD and labs ordered for HP. Her laboratory testing normal. Today she states her cough has improved but she has been having some difficulty with exertional shortness of breath and chest tightness. She feels as if she cannot take a deep breath. It has somewhat interfered with her activities. She has not heard any wheezing. She is not been recently ill. Her exhaled nitric oxide level today was normal and pulmonary function test showed minimal small airways obstruction. GERD symptoms controlled with proton pump inhibitor. No nocturnal awakenings. DATA: ASTHMA CONTROL TEST Date: 03/28/2024 In the last 4 weeks, how much of the time did your asthma keep you from getting as much done at work or home that you wanted to do? Some of the time (3) In the last 4 weeks, how often have you had shortness of breath? Once a day (2) In the last 4 weeks, how often did your asthma symptoms (wheezing, coughing, shortness of breath, chest tightness or pain) wake you up at night or earlier than usual? Not at all (5) In the last 4 weeks, how often have you used your rescue inhaler or nebulizer medication (such as Albuterol, Proventil, Ventolin, Maxair, Xoponex, or Primatene Mist)? A few times per week (3) In the last 4 weeks, how would you rate your asthma control? Somewhat controlled (3) Total: 16-19 SERVICE DATE: 03/28/2024 SERVICE TIME: 12:58 PM Oral Exhaled Nitric Oxide measurement: 25.0 (ppb) Oral Exhaled Nitric Oxide measurement (Previous Encounters) Test Date Oral Exhaled Nitric Oxide (ppb) 03/28/2024 25.0 12/20/2023 36.0 (A) 09/21/2021 37.0 (A) 05/20/2020 33.0 PFT: Labs: Component Ref Range AND Units 3 mo ago IgE <114.0 kU/l 21.0 Component Ref Range AND Units 3 mo ago [place] IgE <0.35 kU/l <0.35 [place] Class Class 0 Class 0 [place] Grass IgE <0.35 kU/l <0.35 [place] Grass Class Class 0 Class 0 [place]il[place] Grass IgE <0.35 kU/l <0.35 Jamilah Grass Class Class 0 Class 0 Short Ragweed IgE <0.35 kU/l <0.35 Short Ragweed Class Class 0 Class 0 Pe[place] Quarters IgE <0.35 kU/l <0.35 [place] Class Class 0 Class 0 Cat Dander IgE <0.35 kU/l <0.35 Cat Dander Class Class 0 Class 0 Dog Dander IgE <0.35 kU/l <0.35 Dog Dander Class Class 0 Class 0 Cladosporium herbarum IgE <0.35 kU/l <0.35 Cladosporium herbarum Class Class 0 Class 0 Alternaria tenuis IgE <0.35 kU/l <0.35 Alternaria tenuis Class Class 0 Class 0 Dermatophagoides Farinae IgE <0.35 kU/l <0.35 Dermatophagoides Farinae Class Class 0 Class 0 Component Ref Range AND Units 3 mo ago Aspergillus fumigatus 1 None Detected None Detected Aspergillus fumigatus 6 None Detected See Note Comment: A. fumigatus #6 Ab, Precipitin testing not performed due to reagent backorder. A credit will be issued for this component. Aureobasidium pullulans None Detected None Detected [place] Serum AB None Detected None Detected Micropolyspora faeni None Detected None Detected PAST MEDICAL HISTORY Diagnosis Date Abdominal pain, unspecified site Acute gastritis without mention of hemorrhage Allergic rhinitis, cause unspecified Allergic rhinitis Arthritis Cough variant asthma DDD (degenerative disc disease), cervical mild to moderate on MRI June 2013 Diarrhea Esophageal reflux Hepatitis in viral diseases classified elsewhere(573.1) Associated with mono (EBV) infection in early 2001 Insomnia, unspecified Obesity, unspecified ANA (obstructive sleep apnea) On CPAP Osteopenia Panic disorder without agoraphobia Unspecified essential hypertension Unspecified hypothyroidism ALLERGIES Allergen Reactions Atenolol palpitations, chest discomfort Silenor [Doxepin] Other: See Comments palpitations (heart fluttered and chest felt strange) Tramadol Other: See Comments Unable to sleep - keeps her hyper budesonide-formoterol (SYMBICORT) 160-4.5 mcg/actuation inhaler Inhale 2 Puffs as instructed two times a day. albuterol HFA (PROVENTIL HFA, VENTOLIN HFA) 90 mcg/actuation inhaler Inhale 2 Puffs as instructed every 4 hours as needed for wheezing/shortness of breath. pantoprazole DR (PROTONIX) (more content not included)... [facility] 03-28-2024 Note HNO ID: [id number] Author: JAYSON TRIMBLE RPFT Service: ? Author Type: Respiratory Therapist Type: Procedures Filed: 03/28/2024 13:00 Note Text: RESPIRATORY THERAPY ORAL EXHALED NITRIC OXIDE SERVICE DATE: 03/28/2024 SERVICE TIME: 12:58 PM Oral Exhaled Nitric Oxide measurement: 25.0 (ppb) Normal: Adult <25 ppb, pediatric (<12 years) <20 ppb High Normal / Increased: Adult 25-50 ppb, pediatric (<12 years) 20-35 ppb Moderately raised exhaled Nitric Oxide may indicate underlying inflammation, but note that: Cold and influenza can raise exhaled Nitric Oxide and some patients have higher baseline exhaled Nitric Oxide levels than others. High: Adult >50 ppb, pediatric (<12 years) >35 ppb Indicative of ongoing eosinophilic inflammation. Symptomatic patient likely to respond to steroids. Possible causes (if already on steroids): Poor compliance, recent allergen exposure, steroid dose inadequate, and steroid resistance. Note that not all patients with high exhaled nitric oxide levels display symptoms. Oral Exhaled Nitric Oxide measurement (Previous Encounters) Test Date Oral Exhaled Nitric Oxide (ppb) 03/28/2024 25.0 12/20/2023 36.0 (A) 09/21/2021 37.0 (A) 05/20/2020 33.0 NAME: Jayson ROSANNA Trimble PATIENT NAME: Mae Grant DATE: March 28, 2024 TIME: 12:58 PM [facility] 03-28-2024 Procedure note Associated Ord er(s): NITRIC OXIDE, EXHALED RESPIRATORY THERAPY ORAL EXHALED NITRIC OXIDE SERVICE DATE: 03/28/2024 SERVICE TIME: 12:58 PM Oral Exhaled Nitric Oxide measurement: 25.0 (ppb) Normal: Adult <25 ppb, pediatric (<12 years) <20 ppb High Normal / Increased: Adult 25-50 ppb, pediatric (<12 years) 20-35 ppb Moderately raised exhaled Nitric Oxide may indicate underlying inflammation, but note that: Cold and influenza can raise exhaled Nitric Oxide and some patients have higher baseline exhaled Nitric Oxide levels than others. High: Adult >50 ppb, pediatric (<12 years) >35 ppb Indicative of ongoing eosinophilic inflammation. Symptomatic patient likely to respond to steroids. Possible causes (if already on steroids): Poor compliance, recent allergen exposure, steroid dose inadequate, and steroid resistance. Note that not all patients with high exhaled nitric oxide levels display symptoms. Oral Exhaled Nitric Oxide measurement (Previous Encounters) Test Date Oral Exhaled Nitric Oxide (ppb) 03/28/2024 25.0 12/20/2023 36.0 (A) 09/21/2021 37.0 (A) 05/20/2020 33.0 NAME: Jayson McginnisROSANNA gerber PATIENT NAME: Mae Grant DATE: March 28, 2024 TIME: 12:58 PM [place] 03-28-2024 Procedure note Associated Ord er(s): NITRIC OXIDE, EXHALED RESPIRATORY THERAPY ORAL EXHALED NITRIC OXIDE SERVICE DATE: 03/28/2024 SERVICE TIME: 12:58 PM Oral Exhaled Nitric Oxide measurement: 25.0 (ppb) Normal: Adult <25 ppb, pediatric (<12 years) <20 ppb High Normal / Increased: Adult 25-50 ppb, pediatric (<12 years) 20-35 ppb Moderately raised exhaled Nitric Oxide may indicate underlying inflammation, but note that: Cold and influenza can raise exhaled Nitric Oxide and some patients have higher baseline exhaled Nitric Oxide levels than others. High: Adult >50 ppb, pediatric (<12 years) >35 ppb Indicative of ongoing eosinophilic inflammation. Symptomatic patient likely to respond to steroids. Possible causes (if already on steroids): Poor compliance, recent allergen exposure, steroid dose inadequate, and steroid resistance. Note that not all patients with high exhaled nitric oxide levels display symptoms. Oral Exhaled Nitric Oxide measurement (Previous Encounters) Test Date Oral Exhaled Nitric Oxide (ppb) 03/28/2024 25.0 12/20/2023 36.0 (A) 09/21/2021 37.0 (A) 05/20/2020 33.0 NAME: ROSANNA Kelly PATIENT NAME: Mae Grant DATE: March 28, 2024 TIME: 12:58 PM documented in this encounter [facility] 03-28-2024 Note HNO ID: [id number] Author: JAYSON TRIMBLE RPFT Service: ? Author Type: Respiratory Therapist Type: Progress Notes Filed: 03/28/2024 13:00 Note Text: PULM FUNCTION: Provider: Nisha Gross PA-C Assisting Tech: Jayson Trimble RPFT Spirometry: 1 [facility] 03-28-2024 History of Present illness Narrative PULM FUNCTION: Provider: Nisha Gross PA-C Assisting Tech: Jayson Trimble RPFT Spirometry: 1 documented in this encounter [facility] 03-20-2024 Telephone encounter Note Noted [facility] 03-20-2024 Miscellaneous Notes Noted Received Pap 30 day Compliance report after pressure changes to patient's AutoCpap. Please review and advise. Nilsa Parker LPN documented in this encounter [facility] 03-11-2024 Telephone encounter Note The following approved medication requests have been transmitted electronically. Requested Prescriptions Pending Prescriptions Disp Refills losartan (COZAAR) 100 mg tablet 90 tablet 1 Sig: Take 1 tablet by mouth once daily. Racquel Centeno MD [facility] 03-11-2024 Miscellaneous Notes The following approved medication requests have been transmitted electronically. Requested Prescriptions Pending Prescriptions Disp Refills losartan (COZAAR) 100 mg tablet 90 tablet 1 Sig: Take 1 tablet by mouth once daily. Racquel Centeno MD Patient only has 2 pills left. Please send as pended. Call patient if unable to complete request. The patient has been identified by name and date of : Yes Caregiver verified no other encounters exist for this prescription request: Yes Caregiver confirmed with patient/requestor that no other refills are due, in the near future, with this provider at this time: Yes The last office visit in the department: 12/06/2023 Does the patient have a future office visit with this provider/department: not scheduled yet Requested Prescriptions Pending Prescriptions Disp Refills losartan (COZAAR) 100 mg tablet 90 tablet 1 Sig: Take 1 tablet by mouth once daily. Breanne Daniels RN March 11, 2024 3:27 PM documented in this encounter [facility] 03-11-2024 Telephone encounter Note Patient only has 2 pills left. Please send as pended. Call patient if unable to complete request. The patient has been identified by name and date of : Yes Caregiver verified no other encounters exist for this prescription request: Yes Caregiver confirmed with patient/requestor that no other refills are due, in the near future, with this provider at this time: Yes The last office visit in the department: 12/06/2023 Does the patient have a future office visit with this provider/department: not scheduled yet Requested Prescriptions Pending Prescriptions Disp Refills losartan (COZAAR) 100 mg tablet 90 tablet 1 Sig: Take 1 tablet by mouth once daily. Breanne Daniels RN March 11, 2024 3:27 PM [facility] 03-11-2024 Telephone encounter Note See 03/11/24 phone encounter. Breanne Daniels RN [facility] 03-11-2024 Miscellaneous Notes See 03/11/24 phone encounter. Breanne Daniels RN documented in this encounter [facility] 03-11-2024 Telephone encounter Note Received Pap 30 day Compliance report after pressure changes to patient's AutoCpap. Please review and advise. Nilsa Parker LPN [facility] 03-04-2024 Telephone encounter Note ADAMARIS 12/20/23 Patient phones requesting refills as follows: Requested Prescriptions Pending Prescriptions Disp Refills budesonide-formoterol (SYMBICORT) 160-4.5 mcg/actuation inhaler 1 Each 5 Sig: Inhale 2 Puffs as instructed two times a day. Please review and advise. Ivy Bo LPN [facility] 03-04-2024 Miscellaneous Notes ADAMARIS 12/20/23 Patient phones requesting refills as follows: Requested Prescriptions Pending Prescriptions Disp Refills budesonide-formoterol (SYMBICORT) 160-4.5 mcg/actuation inhaler 1 Each 5 Sig: Inhale 2 Puffs as instructed two times a day. Please review and advise. Ivy Bo LPN documented in this encounter [facility] 01-30-2024 Note HNO ID: [id number] Author: ARIANNA LORENZ RN Service: ? Author Type: Registered Nurse Type: Progress Notes Filed: 01/30/2024 14:56 Note Text: CDM Telephonic Outreach Provider Action/GABRIELA Larackd, asthma Contacted for: Routine Telephonic Outreach Contact made with patient: Yes Patient identified by name and date of . Discussed care with patient Are you experiencing any new or worsening symptoms you need to talk about today? No Disease Specific Do you check your blood pressure at home? No Do you have new or worsening shortness of breath with activity? No Do you feel like you are dehydrated for any reason, including not being able to eat or drink normally, or having less urine/much darker urine than normal for you? No Do you check your daily weight at home? Yes, Have you noticed a sudden gain in weight greater than three pounds in a day or three pounds in a week? 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 Routed to: No Action Needed JACOB Education Provided this Outreach: No Arianna Lorenz RN January 30, 2024 2:55 PM [facility] 01-30-2024 History of Present illness Narrative CD Telephonic Outreach Provider Maryana/GABRIELA Larackd, asthma Contacted for: Routine Telephonic Outreach Contact made with patient: Yes Patient identified by name and date of . Discussed care with patient Are you experiencing any new or worsening symptoms you need to talk about today? No Disease Specific Do you check your blood pressure at home? No Do you have new or worsening shortness of breath with activity? No Do you feel like you are dehydrated for any reason, including not being able to eat or drink normally, or having less urine/much darker urine than normal for you? No Do you check your daily weight at home? Yes, Have you noticed a sudden gain in weight greater than three pounds in a day or three pounds in a week? 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 Routed to: No Action Needed JACOB Education Provided this Outreach: No Arianna Lorenz RN January 30, 2024 2:55 PM documented in this encounter [facility] 01-30-2024 Note Patient Outreach (AM [facility] [place] MAE GRANT ([id number]) 1945 F Date Time Provider Department 01/30/24 ARIANNA LORENZ [facility] During your visit today, we recorded the following information about you: Arianna Lorenz RN 01/30/2024 2:56 PM Signed [facility] Telephonic Outreach Provider Action/FYI -ckd, asthma Contacted for: Routine Telephonic Outreach Contact made with patient: Yes Patient identified by name and date of . Discussed care with patient Are you experiencing any new or worsening symptoms you need to talk about today? No Disease Specific Do you check your blood pressure at home? No Do you have new or worsening shortness of breath with activity? No Do you feel like you are dehydrated for any reason, including not being able to eat or drink normally, or having less urine/much darker urine than normal for you? No Do you check your daily weight at home? Yes, Have you noticed a sudden gain in weight greater than three pounds in a day or three pounds in a week? 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 Routed to: No Action Needed JACOB Education Provided this Outreach: No Arianna Lorenz RN January 30, 2024 2:55 PM Allergies As of Date: 01/30/2024 Noted Allergy Reaction ATENOLOL 11/23/2004 Comments: palpitations, chest discomfort SILENOR (DOXEPIN) 07/22/2015 14 - Other: See Comments Comments: palpitations (heart fluttered and chest felt strange) TRAMADOL 11/05/2013 14 - Other: See Comments Comments: Unable to sleep - keeps her hyper Date Reviewed: 12/20/2023 Reviewed by: Nisha Gross, PAAylin - Fully Assessed Reason for Visit: community monitoring outreach [Other] Cmt: Monthly cdm call Prescriptions as of 01/30/2024 - budesonide-formoterol (SYMBICORT) 160-4.5 mcg/actuation inhaler Inhale 2 Puffs as instructed two times a day. - levothyroxine (SYNTHROID) 150 mcg tablet Take 1 tablet by mouth once daily. Take on empty stomach. For thyroid - albuterol HFA (PROVENTIL HFA, VENTOLIN HFA) 90 mcg/actuation inhaler Inhale 2 Puffs as instructed every 4 hours as needed for wheezing/shortness of breath. - zolpidem (AMBIEN) 10 mg Take 1 tablet by mouth daily at bedtime for 180 days. - pantoprazole DR (PROTONIX) 40 mg tablet Take 1 tablet by mouth once daily. Take on empty stomach, 1/2 hr before meal. - September 13, 2021 - take morning and veneing. - losartan (COZAAR) 100 mg tablet Take 1 tablet by mouth once daily. - gabapentin (NEURONTIN) 600 mg tablet Take 1 tablet by mouth two times a day. - PARoxetine (PAXIL) 20 mg tablet Take 1 tablet by mouth once daily. - fluticasone (FLONASE) 50 mcg/actuation nasal spray Use 2 Sprays in each nostril once daily. 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, Includin*12/05/2008 History of fracture of tibia [Z87.81] 04/22/2010 Impingement syndrome of both shoulders [M75.41,*09/09/2013 Pain in joint, shoulder region [M25.519] 09/20/2013 09/06/2019 Right carpal tunnel syndrome [G56.01] 10/18/2013 Left carpal tunnel syndrome [G56.02] 10/22/2013 ANA on CPAP [G47.33] 04/26/2016 Idiopathic peripheral autonomic neuropathy [G90*04/26/2016 Anxiety and depression [F41.9, F32.A] 04/26/2016 Pain of both hip joints [M25.551, M25.552] 08/21/2018 Obesity, Class III, BMI >= 40 [E66.01] 04/04/2019 12/15/2022 Stage 3a chronic kidney disease (HCC) [N18.31] 03/28/2021 Hypertensive kidney disease with stage 3a chron*04/27/2022 Moderate recurrent major depression (HCC) [F33.*06/13/2023 Encounter Status:Closed by ARIANNA LORENZ on 01/30/24 [facility] 01-03-2024 Note HNO ID: [id number] Author: ARIANNA LORENZ RN Service: ? Author Type: Registered Nurse Type: Progress Notes Filed: 01/03/2024 09:43 Note Text: CDM Telephonic Outreach Provider Action/FYI -ckd, asthma Contacted for: Routine Telephonic Outreach Contact made with patient: No, left message. Arianna Lorenz RN January 03, 2024 9:43 AM [facility] 01-03-2024 History of Present illness Narrative CDM Telephonic Outreach Provider Action/FYI -ckd, asthma Contacted for: Routine Telephonic Outreach Contact made with patient: No, left message. Arianna Lorenz RN January 03, 2024 9:43 AM CD Telephonic Outreach Provider Action/FYI -ckd, asthma Contacted for: Routine Telephonic Outreach Contact made with patient: No, left message. Arianna Lorenz RN January 02, 2024 1:51 PM documented in this encounter [facility] 01-02-2024 Note HNO ID: [id number] Author: ARIANNA LORENZ RN Service: ? Author Type: Registered Nurse Type: Progress Notes Filed: 01/03/2024 09:43 Note Text: CDM Telephonic Outreach Provider Action/FYI -ckd, asthma Contacted for: Routine Telephonic Outreach Contact made with patient: No, left message. Arianna Lorenz RN January 02, 2024 1:51 PM [facility] 01-02-2024 Note Patient Outreach (AM [facility]) MAE [id number]) 1945 F Date Time Provider Department 01/02/24 ARIANNA LORENZ During your visit today, we recorded the following information about you: Arianna Lorenz RN 01/03/2024 9:43 AM Signed [facility] Telephonic Outreach Provider Action/URMILAI -ckd, asthma Contacted for: Routine Telephonic Outreach Contact made with patient: No, left message. Arianna Lorenz RN January 02, 2024 1:51 PM Arianna Lorenz RN 01/03/2024 9:43 AM Signed CD Telephonic Outreach Provider Maryana/GABRIELA -ckd, asthma Contacted for: Routine Telephonic Outreach Contact made with patient: No, left message. Arianna Lorenz RN January 03, 2024 9:43 AM Allergies As of Date: 01/02/2024 Noted Allergy Reaction ATENOLOL 11/23/2004 Comments: palpitations, chest discomfort SILENOR (DOXEPIN) 07/22/2015 14 - Other: See Comments Comments: palpitations (heart fluttered and chest felt strange) TRAMADOL 11/05/2013 14 - Other: See Comments Comments: Unable to sleep - keeps her hyper Date Reviewed: 12/20/2023 Reviewed by: Nisha Gross PA-C - Fully Assessed Reason for Visit: community monitoring outreach [Other] Cmt: Monthly cdm call Prescriptions as of 01/03/2024 - budesonide-formoterol (SYMBICORT) 160-4.5 mcg/actuation inhaler Inhale 2 Puffs as instructed two times a day. - levothyroxine (SYNTHROID) 150 mcg tablet Take 1 tablet by mouth once daily. Take on empty stomach. For thyroid - albuterol HFA (PROVENTIL HFA, VENTOLIN HFA) 90 mcg/actuation inhaler Inhale 2 Puffs as instructed every 4 hours as needed for wheezing/shortness of breath. - zolpidem (AMBIEN) 10 mg Take 1 tablet by mouth daily at bedtime for 180 days. - pantoprazole DR (PROTONIX) 40 mg tablet Take 1 tablet by mouth once daily. Take on empty stomach, 1/2 hr before meal. - September 13, 2021 - take morning and veneing. - losartan (COZAAR) 100 mg tablet Take 1 tablet by mouth once daily. - gabapentin (NEURONTIN) 600 mg tablet Take 1 tablet by mouth two times a day. - PARoxetine (PAXIL) 20 mg tablet Take 1 tablet by mouth once daily. - fluticasone (FLONASE) 50 mcg/actuation nasal spray Use 2 Sprays in each nostril once daily. 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, Includin*12/05/2008 History of fracture of tibia [Z87.81] 04/22/2010 Impingement syndrome of both shoulders [M75.41,*09/09/2013 Pain in joint, shoulder region [M25.519] 09/20/2013 09/06/2019 Right carpal tunnel syndrome [G56.01] 10/18/2013 Left carpal tunnel syndrome [G56.02] 10/22/2013 ANA on CPAP [G47.33] 04/26/2016 Idiopathic peripheral autonomic neuropathy [G90*04/26/2016 Anxiety and depression [F41.9, F32.A] 04/26/2016 Pain of both hip joints [M25.551, M25.552] 08/21/2018 Obesity, Class III, BMI >= 40 [E66.01] 04/04/2019 12/15/2022 Stage 3a chronic kidney disease (HCC) [N18.31] 03/28/2021 Hypertensive kidney disease with stage 3a chron*04/27/2022 Moderate recurrent major depression (HCC) [F33.*06/13/2023 Encounter Status:Closed by ARIANNA LORENZ on 01/03/24 [facility] 01-01-2024 History of Present illness Narrative Radiology Service Progress Note PATIENT NAME: Mae Grant DATE OF SERVICE: January 01, 2024 TIME: 2:55 PM PATIENT IDENTITY VERIFICATION COMPLETED USING TWO (2) IDENTIFIERS: Name and Date of confirmed by patient verbally. FALL SCREENING: Has the patient had 2 falls in the last year or 1 fall with injury or currently using an Ambulatory Assistive Device (Walker, Cane, Wheelchair, Crutches, etc.)? No PATIENT GENDER DATA: Female. status: : No status: NO. PATIENT RELEVANT IMPLANT DATA REVIEWED: Not Applicable PATIENT PRESENTS WITH AN IMPLANTABLE OR ATTACHED INTERNATIONAL COORDINATOR: No RADIOLOGY DEPARTMENT: Mammography PERIPHERAL IV DATA: Not applicable SIGNED BY: Pablito Olivera January 01, 2024 2:55 PM documented in this encounter [facility] 01-01-2024 Note HNO ID: [id number] Author: ELIZABETH IQBAL Mammo Tech Service: ? Author Type: Solder Technician Type: Progress Notes Filed: 01/01/2024 14:55 Note Text: Radiology Service Progress Note PATIENT NAME: Mae Grant DATE OF SERVICE: January 01, 2024 TIME: 2:55 PM PATIENT IDENTITY VERIFICATION COMPLETED USING TWO (2) IDENTIFIERS: Name and Date of confirmed by patient verbally. FALL SCREENING: Has the patient had 2 falls in the last year or 1 fall with injury or currently using an Ambulatory Assistive Device (Walker, Cane, Wheelchair, Crutches, etc.)? No PATIENT GENDER DATA: Female. status: : No status: NO. PATIENT RELEVANT IMPLANT DATA REVIEWED: Not Applicable PATIENT PRESENTS WITH AN IMPLANTABLE OR ATTACHED INTERNATIONAL COORDINATOR: No RADIOLOGY DEPARTMENT: Mammography PERIPHERAL IV DATA: Not applicable SIGNED BY: Pablito Olivera January 01, 2024 2:55 PM [facility] 12-29-2023 Telephone encounter Note 1st attempt: LVM for patient to schedule mammogram [facility] 12-29-2023 Miscellaneous Notes 1st attempt: LVM for patient to schedule mammogram Filed order Patient asking pcp to place mammogram order, and asking office to phone her to schedule appt. documented in this encounter [facility] 12-28-2023 Telephone encounter Note Noted signed [facility] 12-28-2023 Telephone encounter Note Filed order [facility] 12-28-2023 Miscellaneous Notes Noted signed Please complete office note so it may be sent with the order for CPAP and supplies. documented in this encounter [facility] 12-25-2023 Telephone encounter Note Patient asking pcp to place mammogram order, and asking office to phone her to schedule appt. [facility] 12-20-2023 Procedure note Associated Ord er(s): NITRIC OXIDE, EXHALED RESPIRATORY THERAPY ORAL EXHALED NITRIC OXIDE SERVICE DATE: 12/20/2023 SERVICE TIME: 2:26 PM Oral Exhaled Nitric Oxide measurement: 36.0 (ppb) Normal: Adult <25 ppb, pediatric (<12 years) <20 ppb High Normal / Increased: Adult 25-50 ppb, pediatric (<12 years) 20-35 ppb Moderately raised exhaled Nitric Oxide may indicate underlying inflammation, but note that: Cold and influenza can raise exhaled Nitric Oxide and some patients have higher baseline exhaled Nitric Oxide levels than others. High: Adult >50 ppb, pediatric (<12 years) >35 ppb Indicative of ongoing eosinophilic inflammation. Symptomatic patient likely to respond to steroids. Possible causes (if already on steroids): Poor compliance, recent allergen exposure, steroid dose inadequate, and steroid resistance. Note that not all patients with high exhaled nitric oxide levels display symptoms. Oral Exhaled Nitric Oxide measurement (Previous Encounters) Test Date Oral Exhaled Nitric Oxide (ppb) 12/20/2023 36.0 (A) 09/21/2021 37.0 (A) 05/20/2020 33.0 NAME: ROSANNA Kelly PATIENT NAME: Mae Grant DATE: December 20, 2023 TIME: 2:26 PM [facility] 12-20-2023 Procedure note Associated Ord er(s): NITRIC OXIDE, EXHALED RESPIRATORY THERAPY ORAL EXHALED NITRIC OXIDE SERVICE DATE: 12/20/2023 SERVICE TIME: 2:26 PM Oral Exhaled Nitric Oxide measurement: 36.0 (ppb) Normal: Adult <25 ppb, pediatric (<12 years) <20 ppb High Normal / Increased: Adult 25-50 ppb, pediatric (<12 years) 20-35 ppb Moderately raised exhaled Nitric Oxide may indicate underlying inflammation, but note that: Cold and influenza can raise exhaled Nitric Oxide and some patients have higher baseline exhaled Nitric Oxide levels than others. High: Adult >50 ppb, pediatric (<12 years) >35 ppb Indicative of ongoing eosinophilic inflammation. Symptomatic patient likely to respond to steroids. Possible causes (if already on steroids): Poor compliance, recent allergen exposure, steroid dose inadequate, and steroid resistance. Note that not all patients with high exhaled nitric oxide levels display symptoms. Oral Exhaled Nitric Oxide measurement (Previous Encounters) Test Date Oral Exhaled Nitric Oxide (ppb) 12/20/2023 36.0 (A) 09/21/2021 37.0 (A) 05/20/2020 33.0 NAME: ROSANNA Kelly PATIENT NAME: Mae Grant DATE: December 20, 2023 TIME: 2:26 PM documented in this encounter [facility] 12-20-2023 History of Present illness Narrative PULM FUNCTION: Provider: Nisha Gross PA-C Assisting Tech: Jayson Trimble RPFT Exhaled Nitric Oxide: 1 documented in this encounter [facility] 12-20-2023 History of Present illness Narrative Patient: Mae Grant PCP: Racquel Centeno MD CC: follow up HPI: Mae Grant 78 year old female never smoker with PMH significant for obesity, ANA on CPAP, HTN, hypothyroidism, GERD, allergic rhinitis last seen in pulmonary clinic 08/2021. Current maintenance therapy with low dose Symbicort and as needed Albuterol. Is requiring Albuterol mid-afternoon daily. Today, patient reports daily cough, primarily after eating to try to expel sputum that feels stuck. Denies dysphagia. Had an esophagram done in May 2023 at [facility] that was normal. No hemoptysis. Unsure if she wheezes. Exertional dyspnea with climbing stairs and walking up inclines. No fevers, chills, or night sweats. No unintended weight loss. No lower extremity edema. No GERD/heartburn. No recent hospitalizations or ED visits or upper respiratory infections. Consistently wearing CPAP at night. Has 3 parakeets in home. PAST MEDICAL HISTORY Diagnosis Date Abdominal pain, unspecified site Acute gastritis without mention of hemorrhage Allergic rhinitis, cause unspecified Allergic rhinitis Arthritis DDD (degenerative disc disease), cervical mild to moderate on MRI June 2013 Diarrhea Esophageal reflux Hepatitis in viral diseases classified elsewhere(573.1) Associated with mono (EBV) infection in early 2001 Insomnia, unspecified Obesity, unspecified ANA (obstructive sleep apnea) On CPAP Osteopenia Panic disorder without agoraphobia Unspecified essential hypertension Unspecified hypothyroidism Allergies: Atenolol Comment:palpitations, chest discomfort Silenor [Doxepin] Other: See Comments Comment:palpitations (heart fluttered and chest felt strange) Tramadol Other: See Comments Comment:Unable to sleep - keeps her hyper levothyroxine (SYNTHROID) 150 mcg tablet Take 1 tablet by mouth once daily. Take on empty stomach. For thyroid budesonide-formoterol (SYMBICORT) 80-4.5 mcg/actuation inhaler Inhale 2 Puffs as instructed two times a day. albuterol HFA (PROVENTIL HFA, VENTOLIN HFA) 90 mcg/actuation inhaler Inhale 2 Puffs as instructed every 4 hours as needed for wheezing/shortness of breath. zolpidem (AMBIEN) 10 mg Take 1 tablet by mouth daily at bedtime for [address] (PROTONIX) 40 mg tablet Take 1 tablet by mouth once daily. Take on empty stomach, 1/2 hr before meal. - September 13, 2021 - take morning and veneing. losartan (COZAAR) 100 mg tablet Take 1 tablet by mouth once daily. gabapentin (NEURONTIN) 600 mg tablet Take 1 tablet by mouth two times a day. PARoxetine (PAXIL) 20 mg tablet Take 1 tablet by mouth once daily. fluticasone (FLONASE) 50 mcg/actuation nasal spray Use 2 Sprays in each nostril once daily. Rinse mouth after Ibuprofen 200 mg cap Take by mouth as needed. (Patient not taking: Reported on 10/24/2023) Social History Tobacco Use Smoking status: Never Smokeless tobacco: Never Tobacco comments: dad was smoker when she was growing up Substance Use Topics Alcohol use: No Drug use: No Family History Problem Relation Age of Onset Cancer Father bladder Hypertension Father Diabetes Maternal Grandmother of blood clot Asthma Maternal Grandmother Heart Maternal Grandfather of mi , alcoholic Alzheimer's Disease Paternal Grandfather Allergies Paternal Grandfather other (Psoriatic arthritis) Grandson Asthma Granddaughter 2 granddaughters PAST SURGICAL HISTORY Procedure Laterality Date ABDOMINAL SURGERY HX BIOPSY BREAST OPEN INCISIONAL Right Bx of breast, incisional BREAST SURGERY HX BX BREAST PERC VACUUM/ROTN 11/10/2008 Left COLONOSCOPY FLX DX W/COLLJ SPEC WHEN PFRMD 10/20/2006 10 yr repeat COLONOSCOPY FLX DX W/COLLJ SPEC WHEN PFRMD 05/12/2016 Colonoscopy mac EGD TRANSORAL BIOPSY SINGLE/MULTIPLE 10/20/2006 ESOPHAGOGASTRODUODENOSCOPY TRANSORAL DIAGNOSTIC 05/12/2016 EGD mac EYE SURGERY HX INCISE FINGER TENDON SHEATH Right 09/10/2020 Right thumb and ring trigger finger releases KNEE ARTHROSCOPY Left 2015 LIG/TRNSXJ FLP TUBE ABDL/VAG APPR UNI/BI Tubal ligation NEUROPLASTY &/TRANSPOS MEDIAN NRV CARPAL TUNNE 11/01/2013 Carpal tunnel decomp left PAST SURGICAL HISTORY OF 03/[address] solano , uvelctomy PAST SURGICAL HISTORY OF mole head and wrist PAST SURGICAL HISTORY OF b/l cataract surgery REVISE MEDIAN N/CARPAL TUNNEL SURG 10/18/2013 right I reviewed the past medical history, family history, social history and surgical history with changes noted above and updated in EMR. IMMUNIZATIONS Immunization History Administered Date(s) Administered COVID-19 original vaccine, age 12+ yr, monovalent ([employer] [employer] - [place] TOP) 06/25/2021 COVID-19 original vaccine, full dose, monovalent (MODERNA) 04/27/2020 05/25/2020 01/16/2021 COVID-19 vaccine, age 12+ yr ([employer] COMIRNATY) 12/02/2022 COVID-19 vaccine, age 12+ yr, bivalent ([employer]) 04/28/2022 diphtheria tetanus (DT) vaccine, pediatric 01/08/1996 influenza (HD-IIV3) vaccine, age 65+ yr, high dose, trivalent, PF (FLUZONE HIGH-DOSE) 01/02/2016 11/29/2016 11/18/2017 12/19/2018 12/06/2023 influenza (HD-IIV4) vaccine, age 65+ yr, high dose, quadrivalent, PF (FLUZONE HIGH-DOSE) 11/25/2019 01/13/2021 12/02/2022 influenza (IIV3) vaccine, age 6 mo - 64 yr, trivalent (AFLURIA, FLULAVAL, FLUVIRIN, FLUZONE) 10/30/2014 pneumococcal conjugate (PCV13) vaccine, 13 valent (PREVNAR 13) 11/05/2014 pneumococcal polysaccharide (PPV23) vaccine, 23 valent (PNEUMOVAX 23) 03/01/2011 zoster (ZVL) vaccine, live (ZOSTAVAX) 02/22/2010 ROS: All other systems reviewed as negative except for what is noted in HPI and review of systems. PHYSICAL EXAMINATION: BP (P) 144/92 Pulse (P) 73 Resp (P) 14 Wt 105.7 kg (233 lb) SpO2 (P) 95% BMI 36.60 kg/m Gen: No acute distress. Cooperative with examination. Obese. HEENT: Normocephalic. Sclera, conjunctiva clear. Oral hygeine and dentition good. No thrush. Resp: No stridor, accessory respiratory muscle use, supra-sternal or intercostal retractions. No wheezes, crackles, or rhonchi. CV: Regular rythm. Heart tones normal. Radial pulses normal. Ext: Warm and well perfused. No clubbing, cyanosis, edema. Skin: No rash, ecchymoses. Neuro: Mental status normal. Affect normal. No tremor. DATA: Laboratory and Imaging: Exhaled nitric oxide (Jong), 12/20/2023: 36.0 09/21/2021: 37.0 (ppb) (A) (normal < 20). Last Spirometry SPIROMETRY WITH DILATOR IF OBSTRUCTED Collected: 09/21/2021 12:44 PM (Final result) Narrative: [facility] [id number] [place] [address] Test Date: 2021-09-21 Pat Name: MAE GRANT Department: Room: Gender: Female Solder Technician: : 1945 Requested By: Order Number: [id number] Reading MD: Johanne Hutchinson M.D. Interpretive Statements ATS/ERS acceptability and repeatability standards for spirometry met. Medications and Allergies were reviewed for possible drug interactions per policy. No contraindications or sensitivities were noted. RT meds taken: Breo 4.5 hours before testing. IMPRESSION: Spirometry is normal. Electronically Signed On 09-21-2021 13:37:02 EDT by Johanne Hutchinson M.D. Site: WO ID: [id number] Name: MAE GRANT Visit Date: 09/21/2021 Doctor: Solder Technician: Jayson Trimble Age: 76 Date of : 1945 Gender: Female Race: White Height: 66.90 in Weight: 249.40 lbs BSA: 2.219 Diagnosis: Cough Dyspnea: Cough: Wheeze: Tobacco Product: Years Smoked: Packs/Day: Years Quit: Medications: .Never Smoked Comments: ATS/ERS acceptability and repeatability standards for spirometry met. Medications and Allergies were reviewed for possible drug interactions per policy. No contraindications or sensitivities were noted. RT meds taken: Breo 4.5 hours before testing. Review Status: Not Reviewed PRE-BRONCH POST-BRONCH Pred LLN ULN Actual %Pred Actual %Chng SPIROMETRY FVC (L) 2.93 2.08 3.82 3.15 107 FEV1 (L) 2.23 1.58 2.85 2.37 106 FEV1/FVC 0.77 0.63 0.89 0.75 97 FEF25 (L/sec) 5.62 FEF50 (L/sec) 3.19 1.58 4.79 2.23 70 FEF75 (L/sec) 0.41 0.14 1.18 0.66 159 UWL60-50 (L/sec) 1.77 0.77 3.25 1.82 102 PEF L/s (L/sec) 5.59 3.72 7.46 6.72 120 FIVC (L) 3.08 FIF50 (L/sec) 4.48 PIF (L/sec) 4.58 Time (sec) 7.53 CLIVE (L) 0.10 FET PEF (sec) 0.08 CT Chest other findings: Last CT Chest - Impression Only No resulted procedures found. Last XR Chest - Impression Only XR CHEST 2V FRONTAL/LAT Exam End: 01/28/2023 9:07 AM (Final result) Impression: IMPRESSION: No acute radiographic abnormality. ... ASSESSMENT/PLAN: 1. Uncomplicated asthma, unspecified asthma severity, unspecified whether persistent - ICD9: 493.90, ICD10: J45.909 (primary diagnosis) Clinical history consistent with asthma. Elevated nitric oxide today. Will increase Symbicort to 160 mcg twice daily. Rinse mouth after each use to help prevent oral thrush. Albuterol HFA inhaler, 2 inhalations 10-15 minutes prior to activities associated with shortness of breath, and as needed for rescue relief of shortness of breath or wheezing, up to 4 times daily. - SPIROMETRY WITH DILATOR IF OBSTRUCTED - BUDESONIDE-FORMOTEROL HFA 160 MCG-4.5 MCG/ACTUATION AEROSOL INHALER - NITRIC OXIDE, EXHALED 2. Allergic rhinitis, unspecified seasonality, unspecified trigger - ICD9: 477.9, ICD10: J30.9 Check allergy labs. - IMMUNOGLOBULIN E - ALGN GERONIMO GRP - HYPERSEN PNEUMON AB - NITRIC OXIDE, EXHALED 3. Gastroesophageal reflux disease, unspecified whether esophagitis present - ICD9: 530.81, ICD10: K21.9 Continue PPI Portions of this documentation were copied and pasted from previous office visit notes in order to provide a cohesive continuity of the history. The note has been reviewed and edited and updated as necessary. Nisha Gross PA-C documented in this encounter [facility] 12-11-2023 Telephone encounter Note Please complete office note so it may be sent with the order for CPAP and supplies. [facility] 12-06-2023 History of Present illness Narrative This note was created using REBIScanter. Subjective Mae Grant is a 78 year old female. Patient presents with: F/U 6 months SUBJECTIVE: Mae Grant is a 78 year old year old lady here today for 6 month follow up appointment for review of medical conditions. The patient is a 78-year-old female with a history of hypothyroidism, neuropathy, asthma, and ANA, presenting for a 6-month follow-up visit. The patient reports running out of levothyroxine and requests a refill. She has been without the medication for a day or two. She also inquires about the need to see a auto parts clerk for her dyspnea, which occurs with fast walking or ascending hills. She has not yet scheduled the appointment. She mentions using a CPAP machine for ANA and asks if it is due for replacement, noting that it has been years since she received it and the warranty has . She also reports worsening memory and asks about potential treatments. The patient experiences intermittent swelling in her feet, which exacerbates her neuropathy and makes ambulation painful, contributing to balance issues. She denies wearing compression socks. She has been under significant stress due to the recent deaths of her mother in September and her in December of the previous year. She is currently managing the task of cleaning and organizing her mother's house, which she has purchased from her sister. Her middle daughter plans to buy the house eventually. PAST MEDICAL HISTORY Diagnosis Date Abdominal pain, unspecified site Acute gastritis without mention of hemorrhage Allergic rhinitis, cause unspecified Allergic rhinitis Arthritis DDD (degenerative disc disease), cervical mild to moderate on MRI June 2013 Diarrhea Esophageal reflux Hepatitis in viral diseases classified elsewhere(573.1) Associated with mono (EBV) infection in early 2001 Insomnia, unspecified Obesity, unspecified ANA (obstructive sleep apnea) On CPAP Osteopenia Panic disorder without agoraphobia Unspecified essential hypertension Unspecified hypothyroidism Current Outpatient Medications Medication Sig budesonide-formoterol (SYMBICORT) 80-4.5 mcg/actuation inhaler Inhale 2 Puffs as instructed two times a day. albuterol HFA (PROVENTIL HFA, VENTOLIN HFA) 90 mcg/actuation inhaler Inhale 2 Puffs as instructed every 4 hours as needed for wheezing/shortness of breath. zolpidem (AMBIEN) 10 mg Take 1 tablet by mouth daily at bedtime for [address] (PROTONIX) 40 mg tablet Take 1 tablet by mouth once daily. Take on empty stomach, 1/2 hr before meal. - September 13, 2021 - take morning and veneing. losartan (COZAAR) 100 mg tablet Take 1 tablet by mouth once daily. gabapentin (NEURONTIN) 600 mg tablet Take 1 tablet by mouth two times a day. PARoxetine (PAXIL) 20 mg tablet Take 1 tablet by mouth once daily. fluticasone (FLONASE) 50 mcg/actuation nasal spray Use 2 Sprays in each nostril once daily. Rinse mouth after levothyroxine (SYNTHROID) 150 mcg tablet Take 1 tablet by mouth once daily. Take on empty stomach. For thyroid (Patient not taking: Reported on 12/06/2023) Ibuprofen 200 mg cap Take by mouth as needed. (Patient not taking: Reported on 10/24/2023) No current facility-administered medications for this visit. Review of Systems Objective BP 137/82 Pulse 75 Temp 36.7 C (98 F) Resp 18 Wt 107.8 kg (237 lb 10.5 oz) SpO2 97% BMI 37.33 kg/m Physical Exam Constitutional: Appearance: Normal appearance. HENT: Head: Normocephalic. Eyes: Conjunctiva/sclera: Conjunctivae normal. Cardiovascular: Rate and Rhythm: Normal rate and regular rhythm. Heart sounds: Normal heart sounds. Pulmonary: Effort: Pulmonary effort is normal. Breath sounds: Normal breath sounds. Musculoskeletal: Right lower leg: Edema (trace ankle) present. Left lower leg: Edema (trace ankle) present. Skin: General: Skin is warm and dry. Neurological: General: No focal deficit present. Mental Status: She is alert and oriented to person, place, and time. Psychiatric: Mood and Affect: Mood normal. Behavior: Behavior normal. Thought Content: Thought content normal. Judgment: Judgment normal. Latest Ref Rng 04/12/2023 05/24/2023 09/08/2023 10/17/2023 Protein, Total 6.3 - 8.0 g/dL 7.4 7.1 7.2 Albumin 3.9 - 4.9 g/dL 4.2 3.9 3.9 Calcium 8.5 - 10.2 mg/dL 9.8 9.6 9.9 9.1 Bilirubin, Total 0.2 - 1.3 mg/dL 0.6 0.4 0.5 Alkaline Phosphatase 34 - 123 U/L 89 105 100 AST 13 - 35 U/L 12 (L) 15 14 ALT 7 - 38 U/L 9 12 10 Glucose 74 - 99 mg/dL 100 (H) 115 (H) 105 (H) 113 (H) BUN 7 - 21 mg/dL 18 28 (H) 28 (H) 14 Creatinine 0.58 - 0.96 mg/dL 1.12 (H) 1.09 (H) 1.31 (H) 0.96 Sodium 136 - 144 mmol/L 141 142 138 140 Potassium 3.7 - 5.1 mmol/L 4.5 4.1 4.1 3.8 Chloride 98 - 107 mmol/L 103 107 (H) 105 107 CO2 22 - 30 mmol/L 26 21 (L) 22 22 Anion Gap 8 - 15 mmol/L 12 14 11 11 eGFR >=60 mL/min/1.73m 51 (L) 52 (L) 42 (L) 61 WBC 3.70 - 11.00 k/uL 6.06 RBC 3.90 - 5.20 m/uL 5.35 (H) Hemoglobin 11.5 - 15.5 g/dL 14.5 Hematocrit 36.0 - 46.0 % 43.7 MCV 80.0 - 100.0 fL 81.7 MCH 26.0 - 34.0 pg 27.1 MCHC 30.5 - 36.0 g/dL 33.2 RDW-CV 11.5 - 15.0 % 14.6 Platelet Count 150 - 400 k/uL 240 MPV 9.0 - 12.7 fL 10.1 Absolute nRBC <0.01 k/uL <0.01 Cholesterol, Total <200 mg/dL 145 Triglyceride <150 mg/dL 163 (H) HDL Cholesterol >39 mg/dL 27 (L) Non HDL Cholesterol <130 mg/dL 118 Fasting Time hrs 12 VLDL Cholesterol <30 mg/dL 33 (H) TC:HDL Ratio <5.10 5.37 (H) LDL Cholesterol <100 mg/dL 85 LDL:HDL Ratio <2.54 3.15 (H) Hemoglobin A1C 4.3 - 5.6 % 5.6 Estimated Average Glucose mg/dL 114 TSH 0.270 - 4.200 mIU/L 1.030 0.551 Free T4 0.9 - 1.7 ng/dL 1.3 1.3 Free T3 2.3 - 4.1 pg/mL 2.6 2.6 NT Pro BNP <450 pg/mL 82 Magnesium 1.7 - 2.3 mg/dL 2.0 Legend: (L) Low (H) High Assessment and Plan # Acquired hypothyroidism (E03.9) - Levothyroxine refill sent to [facility]. - Advised patient to notify the office directly for future prescription requests to avoid delays. # ANA on CPAP (G47.33) - CPAP machine is due for replacement. - Patient has been using the CPAP routinely and benefiting from its use. - Ordered a new CPAP machine through [facility]. # Pedal edema (R60.0) - Mild edema noted on examination. - Discussed use of compression socks to reduce swelling and improve stability. - Advised patient to monitor for any significant changes in swelling. # Encounter for immunization (Z23) - Administered influenza vaccine. # Class 2 obesity due to excess calories without serious comorbidity with body mass index (BMI) of 37.0 to 37.9 in adult (E66.812) - Current BMI within the range of 37.0 to 37.9. - Patient has lost approximately 20 pounds over the past three years. - Encouraged continuation of healthy lifestyle changes, including balanced diet and regular exercise. 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 - Discussed potential benefits of compression socks to alleviate swelling and improve proprioception. # Mild intermittent asthma without complication (J45.20) - Symptoms stable, but patient reports dyspnea on exertion. - Previous pulmonary function tests in 2021 showed normal spirometry. - Stress echocardiogram did not reveal any signs of cardiac blockage. - Advised patient to follow up with pulmonology to further evaluate and manage asthma symptoms. Racquel Centeno MD documented in this encounter [facility] 12-01-2023 History of Present illness Narrative [facility] Telephonic Outreach Provider Action/FYI -ckd Contacted for: Routine Telephonic Outreach Contact made with patient: No, left message. Pt has appt w/ pcp 12/06/23 Arianna Lorenz RN December 01, 2023 2:12 PM documented in this encounter [facility] 11-27-2023 Telephone encounter Note Prescription Refill Information The patient has been identified by name and date of : Yes Caregiver verified no other encounters exist for this prescription request: Yes Caregiver confirmed with patient/requestor that no other refills are due, in the near future, with this provider at this time: Yes The last office visit in the department: 10/24/23 Does the patient have a future office visit with this provider/department: Yes 12/06/23 Requested Prescriptions Pending Prescriptions Disp Refills budesonide-formoterol (SYMBICORT) 80-4.5 mcg/actuation inhaler 10.2 Each 2 Sig: Inhale 2 Puffs as instructed two times a day. Lilian Amos LPN November 27, 2023 1:55 PM [facility] 11-27-2023 Miscellaneous Notes Prescription Refill Information The patient has been identified by name and date of : Yes Caregiver verified no other encounters exist for this prescription request: Yes Caregiver confirmed with patient/requestor that no other refills are due, in the near future, with this provider at this time: Yes The last office visit in the department: 10/24/23 Does the patient have a future office visit with this provider/department: Yes 12/06/23 Requested Prescriptions Pending Prescriptions Disp Refills budesonide-formoterol (SYMBICORT) 80-4.5 mcg/actuation inhaler 10.2 Each 2 Sig: Inhale 2 Puffs as instructed two times a day. Lilian Amos LPN November 27, 2023 1:55 PM documented in this encounter [facility] 11-07-2023 History of Present illness Narrative [facility] Telephonic Outreach Provider Action/FYI -ckd ADLs/fall risk/SDOH updated 06/14/23 Contacted for: Routine Telephonic Outreach Contact made with patient: Yes Patient identified by name and date of . Discussed care with patient Are you experiencing any new or worsening symptoms you need to talk about today? No Disease Specific Do you check your blood pressure at home? No Do you have new or worsening shortness of breath with activity? No Do you feel like you are dehydrated for any reason, including not being able to eat or drink normally, or having less urine/much darker urine than normal for you? No discussed ways to keep herself hydrated other than just water and to have the goal of keeping her urine color pale yellow to clear Do you check your daily weight at home? No discussed rational for daily wts in terms of fluid retention Based on masonry contractor administrator, the following disposition is advised: No symptoms or symptoms present, not severe. Routed to: No Action Needed JACOB Education Provided this Outreach: No Arianna Lorenz RN November 07, 2023 4:02 PM documented in this encounter [facility] 10-24-2023 Telephone encounter Note Patient was seen in office and notified this provider of her mother (Marion Torres) passing. [facility] 10-24-2023 Miscellaneous Notes Patient was seen in office and notified this provider of her mother (Marion Torres) passing. documented in this encounter [facility] 10-24-2023 History of Present illness Narrative SUBJECTIVE Mae Grant is a 78 year old female here today for a check up on her medical problems. Chief Complaint Patient presents with: Medication Follow-up HPI Mae Grant is a 78 year old female. She is an established patient of Racquel Centeno MD. Here today for follow up. Seen 09/11 and discussed several concerns that she had. GERD- decreased Protonix, tolerating well. CKD/HTN- Stopped Maxzide and increased losartan, kidney function better but bp up today but also is dealing with a lot of stress. Asthma- Decreased Symbicort dose, short of breath with exertion but overall stable. Updated labs show improvement in kidney function. Mom this past Monday, is tomorrow. Having more stress with this. Sleep wasn't great last night. Her medications were reviewed today and her list is now up to date. Medications Current Outpatient Medications Medication Sig losartan (COZAAR) 100 mg tablet Take 1 tablet by mouth once daily. budesonide-formoterol (SYMBICORT) 80-4.5 mcg/actuation inhaler Inhale 2 Puffs as instructed two times a day. gabapentin (NEURONTIN) 600 mg tablet Take 1 tablet by mouth two times a day. PARoxetine (PAXIL) 20 mg tablet Take 1 tablet by mouth once daily. fluticasone (FLONASE) 50 mcg/actuation nasal spray Use 2 Sprays in each nostril once daily. Rinse mouth after albuterol HFA (PROVENTIL HFA, VENTOLIN HFA) 90 mcg/actuation inhaler Inhale 2 Puffs as instructed every 4 hours as needed for wheezing/shortness of breath. levothyroxine (SYNTHROID) 150 mcg tablet Take 1 tablet by mouth once daily. Take on empty stomach. For thyroid zolpidem (AMBIEN) 10 mg Take 1 tablet by mouth daily at bedtime for [address] (PROTONIX) 40 mg tablet Take 1 tablet by mouth once daily. Take on empty stomach, 1/2 hr before meal. - September 13, 2021 - take morning and veneing. LORazepam (ATIVAN) 0.5 mg Take 1 tablet by mouth three times a day as needed (anxiety) for up to 7 days. Ibuprofen 200 mg cap Take by mouth as needed. (Patient not taking: Reported on 10/24/2023) No current facility-administered medications for this visit. ALLERGIES Allergen Reactions Atenolol palpitations, chest discomfort Silenor [Doxepin] Other: See Comments palpitations (heart fluttered and chest felt strange) Tramadol Other: See Comments Unable to sleep - keeps her hyper ACTIVE PROBLEM LIST Moderate Recurrent Major Depression (Hcc) - 06/13/2023 Hypertensive Kidney Disease With Stage 3a Chronic Kidney Disease (Hcc) - 04/27/2022 Stage 3a Chronic Kidney Disease (Hcc) - 03/28/2021 Pain of Both Hip Joints - 08/21/2018 Ana On Cpap - 04/26/2016 Idiopathic Peripheral Autonomic Neuropathy - 04/26/2016 Anxiety and Depression - 04/26/2016 Left Carpal Tunnel Syndrome - 10/22/2013 Right Carpal Tunnel Syndrome - 10/18/2013 Impingement Syndrome of Both Shoulders - 09/09/2013 History of Fracture of Tibia - 04/22/2010 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, Including Shoulder - 12/05/2008 Abnormal Mammogram, Unspecified - 11/05/2008 Calcaneal Spur - 09/26/2006 Panic Disorder Without Agoraphobia Class 2 Obesity Due to Excess Calories Without Serious Comorbidity With Body Mass Index (Bmi) of 39.0 to 39.9 in Adult Insomnia, Unspecified Allergic Rhinitis, Cause Unspecified Comment: Allergic rhinitis Essential Hypertension Hypothyroidism Esophageal Reflux Social History Tobacco Use Smoking status: Never Smokeless tobacco: Never Tobacco comments: dad was smoker when she was growing up Substance Use Topics Alcohol use: No Drug use: No Review of Systems Respiratory: Negative. Cardiovascular: Negative. Psychiatric/Behavioral: Positive for sleep disturbance. Negative for self-injury and suicidal ideas. The patient is nervous/anxious. OBJECTIVE BP 160/88 Pulse 73 Wt 235 lb 10.8 oz (106.9kg) SpO2 97% Physical Exam Vitals and nursing note reviewed. Constitutional: General: She is awake. She is not in acute distress. Appearance: Normal appearance. She is well-developed and well-groomed. She is not ill-appearing, toxic-appearing or diaphoretic. HENT: Head: Normocephalic. Right Ear: External ear normal. Left Ear: External ear normal. Nose: Nose normal. Eyes: General: Vision grossly intact. Conjunctiva/sclera: Conjunctivae normal. Pupils: Pupils are equal, round, and reactive to light. Neck: Vascular: No JVD. Trachea: Trachea normal. Cardiovascular: Rate and Rhythm: Normal rate and regular rhythm. Pulses: Normal pulses. Heart sounds: Normal heart sounds. No murmur heard. Pulmonary: Effort: Pulmonary effort is normal. No accessory muscle usage, prolonged expiration or respiratory distress. Breath sounds: Normal breath sounds. Musculoskeletal: Cervical back: Neck supple. Skin: General: Skin is warm and dry. Capillary Refill: Capillary refill takes less than 2 seconds. Neurological: General: No focal deficit present. Mental Status: She is alert and oriented to person, place, and time. Mental status is at baseline. Psychiatric: Attention and Perception: Attention and perception normal. Mood and Affect: Mood and affect normal. Speech: Speech normal. Behavior: Behavior normal. Behavior is cooperative. Thought Content: Thought content normal. Cognition and Memory: Cognition and memory normal. Judgment: Judgment normal. ASSESSMENT/PLAN: 1. Essential hypertension - ICD9: 401.9, ICD10: I10 (primary diagnosis) - Factors affecting control: Stress from mom passing and this week - Continue current medications - Recommend home blood pressure monitoring, to bring results to next visit - Encouraged sodium restriction, DASH or Mediterranean diet - Recommend regular aerobic exercise - Monitor, return in about 1 month and if still elevated then adjust medication further 2. Situational mixed anxiety and depressive disorder - ICD9: 309.28, ICD10: F43.23 Short term ativan for stress with mom passing. - LORAZEPAM 0.5 MG TABLET 3. Acquired hypothyroidism - ICD9: 244.9, ICD10: E03.9 Stable. - LEVOTHYROXINE 150 MCG TABLET 4. Insomnia, unspecified type - ICD9: 780.52, ICD10: G47.00 Continue Ambien. - ZOLPIDEM 10 MG TABLET 5. Stage 3a chronic kidney disease (HCC) - ICD9: 585.3, ICD10: N18.31 - eGFR: 61 Improving - Counseled on avoiding NSAIDs, adequate hydration - Counseled on low sodium diet - ACEi/ARB prescribed: Yes 6. Gastroesophageal reflux disease without esophagitis - ICD9: 530.81, ICD10: K21.9 - Stable. 7. Mild intermittent asthma without complication - ICD9: 493.90, ICD10: J45.20 - Mild intermittent asthma stable - Continue current medications - Avoidance of triggers recommended Portions of this note have been entered by ancillary staff. I have reviewed and when necessary edited, so that they are an adequate record of my encounter with this patient Please note that parts of this document were created using voice recognition software and therefore may contain grammatical errors. Patient verbalizes understanding of instructions from today's visit and in agreement with treatment plan. Questions answered. Agrees to call the office if questions, concerns of issues with acute symptoms not improving or if they worsen. See diagnoses and orders for additional plan(s). Allergies and medications were reviewed, list was updated, and refills given if needed. Past medical, surgical, social, and family history reviewed and updated as appropriate. Encouraged proper diet & exercise as well as compliance with taking medications. Age-appropriate health preventative measures were discussed. Return if symptoms worsen or fail to improve, for Keep next scheduled appointment.. Felipe Estrada APRN-KYLAH documented in this encounter [facility] 10-10-2023 History of Present illness Narrative [facility] Telephonic Outreach Provider Action/FYI Contacted for: Routine Telephonic Outreach Contact made with patient: Yes Patient identified by name and date of . Discussed care with patient Are you experiencing any new or worsening symptoms you need to talk about today? No Disease Specific Based on masonry contractor administrator, the following disposition is advised: No symptoms or symptoms present, not severe. Routed to: No Action Needed JACOB Education Provided this Outreach: No -recently moved mother in with her who is now on hospice care. Hospice team in home so call cut short Saima Vasquez RN October 10, 2023 documented in this encounter [facility] 09-12-2023 Instructions Felipe Estrada APRN.KYLAH - 09/12/2023 11:06 AM EDT 1.Get a water bottle and figure out how many ounces it holds, try to get 64 ounces daily of water. This can be flavored water. 2. Be mindful of how much salt you get and try to limit salt. 3. Limit your use of ibuprofen, Advil or Aleve etc. Maybe try Tylenol first. 4. Stop the Maxzide and increase losartan to 100 mg daily. 5. Decrease the Symbicort inhaler to the 80-4.5 dose. 6. Decrease the pantoprazole (Protonix) to once daily. 7. Get blood work and follow up with us in 6 weeks. documented in this encounter [facility] 09-12-2023 History of Present illness Narrative SUBJECTIVE Mae Grant is a 78 year old female here today for a check up on her medical problems. Chief Complaint Patient presents with: F/U 3 Month: discuss lab results HPI Mae Grant is a 78 year old female. She is an established patient of Racquel Centeno MD. Here today for follow up. Had her labs done prior to visit. Concerns that her kidney function is worsening. Questioning changes in her medications and what else she can do to help her kidneys. Asthma has been stable and reflux has been stable. Has used her CPAP for years. [employer]. Last sleep study 2014. Benefits from PAP therapy, needs updated equipment. Her medications were reviewed today and her list is now up to date. Medications Current Outpatient Medications Medication Sig zolpidem (AMBIEN) 10 mg Take 1 tablet by mouth daily at bedtime for 180 days. albuterol HFA (PROVENTIL HFA, VENTOLIN HFA) 90 mcg/actuation inhaler Inhale 2 Puffs as instructed every 4 hours as needed for wheezing/shortness of breath. gabapentin (NEURONTIN) 600 mg tablet Take 1 tablet by mouth two times a day. PARoxetine (PAXIL) 20 mg tablet Take 1 tablet by mouth once daily. levothyroxine (SYNTHROID) 150 mcg tablet Take 1 tablet by mouth once daily. Take on empty stomach. For thyroid fluticasone (FLONASE) 50 mcg/actuation nasal spray Use 2 Sprays in each nostril once daily. Rinse mouth after Ibuprofen 200 mg cap Take by mouth as needed. pantoprazole DR (PROTONIX) 40 mg tablet Take 1 tablet by mouth once daily. Take on empty stomach, 1/2 hr before meal. - September 13, 2021 - take morning and veneing. losartan (COZAAR) 100 mg tablet Take 1 tablet by mouth once daily. budesonide-formoterol (SYMBICORT) 80-4.5 mcg/actuation inhaler Inhale 2 Puffs as instructed two times a day. No current facility-administered medications for this visit. ALLERGIES Allergen Reactions Atenolol palpitations, chest discomfort Silenor [Doxepin] Other: See Comments palpitations (heart fluttered and chest felt strange) Tramadol Other: See Comments Unable to sleep - keeps her hyper ACTIVE PROBLEM LIST Moderate Recurrent Major Depression (Hcc) - 06/13/2023 Hypertensive Kidney Disease With Stage 3a Chronic Kidney Disease (Hcc) - 04/27/2022 Stage 3a Chronic Kidney Disease (Hcc) - 03/28/2021 Pain of Both Hip Joints - 08/21/2018 Ana On Cpap - 04/26/2016 Idiopathic Peripheral Autonomic Neuropathy - 04/26/2016 Anxiety and Depression - 04/26/2016 Left Carpal Tunnel Syndrome - 10/22/2013 Right Carpal Tunnel Syndrome - 10/18/2013 Impingement Syndrome of Both Shoulders - 09/09/2013 History of Fracture of Tibia - 04/22/2010 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, 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 Respiratory: Negative. Cardiovascular: Negative. OBJECTIVE BP 118/68 Pulse 81 Wt 240 lb (108.9kg) SpO2 98% Physical Exam Vitals and nursing note reviewed. Constitutional: General: She is awake. She is not in acute distress. Appearance: Normal appearance. She is well-developed and well-groomed. She is not ill-appearing, toxic-appearing or diaphoretic. HENT: Head: Normocephalic. Right Ear: External ear normal. Left Ear: External ear normal. Nose: Nose normal. Eyes: General: Vision grossly intact. Conjunctiva/sclera: Conjunctivae normal. Pupils: Pupils are equal, round, and reactive to light. Neck: Vascular: No JVD. Trachea: Trachea normal. Cardiovascular: Rate and Rhythm: Normal rate and regular rhythm. Pulses: Normal pulses. Heart sounds: Normal heart sounds. No murmur heard. Pulmonary: Effort: Pulmonary effort is normal. No accessory muscle usage, prolonged expiration or respiratory distress. Breath sounds: Normal breath sounds. Musculoskeletal: Cervical back: Neck supple. Skin: General: Skin is warm and dry. Capillary Refill: Capillary refill takes less than 2 seconds. Neurological: General: No focal deficit present. Mental Status: She is alert and oriented to person, place, and time. Mental status is at baseline. Psychiatric: Attention and Perception: Attention and perception normal. Mood and Affect: Mood and affect normal. Speech: Speech normal. Behavior: Behavior normal. Behavior is cooperative. Thought Content: Thought content normal. Cognition and Memory: Cognition and memory normal. Judgment: Judgment normal. ASSESSMENT/PLAN: 1. Stage 3a chronic kidney disease (HCC) - ICD9: 585.3, ICD10: N18.31 (primary diagnosis) - eGFR: 42 Worsening - Counseled on avoiding NSAIDs, adequate hydration - Counseled on low sodium diet - ACEi/ARB prescribed: Yes - Medications reviewed and renally adjusted 2. Essential hypertension - ICD9: 401.9, ICD10: I10 - Controlled - Stop Maxzide and increase losartan - Recommend home blood pressure monitoring, to bring results to next visit - Encouraged sodium restriction, DASH or Mediterranean diet - Recommend regular aerobic exercise - LOSARTAN 100 MG TABLET - BASIC METABOLIC PANEL 3. Moderate persistent asthma without complication - ICD9: 493.90, ICD10: J45.40 - Moderate persistent asthma stable - Avoidance of triggers recommended - BUDESONIDE-FORMOTEROL HFA 80 MCG-4.5 MCG/ACTUATION AEROSOL INHALER 4. Gastroesophageal reflux disease without esophagitis - ICD9: 530.81, ICD10: K21.9 - Discussed lifestyle modifications including losing weight, limiting caffeine, no meals three hours before sleep, and head of bed elevation - Decrease Protonix dose since doing well. Portions of this note have been entered by ancillary staff. I have reviewed and when necessary edited, so that they are an adequate record of my encounter with this patient Please note that parts of this document were created using voice recognition software and therefore may contain grammatical errors. Patient verbalizes understanding of instructions from today's visit and in agreement with treatment plan. Questions answered. Agrees to call the office if questions, concerns of issues with acute symptoms not improving or if they worsen. See diagnoses and orders for additional plan(s). Allergies and medications were reviewed, list was updated, and refills given if needed. Past medical, surgical, social, and family history reviewed and updated as appropriate. Encouraged proper diet & exercise as well as compliance with taking medications. Age-appropriate health preventative measures were discussed. Return in about 6 weeks (around 10/24/2023) for Follow up on chronic conditions and medications.. Felipe Estrada APRN-KYLAH documented in this encounter [facility] 09-12-2023 History of Present illness Narrative [facility] Telephonic Outreach Provider Action/FYI monthly Contacted for: Routine Telephonic Outreach Contact made with patient: Yes Patient identified by name and date of . Discussed care with patient Are you experiencing any new or worsening symptoms you need to talk about today? No Disease Specific Do you check your blood pressure at home? No Do you have new or worsening shortness of breath with activity? No Based on masonry contractor administrator, the following disposition is advised: No symptoms or symptoms present, not severe. Routed to: No Action Needed JACOB Education Provided this Outreach: No -had PCP visit today. Some medication changes were made -working on drinking more water Saima Vasquez RN September 12, 2023 documented in this encounter [facility] 08-16-2023 History of Present illness Narrative [facility] Telephonic Outreach Provider Action/FYI monthly Contacted for: Routine Telephonic Outreach Contact made with patient: Yes Patient identified by name and date of . Discussed care with patient Are you experiencing any new or worsening symptoms you need to talk about today? No Disease Specific Do you check your blood pressure at home? No Do you have new or worsening shortness of breath with activity? No Based on masonry contractor administrator, the following disposition is advised: No symptoms or symptoms present, not severe. Routed to: No Action Needed JACOB Education Provided this Outreach: No -patient is staying inside due to hot weather -feels if she is doing better than she had been previously Saima Vasquez RN August 16, 2023 documented in this encounter [facility] 07-28-2023 History of Present illness Narrative Radiology Service Progress Note PATIENT NAME: Mae Grant DATE OF SERVICE: July 28, 2023 TIME: 11:41 AM PATIENT IDENTITY VERIFICATION COMPLETED USING TWO (2) IDENTIFIERS: Name and Date of confirmed by patient verbally. FALL SCREENING: Has the patient had 2 falls in the last year or 1 fall with injury or currently using an Ambulatory Assistive Device (Walker, Cane, Wheelchair, Crutches, etc.)? No PATIENT GENDER DATA: Female. status: Unknown status: NO. PATIENT RELEVANT IMPLANT DATA REVIEWED: Not Applicable PATIENT PRESENTS WITH AN IMPLANTABLE OR ATTACHED INTERNATIONAL COORDINATOR: No RADIOLOGY DEPARTMENT: Ultrasound PERIPHERAL IV DATA: Not applicable SIGNED BY: Saima Wright RDMS RVT July 28, 2023 11:41 AM documented in this encounter [facility] 07-17-2023 History of Present illness Narrative [facility] Telephonic Outreach Provider Action/FYI monthly Contacted for: Routine Telephonic Outreach Contact made with patient: Yes Patient identified by name and date of . Discussed care with patient Are you experiencing any new or worsening symptoms you need to talk about today? No Disease Specific Based on masonry contractor administrator, the following disposition is advised: No symptoms or symptoms present, not severe. Routed to: No Action Needed JACOB Education Provided this Outreach: No -had to reschedule US appt due to getting a flat on the way into the appt. -otherwise no concerns today -has been making it a point to not eat before she goes outside to do any work and this has really helped her pain as well as eating more small meals a day Saima Vasquez RN July 17, 2023 documented in this encounter [facility] 06-14-2023 History of Present illness Narrative [facility] Telephonic Outreach Provider Action/FYI monthly Contacted for: Routine Telephonic Outreach Contact made with patient: Yes Patient identified by name and date of . Discussed care with patient Are you experiencing any new or worsening symptoms you need to talk about today? No Disease Specific Do you check your blood pressure at home? Yes, Enter readings: 102/60 Do you have new or worsening shortness of breath with activity? No Based on masonry contractor administrator, the following disposition is advised: No symptoms or symptoms present, not severe. Routed to: No Action Needed JACOB Education Provided this Outreach: No -very happy to have some more answers to help find out the issues related to her chest pain PCP has set up more testing to further eval -has noted that breathing has been decent but has had some changes as the weather is changing. Looking forward to weather getting nice and being outside and getting more exercise Saima Vasquez RN June 14, 2023 documented in this encounter [facility] 06-13-2023 History of Present illness Narrative SUBJECTIVE Mae Grant is a 78 year old female here today for a check up on her medical problems. Chief Complaint Patient presents with: F/U 6 months: would like results of stress test explained to her. HPI Mae Grant is a 78 year old female. She is an established patient of Racquel Centeno MD. Here today for a 6 month follow up. She was recently seen in our office for concerns of chest pain. She completed a stress test. Negative for signs of ischemia, mild left vent hypertrophy, EF 65%, mild mitral regurg. She states that her chest pain happens if her stomach is full. Questioning control of her asthma. Gets out of breath with activities or if stomach is filled. Prior hiatal hernia noted on an EGD years ago. No recent imaging. Also she has concerns that she has a prior CKD diagnosis. Trying to limit NSAID use, wondering what other medication changes need made. Her medications were reviewed today and her list is now up to date. Medications Current Outpatient Medications Medication Sig pantoprazole DR (PROTONIX) 40 mg tablet Take 1 tablet by mouth two times a day. Take on empty stomach, 1/2 hr before meal. - September 13, 2021 - take morning and veneing. budesonide-formoterol (SYMBICORT) 160-4.5 mcg/actuation inhaler Inhale 2 Puffs as instructed two times a day. gabapentin (NEURONTIN) 600 mg tablet Take 1 tablet by mouth two times a day. PARoxetine (PAXIL) 20 mg tablet Take 1 tablet by mouth once daily. levothyroxine (SYNTHROID) 150 mcg tablet Take 1 tablet by mouth once daily. Take on empty stomach. For thyroid fluticasone (FLONASE) 50 mcg/actuation nasal spray Use 2 Sprays in each nostril once daily. Rinse mouth after loratadine 10 mg cap Take 1 capsule by mouth once daily. zolpidem (AMBIEN) 10 mg Take 1 tablet by mouth daily at bedtime for 180 days. losartan (COZAAR) 50 mg tablet Take 1 tablet by mouth once daily. PILL DOSE CHANGE DUE TO BACK ORDER, TAKE ONE 50 MG DAILY albuterol HFA (PROVENTIL HFA, VENTOLIN HFA) 90 mcg/actuation inhaler Inhale 2 Puffs as instructed every 4 hours as needed for wheezing/shortness of breath. triamterene-hydroCHLOROthiazide (MAXZIDE-25) 37.5-25 mg per tablet Take 0.5 tablets by mouth once daily. diphenhydramine HCl (ALLERGY ORAL) Take by mouth. Ibuprofen 200 mg cap Take by mouth as needed. No current facility-administered medications for this visit. ALLERGIES Allergen Reactions Atenolol palpitations, chest discomfort Silenor [Doxepin] Other: See Comments palpitations (heart fluttered and chest felt strange) Tramadol Other: See Comments Unable to sleep - keeps her hyper ACTIVE PROBLEM LIST Moderate Recurrent Major Depression (Hcc) - 06/13/2023 Hypertensive Kidney Disease With Stage 3a Chronic Kidney Disease (Hcc) - 04/27/2022 Stage 3a Chronic Kidney Disease (Hcc) - 03/28/2021 Pain of Both Hip Joints - 08/21/2018 Ana On Cpap - 04/26/2016 Idiopathic Peripheral Autonomic Neuropathy - 04/26/2016 Anxiety and Depression - 04/26/2016 Left Carpal Tunnel Syndrome - 10/22/2013 Right Carpal Tunnel Syndrome - 10/18/2013 Impingement Syndrome of Both Shoulders - 09/09/2013 History of Fracture of Tibia - 04/22/2010 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, 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 Respiratory: Negative. Cardiovascular: Negative. OBJECTIVE BP 102/68 Pulse 77 Wt 243 lb (110.2kg) SpO2 93% Physical Exam Vitals and nursing note reviewed. Constitutional: General: She is awake. She is not in acute distress. Appearance: Normal appearance. She is well-developed and well-groomed. She is not ill-appearing, toxic-appearing or diaphoretic. HENT: Head: Normocephalic. Right Ear: External ear normal. Left Ear: External ear normal. Nose: Nose normal. Eyes: General: Vision grossly intact. Conjunctiva/sclera: Conjunctivae normal. Pupils: Pupils are equal, round, and reactive to light. Neck: Vascular: No JVD. Trachea: Trachea normal. Cardiovascular: Rate and Rhythm: Normal rate and regular rhythm. Pulses: Normal pulses. Heart sounds: Normal heart sounds. No murmur heard. Pulmonary: Effort: Pulmonary effort is normal. No accessory muscle usage, prolonged expiration or respiratory distress. Breath sounds: Normal breath sounds. Musculoskeletal: Cervical back: Neck supple. Skin: General: Skin is warm and dry. Capillary Refill: Capillary refill takes less than 2 seconds. Neurological: General: No focal deficit present. Mental Status: She is alert and oriented to person, place, and time. Mental status is at baseline. Psychiatric: Attention and Perception: Attention and perception normal. Mood and Affect: Mood and affect normal. Speech: Speech normal. Behavior: Behavior normal. Behavior is cooperative. Thought Content: Thought content normal. Cognition and Memory: Cognition and memory normal. Judgment: Judgment normal. ASSESSMENT/PLAN: 1. Hiatal hernia - ICD9: 553.3, ICD10: K44.9 (primary diagnosis) Suspect this as a cause for a lot of her symptoms. - XR ESOPHAGRAM 2. Precordial pain - ICD9: 786.51, ICD10: R07.2 Reviewed recent stress ECHO results. 3. Insomnia, unspecified type - ICD9: 780.52, ICD10: G47.00 - ZOLPIDEM 10 MG TABLET 4. Essential hypertension - ICD9: 401.9, ICD10: I10 - Controlled - Decrease Maxzide - Recommend home blood pressure monitoring, to bring results to next visit - Encouraged sodium restriction, DASH or Mediterranean diet - Recommend regular aerobic exercise - LOSARTAN 50 MG TABLET - TRIAMTERENE 37.5 MG-HYDROCHLOROTHIAZIDE 25 MG TABLET 5. Moderate recurrent major depression (HCC) - ICD9: 296.32, ICD10: F33.1 We Will try adding Wellbutrin and see if helpful. 6. Stage 3a chronic kidney disease (HCC) - ICD9: 585.3, ICD10: N18.31 - eGFR: 52 Stable - Counseled on avoiding NSAIDs, adequate hydration - Counseled on low sodium diet - Medications reviewed and renally adjusted - COMPREHENSIVE METABOLIC PANEL Felipe Estrada APRN.CNP Portions of this note have been entered by ancillary staff. I have reviewed and when necessary edited, so that they are an adequate record of my encounter with this patient Please note that parts of this document were created using voice recognition software and therefore may contain grammatical errors. Patient verbalizes understanding of instructions from today's visit and in agreement with treatment plan. Questions answered. Agrees to call the office if questions, concerns of issues with acute symptoms not improving or if they worsen. See diagnoses and orders for additional plan(s). Allergies and medications were reviewed, list was updated, and refills given if needed. Past medical, surgical, social, and family history reviewed and updated as appropriate. Encouraged proper diet & exercise as well as compliance with taking medications. Age-appropriate health preventative measures were discussed. Return in about 3 months (around 09/12/2023) for recheck on blood pressure. Felipe Estrada APRN-KYLAH documented in this encounter [facility] 06-05-2023 Telephone encounter Note Noted no inducible ishemia and was able to get HR up to 86% MPHR. Good left ventricular ejection fraction at 65%. Noted abnormal chronotropic response index and heart rate recovery. This has to due with blunted heart rate response to activity and delayed return to normal range after exercise, respectively. This can be due to deconditioning. Poor exercise tolerance can be associated with poor health and prognosis. She can discuss with Felipe at upcoming appointment plans for improving exercise tolerance and whether to refer to cardiology to consider further cardiac testing. Would recommend follow up with Dr. Johanne Hutchinson to see whether should do just follow up PFTs or if other test for lung function needs done. Has eating smaller meals and avoiding eating before exercises decreased symptoms with activity? Has postnasal drainage improved since March? Will forward above to patient via MyChart message. Make sure she sees note. See MyChart reply [facility] 06-05-2023 Miscellaneous Notes Noted no inducible ishemia and was able to get HR up to 86% MPHR. Good left ventricular ejection fraction at 65%. Noted abnormal chronotropic response index and heart rate recovery. This has to due with blunted heart rate response to activity and delayed return to normal range after exercise, respectively. This can be due to deconditioning. Poor exercise tolerance can be associated with poor health and prognosis. She can discuss with Felipe at upcoming appointment plans for improving exercise tolerance and whether to refer to cardiology to consider further cardiac testing. Would recommend follow up with Dr. Johanne Hutchinson to see whether should do just follow up PFTs or if other test for lung function needs done. Has eating smaller meals and avoiding eating before exercises decreased symptoms with activity? Has postnasal drainage improved since March? Will forward above to patient via MyChart message. Make sure she sees note. See MyChart reply documented in this encounter [facility] 05-17-2023 History of Present illness Narrative [facility] Telephonic Outreach Provider Action/FYI monthly Contacted for: Routine Telephonic Outreach Contact made with patient: Yes Patient identified by name and date of . Discussed care with patient Are you experiencing any new or worsening symptoms you need to talk about today? No Disease Specific Do you have new or worsening shortness of breath with activity? No Based on masonry contractor administrator, the following disposition is advised: No symptoms or symptoms present, not severe. Routed to: No Action Needed JACOB Education Provided this Outreach: No -shares was doing better with inhaler -notes increased hoarseness but not sure if it is related to weather changes. Is not using nasal spray as she should but working on getting back to using it daily -the horrible feeling in my chest is not like it was knows now its time for inhaler Saima Vasquez RN May 17, 2023 documented in this encounter [facility] 05-03-2023 Miscellaneous Notes See other encounter. documented in this encounter [facility] 05-02-2023 Miscellaneous Notes See other message. documented in this encounter [facility] 04-19-2023 History of Present illness Narrative [facility] Telephonic Outreach Provider Action/FYI monthly Contacted for: Routine Telephonic Outreach Contact made with patient: Yes Patient identified by name and date of . Discussed care with patient Are you experiencing any new or worsening symptoms you need to talk about today? No Disease Specific Do you have new or worsening shortness of breath with activity? Yes Based on masonry contractor administrator, the following disposition is advised: No symptoms or symptoms present, not severe. Routed to: No Action Needed JACOB Education Provided this Outreach: No -working with PCP due to some newer shortness of breath issues upcoming stress test to help determine potential root causes -still dealing with phlegm utilizing treatments PCP suggested Saima Vasquez RN April 19, 2023 documented in this encounter [facility] 04-17-2023 Miscellaneous Notes Rec'd em [facility] for Budesonide formoterol. PA completed and this is the response. MAE GRANT (Bruce: [id number]) Rx #: [id number] Need Help? Call us at Outcome Additional Information Required The patient currently has access to the requested medication and a Prior Authorization is not needed for the patient/medication. Drug Budesonide-Formoterol Fumarate 160-4.5MCG/ACT aerosol ePA cloud logo Form [employer] Medicare Electronic PA Form (2016 NCPDP) Original Claim Info [id number] CONTACT [facility] DAILY DOSE OF .3400(PHARMACY HELP DESK )[id number]: Patient appeal noticerequired by [facility].[id number]: For RxLocal Coupon [place] of: $733.42 submit to BIN: [id number] PCN: LOCO Group: COUPON --Service provided at no cost and no switch fee to the pharmacy-- documented in this encounter [facility] 04-14-2023 Instructions Racquel Centeno MD - 04/14/2023 11:11 AM EST Try taking albuterol 2 puffs prior to exercise to see if helps with decreasing shortness of breath with exertion. May still take albuterol 2 puffs every 4 hours a needed. documented in this encounter [facility] 04-14-2023 History of Present illness Narrative This note was created using Single Touch Systems. Subjective Mae Grant is a 77 year old female. Patient presents with: Asthma SUBJECTIVE: Mae Grant is a 77 year old year old lady here today for follow up appointment for review of medical conditions. Feels like could be asthma or reflux being flared up Hard to go up hill--gets pain in midchest. Has to stop walking. No pain if had not eaten before walking up a hill, but still gets out of breath Pain between breast after eating and then moving and doing stuff. Does not bother her while sitting. Does worry about heart. Not hearing wheezing as much lately. Always having mucus--draining from sinuses or from chest. Feels film of it in mouth and down throat. Hot coffee helps. Has to get stuff out of sinuses and nose. Noted last stress test was done 2020 Still using CPAP. Uses the humidification. Has probiotics. Discussed okay to use for GI. Gas and fullness after meals so uses heartburn and gas chews. More for gas than for acid issues. Uses PPI two times daily. PAST MEDICAL HISTORY Diagnosis Date Abdominal pain, unspecified site Acute gastritis without mention of hemorrhage Allergic rhinitis, cause unspecified Allergic rhinitis Arthritis DDD (degenerative disc disease), cervical mild to moderate on MRI June 2013 Diarrhea Esophageal reflux Hepatitis in viral diseases classified elsewhere(573.1) Associated with mono (EBV) infection in early 2001 Insomnia, unspecified Obesity, unspecified ANA (obstructive sleep apnea) On CPAP Osteopenia Panic disorder without agoraphobia Unspecified essential hypertension Unspecified hypothyroidism Current Outpatient Medications Medication Sig gabapentin (NEURONTIN) 600 mg tablet Take 1 tablet by mouth two times a day. PARoxetine (PAXIL) 20 mg tablet Take 1 tablet by mouth once daily. pantoprazole DR (PROTONIX) 40 mg tablet Take 1 tablet by mouth daily before breakfast. Take on empty stomach, 1/2 hr before meal. - September 13, 2021 - take morning and veneing. fluticasone-salmeterol (ADVAIR, WIXELA) 250-50 mcg/dose inhaler Inhale 1 Puff as instructed two times a day. Rinse mouth after use zolpidem (AMBIEN) 10 mg Take 1 tablet by mouth daily at bedtime for 180 days. albuterol HFA (PROVENTIL HFA, VENTOLIN HFA) 90 mcg/actuation inhaler Inhale 2 Puffs as instructed every 4 hours as needed for wheezing/shortness of breath. ipratropium bromide (ATROVENT) 42 mcg (0.06 %) nasal spray Use 2 Sprays in the nose four times a day as needed. levothyroxine (SYNTHROID) 150 mcg tablet Take 1 tablet by mouth once daily. Take on empty stomach. For thyroid triamterene-hydroCHLOROthiazide (MAXZIDE-25) 37.5-25 mg per tablet Take 1 tablet by mouth once daily. losartan (COZAAR) 50 mg tablet Take 1 tablet by mouth once daily. PILL DOSE CHANGE DUE TO BACK ORDER, TAKE ONE 50 MG DAILY fluticasone (FLONASE) 50 mcg/actuation nasal spray Use 2 Sprays in each nostril once daily. Rinse mouth after loratadine 10 mg cap Take 1 capsule by mouth once daily. diphenhydramine HCl (ALLERGY ORAL) Take by mouth. Cyanocobalamin (VITAMIN B-12) 1,000 mcg subl Dissolve 1 tablet under the tongue once daily. Ibuprofen 200 mg cap Take by mouth as needed. No current facility-administered medications for this visit. Review of Systems Objective BP (P) 114/64 (BP Site: Left Arm, BP Position: Sitting, BP Cuff Size: Large Adult) Pulse (P) 78 Resp (P) 18 Wt (P) 109.8 kg (242 lb) BMI (P) 38.02 kg/m Last 5 Encounter Wt Readings: Date: Wt: 01/30/2023 108.4 kg (239 lb) 01/28/2023 109.7 kg (241 lb 12.8 oz) 12/02/2022 108.4 kg (239 lb) 04/29/2022 109.8 kg (242 lb) 09/21/2021 113.1 kg (249 lb 6.4 oz) No waist measurement recorded Estimated body mass index is 38.02 kg/m (pended) as calculated from the following: Height as of 09/21/21: 169.9 cm (5' 6.9). Weight as of this encounter: (P) 109.8 kg (242 lb). Last 5 Encounter BP Readings: Date: BP: 01/30/2023 130/78 01/28/2023 138/82 12/02/2022 80/54 04/29/2022 126/78 09/17/2021 136/82 Physical Exam Constitutional: Appearance: Normal appearance. HENT: Head: Normocephalic. Eyes: Conjunctiva/sclera: Conjunctivae normal. Cardiovascular: Rate and Rhythm: Normal rate and regular rhythm. Heart sounds: Normal heart sounds. Pulmonary: Effort: Pulmonary effort is normal. Breath sounds: Normal breath sounds. Musculoskeletal: Right lower leg: No edema. Left lower leg: No edema. Skin: General: Skin is warm and dry. Neurological: General: No focal deficit present. Mental Status: She is alert and oriented to person, place, and time. Psychiatric: Mood and Affect: Mood normal. Behavior: Behavior normal. Thought Content: Thought content normal. Judgment: Judgment normal. Component Latest Ref Rng & Units 09/08/2021 12/02/2022 04/12/2023 WBC 3.70 - 11.00 k/uL 8.34 6.06 RBC 3.90 - 5.20 m/uL 4.91 5.35 (H) Hemoglobin 11.5 - 15.5 g/dL 13.3 14.5 Hematocrit 36.0 - 46.0 % 40.6 43.7 MCV 80.0 - 100.0 fL 82.7 81.7 MCH 26.0 - 34.0 pg 27.1 27.1 MCHC 30.5 - 36.0 g/dL 32.8 33.2 RDW-CV 11.5 - 15.0 % 14.8 14.6 Platelet Count 150 - 400 k/uL 256 240 MPV 9.0 - 12.7 fL 10.5 10.1 Neut% % 62.6 Abs Neut (ANC) 1.45 - 7.50 k/uL 5.22 Lymph% % 23.7 Abs Lymph 1.00 - 4.00 k/uL 1.98 [place]% % 9.5 Abs [place] <0.87 k/uL 0.79 Eosin% % 2.9 Abs Eosin <0.46 k/uL 0.24 Baso% % 0.6 Abs Baso <0.11 k/uL 0.05 Immature Gran % % 0.7 IMMATURE GRANS (ABS) <0.10 k/uL 0.06 NRBC /100 WBC 0.0 Absolute nRBC <0.01 k/uL <0.01 <0.01 DTYPE Auto Protein, Total 6.3 - 8.0 g/dL 7.1 7.6 7.4 Albumin 3.9 - 4.9 g/dL 4.0 4.4 4.2 Calcium 8.5 - 10.2 mg/dL 9.9 9.9 9.8 Bilirubin, Total 0.2 - 1.3 mg/dL 0.4 0.8 0.6 Alkaline Phosphatase 34 - 123 U/L 93 100 89 AST 13 - 35 U/L 15 15 12 (L) ALT 7 - 38 U/L 12 14 9 Glucose 74 - 99 mg/dL 106 (H) 129 (H) 100 (H) BUN 7 - 21 mg/dL 25 (H) 27 (H) 18 Creatinine 0.58 - 0.96 mg/dL 1.11 (H) 1.14 (H) 1.12 (H) Sodium 136 - 144 mmol/L 139 138 141 Potassium 3.7 - 5.1 mmol/L 3.9 4.0 4.5 Chloride 97 - 105 mmol/L 103 102 103 CO2 22 - 30 mmol/L 25 24 26 Anion Gap 9 - 18 mmol/L 11 12 12 eGFR >=60 mL/min/1.73m 52 (L) 50 (L) 51 (L) Total Cholesterol, Nonfasting <200 mg/dL 154 Triglycerides, Nonfasting <150 mg/dL 235 (H) HDL Cholesterol, Nonfasting >39 mg/dL 25 (L) LDL Cholesterol, Nonfasting <100 mg/dL 82 Non HDL Cholesterol, Nonfasting <130 mg/dL 129 VLDL Cholesterol, Nonfasting <30 mg/dL 47 (H) Total Chol/HDL Ratio, Nonfasting <5.10 mg/dL 6.16 (H) LDL/HDL Ratio, Nonfasting <2.54 mg/dL 3.28 (H) Hemoglobin A1C 4.3 - 5.6 % 5.6 5.3 Estimated Average Glucose mg/dL 114 105 TSH 0.270 - 4.200 mIU/L 1.480 0.615 1.030 Free T4 0.9 - 1.7 ng/dL 1.3 1.6 1.3 Magnesium 1.7 - 2.3 mg/dL 2.0 2.1 Free T3 2.3 - 4.1 pg/mL 2.6 NT Pro BNP <450 pg/mL 82 The 10-year ASCVD risk score (Denisa RUSSO, et al., 2019) is: 19.4% Values used to calculate the score: Age: 77 years Sex: Female Is Non- : No Diabetic: No Tobacco smoker: No Systolic Blood Pressure: 114 mmHg Is BP treated: Yes HDL Cholesterol: 25 mg/dL Total Cholesterol: 154 mg/dL Assessment and Plan Encounter Diagnosis ICD-10-CM 1. Precordial pain R07.2 STRESS ECHO TREADMILL perflutren lipid microspheres 1.3 mL in NaCl (PF) 0.9% 10 mL injection (DEFINITY) sodium chloride 0.9 % (flush) 10 mL (BD POSIFLUSH) Substernal chestp pain with exertion, worse after eating 2. Shortness of breath R06.02 STRESS ECHO TREADMILL perflutren lipid microspheres 1.3 mL in NaCl (PF) 0.9% 10 mL injection (DEFINITY) sodium chloride 0.9 % (flush) 10 mL (BD POSIFLUSH) with exertion 3. Moderate persistent asthma with acute exacerbation J45.41 budesonide-formoterol (SYMBICORT) 160-4.5 mcg/actuation inhaler Above issues addressed with patient. Patient involved in shared decision making for management of medical issues. History and medications reviewed. Epic updated as needed Refills and/or prescriptions taken care of and meds adjusted as indicated after reviewed history, exam and labs. Health Maintenance reviewed. Updated record and/or ordered tests as recorded. Encouraged on efforts at healthy diet and regular exercise and adequate sleep. I spent a total of 39 minutes on the date of the service which included [id number] patient care, completing clinical documentation, obtaining and/or reviewing separately obtained history, performing a medically appropriate examination, counseling and educating the patient/family/caregiver, ordering medications, tests, or procedures, independently interpreting results (not separately reported), and communicating results to the patient/family/caregiver. Racquel Centeno MD documented in this encounter [facility] 04-12-2023 Miscellaneous Notes To be addressed at appointment on 04/14 Breanna Castanon APRN.TICK SEWER documented in this encounter [facility] 04-11-2023 Miscellaneous Notes Patient notified of providers message and verbalized understanding. Appointment scheduled. See MyChart reply Help make follow up appointment to decide on further evaluation and treatment. I filed lab orders so may update anytime to maker no issues such as anemia, problems with kidney function or electrolytes, and check blood test to screen for signs of CHF. documented in this encounter [facility] 04-05-2023 History of Present illness Narrative [facility] Telephonic Outreach Provider Action/FYI monthly Contacted for: Routine Telephonic Outreach Contact made with patient: No, unable to leave message. Phone rings and then silence Will reattempt call Saima Vasquez RN April 05, 2023 1:01 PM documented in this encounter [facility] 02-14-2023 History of Present illness Narrative [facility] Telephonic Outreach Provider Action/FYI Contacted for: Routine Telephonic Outreach Contact made with patient: No, left message. Saima Vasquez RN February 14, 2023 12:54 PM documented in this encounter [facility] 01-30-2023 Instructions Felipe Estrada APRN.KYLAH - 01/30/2023 2:02 PM EST Ok to use the albuterol inhaler as needed (Proventil or Ventolin because either is ok) you can use this as often as every 4 hours. Keep taking the prednisone. Use the Flonase if you have a lot of drainage needing dried up like runny nose or post-nasal drainage, not ideal to use if feeling dried up already. To replace Trellegy start Advair two times daily, 1 puff and rinse mouth after use. If the Advair is expensive, tell them to put it back and call and let us know. documented in this encounter [facility] 01-30-2023 History of Present illness Narrative SUBJECTIVE Mae Grant is a 77 year old female here today for an Express Care follow up. Chief Complaint Patient presents with: Ectropion Follow Up HPI Mae Grant is a 77 year old female. Here today for an Express Care follow up. Issues with cough, shortness of breath, prednisone is helping. CXR was clear. No flu, COVID or RSV. Overall she is noticing some improvement. Her main concern is figuring out what medications she should be taking and is best for her. Her medications were reviewed today and her list is now up to date. Medications Current Outpatient Medications Medication Sig predniSONE (DELTASONE) 10 mg tablet Take by mouth 6 pills on day 1, 5 pills on day 2, 4 pills on day 3, 3 pills on day 4, 2 pills on day 5, 1 pill on day 6 zolpidem (AMBIEN) 10 mg Take 1 tablet by mouth daily at bedtime for 180 days. albuterol HFA (PROVENTIL HFA, VENTOLIN HFA) 90 mcg/actuation inhaler Inhale 2 Puffs as instructed every 4 hours as needed for wheezing/shortness of breath. ipratropium bromide (ATROVENT) 42 mcg (0.06 %) nasal spray Use 2 Sprays in the nose four times a day as needed. levothyroxine (SYNTHROID) 150 mcg tablet Take 1 tablet by mouth once daily. Take on empty stomach. For thyroid triamterene-hydroCHLOROthiazide (MAXZIDE-25) 37.5-25 mg per tablet Take 1 tablet by mouth once daily. PARoxetine (PAXIL) 20 mg tablet Take 1 tablet by mouth once daily. losartan (COZAAR) 50 mg tablet Take 1 tablet by mouth once daily. PILL DOSE CHANGE DUE TO BACK ORDER, TAKE ONE [address] (PROTONIX) 40 mg tablet Take 1 tablet by mouth daily before breakfast. Take on empty stomach, 1/2 hr before meal. - September 13, 2021 - take morning and veneing. fluticasone (FLONASE) 50 mcg/actuation nasal spray Use 2 Sprays in each nostril once daily. Rinse mouth after loratadine 10 mg cap Take 1 capsule by mouth once daily. diphenhydramine HCl (ALLERGY ORAL) Take by mouth. Ibuprofen 200 mg cap Take by mouth as needed. fluticasone-salmeterol (ADVAIR, WIXELA) 250-50 mcg/dose inhaler Inhale 1 Puff as instructed two times a day. Rinse mouth after use gabapentin (NEURONTIN) 600 mg tablet Take 1 tablet by mouth twice daily. Cyanocobalamin (VITAMIN B-12) 1,000 mcg subl Dissolve 1 tablet under the tongue once daily. (Patient not taking: Reported on 12/02/2022) No current facility-administered medications for this visit. ALLERGIES Allergen Reactions Atenolol palpitations, chest discomfort Silenor [Doxepin] Other: See Comments palpitations (heart fluttered and chest felt strange) Tramadol Other: See Comments Unable to sleep - keeps her hyper ACTIVE PROBLEM LIST Hypertensive Kidney Disease With Stage 3a Chronic Kidney Disease (Hcc) - 04/27/2022 Stage 3a Chronic Kidney Disease (Hcc) - 03/28/2021 Pain of Both Hip Joints - 08/21/2018 Ana On Cpap - 04/26/2016 Idiopathic Peripheral Autonomic Neuropathy - 04/26/2016 Anxiety and Depression - 04/26/2016 Left Carpal Tunnel Syndrome - 10/22/2013 Right Carpal Tunnel Syndrome - 10/18/2013 Impingement Syndrome of Both Shoulders - 09/09/2013 History of Fracture of Tibia - 04/22/2010 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, Including Shoulder - 12/05/2008 Abnormal Mammogram, Unspecified - 11/05/2008 [place] Sp[place] - 09/26/2006 Panic Disorder Without Agoraphobia Class 2 Obesity Due to Excess Calories Without Serious Comorbidity With Body Mass Index (Bmi) of 39.0 to 39.9 in Adult Insomnia, Unspecified Allergic Rhinitis, Cause Unspecified Comment: Allergic rhinitis Essential Hypertension Hypothyroidism Esophageal Reflux Social History Tobacco Use Smoking status: Never Smokeless tobacco: Never Tobacco comments: dad was smoker when she was growing up Substance Use Topics Alcohol use: No Drug use: No Review of Systems Respiratory: Positive for cough, chest tightness and shortness of breath. Negative for apnea, choking, wheezing and stridor. Cardiovascular: Negative. OBJECTIVE BP 130/78 Pulse 85 Resp 16 Wt 239 lb (108.4kg) SpO2 97% Physical Exam Vitals and nursing note reviewed. Constitutional: General: She is awake. She is not in acute distress. Appearance: Normal appearance. She is well-developed and well-groomed. She is not ill-appearing, toxic-appearing or diaphoretic. HENT: Head: Normocephalic. Right Ear: External ear normal. Left Ear: External ear normal. Nose: Nose normal. Eyes: General: Vision grossly intact. Conjunctiva/sclera: Conjunctivae normal. Pupils: Pupils are equal, round, and reactive to light. Neck: Vascular: No JVD. Trachea: Trachea normal. Cardiovascular: Rate and Rhythm: Normal rate and regular rhythm. Pulses: Normal pulses. Heart sounds: Normal heart sounds. No murmur heard. Pulmonary: Effort: Pulmonary effort is normal. No accessory muscle usage, prolonged expiration or respiratory distress. Breath sounds: Normal breath sounds. Musculoskeletal: Cervical back: Neck supple. Skin: General: Skin is warm and dry. Capillary Refill: Capillary refill takes less than 2 seconds. Neurological: General: No focal deficit present. Mental Status: She is alert and oriented to person, place, and time. Mental status is at baseline. Psychiatric: Attention and Perception: Attention and perception normal. Mood and Affect: Mood and affect normal. Speech: Speech normal. Behavior: Behavior normal. Behavior is cooperative. Thought Content: Thought content normal. Cognition and Memory: Cognition and memory normal. Judgment: Judgment normal. ASSESSMENT/PLAN: 1. Moderate persistent asthma with acute exacerbation - ICD9: 493.92, ICD10: J45.41 (primary diagnosis) - Moderate persistent asthma acute excacerbation without status and no respiratory distress - Continue current medications - Start fluticasone-salmeterol (ADVAIR DISKUS) - Albuterol 2 puffs prn - Exacerbation treatment of steroid as prescribed by EC. - Avoidance of triggers recommended - FLUTICASONE 250 MCG-SALMETEROL 50 MCG/DOSE BLISTR POWDR FOR INHALATION 2. Upper respiratory tract infection, unspecified type - ICD9: 465.9, ICD10: J06.9 - Discussed viral etiology and rationale for treatment. - Symptomatic treatment with prn analgesia - Supportive care with fluids and rest Portions of this note have been entered by ancillary staff. I have reviewed and when necessary edited, so that they are an adequate record of my encounter with this patient Please note that parts of this document were created using voice recognition software and therefore may contain grammatical errors. Patient verbalizes understanding of instructions from today's visit and in agreement with treatment plan. Questions answered. Agrees to call the office if questions, concerns of issues with acute symptoms not improving or if they worsen. See diagnoses and orders for additional plan(s). Allergies and medications were reviewed, list was updated, and refills given if needed. Past medical, surgical, social, and family history reviewed and updated as appropriate. Encouraged proper diet & exercise as well as compliance with taking medications. Age-appropriate health preventative measures were discussed. Return if symptoms worsen or fail to improve, for Keep next scheduled appointment.. Felipe Estrada APRN-KYLAH documented in this encounter [facility] 01-28-2023 History of Present illness Narrative Radiology Service Progress Note PATIENT NAME: Mae Grant DATE OF SERVICE: January 28, 2023 TIME: 9:00 AM PATIENT IDENTITY VERIFICATION COMPLETED USING TWO (2) IDENTIFIERS: Name and Date of confirmed by patient verbally. FALL SCREENING: Has the patient had 2 falls in the last year or 1 fall with injury or currently using an Ambulatory Assistive Device (Walker, Cane, Wheelchair, Crutches, etc.)? No PATIENT GENDER DATA: Female. status: : No status: NO. PATIENT RELEVANT IMPLANT DATA REVIEWED: Not Applicable RADIOLOGY DEPARTMENT: General X-ray: Exam(s) Completed: Chest X-Ray PERIPHERAL IV DATA: Not applicable SIGNED BY: RT Perlita(R) January 28, 2023 9:00 AM documented in this encounter [facility] 12-21-2022 Miscellaneous Notes This has been approved from 02/27/22 to 12/21/2023. Pharmacy notified. Pt notified via my chart. MAE GRANT (Bruce: [id number]) - [id number] Ambien 10MG tablets Status: PA Response - Approved Created: December 21, 2022 Sent: December 21, 2022 Per closed encounter PA needed for ambien. This was completed on covermymeds. MAE GRANT (Bruce: [id number]) - [id number] Ambien 10MG tablets Status: PA Request Created: December 21, 2022 Sent: December 21, 2022 documented in this encounter [facility] 12-19-2022 History of Present illness Narrative M Telephonic Outreach Provider Action/FYI CKD monthly Contacted for: Routine Telephonic Outreach Contact made with patient: Yes Patient identified by name and date of . Discussed care with patient Are you experiencing any new or worsening symptoms you need to talk about today? No Disease Specific Do you have new or worsening shortness of breath with activity? No Based on masonry contractor administrator, the following disposition is advised: No symptoms or symptoms present, not severe. Routed to: No Action Needed JACOB Education Provided this Outreach: No -patient shares that her is currently at the [place] [facility] and not doing well so she is very stressed due to all of the traveling back and forth -shares that her hoarseness is also clearing up well -still using inhaler morning and evening with good results -denies any other concerns at this time Saima Vasquez RN December 19, 2022 documented in this encounter [facility] 12-15-2022 Miscellaneous Notes Spoke with pt and information listed below given. Pt verbalizes understanding. Yoana Harrison LPN The following approved medication requests have been transmitted electronically. Requested Prescriptions Signed Prescriptions Disp Refills zolpidem (AMBIEN) 10 mg 90 tablet 1 Sig: Take 1 tablet by mouth daily at bedtime for 180 days. Authorizing Provider: RACQUEL CENTENO MD Patient calling and requesting refill of Zolpidem, as pended. Thank you. Requested Prescriptions Pending Prescriptions Disp Refills zolpidem (AMBIEN) 10 mg 90 tablet 0 Sig: Take 1 tablet by mouth daily at bedtime for 90 days. Last encounter with this provider: 12/02/2022 Next appt: 06/05/2023 Breanne Daniels RN documented in this encounter [facility] 12-02-2022 History of Present illness Narrative This note was created using [employer]. Subjective Mae Grant is a 77 year old female. Patient presents with: F/U 6 months SUBJECTIVE: Mae Grant is a 77 year old year old lady here today for 6 month follow up appointment for review of medical conditions. Cost of Trelegy prohibitive. Needing albuterol once daily. Gets hoarse and lots of nasal drainage and phlegm. Even before stopping Trelegy. Resumed Flonase in the past month or so. Not helping in [place] [facility]. PAST MEDICAL HISTORY Diagnosis Date Abdominal pain, unspecified site Acute gastritis without mention of hemorrhage Allergic rhinitis, cause unspecified Allergic rhinitis Arthritis DDD (degenerative disc disease), cervical mild to moderate on MRI June 2013 Diarrhea Esophageal reflux Hepatitis in viral diseases classified elsewhere(573.1) Associated with mono (EBV) infection in early 2001 Insomnia, unspecified Obesity, unspecified ANA (obstructive sleep apnea) On CPAP Osteopenia Panic disorder without agoraphobia Unspecified essential hypertension Unspecified hypothyroidism Current Outpatient Medications Medication Sig npfpnpbksdz-vnnhqyiso-aewbsmqo (TRELEGY ELLIPTA) 200-62.5-25 mcg inhalation powder Inhale 1 Puff as instructed once daily. levothyroxine (SYNTHROID) 150 mcg tablet Take 1 tablet by mouth once daily. Take on empty stomach. For thyroid triamterene-hydroCHLOROthiazide (MAXZIDE-25) 37.5-25 mg per tablet Take 1 tablet by mouth once daily. zolpidem (AMBIEN) 10 mg Take 1 tablet by mouth daily at bedtime for 90 days. PARoxetine (PAXIL) 20 mg tablet Take 1 tablet by mouth once daily. losartan (COZAAR) 50 mg tablet Take 1 tablet by mouth once daily. PILL DOSE CHANGE DUE TO BACK ORDER, TAKE ONE [address] (PROTONIX) 40 mg tablet Take 1 tablet by mouth daily before breakfast. Take on empty stomach, 1/2 hr before meal. - September 13, 2021 - take morning and veneing. fluticasone (FLONASE) 50 mcg/actuation nasal spray Use 2 Sprays in each nostril once daily. Rinse mouth after albuterol HFA (PROVENTIL HFA, VENTOLIN HFA) 90 mcg/actuation inhaler Inhale 2 Puffs as instructed every 4 hours as needed for wheezing/shortness of breath. gabapentin (NEURONTIN) 600 mg tablet Take 1 tablet by mouth twice daily. diphenhydramine HCl (ALLERGY ORAL) Take by mouth. Ibuprofen 200 mg cap Take by mouth as needed. zolpidem (AMBIEN) 10 mg Take 1 tablet by mouth daily at bedtime for 90 days. loratadine 10 mg cap Take 1 capsule by mouth once daily. Inhalational Spacing Device Use as directed with albuterol Cyanocobalamin (VITAMIN B-12) 1,000 mcg subl Dissolve 1 tablet under the tongue once daily. (Patient not taking: Reported on 12/02/2022) No current facility-administered medications for this visit. Review of Systems Objective BP 80/54 Pulse 90 Wt 108.4 kg (239 lb) SpO2 96% BMI 37.54 kg/m Physical Exam Constitutional: Appearance: Normal appearance. HENT: Head: Normocephalic. Eyes: Conjunctiva/sclera: Conjunctivae normal. Cardiovascular: Rate and Rhythm: Normal rate and regular rhythm. Heart sounds: Normal heart sounds. Pulmonary: Effort: Pulmonary effort is normal. Breath sounds: Normal breath sounds. Musculoskeletal: Right lower le+ Edema present. Left lower le+ Edema present. Skin: General: Skin is warm and dry. Neurological: General: No focal deficit present. Mental Status: She is alert and oriented to person, place, and time. Psychiatric: Mood and Affect: Mood normal. Behavior: Behavior normal. Thought Content: Thought content normal. Judgment: Judgment normal. Component Latest Ref Rng & Units 08/25/2020 09/08/2021 12/02/2022 WBC 3.70 - 11.00 k/uL 8.05 8.34 9.79 RBC 3.90 - 5.20 m/uL 5.10 4.91 5.47 (H) Hemoglobin 11.5 - 15.5 g/dL 14.0 13.3 15.1 Hematocrit 36.0 - 46.0 % 41.8 40.6 46.0 MCV 80.0 - 100.0 fL 82.0 82.7 84.1 MCH 26.0 - 34.0 pg 27.5 27.1 27.6 MCHC 30.5 - 36.0 g/dL 33.5 32.8 32.8 RDW-CV 11.5 - 15.0 % 14.5 14.8 14.5 Platelet Count 150 - 400 k/uL 216 256 246 MPV 9.0 - 12.7 fL 9.8 10.5 10.3 Neut% % 62.6 Abs Neut (ANC) 1.45 - 7.50 k/uL 5.22 Lymph% % 23.7 Abs Lymph 1.00 - 4.00 k/uL 1.98 [place]% % 9.5 Abs [place] <0.87 k/uL 0.79 Eosin% % 2.9 Abs Eosin <0.46 k/uL 0.24 Baso% % 0.6 Abs Baso <0.11 k/uL 0.05 Immature Gran % % 0.7 IMMATURE GRANS (ABS) <0.10 k/uL 0.06 NRBC /100 WBC 0.0 Absolute nRBC <0.01 k/uL <0.01 <0.01 <0.01 DTYPE Auto Protein, Total 6.3 - 8.0 g/dL 7.2 7.1 7.6 Albumin 3.9 - 4.9 g/dL 4.5 4.0 4.4 Calcium 8.5 - 10.2 mg/dL 9.7 9.9 9.9 Bilirubin, Total 0.2 - 1.3 mg/dL 0.5 0.4 0.8 Alkaline Phosphatase 34 - 123 U/L 100 93 100 AST 13 - 35 U/L 16 15 15 Glucose 74 - 99 mg/dL 120 (H) 106 (H) 129 (H) BUN 7 - 21 mg/dL 26 (H) 25 (H) 27 (H) Creatinine 0.58 - 0.96 mg/dL 0.98 (H) 1.11 (H) 1.14 (H) Sodium 136 - 144 mmol/L 138 139 138 Potassium 3.7 - 5.1 mmol/L 3.9 3.9 4.0 Chloride 97 - 105 mmol/L 103 103 102 CO2 22 - 30 mmol/L 25 25 24 Anion Gap 9 - 18 mmol/L 10 11 12 ALT 7 - 38 U/L 18 12 14 eGFR- >60 eGFR-All Other Races . 55 eGFR >=60 mL/min/1.73m 52 (L) 50 (L) Total Cholesterol, Nonfasting <200 mg/dL 154 Triglycerides, Nonfasting <150 mg/dL 235 (H) HDL Cholesterol, Nonfasting >39 mg/dL 25 (L) LDL Cholesterol, Nonfasting <100 mg/dL 82 Non HDL Cholesterol, Nonfasting <130 mg/dL 129 VLDL Cholesterol, Nonfasting <30 mg/dL 47 (H) Total Chol/HDL Ratio, Nonfasting <5.10 mg/dL 6.16 (H) LDL/HDL Ratio, Nonfasting <2.54 mg/dL 3.28 (H) Hemoglobin A1C 4.3 - 5.6 % 5.8 (H) 5.6 5.3 Estimated Average Glucose mg/dL 120 114 105 TSH 0.270 - 4.200 mIU/L 3.060 1.480 0.615 Free T4 0.9 - 1.7 ng/dL 1.2 1.3 1.6 Free T3 2.3 - 4.1 pg/mL 2.4 Magnesium 1.7 - 2.3 mg/dL 1.9 2.0 2.1 Component Latest Ref Rng & Units 04/23/2013 10/15/2013 07/09/2015 04/06/2016 03/30/2017 12/02/2022 Triglyceride <150 mg/dL 131 84 172 (H) 157 (H) 110 Cholesterol, Total <200 mg/dL 168 183 175 167 166 HDL Cholesterol >39 mg/dL 31 (L) 42 (L) 26 (L) 26 (L) 30 (L) VLDL Cholesterol <30 mg/dL 26 17 34 31 22 LDL Cholesterol <100 mg/dL 111 124 115 110 114 (H) Fasting Time hrs FASTING FASTING FASTING 14 11 TC:HDL Ratio <5.10 5.42 (H) 4.36 6.73 (H) 6.42 (H) 5.53 (H) LDL:HDL Ratio <2.54 3.58 (H) 2.95 4.42 (H) 4.23 (H) 3.80 (H) Non HDL Cholesterol <130 mg/dL 137 141 149 141 136 (H) Total Cholesterol, Nonfasting <200 mg/dL 154 Triglycerides, Nonfasting <150 mg/dL 235 (H) HDL Cholesterol, Nonfasting >39 mg/dL 25 (L) LDL Cholesterol, Nonfasting <100 mg/dL 82 Non HDL Cholesterol, Nonfasting <130 mg/dL 129 VLDL Cholesterol, Nonfasting <30 mg/dL 47 (H) Total Chol/HDL Ratio, Nonfasting <5.10 mg/dL 6.16 (H) LDL/HDL Ratio, Nonfasting <2.54 mg/dL 3.28 (H) Assessment and Plan Encounter Diagnosis ICD-10-CM 1. Essential hypertension I10 COMP METABOLIC PANEL CBC Running low without symptoms; encouraged adequate hydration and ssalt intake; adjust meds as indicated 2. IFG (impaired fasting glucose) R73.01 COMP METABOLIC PANEL HGB A1C Still IFG and not DM level glucose and HgA1C. See below 3. Acquired hypothyroidism E03.9 TSH BLD T4 FREE/FREE THYROX Clinically euthyroid. Adjust dose as indicated after labs 4. Class 2 obesity due to excess calories with body mass index (BMI) of 37.0 to 37.9 in adult, unspecified whether serious comorbidity present E66.09 Z68.37 Doing well with gradual weight loss though starting to plateau. Keep up efforts at healthier diet and staying active. 5. Elevated LDL cholesterol level E78.00 LIPID PANEL, NONFASTING Improved. Continues present management. Noted TG up but lipids were nonfasting 6. Encounter for immunization Z23 INFLUENZA VACCINE, PRSV FREE, AGE 65+ YR, HIGH DOSE, QUADRIVALENT (FLUZONE HIGH-DOSE) [employer] COVID-19 VACCINE ( [place]) AGE 12+ YR 7. Encounter for long-term current use of medication Z79.899 COMP METABOLIC PANEL CBC HGB A1C TSH BLD MAGNESIUM BLD T4 FREE/FREE THYROX 8. Stage 3a chronic kidney disease (HCC) N18.31 Labs continue to be in CKD3A level but seems to be consistently with elevated BUN so appears to be related to mild dehydration.Increase fluid intake. Above issues addressed with patient. Patient involved in shared decision making for management of medical issues. History and medications reviewed. Epic updated as needed Refills and/or prescriptions taken care of and meds adjusted as indicated after reviewed history, exam and labs. Health Maintenance reviewed. Updated record and/or ordered tests as recorded.Needs to keep working on diet and exercise with lifestyle changes for effective weight loss as well as prevention of DM, and control of BP and lipids. Encouraged on efforts at healthy diet and regular exercise and adequate sleep. Stable with control of insomnia with Ambien. At this time benefits outweigh risks. Continue to monitor for adverse effects and indications for decreasing dose or tapering off. No signs of diversion or abuse of medication(s); no adverse effects. Continue present management. Labs done today. (Results included above). Continue present management. Further evaluation and treatment as indicated. Racquel Centeno MD documented in this encounter [facility] 11-22-2022 Miscellaneous Notes Apt booked. Yoana Harrison LPN RX due for refill in November and due for 6 month follow up this month but no appointment was scheduled when was seen in April. Needs follow up appointment--let me know if cannot find a slot. Patient phones requesting refills as follows: Requested Prescriptions Pending Prescriptions Disp Refills zolpidem (AMBIEN) 10 mg 90 tablet 0 Sig: Take 1 tablet by mouth daily at bedtime for 90 days. Please review and advise. Saima Vasquez RN documented in this encounter [facility] 11-14-2022 History of Present illness Narrative CDM Telephonic Outreach Provider Action/FYI CKD, HTN monthly Contacted for: Routine Telephonic Outreach Contact made with patient: No, left message. Saima Vasquez RN November 14, 2022 12:25 PM documented in this encounter [facility] 10-24-2022 Miscellaneous Notes Patient has been identified by name and date of : Yes Patient phones for refill(s): Requested Prescriptions Pending Prescriptions Disp Refills fluticasone jxxppuj-ohspcazarfkt-vaaconlhoj (TRELEGY ELLIPTA) 200-62.5-25 mcg powder inhaler 60 Each 2 Sig: Inhale 1 Puff as instructed once daily. Date of last office visit in primary care: 04/29/2022 No future appt scheduled. Last 2 Encounter Wt Readings: Date: Wt: 04/29/2022 109.8 kg (242 lb) 09/21/2021 113.1 kg (249 lb 6.4 oz) Previous labs/tests for medication: Not applicable Please advise. Thank you. Jeniffer Alonzo LPN documented in this encounter [facility] 10-17-2022 Miscellaneous Notes Okayed Patient phones requesting refills as follows: Requested Prescriptions Pending Prescriptions Disp Refills levothyroxine (SYNTHROID) 150 mcg tablet 90 tablet 3 Sig: Take 1 tablet by mouth once daily. Take on empty stomach. For thyroid Please review and advise. Saima Vasquez RN documented in this encounter [facility] 10-17-2022 History of Present illness Narrative M Telephonic Outreach Provider Action/FYI CKD monthly Contacted for: Routine Telephonic Outreach Contact made with patient: Yes Patient identified by name and date of . Discussed care with patient Are you experiencing any new or worsening symptoms you need to talk about today? No Disease Specific Do you have new or worsening shortness of breath with activity? No Do you feel like you are dehydrated for any reason, including not being able to eat or drink normally, or having less urine/much darker urine than normal for you? No Based on masonry contractor administrator, the following disposition is advised: No symptoms or symptoms present, not severe. Routed to: No Action Needed JACOB Education Provided this Outreach: No -patient shares she is doing well -refill pended for synthroid -denies any other concerns Saima Vasquez RN October 17, 2022 documented in this encounter [facility] 10-14-2022 History of Present illness Narrative [facility] Telephonic Outreach Provider Action/FYI CKD monthly Contacted for: Routine Telephonic Outreach Contact made with patient: No, left message. Saima Vasquez RN October 14, 2022 12:43 PM documented in this encounter [facility] 10-03-2022 Miscellaneous Notes Patient phones requesting refills as follows: Patient comment: all out Requested Prescriptions Pending Prescriptions Disp Refills triamterene-hydroCHLOROthiazide (MAXZIDE-25) 37.5-25 mg per tablet 90 tablet 3 Sig: Take 1 tablet by mouth once daily. ADAMARIS-04/29/22 Labs-09/08/21 NOV-none Please review and advise. Raegan Denny LPN documented in this encounter [facility] 09-17-2022 Miscellaneous Notes The following approved medication requests have been transmitted electronically. Requested Prescriptions Signed Prescriptions Disp Refills zolpidem (AMBIEN) 10 mg 90 tablet 0 Sig: Take 1 tablet by mouth daily at bedtime for 90 days. Authorizing Provider: RACQUEL CENTENO MD Patient has been identified by name and date of : Yes, Yue Lemus RN Date 09/16/2022 Time 10:10 am Patient phones for refill(s): Requested Prescriptions Pending Prescriptions Disp Refills zolpidem (AMBIEN) 10 mg 90 tablet 0 Sig: Take 1 tablet by mouth daily at bedtime for 90 days. Date of last office visit with pcp: 04/29/2022 Future appt: none Last 2 Encounter Wt Readings: Date: Wt: 04/29/2022 109.8 kg (242 lb) 09/21/2021 113.1 kg (249 lb 6.4 oz) Previous labs/tests for medication: Blood Pressure: BUN (mg/dL) Date Value 09/08/2021 25 08/25/2020 26 Sodium (mmol/L) Date Value 09/08/2021 139 08/25/2020 138 Last 1 Encounter BP Readings: Date: BP: 04/29/2022 126/78 Liver Function: ALT (U/L) Date Value 09/08/2021 12 08/25/2020 18 AST (U/L) Date Value 09/08/2021 15 08/25/2020 16 Please advise. Thank you. Yue Lemus RN documented in this encounter [facility] 09-15-2022 History of Present illness Narrative CDM Telephonic Outreach Provider Action/FYI CKD monthly Contacted for: Engagement Contact made with patient: No, left message. Has not answered [facility] since 01/2022 will transition to telephonic Saima Vasquez RN September 15, 2022 documented in this encounter [facility] 08-31-2022 History of Present illness Narrative POPULATION HEALTH NAVIGATION OUTREACH Action/FYI no answer Xadira Gameshart message sent ANNUAL MEDICARE WELLNESS ADVANCE DIRECTIVE DISCUSSION Patient Identified by Name and : NO Outreach Outcome/Action Unable to reach patient: Phone number not valid / voicemail full MyChart message sent Did you use a PCP flex slot to schedule this appointment? N/A Reason for Outreach Care Gap or Scheduling/Wellness visits Payer: Payor: MEDICARE / Plan: MEDICARE A AND B / Product Type: Medicare / Care Gap Reviewed:: Annual Wellness visit Reminder: Reminder note to check Health Maintenance for items below Health Maintenance items due: DTAP,TDAP,TD(2 - Tdap) due on 01/07/2006 SHINGRIX VACCINE(2 of 3) due on 04/19/2010 ADVANCE DIRECTIVE DISCUSSION due on 02/27/2022 Navigation Signature: Stacy Vang MA August 31, 2022 7:43 AM documented in this encounter [facility] 07-11-2022 Miscellaneous Notes Okay Patient has been identified by name and date of : Yes Patient phones for refill(s): Requested Prescriptions Pending Prescriptions Disp Refills fluticasone vmvrcks-dwmfxpwfuqyp-nojkyrotxk (TRELEGY ELLIPTA) 200-62.5-25 mcg powder inhaler 60 Each 2 Sig: Inhale 1 Puff as instructed once daily. Date of last office visit in primary care: 04/29/2022 No future appt scheduled. Last 2 Encounter Wt Readings: Date: Wt: 04/29/2022 109.8 kg (242 lb) 09/21/2021 113.1 kg (249 lb 6.4 oz) Previous labs/tests for medication: Not applicable Please advise. Thank you. Jeniffer Alonzo LPN Patient has been identified by name and date of : Yes Requested Prescriptions Pending Prescriptions Disp Refills fluticasone qdtsebg-lctecxitzynz-lcuiuznxwm (TRELEGY ELLIPTA) 200-62.5-25 mcg powder inhaler 60 Each 2 Sig: Inhale 1 Puff as instructed once daily. RX INSTRUCTIONS: Patient aware RX will be sent to pharmacy. No need to notify patient. Mary Herr documented in this encounter [facility] 07-06-2022 Miscellaneous Notes Patient has RX on file at [facility], they will get ready for Patient to pickup. Jeniffer Alonzo LPN documented in this encounter [facility] 04-29-2022 History of Present illness Narrative This note was created using REBIScanter. Subjective Mae Grant is a 76 year old female. Patient presents with: F/U 6 months SUBJECTIVE: Mae Grant is a 76 year old year old lady here today for 6 month follow up appointment for review of medical conditions. Main complaint. Hoarseness with coughing up gobs of phlegm. Has asthma. Trelegy was too expensive so did not get at first but then did get it though cost >400 since beginning of the year. Next one will be $150. Had run out of it prior to February for just a few days.. Noted albuterol no longer covered with her insurance. Noted that needed to have admitted to [place]. Back at home now after had psychotic episode and went to ER. Decided to take him home and work with his doctors--Parkinson's meds lowered and he is better. Has hired someone to be caregiver 2 days a week. Does enjoy mowing lawn for now. Stressful but hanging in there. PAST MEDICAL HISTORY Diagnosis Date Abdominal pain, unspecified site Acute gastritis without mention of hemorrhage Allergic rhinitis, cause unspecified Allergic rhinitis Arthritis DDD (degenerative disc disease), cervical mild to moderate on MRI June 2013 Diarrhea Esophageal reflux Hepatitis in viral diseases classified elsewhere(573.1) Associated with mono (EBV) infection in early 2001 Insomnia, unspecified Obesity, unspecified ANA (obstructive sleep apnea) On CPAP Osteopenia Panic disorder without agoraphobia Unspecified essential hypertension Unspecified hypothyroidism Current Outpatient Medications Medication Sig samfusqctld-kgbybalsy-iamgypxf (TRELEGY ELLIPTA) 200-62.5-25 mcg inhalation powder Inhale 1 Puff as instructed once daily. zolpidem (AMBIEN) 10 mg Take 1 tablet by mouth daily at bedtime for 90 days. gabapentin (NEURONTIN) 600 mg tablet Take 1 tablet by mouth twice daily. diphenhydramine HCl (ALLERGY ORAL) Take by mouth. albuterol HFA (PROVENTIL HFA, VENTOLIN HFA) 90 mcg/actuation inhaler Inhale 2 Puffs as instructed every 4 hours as needed for wheezing/shortness of breath. pantoprazole DR (PROTONIX) 40 mg tablet Take 1 tablet by mouth daily before breakfast. Take on empty stomach, 1/2 hr before meal. - September 13, 2021 - take morning and veneing. losartan (COZAAR) 50 mg tablet Take 1 tablet by mouth once daily. PILL DOSE CHANGE DUE TO BACK ORDER, TAKE ONE 50 MG DAILY PARoxetine (PAXIL) 20 mg tablet Take 1 tablet by mouth once daily. levothyroxine (SYNTHROID) 150 mcg tablet Take 1 tablet by mouth once daily. Take on empty stomach. For thyroid triamterene-hydroCHLOROthiazide (MAXZIDE-25) 37.5-25 mg per tablet Take 1 tablet by mouth once daily. Inhalational Spacing Device Use as directed with albuterol fluticasone (FLONASE) 50 mcg/actuation nasal spray Use 2 Sprays in each nostril once daily. Rinse mouth after (Patient taking differently: Use 2 Sprays in each nostril as needed. Rinse mouth after) Cyanocobalamin (VITAMIN B-12) 1,000 mcg subl Dissolve 1 tablet under the tongue once daily. Ibuprofen 200 mg cap Take by mouth as needed. loratadine 10 mg cap Take 1 capsule by mouth once daily. No current facility-administered medications for this visit. Review of Systems Objective BP 126/78 Pulse 78 Temp 37.6 C (99.7 F) Resp 18 Wt 109.8 kg (242 lb) SpO2 98% BMI 38.02 kg/m Last 5 Encounter Wt Readings: Date: Wt: 04/29/2022 109.8 kg (242 lb) 09/21/2021 113.1 kg (249 lb 6.4 oz) 09/17/2021 113.4 kg (250 lb) 09/13/2021 110.7 kg (244 lb) 07/30/2021 115.2 kg (254 lb) No waist measurement recorded Estimated body mass index is 38.02 kg/m as calculated from the following: Height as of 09/21/21: 169.9 cm (5' 6.9). Weight as of this encounter: 109.8 kg (242 lb). Last 5 Encounter BP Readings: Date: BP: 04/29/2022 126/78 09/17/2021 136/82 09/13/2021 110/68 07/30/2021 122/70 01/13/2021 132/72 Physical Exam Constitutional: Appearance: Normal appearance. HENT: Head: Normocephalic. Eyes: Conjunctiva/sclera: Conjunctivae normal. Cardiovascular: Rate and Rhythm: Normal rate and regular rhythm. Heart sounds: Normal heart sounds. Pulmonary: Effort: Pulmonary effort is normal. Breath sounds: Normal breath sounds. Skin: General: Skin is warm and dry. Neurological: General: No focal deficit present. Mental Status: She is alert and oriented to person, place, and time. Psychiatric: Attention and Perception: Attention and perception normal. Mood and Affect: Mood normal. Speech: Speech normal. Behavior: Behavior normal. Thought Content: Thought content normal. Cognition and Memory: Cognition and memory normal. Judgment: Judgment normal. Assessment and Plan Encounter Diagnosis ICD-10-CM 1. Insomnia, unspecified type G47.00 zolpidem (AMBIEN) 10 mg Ambien effective 2. Dysfunction of both eustachian tubes H69.83 fluticasone (FLONASE) 50 mcg/actuation nasal spray Resuming Flonase--will help with ears as well as tendency to allergic rhinitis with post nasal drip and GERD issues.Follows with Dr. Solano for ear issues too. 3. Class 2 obesity due to excess calories without serious comorbidity with body mass index (BMI) of 38.0 to 38.9 in adult E66.09 Z68.38 4. Stress due to illness of family member Z63.79 Above issues addressed with patient. Patient involved in shared decision making for management of medical issues. History and medications reviewed. Epic updated as needed Refills and/or prescriptions taken care of and meds adjusted as indicated after reviewed history, exam and labs. Health Maintenance reviewed. Updated record and/or ordered tests as recorded. Encouraged on efforts at healthy diet and regular exercise and adequate sleep. Stable with control of insomnia. No signs of diversion or abuse of medication(s); no adverse effects. Continue present management. Noted stressors. Emotional support given. Racquel Centeno MD documented in this encounter [facility] 04-20-2022 History of Present illness Narrative inSight CDM Engagement Provider Action/FYI: Last answered questionnaire 01/2022 Contact Made with Patient: No, first attempt, unable to LVM Saima Vasquez RN documented in this encounter [facility] 02-16-2022 Miscellaneous Notes Okayed documented in this encounter [facility] 01-13-2022 Miscellaneous Notes Verified w[facility], Patient has 3 refills of Albuterol, pharmacy will get ready. Patient notified. Patient has been identified by name and date of : Yes Patient phones for refill(s): Requested Prescriptions Pending Prescriptions Disp Refills gabapentin (NEURONTIN) 600 mg tablet 180 tablet 3 Sig: Take 1 tablet by mouth twice daily. Date of last office visit in primary care: 09/13/2021 6 month follow-up: 04/29/2022 Last 2 Encounter Wt Readings: Date: Wt: 09/21/2021 113.1 kg (249 lb 6.4 oz) 09/17/2021 113.4 kg (250 lb) Previous labs/tests for medication: Not applicable Please advise. Thank you. Jeniffer Alonzo LPN documented in this encounter [facility] 01-13-2022 Miscellaneous Notes Verified w/[facility], Patient has 3 refills of Albuterol. Patient notified to check with pharmacy. Jeniffer Alonzo LPN documented in this encounter [facility] 07-27-2022 Miscellaneous Notes Images from the original note were not included. Prior authorization approved Payer: [facility] [phone] Approval Details Authorized from February 27, 2021 to September 22, 2022 In review the last PA was good until June 2021. Electronic PA requested to complete. Probably just needs a new RX (pharmacy uses prior authorization as a term for needing a new RX) but get prior authorization if needed The following approved medication requests have been transmitted electronically. Signed Prescriptions Disp Refills zolpidem (AMBIEN) 10 mg 90 tablet 0 Sig: Take 1 tablet by mouth daily at bedtime for 90 days. JESSE Class: C-IV YANIRA: No Racquel Centeno MD Lets start with a refill first. If PA is needed it will be prompted then. Last seen THERAPEUTIC CASE MANAGER 09/13/21. Next appt is 04/29/22 documented in this encounter [facility] 09-21-2021 Procedure note Associated Order(s): NITRIC OXIDE, EXHALED RESPIRATORY THERAPY ORAL EXHALED NITRIC OXIDE SERVICE DATE: 09/21/2021 SERVICE TIME: 12:53 PM Oral Exhaled Nitric Oxide measurement: 37.0 (ppb) (A) Normal: Adult 5-20 ppb, pediatric (<12 years) 5-15 ppb High Normal / Increased: Adult 20-35 ppb, pediatric (<12 years) 15-25 ppb Moderately raised exhaled Nitric Oxide may indicate underlying inflammation, but note that: Cold and influenza can raise exhaled Nitric Oxide and some patients have higher baseline exhaled Nitric Oxide levels than others. High: Adult >35 ppb, pediatric (<12 years) >25 ppb Indicative of ongoing eosinophilic inflammation. Symptomatic patient likely to respond to steroids. Possible causes (if already on steroids): Poor compliance, recent allergen exposure, steroid dose inadequate, and steroid resistance. Note that not all patients with high exhaled nitric oxide levels display symptoms. Oral Exhaled Nitric Oxide measurement (Previous Encounters) Test Date Oral Exhaled Nitric Oxide (ppb) 09/21/2021 37.0 (A) 05/20/2020 33.0 NAME: ROSANNA Kelly PATIENT NAME: Mae Grant DATE: September 21, 2021 TIME: 12:53 PM documented in this encounter [facility] 09-21-2021 History of Present illness Narrative PULM FUNCTION SMARTBLOCK: Provider: Johanne Hutchinson MD Assisting Tech: ROSANNA Kelly Spirometry: 1 Exhaled Nitric Oxide: 1 documented in this encounter [facility] 09-17-2021 Miscellaneous Notes Left detailed message on idenified voicemail to inform. Yoana Díaz Images from the original note were not included. Johanne Hutchinson MD Actually holding on methacholine challenge until after her repeat PFTs as she may not need methacholine challenge Message text Patient calling in stated she was handed an order for the Methacholine Challenge to call [facility]. [facility] is requesting an order be faxed to them in order to schedule. Order is from last year and expires 09/24/21. Please fax to [phone]. documented in this encounter [facility] 09-17-2021 History of Present illness Narrative Images from the original note were not included. . [facility] [place] Note Patient name: Mae Grant PCP: Racquel Centeno MD Referring Physician: CC: Follow-up wheezing HPI: Mae Grant 76 year old female never smoker with PMH significant for obesity, ANA on CPAP, HTN, hypothyroidism, GERD, allergic rhinitis last seen in pulmonary clinic a year ago for evaluation of intermittent wheezing. Pulmonary function tests at that time were normal as well as her exhaled nitric oxide level. The plan at that time, per Dr. Nye, was to treat her reflux, order allergy testing and proceed with definitive methacholine challenge test. She did not have her bronchoprovacation testing done. History is pertinent for yearly bronchitis, usually in the spring. When ill, she has cough with mucus production and wheezing. Resolves with treatment but over the years it takes her longer to recover. Again had bronchitis manifesting as SOB, wheezing, and cough productive of yellow sputum. This time, she was started Breo Ellipta with improvement in her symptoms. Also has significant GERD. Frequent heart burn and throat clearing. Some dysphonia which predated the initiation of Breo Ellipts. PCP just increased Protonix dose. No nocturnal coughing or awakenings. DATA: PFT 2020: Labs: Component Ref Range & Units 1 yr ago IgE <114 kU/L 19.1 Component Ref Range & Units 1 yr ago Abs Eosin <0.46 K/uL 0.25 Imaging / Diagnostic Studies: DATE OF EXAM: Sep 13 2021 1:27PM WOX [id number] - XR CHEST 2V FRONTAL/LAT / PROCEDURE REASON: multiple diagnoses EXAMINATION: CHEST RADIOGRAPH (2 VIEW FRONTAL & LATERAL) CLINICAL HISTORY: Chronic cough. [place] MQ: [id number] EXAM DATE/TIME: 09/13/2021 1:27 PM COMPARISON: No relevant prior studies available. RESULT: Lines, tubes, and devices: None. Lungs and pleura: Diffuse and bilateral interstitial prominence present on the prior study has improved. There is less bronchial wall thickening suggesting improving airways inflammation. Pleural parenchymal stranding at both bases could represent atelectasis or scar. There is no focal consolidation or acute pleural fluid. There is no vascular redistribution to suggest pulmonary edema. Cardiomediastinal silhouette: Unchanged cardiomediastinal silhouette with unfolded descending thoracic aorta. Bones/soft tissues: The bony structures are intact with mild degenerative change. No bony destructive process noted. IMPRESSION: Diminished interstitial prominence and bronchial wall thickening when compared to most recent July 2021 study. There is no focal consolidation or acute pleural process. There is no vascular redistribution to suggest pulmonary edema. I personally reviewed the images as well as with the patient which shows increased bronchial thickening and LLL atelectasis PAST MEDICAL HISTORY Diagnosis Date Abdominal pain, unspecified site Acute gastritis without mention of hemorrhage Allergic rhinitis, cause unspecified Allergic rhinitis Arthritis DDD (degenerative disc disease), cervical mild to moderate on MRI June 2013 Diarrhea Esophageal reflux Hepatitis in viral diseases classified elsewhere(573.1) Associated with mono (EBV) infection in early 2001 Insomnia, unspecified Obesity, unspecified ANA (obstructive sleep apnea) On CPAP Osteopenia Panic disorder without agoraphobia Unspecified essential hypertension Unspecified hypothyroidism ALLERGIES Allergen Reactions Atenolol palpitations, chest discomfort Silenor [Doxepin] Other: See Comments palpitations (heart fluttered and chest felt strange) Tramadol Other: See Comments Unable to sleep - keeps her hyper loratadine 10 mg cap Take 1 capsule by mouth once daily. diphenhydramine HCl (ALLERGY ORAL) Take by mouth. fluticasone-vilanterol (BREO ELLIPTA) 100-25 mcg/dose inhaler Inhale 1 Inhalation as instructed once daily. albuterol HFA (PROVENTIL HFA, VENTOLIN HFA) 90 mcg/actuation inhaler Inhale 2 Puffs as instructed every 4 hours as needed for wheezing/shortness of breath. pantoprazole DR (PROTONIX) 40 mg tablet Take 1 tablet by mouth daily before breakfast. Take on empty stomach, 1/2 hr before meal. - September 13, 2021 - take morning and veneing. losartan (COZAAR) 50 mg tablet Take 1 tablet by mouth once daily. PILL DOSE CHANGE DUE TO BACK ORDER, TAKE ONE 50 MG DAILY PARoxetine (PAXIL) 20 mg tablet Take 1 tablet by mouth once daily. levothyroxine (SYNTHROID) 150 mcg tablet Take 1 tablet by mouth once daily. Take on empty stomach. For thyroid triamterene-hydroCHLOROthiazide (MAXZIDE-25) 37.5-25 mg per tablet Take 1 tablet by mouth once daily. zolpidem (AMBIEN) 10 mg Take 1 tablet by mouth daily at bedtime for 90 days. gabapentin (NEURONTIN) 600 mg tablet Take 1 tablet by mouth twice daily. fluticasone (FLONASE) 50 mcg/actuation nasal spray Use 2 Sprays in each nostril once daily. Rinse mouth after Cyanocobalamin (VITAMIN B-12) 1,000 mcg subl Dissolve 1 tablet under the tongue once daily. Ibuprofen 200 mg cap Take by mouth as needed. Inhalational Spacing Device Use as directed with albuterol Social History Tobacco Use Smoking status: Never Smoker Smokeless tobacco: Never Used Tobacco comment: dad was smoker when she was growing up Substance Use Topics Alcohol use: No Drug use: No Pets: Parakeets FAMILY HISTORY Problem Relation Age of Onset Cancer Father bladder Hypertension Father Diabetes Maternal Grandmother of blood clot Asthma Maternal Grandmother Heart Maternal Grandfather of mi , alcoholic Alzheimer's Disease Paternal Grandfather Allergies Paternal Grandfather other (Psoriatic arthritis) Grandson Asthma Granddaughter 2 granddaughters PAST SURGICAL HISTORY Procedure Laterality Date ABDOMINAL SURGERY HX BIOPSY BREAST OPEN INCISIONAL Right Bx of breast, incisional BREAST SURGERY HX BX BREAST PERC VACUUM/ROTN 11/10/2008 Left COLONOSCOPY FLX DX W/COLLJ SPEC WHEN PFRMD 10/20/2006 10 yr repeat COLONOSCOPY FLX DX W/COLLJ SPEC WHEN PFRMD 05/12/2016 Colonoscopy mac EGD TRANSORAL BIOPSY SINGLE/MULTIPLE 10/20/2006 ESOPHAGOGASTRODUODENOSCOPY TRANSORAL DIAGNOSTIC 05/12/2016 EGD mac EYE SURGERY HX INCISE FINGER TENDON SHEATH Right 09/10/2020 Right thumb and ring trigger finger releases KNEE ARTHROSCOPY Left 2016 LIG/TRNSXJ FLP TUBE ABDL/VAG APPR UNI/BI Tubal ligation NEUROPLASTY &/TRANSPOS MEDIAN NRV CARPAL TUNNE 11/01/2013 Carpal tunnel decomp left PAST SURGICAL HISTORY OF 03/[address] solano , uvelctomy PAST SURGICAL HISTORY OF mole head and wrist PAST SURGICAL HISTORY OF b/l cataract surgery REVISE MEDIAN N/CARPAL TUNNEL SURG 10/18/2013 right PMH, Social history, family history and surgical history reviewed and updated in EMR REVIEW OF SYSTEMS: CONSTITUTIONAL: No fevers, chills, nightsweats, unintended weight loss HEENT: Denies current nasal congestion/sinus symptoms, allergy problems. CARDIOVASCULAR: No chest pain, dyspnea, palpitations, orthopnea, PND, ankle edema. PULM: No dyspnea, unexplained cough. GI: No dysphagia/odynophagia, changes in stool habits. Positive GERD NEURO: No new balance problems, peripheral weakness/paresthesias or numbness of concern. INTEGUMENTARY: No new skin changes, rashes, eczema PHYSICAL EXAMINATION: BP 136/82 Pulse 83 Resp 16 Wt 250 lb (113.4kg) SpO2 96% General Appearance: Obese female, NAD Skin: Skin color, texture, turgor normal, no suspicious rashes or lesions. Head: Normocephalic, no masses, lesions, tenderness or abnormalities. Eyes: Sclera, conjunctiva normal Oropharynx: No oral lesions, thrush Neck: No JVD, no masses Lungs: Not labored, normal to percussion, no wheezes or crackles Heart: RRR, no murmur Extremities: Pedal edema, no clubbing Lymph Nodes: No cervical lymphadenopathy and No supraclavicular lymphadenopathy. Assessment/Plan: 1. Subacute cough -Clinical history consistent with asthma and probable GERD as a contributing factor -Update PFT and Jong. May still need methacholine challenge testing -Continue Breo Ellipta with as needed albuterol for now 2. Recurrent bronchitis -Previous labs not suggestive of severe allergies -See #1 3. GERD -Anti reflux measures -Weight loss -Agree with bid Protonix Johanne Hutchinson MD [facility] [place] documented in this encounter [facility] 09-13-2021 Instructions Ton Gan APRN.CNS - 09/13/2021 12:49 PM EDT Check to see if your insurance covers Tdap and shingles vaccine and what location to get the vaccine - -usually best covered at your local pharmacy where you get prescriptions filled documented in this encounter [facility] 09-13-2021 History of Present illness Narrative Subjective HPI Mae Grant is a 76 year old female. 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 She was seen by Racquel Centeno MD August 13, 2021 for cough and wheezing. She was continued on albuterol. Addition of Breo. Chest x-ray completed. Last seen by auto parts clerk 2020. Notes feeling much improved. much less coughing now, no wheezing. SOBOE improved. Notes taking an OTC allergy pill consistently. Notes GERD not currently well controlled. Last 3 Encounter BP Readings: Date: BP: 09/13/2021 110/68 07/30/2021 122/70 01/13/2021 132/72 TSH Date Value 09/08/2021 1.480 mIU/L 08/25/2020 3.060 uU/mL 09/11/2019 1.830 uU/mL ) Hyperlipidemia. Her most recent lipid panels are: Cholesterol, Total (mg/dL) Date Value 03/30/2017 166 04/06/2016 167 HDL Cholesterol (mg/dL) Date Value 03/30/2017 30 04/06/2016 26 LDL Cholesterol (mg/dL) Date Value 03/30/2017 114 04/06/2016 110 Triglyceride (mg/dL) Date Value 03/30/2017 110 04/06/2016 157 Creatinine Date Value Ref Range Status 09/08/2021 1.11 (H) 0.58 - 0.96 mg/dL Final 08/25/2020 0.98 (H) 0.58 - 0.96 mg/dL Final 09/11/2019 0.96 0.58 - 0.96 mg/dL Final 08/21/2018 0.94 0.58 - 0.96 mg/dL Final Review of Systems Constitutional: Negative. Musculoskeletal: Positive for arthralgias and back pain. Objective BP 110/68 Pulse 71 Resp 16 Wt 110.7 kg (244 lb) SpO2 95% BMI 37.65 kg/m Physical Exam Vitals and nursing note reviewed. Constitutional: General: She is not in acute distress. Appearance: She is not ill-appearing or diaphoretic. HENT: Head: Normocephalic and atraumatic. Eyes: Conjunctiva/sclera: Conjunctivae normal. Cardiovascular: Rate and Rhythm: Normal rate. Pulmonary: Effort: Pulmonary effort is normal. No respiratory distress. Breath sounds: Normal breath sounds. No wheezing, rhonchi or rales. Musculoskeletal: Right lower leg: No edema. Left lower leg: No edema. Skin: General: Skin is warm and dry. Neurological: Mental Status: She is alert and oriented to person, place, and time. ALLERGIES Allergen Reactions Atenolol palpitations, chest discomfort Silenor [Doxepin] Other: See Comments palpitations (heart fluttered and chest felt strange) Tramadol Other: See Comments Unable to sleep - keeps her hyper Current Outpatient Medications Medication Sig diphenhydramine HCl (ALLERGY ORAL) Take by mouth. losartan (COZAAR) 50 mg tablet Take 1 tablet by mouth once daily. PILL DOSE CHANGE DUE TO BACK ORDER, TAKE ONE [address] (PROTONIX) 40 mg tablet Take 1 tablet by mouth daily before breakfast. Take on empty stomach, 1/2 hr before meal. PARoxetine (PAXIL) 20 mg tablet Take 1 tablet by mouth once daily. levothyroxine (SYNTHROID) 150 mcg tablet Take 1 tablet by mouth once daily. Take on empty stomach. For thyroid fluticasone-vilanterol (BREO ELLIPTA) 100-25 mcg/dose inhaler Inhale 1 Inhalation as instructed once daily. albuterol HFA (PROVENTIL HFA, VENTOLIN HFA) 90 mcg/actuation inhaler Inhale 2 Puffs as instructed every 4 hours as needed for wheezing/shortness of breath. Inhalational Spacing Device Use as directed with albuterol zolpidem (AMBIEN) 10 mg Take 1 tablet by mouth daily at bedtime for 90 days. gabapentin (NEURONTIN) 600 mg tablet Take 1 tablet by mouth twice daily. fluticasone (FLONASE) 50 mcg/actuation nasal spray Use 2 Sprays in each nostril once daily. Rinse mouth after Cyanocobalamin (VITAMIN B-12) 1,000 mcg subl Dissolve 1 tablet under the tongue once daily. Ibuprofen 200 mg cap Take by mouth as needed. triamterene-hydroCHLOROthiazide (MAXZIDE-25) 37.5-25 mg per tablet Take 1 tablet by mouth once daily. No current facility-administered medications for this visit. PAST MEDICAL HISTORY Diagnosis Date Abdominal pain, unspecified site Acute gastritis without mention of hemorrhage Allergic rhinitis, cause unspecified Allergic rhinitis Arthritis DDD (degenerative disc disease), cervical mild to moderate on MRI June 2013 Diarrhea Esophageal reflux Hepatitis in viral diseases classified elsewhere(573.1) Associated with mono (EBV) infection in early 2001 Insomnia, unspecified Obesity, unspecified ANA (obstructive sleep apnea) Osteopenia Panic disorder without agoraphobia Unspecified essential hypertension Unspecified hypothyroidism reports that she has never smoked. She has never used smokeless tobacco. She reports that she does not drink alcohol and does not use drugs. Component Latest Ref Rng & Units 08/25/2020 09/08/2021 WBC 3.70 - 11.00 k/uL 8.05 8.34 RBC 3.90 - 5.20 m/uL 5.10 4.91 Hemoglobin 11.5 - 15.5 g/dL 14.0 13.3 Hematocrit 36.0 - 46.0 % 41.8 40.6 MCV 80.0 - 100.0 fL 82.0 82.7 MCH 26.0 - 34.0 pg 27.5 27.1 MCHC 30.5 - 36.0 g/dL 33.5 32.8 RDW-CV 11.5 - 15.0 % 14.5 14.8 Platelet Count 150 - 400 k/uL 216 256 MPV 9.0 - 12.7 fL 9.8 10.5 Neut% % 62.6 Abs Neut (ANC) 1.45 - 7.50 k/uL 5.22 Lymph% % 23.7 Abs Lymph 1.00 - 4.00 k/uL 1.98 [place]% % 9.5 Abs [place] <0.87 k/uL 0.79 Eosin% % 2.9 Abs Eosin <0.46 k/uL 0.25 0.24 Baso% % 0.6 Abs Baso <0.11 k/uL 0.05 Immature Gran % % 0.7 IMMATURE GRANS (ABS) <0.10 k/uL 0.06 NRBC /100 WBC 0.0 Absolute nRBC <0.01 k/uL <0.01 <0.01 DTYPE Auto Protein, Total 6.3 - 8.0 g/dL 7.2 7.1 Albumin 3.9 - 4.9 g/dL 4.5 4.0 Calcium 8.5 - 10.2 mg/dL 9.7 9.9 Bilirubin, Total 0.2 - 1.3 mg/dL 0.5 0.4 Alkaline Phosphatase 34 - 123 U/L 100 93 AST 13 - 35 U/L 16 15 Glucose 74 - 99 mg/dL 120 (H) 106 (H) BUN 7 - 21 mg/dL 26 (H) 25 (H) Creatinine 0.58 - 0.96 mg/dL 0.98 (H) 1.11 (H) Sodium 136 - 144 mmol/L 138 139 Potassium 3.7 - 5.1 mmol/L 3.9 3.9 Chloride 97 - 105 mmol/L 103 103 CO2 22 - 30 mmol/L 25 25 Anion Gap 9 - 18 mmol/L 10 11 ALT 7 - 38 U/L 18 12 eGFR- >60 eGFR-All Other Races . 55 eGFR >=60 mL/min/1.73m 52 (L) Hemoglobin A1C 4.3 - 5.6 % 5.8 (H) 5.6 Estimated Average Glucose mg/dL 120 114 TSH 0.270 - 4.200 mIU/L 3.060 1.480 Free T4 0.9 - 1.7 ng/dL 1.2 1.3 Free T3 2.3 - 4.1 pg/mL 2.4 Magnesium 1.7 - 2.3 mg/dL 1.9 2.0 IgE <114 kU/L 19.1 CXR 08/13/2021 IMPRESSION: Diffuse interstitial prominence is present especially centrally and in the lower lung zones where there is either atelectasis or scar. Bilateral hilar prominence and central vascular redistribution is also present. There is no skin appreciable pleural fluid. Differential considerations would include interstitial pneumonitis/reactive airway disease or interstitial pneumonia. Assessment and Plan ASSESSMENT/PLAN: 1. Chronic cough - ICD9: 786.2, ICD10: R05.3 (primary diagnosis) 2. Wheeze - ICD9: 786.07, ICD10: R06.2 - XR CHEST 2V FRONTAL/LAT - CONSULT TO PULMONARY MEDICINE She notes feeling better on maintenance inhaler. Recommend continue for now and complete chest x-ray today for follow-up. Recommend follow-up visit with auto parts clerk as well. 3. Encounter for immunization - ICD9: V03.89, ICD10: Z23 - TDAP VACCINE AGE 7+ IM 4. Need for shingles vaccine - ICD9: V04.89, ICD10: Z23 - [employer] 5. Stage 3a chronic kidney disease (HCC) - ICD9: 585.3, ICD10: N18.31 Stable, currently controlled, continue to monitor. 6. Gastroesophageal reflux disease without esophagitis - ICD9: 530.81, ICD10: K21.9 not currently well controlled, increase PPI from QD to BID dosing. Endorse small frequent meals, elevate the head of the bed, avoid eating for 3 to 4 hours before bedtime 7. Acquired hypothyroidism - ICD9: 244.9, ICD10: E03.9 Stable, currently controlled, continue to monitor. Ton Gan APRN.CNS Medical Decision Making: Problems: Moderate: 2+ stable chronic illnesses and 1+ chronic illnesses with change Data: Unique test(s) ordered: 1 Risk: Moderate: Drug management Medical Decision Making Level: 4 - Moderate documented in this encounter [facility] 09-07-2021 Miscellaneous Notes Patient notified of providers message and verbalized understanding. Routine labs ordered. Antibody order not placed, we typically do not check this. She may be able to get this test at [facility] if so desires. Pt is requesting lab orders to be placed before her appt on 09/13. She is also asking if she could get a covid antibody test done. Please review and advise. CHACHA Ma September 03, 2021 6:56 PM documented in this encounter [facility] 08-16-2021 Miscellaneous Notes I have that prilosec was stopped since not effective. See why patient requested along with Protonix--hope was just an error. The following approved medication requests have been transmitted electronically. Pending Prescriptions Disp Refills OMEPRAZOLE 40 MG CAPSULE,DELAYED RELEASE 180 capsule 3 Sig: Take 1 capsule by mouth twice daily. YANIRA: No Signed Prescriptions Disp Refills losartan (COZAAR) 50 mg tablet 90 tablet 3 Sig: Take 1 tablet by mouth once daily. PILL DOSE CHANGE DUE TO BACK ORDER, TAKE ONE 50 MG DAILY YANIRA: No Authorizing Provider: RACQUEL CENTENO pantoprazole DR (PROTONIX) 40 mg tablet 180 tablet 3 Sig: Take 1 tablet by mouth daily before breakfast. Take on empty stomach, 1/2 hr before meal. YANIRA: No Authorizing Provider: RACQUEL CENTENO MD Patient requested via [employer] message documented in this encounter [facility] 08-16-2021 Miscellaneous Notes Refills pending in refill encounter documented in this encounter [facility] 08-16-2021 Miscellaneous Notes Patient has two other [employer] messages regarding inhaler documented in this encounter [facility] 08-14-2021 Miscellaneous Notes Okayed Patient has been identified by name and date of : Yes Patient phones for refill(s): Pending Prescriptions Disp Refills TRIAMTERENE 37.5 MG-HYDROCHLOROTHIAZIDE 25 MG TABLET 90 tablet 3 Sig: Take 1 tablet by mouth once daily. YANIRA: No Date of last office visit in primary care: 08/13/21 Last 2 Encounter Wt Readings: Date: Wt: 07/30/2021 115.2 kg (254 lb) 01/13/2021 117 kg (258 lb) Previous labs/tests for medication: Blood Pressure: BUN (mg/dL) Date Value 08/25/2020 26 Sodium (mmol/L) Date Value 08/25/2020 138 Last 1 Encounter BP Readings: Date: BP: 07/30/2021 122/70 Please advise. Thank you. Radha Payne LPN documented in this encounter [facility] 08-13-2021 History of Present illness Narrative This note was created using [employer]. Subjective Mae Grant is a 76 year old female. Patient presents with: Wheezing Shortness of Breath: with exertion SUBJECTIVE: Mae Grant is a 76 year old year old lady here today for follow up appointment for review of medical conditions: wheezing and SOB with exertion. Note that power was out during her appointment. Was able to review records via work mobile phone. See her [employer] message regarding symptoms of cough, phlegm, wheezing. Inhaler helps with opening up airways but has more phlegm after using inhaler. PAST MEDICAL HISTORY Diagnosis Date Abdominal pain, unspecified site Acute gastritis without mention of hemorrhage Allergic rhinitis, cause unspecified Allergic rhinitis Arthritis DDD (degenerative disc disease), cervical mild to moderate on MRI June 2013 Diarrhea Esophageal reflux Hepatitis in viral diseases classified elsewhere(573.1) Associated with mono (EBV) infection in early 2001 Insomnia, unspecified Obesity, unspecified ANA (obstructive sleep apnea) Osteopenia Panic disorder without agoraphobia Unspecified essential hypertension Unspecified hypothyroidism Current Outpatient Medications Medication Sig fluticasone-vilanterol (BREO ELLIPTA) 100-25 mcg/dose inhaler Inhale 1 Inhalation as instructed once daily. albuterol HFA (PROVENTIL HFA, VENTOLIN HFA) 90 mcg/actuation inhaler Inhale 2 Puffs as instructed every 4 hours as needed for wheezing/shortness of breath. Inhalational Spacing Device Use as directed with albuterol zolpidem (AMBIEN) 10 mg Take 1 tablet by mouth daily at bedtime for 90 days. gabapentin (NEURONTIN) 600 mg tablet Take 1 tablet by mouth twice daily. PARoxetine (PAXIL) 20 mg tablet Take 1 tablet by mouth once daily. levothyroxine (SYNTHROID) 150 mcg tablet Take 1 tablet by mouth once daily. Take on empty stomach. For thyroid triamterene-hydroCHLOROthiazide (MAXZIDE-25) 37.5-25 mg per tablet Take 1 tablet by mouth once daily. losartan (COZAAR) 50 mg tablet Take 1 tablet by mouth once daily. PILL DOSE CHANGE DUE TO BACK ORDER, TAKE ONE [address] (PROTONIX) 40 mg tablet Take 1 tablet by mouth daily before breakfast. Take on empty stomach, 1/2 hr before meal. fluticasone (FLONASE) 50 mcg/actuation nasal spray Use 2 Sprays in each nostril once daily. Rinse mouth after omeprazole (PRILOSEC) 40 mg capsule Take 1 capsule by mouth twice daily. (Patient not taking: Reported on 07/30/2021 ) Cyanocobalamin (VITAMIN B-12) 1,000 mcg subl Dissolve 1 tablet under the tongue once daily. Ibuprofen 200 mg cap Take by mouth as needed. No current facility-administered medications for this visit. Review of Systems Objective There were no vitals taken for this visit. Physical Exam Constitutional: Appearance: She is obese. HENT: Head: Normocephalic. Eyes: Conjunctiva/sclera: Conjunctivae normal. Cardiovascular: Pulses: Normal pulses. Heart sounds: Normal heart sounds. No murmur heard. Pulmonary: Effort: Pulmonary effort is normal. No tachypnea, bradypnea, accessory muscle usage or respiratory distress. Comments: Tight sounding cough; some chest congestion noted with cough. Neurological: Mental Status: She is alert. Assessment and Plan Encounter Diagnosis ICD-10-CM 1. Wheezing R06.2 2. Cough, unspecified type R05.9 3. BURNETT (dyspnea on exertion) R06.00 Above issues addressed with patient. Patient involved in shared decision making for management of medical issues. Continue albuterol inhaler.Add Breo. Further evaluation and treatment as indicated. History and medications reviewed. Epic updated as needed Refills and/or prescriptions taken care of and meds adjusted as indicated after reviewed history, exam and labs. Health Maintenance reviewed. Updated record and/or ordered tests as recorded. Encouraged on efforts at healthy diet and regular exercise and adequate sleep. Weight loss could help with BURNETT issues. Racquel Centeno MD documented in this encounter [facility] 08-13-2021 History of Present illness Narrative Radiology Service Progress Note PATIENT NAME: Mae Grant DATE OF SERVICE: August 13, 2021 TIME: 10:01 AM PATIENT IDENTITY VERIFICATION COMPLETED USING TWO (2) IDENTIFIERS: Name and Date of confirmed by patient verbally. FALL SCREENING: Has the patient had 2 falls in the last year or 1 fall with injury or currently using an Ambulatory Assistive Device (Walker, Cane, Wheelchair, Crutches, etc.)? No PATIENT GENDER DATA: Female. status: : No status: NO. PATIENT RELEVANT IMPLANT DATA REVIEWED: Not Applicable RADIOLOGY DEPARTMENT: General X-ray: Exam(s) Completed: Chest X-Ray PERIPHERAL IV DATA: Not applicable SIGNED BY: RT Perlita(R) August 13, 2021 10:01 AM documented in this encounter [facility] 08-12-2021 Miscellaneous Notes Spoke with patient. Given message from provider's office. Patient verbalizes understanding. Silvia Subramanian RN Noted Ordered CXR so may get it before her appointment so can review that when she is here for her appointment Pt called and states she has completed ATB and still not feeling well. Wheezing, SOB with any kind of activity. She feels she is getting worse. Pt has been scheduled for an apt 08-13-21 at 11 am with you. Declined coming into today. Please advise pt if needed. Yoana Harrison LPN documented in this encounter [facility] 07-31-2021 Miscellaneous Notes Was seen in See MyChart reply documented in this encounter [facility] 07-30-2021 History of Present illness Narrative CC: Patient presents with: Cough: Pt reported intermittent SOB, denied chest pain, chest congestion HPI: Mae Grant is a 76 year old female who presents to the office with complaint of chest congestion, cough, nonproductive and sinus symptoms for 2 weeks. Symptoms are worsening Associated symptoms includes cough. Denies headache, body aches, fever, nausea, vomiting and diarrhea. Treatments tried include nothing so far. with no relief of symptoms. Sick contacts: unknown. History of asthma, frequent episodes of bronchitis, chronic bronchitis, bronchiectasis or COPD: No Smoker: No Seasonal/environmental allergies: No The ROS is otherwise negative. The patient's pmh, medications, allergies, and past visits are reviewed. PHYSICAL EXAM: BP 122/70 Pulse 87 Temp 36.6 C (97.8 F) Resp 20 Wt 115.2 kg (254 lb) SpO2 97% BMI 39.19 kg/m General appearance: alert, cooperative, pleasant, in no acute distress Head: Normocephalic Eyes: EOM's intact, conjunctiva pink and moist, no icterus, sclera white, non-injected Ears: Right ear: External ear/canal- Normal, TM - clear with good landmarks. Left ear: External ear/canal- Normal, TM - clear with good landmarks Oropharynx:moist without lesions, No erythema, exudates or tonsillar hypertrophy. Heart: Negative. RRR without obvious murmur, gallop, or rubs. No ectopy. Lungs: clear to auscultation, without rales or wheeze, good air exchange PAST MEDICAL HISTORY Diagnosis Date Abdominal pain, unspecified site Acute gastritis without mention of hemorrhage Allergic rhinitis, cause unspecified Allergic rhinitis Arthritis DDD (degenerative disc disease), cervical mild to moderate on MRI June 2013 Diarrhea Esophageal reflux Hepatitis in viral diseases classified elsewhere(573.1) Associated with mono (EBV) infection in early 2001 Insomnia, unspecified Obesity, unspecified ANA (obstructive sleep apnea) Osteopenia Panic disorder without agoraphobia Unspecified essential hypertension Unspecified hypothyroidism PAST SURGICAL HISTORY Procedure Laterality Date ABDOMINAL SURGERY HX BIOPSY BREAST OPEN INCISIONAL Right Bx of breast, incisional BREAST SURGERY HX BX BREAST PERC VACUUM/ROTN 11/10/2008 Left COLONOSCOPY FLX DX W/COLLJ SPEC WHEN PFRMD 10/20/2006 10 yr repeat COLONOSCOPY FLX DX W/COLLJ SPEC WHEN PFRMD 05/12/2016 Colonoscopy mac EGD TRANSORAL BIOPSY SINGLE/MULTIPLE 10/20/2006 ESOPHAGOGASTRODUODENOSCOPY TRANSORAL DIAGNOSTIC 05/12/2016 EGD mac EYE SURGERY HX INCISE FINGER TENDON SHEATH Right 09/10/2020 Right thumb and ring trigger finger releases KNEE ARTHROSCOPY Left 2015 LIG/TRNSXJ FLP TUBE ABDL/VAG APPR UNI/BI Tubal ligation NEUROPLASTY &/TRANSPOS MEDIAN NRV CARPAL TUNNE 11/01/2013 Carpal tunnel decomp left PAST SURGICAL HISTORY OF 03/[address] solano , uvelctomy PAST SURGICAL HISTORY OF mole head and wrist PAST SURGICAL HISTORY OF b/l cataract surgery REVISE MEDIAN N/CARPAL TUNNEL SURG 10/18/2013 right ALLERGIES Atenolol, Silenor [Doxepin], and Tramadol MEDICATIONS albuterol HFA (PROVENTIL HFA, VENTOLIN HFA) 90 mcg/actuation inhaler Inhale 2 Puffs as instructed every 4 hours as needed for wheezing/shortness of breath. Inhalational Spacing Device Use as directed with albuterol zolpidem (AMBIEN) 10 mg Take 1 tablet by mouth daily at bedtime for 90 days. gabapentin (NEURONTIN) 600 mg tablet Take 1 tablet by mouth twice daily. PARoxetine (PAXIL) 20 mg tablet Take 1 tablet by mouth once daily. levothyroxine (SYNTHROID) 150 mcg tablet Take 1 tablet by mouth once daily. Take on empty stomach. For thyroid triamterene-hydroCHLOROthiazide (MAXZIDE-25) 37.5-25 mg per tablet Take 1 tablet by mouth once daily. losartan (COZAAR) 50 mg tablet Take 1 tablet by mouth once daily. PILL DOSE CHANGE DUE TO BACK ORDER, TAKE ONE [address] (PROTONIX) 40 mg tablet Take 1 tablet by mouth daily before breakfast. Take on empty stomach, 1/2 hr before meal. fluticasone (FLONASE) 50 mcg/actuation nasal spray Use 2 Sprays in each nostril once daily. Rinse mouth after Cyanocobalamin (VITAMIN B-12) 1,000 mcg subl Dissolve 1 tablet under the tongue once daily. Ibuprofen 200 mg cap Take by mouth as needed. doxycycline (VIBRA-TABS) 100 mg tablet Take 1 tablet by mouth twice daily for 10 days. omeprazole (PRILOSEC) 40 mg capsule Take 1 capsule by mouth twice daily. FAMILY HISTORY Problem Relation Age of Onset Cancer Father bladder Hypertension Father Diabetes Maternal Grandmother of blood clot Asthma Maternal Grandmother Heart Maternal Grandfather of mi , alcoholic Alzheimer's Disease Paternal Grandfather Allergies Paternal Grandfather other (Psoriatic arthritis) Grandson Asthma Granddaughter 2 granddaughters Social History Tobacco Use Smoking status: Never Smoker Smokeless tobacco: Never Used Tobacco comment: dad was smoker when she was growing up Substance Use Topics Alcohol use: No Drug use: No ASSESSMENT/PLAN: 1. Cough - ICD9: 786.2, ICD10: R05.9 Prescription instructions reviewed with patient as applicable.doxycycline bid for 10 days and already has albuterol PRN Potential red flag symptoms discussed with the patient. Reviewed appropriate action plan to take if red flag symptoms occur. Patient agreeable to treatment plan. Lilliana Barker APRN.KYLAH documented in this encounter [facility] 07-20-2021 Miscellaneous Notes The following approved medication requests have been transmitted electronically. Signed Prescriptions Disp Refills albuterol HFA (PROVENTIL HFA, VENTOLIN HFA) 90 mcg/actuation inhaler 3 Inhaler 3 Sig: Inhale 2 Puffs as instructed every 4 hours as needed for wheezing/shortness of breath. 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 Reports feels is due to fluctuation in weather and allergies. 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 MyChart message sent. Do you have new or worse shortness of breath with activity? Yes Do you feel like you are dehydrated for any reason, including not being able to eat or drink normally, or having less urine/much darker urine than normal for you? No Message received via: [employer] - No contact made with patient Left Message for Patient. Sameer my name is Ria Banegas RN from the [facility]. I am calling about your responses to our [employer] Monitoring questionnaire. Sorry I am not able to speak with you. If you have a problem that needs to be addressed by your physician please contact your PCP office End Outreach documented in this encounter [facility] 06-30-2021 Miscellaneous Notes June 30, 2021 PID: [id number] Mae Grant [address] [place] [address] Dear Ms. Grant, We are pleased to inform you that the results of your recent breast imaging exam on 06/30/2021 are normal. Early detection of cancer is very important. We also understand recommendations regarding breast cancer screening are controversial. Please discuss with your primary care provider which strategy is best for you and whether a mammogram is right for you. Your imaging studies and report will be kept on file at [facility] as part of your permanent medical record and are available for your continuing care. Thank you for allowing us to help in meeting your health care needs. Sincerely, Dr. Dean Interpreting Radiologist [facility] (Normal over 40) documented in this encounter [facility] 06-25-2021 History of Present illness Narrative Patient presents for COVID booster. Denies any problems at this time. Tolerated injection well. Zeinab Moses LPN documented in this encounter [facility] 06-17-2021 Miscellaneous Notes order filed Please place order documented in this encounter [facility] 05-26-2021 History of Present illness Narrative PRIMARY CARE COORDINATION QUICK NOTE Provider Action/FYI [employer] Intro message sent. Patient identified by name and date . documented in this encounter [facility] 05-26-2021 Evaluation note Diagnosis Stage 3a chronic kidney disease (HCC)- Primary documented in this encounter [facility]2020 History of Past illness Narrative* Problem Noted Date Diagnosed Date Resolved Date Obesity, Class III, BMI >= 40 04/04/2019 12/15/2022 Pain in joint, shoulder region 09/20/2013 09/06/2019 Pain in joint, lower leg 08/13/200811/2019 Hepatitis in viral diseases classified elsewhere(573.1) 10/25/2013 documented as of this encounter (statuses as of 12/15/2022) [facility] History of Past illness Narrative* Problem Noted Date Diagnosed Date Resolved Date Obesity, Class III, BMI >= 40 04/04/2019 12/15/2022 Pain in joint, shoulder region 09/20/2013 09/06/2019 Pain in joint, lower leg 08/13/200811/2019 Hepatitis in viral diseases classified elsewhere(573.1) 10/25/2013 documented as of this encounter (statuses as of 12/15/2022) [facility] History of Past illness Narrative* Problem Noted Date Diagnosed Date Resolved Date Obesity, Class III, BMI >= 40 04/04/2019 12/15/2022 Pain in joint, shoulder region 09/20/2013 09/06/2019 Pain in joint, lower leg 08/13/200811/2019 Hepatitis in viral diseases classified elsewhere(573.1) 10/25/2013 documented as of this encounter (statuses as of 12/19/2022) [facility] History of Past illness Narrative* Problem Noted Date Diagnosed Date Resolved Date Obesity, Class III, BMI >= 40 04/04/2019 12/15/2022 Pain in joint, shoulder region 09/20/2013 09/06/2019 Pain in joint, lower leg 08/13/200811/2019 Hepatitis in viral diseases classified elsewhere(573.1) 10/25/2013 documented as of this encounter (statuses as of 12/22/2022) [facility] History of Past illness Narrative* Problem Noted Date Diagnosed Date Resolved Date Obesity, Class III, BMI >= 40 04/04/2019 12/15/2022 Pain in joint, shoulder region 09/20/2013 09/06/2019 Pain in joint, lower leg 08/13/200811/2019 Hepatitis in viral diseases classified elsewhere(573.1) 10/25/2013 documented as of this encounter (statuses as of 01/31/2023) [address]06-2020 History of Past illness Narrative* Problem Noted Date Diagnosed Date Resolved Date Obesity, Class III, BMI >= 40 04/04/2019 12/15/2022 Pain in joint, shoulder region 09/20/2013 09/06/2019 Pain in joint, lower leg 08/13/200811/2019 Hepatitis in viral diseases classified elsewhere(573.1) 10/25/2013 documented as of this encounter (statuses as of 02/15/2023) [facility]2020 History of Past illness Narrative* Problem Noted Date Diagnosed Date Resolved Date Obesity, Class III, BMI >= 40 04/04/2019 12/15/2022 Pain in joint, shoulder region 09/20/2013 09/06/2019 Pain in joint, lower leg 08/13/200811/2019 Hepatitis in viral diseases classified elsewhere(573.1) 10/25/2013 documented as of this encounter (statuses as of 04/05/2023) [facility]2020 History of Past illness Narrative* Problem Noted Date Diagnosed Date Resolved Date Obesity, Class III, BMI >= 40 04/04/2019 12/15/2022 Pain in joint, shoulder region 09/20/2013 09/06/2019 Pain in joint, lower leg 08/13/200811/2019 Hepatitis in viral diseases classified elsewhere(573.1) 10/25/2013 documented as of this encounter (statuses as of 04/11/2023) [facility]2020 History of Past illness Narrative* Problem Noted Date Diagnosed Date Resolved Date Obesity, Class III, BMI >= 40 04/04/2019 12/15/2022 Pain in joint, shoulder region 09/20/2013 09/06/2019 Pain in joint, lower leg 08/13/200811/2019 Hepatitis in viral diseases classified elsewhere(573.1) 10/25/2013 documented as of this encounter (statuses as of 04/12/2023) [facility]2020 History of Past illness Narrative* Problem Noted Date Diagnosed Date Resolved Date Obesity, Class III, BMI >= 40 04/04/2019 12/15/2022 Pain in joint, shoulder region 09/20/2013 09/06/2019 Pain in joint, lower leg 08/13/200811/2019 Hepatitis in viral diseases classified elsewhere(573.1) 10/25/2013 documented as of this encounter (statuses as of 04/17/2023) [facility] History of Past illness Narrative* Problem Noted Date Diagnosed Date Resolved Date Obesity, Class III, BMI >= 40 04/04/2019 12/15/2022 Pain in joint, shoulder region 09/20/2013 09/06/2019 Pain in joint, lower leg 08/13/200811/2019 Hepatitis in viral diseases classified elsewhere(573.1) 10/25/2013 documented as of this encounter (statuses as of 04/19/2023) [facility] History of Past illness Narrative* Problem Noted Date Diagnosed Date Resolved Date Obesity, Class III, BMI >= 40 04/04/2019 12/15/2022 Pain in joint, shoulder region 09/20/2013 09/06/2019 Pain in joint, lower leg 08/13/200811/2019 Hepatitis in viral diseases classified elsewhere(573.1) 10/25/2013 documented as of this encounter (statuses as of 05/02/2023) [facility] History of Past illness Narrative* Problem Noted Date Diagnosed Date Resolved Date Obesity, Class III, BMI >= 40 04/04/2019 12/15/2022 Pain in joint, shoulder region 09/20/2013 09/06/2019 Pain in joint, lower leg 08/13/200811/2019 Hepatitis in viral diseases classified elsewhere(573.1) 10/25/2013 documented as of this encounter (statuses as of 05/03/2023) [facility] History of Past illness Narrative* Problem Noted Date Diagnosed Date Resolved Date Obesity, Class III, BMI >= 40 04/04/2019 12/15/2022 Pain in joint, shoulder region 09/20/2013 09/06/2019 Pain in joint, lower leg 08/13/200811/2019 Hepatitis in viral diseases classified elsewhere(573.1) 10/25/2013 documented as of this encounter (statuses as of 05/17/2023) [address]06-2020 History of Past illness Narrative* Problem Noted Date Diagnosed Date Resolved Date Obesity, Class III, BMI >= 40 04/04/2019 12/15/2022 Pain in joint, shoulder region 09/20/2013 09/06/2019 Pain in joint, lower leg 08/13/200811/2019 Hepatitis in viral diseases classified elsewhere(573.1) 10/25/2013 documented as of this encounter (statuses as of 05/17/2023) [facility] History of Past illness Narrative* Problem Noted Date Diagnosed Date Resolved Date Obesity, Class III, BMI >= 40 04/04/2019 12/15/2022 Pain in joint, shoulder region 09/20/2013 09/06/2019 Pain in joint, lower leg 08/13/200811/2019 Hepatitis in viral diseases classified elsewhere(573.1) 10/25/2013 documented as of this encounter (statuses as of 06/14/2023) [facility] History of Past illness Narrative* Problem Noted Date Diagnosed Date Resolved Date Obesity, Class III, BMI >= 40 04/04/2019 12/15/2022 Pain in joint, shoulder region 09/20/2013 09/06/2019 Pain in joint, lower leg 08/13/200811/2019 Hepatitis in viral diseases classified elsewhere(573.1) 10/25/2013 documented as of this encounter (statuses as of 06/15/2023) [facility] History of Past illness Narrative* Problem Noted Date Resolved Date Pain in joint, shoulder region 09/20/2013 0 09/06/2019 Pain in joint, lower leg 08/13/2008 020 Hepatitis in viral diseases classified elsewhere (573.1) 10/25/2013 documented as of this encounter (statuses as of 05/26/2021) [facility] History of Past illness Narrative* Problem Noted Date Resolved Date Pain in joint, shoulder region 09/20/2013 0 09/06/2019 Pain in joint, lower leg 08/13/2008 020 Hepatitis in viral diseases classified elsewhere (573.1) 10/25/2013 documented as of this encounter (statuses as of 06/17/2021) [facility] History of Past illness Narrative* Problem Noted Date Resolved Date Pain in joint, shoulder region 09/20/2013 0 09/06/2019 Pain in joint, lower leg 08/13/2008 020 Hepatitis in viral diseases classified elsewhere (573.1) 10/25/2013 documented as of this encounter (statuses as of 06/25/2021) [facility] History of Past illness Narrative* Problem Noted Date Resolved Date Pain in joint, shoulder region 09/20/2013 0 09/06/2019 Pain in joint, lower leg 08/13/2008 020 Hepatitis in viral diseases classified elsewhere (573.1) 10/25/2013 documented as of this encounter (statuses as of 07/02/2021) [facility] History of Past illness Narrative* Problem Noted Date Resolved Date Pain in joint, shoulder region 09/20/2013 0 09/06/2019 Pain in joint, lower leg 08/13/2008 020 Hepatitis in viral diseases classified elsewhere (573.1) 10/25/2013 documented as of this encounter (statuses as of 07/13/2021) [facility] History of Past illness Narrative* Problem Noted Date Resolved Date Pain in joint, shoulder region 09/20/2013 0 09/06/2019 Pain in joint, lower leg 08/13/2008 020 Hepatitis in viral diseases classified elsewhere (573.1) 10/25/2013 documented as of this encounter (statuses as of 07/20/2021) [facility] History of Past illness Narrative* Problem Noted Date Resolved Date Pain in joint, shoulder region 09/20/2013 0 09/06/2019 Pain in joint, lower leg 08/13/2008 020 Hepatitis in viral diseases classified elsewhere (573.1) 10/25/2013 documented as of this encounter (statuses as of 07/30/2021) [facility] History of Past illness Narrative* Problem Noted Date Resolved Date Pain in joint, shoulder region 09/20/2013 0 09/06/2019 Pain in joint, lower leg 08/13/2008 020 Hepatitis in viral diseases classified elsewhere (573.1) 10/25/2013 documented as of this encounter (statuses as of 08/09/2021) [facility] History of Past illness Narrative* Problem Noted Date Resolved Date Pain in joint, shoulder region 09/20/2013 0 09/06/2019 Pain in joint, lower leg 08/13/2008 020 Hepatitis in viral diseases classified elsewhere (573.1) 10/25/2013 documented as of this encounter (statuses as of 08/12/2021) [facility] History of Past illness Narrative* Problem Noted Date Resolved Date Pain in joint, shoulder region 09/20/2013 0 09/06/2019 Pain in joint, lower leg 08/13/2008 020 Hepatitis in viral diseases classified elsewhere (573.1) 10/25/2013 documented as of this encounter (statuses as of 08/14/2021) [facility] History of Past illness Narrative* Problem Noted Date Resolved Date Pain in joint, shoulder region 09/20/2013 0 09/06/2019 Pain in joint, lower leg 08/13/2008 020 Hepatitis in viral diseases classified elsewhere (573.1) 10/25/2013 documented as of this encounter (statuses as of 08/16/2021) [facility] History of Past illness Narrative* Problem Noted Date Resolved Date Pain in joint, shoulder region 09/20/2013 0 09/06/2019 Pain in joint, lower leg 08/13/2008 020 Hepatitis in viral diseases classified elsewhere (573.1) 10/25/2013 documented as of this encounter (statuses as of 08/17/2021) [facility] History of Past illness Narrative* Problem Noted Date Resolved Date Pain in joint, shoulder region 09/20/2013 0 09/06/2019 Pain in joint, lower leg 08/13/2008 020 Hepatitis in viral diseases classified elsewhere (573.1) 10/25/2013 documented as of this encounter (statuses as of 09/07/2021) [facility] History of Past illness Narrative* Problem Noted Date Resolved Date Pain in joint, shoulder region 09/20/2013 0 09/06/2019 Pain in joint, lower leg 08/13/2008 020 Hepatitis in viral diseases classified elsewhere (573.1) 10/25/2013 documented as of this encounter (statuses as of 09/13/2021) [facility] History of Past illness Narrative* Problem Noted Date Resolved Date Pain in joint, shoulder region 09/20/2013 0 09/06/2019 Pain in joint, lower leg 08/13/2008 020 Hepatitis in viral diseases classified elsewhere (573.1) 10/25/2013 documented as of this encounter (statuses as of 09/17/2021) [facility] History of Past illness Narrative* Problem Noted Date Resolved Date Pain in joint, shoulder region 09/20/2013 0 09/06/2019 Pain in joint, lower leg 08/13/2008 020 Hepatitis in viral diseases classified elsewhere (573.1) 10/25/2013 documented as of this encounter (statuses as of 09/17/2021) [facility] History of Past illness Narrative* Problem Noted Date Resolved Date Pain in joint, shoulder region 09/20/2013 0 09/06/2019 Pain in joint, lower leg 08/13/2008 020 Hepatitis in viral diseases classified elsewhere (573.1) 10/25/2013 documented as of this encounter (statuses as of 09/21/2021) [facility] History of Past illness Narrative* Problem Noted Date Resolved Date Pain in joint, shoulder region 09/20/2013 0 09/06/2019 Pain in joint, lower leg 08/13/2008 020 Hepatitis in viral diseases classified elsewhere (573.1) 10/25/2013 documented as of this encounter (statuses as of 09/22/2021) [facility] History of Past illness Narrative* Problem Noted Date Resolved Date Pain in joint, shoulder region 09/20/2013 0 09/06/2019 Pain in joint, lower leg 08/13/2008 020 Hepatitis in viral diseases classified elsewhere (573.1) 10/25/2013 documented as of this encounter (statuses as of 09/23/2021) [facility] History of Past illness Narrative* Problem Noted Date Resolved Date Pain in joint, shoulder region 09/20/2013 0 09/06/2019 Pain in joint, lower leg 08/13/2008 020 Hepatitis in viral diseases classified elsewhere (573.1) 10/25/2013 documented as of this encounter (statuses as of 09/29/2021) [facility] History of Past illness Narrative* Problem Noted Date Resolved Date Pain in joint, shoulder region 09/20/2013 0 09/06/2019 Pain in joint, lower leg 08/13/2008 020 Hepatitis in viral diseases classified elsewhere (573.1) 10/25/2013 documented as of this encounter (statuses as of 09/29/2021) [facility] History of Past illness Narrative* Problem Noted Date Resolved Date Pain in joint, shoulder region 09/20/2013 0 09/06/2019 Pain in joint, lower leg 08/13/2008 020 Hepatitis in viral diseases classified elsewhere (573.1) 10/25/2013 documented as of this encounter (statuses as of 10/04/2021) [facility] History of Past illness Narrative* Problem Noted Date Resolved Date Pain in joint, shoulder region 09/20/2013 0 09/06/2019 Pain in joint, lower leg 08/13/2008 020 Hepatitis in viral diseases classified elsewhere (573.1) 10/25/2013 documented as of this encounter (statuses as of 01/13/2022) [facility] History of Past illness Narrative* Problem Noted Date Resolved Date Pain in joint, shoulder region 09/20/2013 0 09/06/2019 Pain in joint, lower leg 08/13/2008 020 Hepatitis in viral diseases classified elsewhere (573.1) 10/25/2013 documented as of this encounter (statuses as of 01/21/2022) [facility] History of Past illness Narrative* Problem Noted Date Resolved Date Pain in joint, shoulder region 09/20/2013 0 09/06/2019 Pain in joint, lower leg 08/13/2008 020 Hepatitis in viral diseases classified elsewhere (573.1) 10/25/2013 documented as of this encounter (statuses as of 02/17/2022) [facility] History of Past illness Narrative* Problem Noted Date Resolved Date Pain in joint, shoulder region 09/20/2013 0 09/06/2019 Pain in joint, lower leg 08/13/2008 020 Hepatitis in viral diseases classified elsewhere (573.1) 10/25/2013 documented as of this encounter (statuses as of 03/28/2022) [facility] History of Past illness Narrative* Problem Noted Date Resolved Date Pain in joint, shoulder region 09/20/2013 0 09/06/2019 Pain in joint, lower leg 08/13/2008 020 Hepatitis in viral diseases classified elsewhere (573.1) 10/25/2013 documented as of this encounter (statuses as of 04/21/2022) [facility] History of Past illness Narrative* Problem Noted Date Resolved Date Pain in joint, shoulder region 09/20/2013 0 09/06/2019 Pain in joint, lower leg 08/13/2008 020 Hepatitis in viral diseases classified elsewhere (573.1) 10/25/2013 documented as of this encounter (statuses as of 05/30/2022) [address]25-2014 History of Past illness Narrative* Problem Noted Date Resolved Date Pain in joint, shoulder region 09/20/2013 0 09/06/2019 Pain in joint, lower leg 08/13/2008 020 Hepatitis in viral diseases classified elsewhere (573.1) 10/25/2013 documented as of this encounter (statuses as of 07/06/2022) [facility] History of Past illness Narrative* Problem Noted Date Resolved Date Pain in joint, shoulder region 09/20/2013 0 09/06/2019 Pain in joint, lower leg 08/13/2008 020 Hepatitis in viral diseases classified elsewhere (573.1) 10/25/2013 documented as of this encounter (statuses as of 07/12/2022) [facility] History of Past illness Narrative* Problem Noted Date Resolved Date Pain in joint, shoulder region 09/20/2013 0 09/06/2019 Pain in joint, lower leg 08/13/2008 020 Hepatitis in viral diseases classified elsewhere (573.1) 10/25/2013 documented as of this encounter (statuses as of 08/31/2022) [facility] History of Past illness Narrative* Problem Noted Date Diagnosed Date Resolved Date Pain in joint, shoulder region 09/20/2013 09/06/2019 Pain in joint, lower leg 08/13/200811/2019 Hepatitis in viral diseases classified elsewhere(573.1) 10/25/2013 documented as of this encounter (statuses as of 09/15/2022) [facility] History of Past illness Narrative* Problem Noted Date Diagnosed Date Resolved Date Pain in joint, shoulder region 09/20/2013 09/06/2019 Pain in joint, lower leg 08/13/200811/2019 Hepatitis in viral diseases classified elsewhere(573.1) 10/25/2013 documented as of this encounter (statuses as of 09/19/2022) [facility] History of Past illness Narrative* Problem Noted Date Diagnosed Date Resolved Date Pain in joint, shoulder region 09/20/2013 09/06/2019 Pain in joint, lower leg 08/13/200811/2019 Hepatitis in viral diseases classified elsewhere(573.1) 10/25/2013 documented as of this encounter (statuses as of 10/04/2022) [facility] History of Past illness Narrative* Problem Noted Date Diagnosed Date Resolved Date Pain in joint, shoulder region 09/20/2013 09/06/2019 Pain in joint, lower leg 08/13/200811/2019 Hepatitis in viral diseases classified elsewhere(573.1) 10/25/2013 documented as of this encounter (statuses as of 10/14/2022) [facility] History of Past illness Narrative* Problem Noted Date Diagnosed Date Resolved Date Pain in joint, shoulder region 09/20/2013 09/06/2019 Pain in joint, lower leg 08/13/200811/2019 Hepatitis in viral diseases classified elsewhere(573.1) 10/25/2013 documented as of this encounter (statuses as of 10/17/2022) [facility] History of Past illness Narrative* Problem Noted Date Diagnosed Date Resolved Date Pain in joint, shoulder region 09/20/2013 09/06/2019 Pain in joint, lower leg 08/13/200811/2019 Hepatitis in viral diseases classified elsewhere(573.1) 10/25/2013 documented as of this encounter (statuses as of 10/18/2022) [facility] History of Past illness Narrative* Problem Noted Date Diagnosed Date Resolved Date Pain in joint, shoulder region 09/20/2013 09/06/2019 Pain in joint, lower leg 08/13/200811/2019 Hepatitis in viral diseases classified elsewhere(573.1) 10/25/2013 documented as of this encounter (statuses as of 10/25/2022) [place] [address]-25-2014 History of Past illness Narrative* Problem Noted Date Diagnosed Date Resolved Date Pain in joint, shoulder region 09/20/2013 09/06/2019 Pain in joint, lower leg 08/13/200811/2019 Hepatitis in viral diseases classified elsewhere(573.1) 10/25/2013 documented as of this encounter (statuses as of 11/14/2022) [address]25-2014 History of Past illness Narrative* Problem Noted Date Diagnosed Date Resolved Date Pain in joint, shoulder region 09/20/2013 09/06/2019 Pain in joint, lower leg 08/13/200811/2019 Hepatitis in viral diseases classified elsewhere(573.1) 10/25/2013 documented as of this encounter (statuses as of 11/22/2022) [facility] note* Diagnosis Encounter for screening mammogram for breast cancer- Primary [facility] Diagnosis Need for vaccination- Primary Need for prophylactic vaccination and inoculation against unspecified single disease [facility] Diagnosis Cough- Primary [facility] Diagnosis Cough- Primary SOB (shortness of breath) Shortness of breath Wheezing [facility] Diagnosis Essential hypertension Unspecified essential hypertension [facility] Diagnosis Essential hypertension- Primary Unspecified essential hypertension Psychophysiological insomnia Persistent disorder of initiating or maintaining sleep Acquired hypothyroidism Unspecified hypothyroidism Gastroesophageal reflux disease without esophagitis Esophageal reflux Stage 3a chronic kidney disease (HCC) IFG (impaired fasting glucose) Impaired fasting glucose [facility] Diagnosis Chronic cough- Primary Cough Wheeze Wheezing Encounter for immunization Need for other specified prophylactic vaccination against single bacterial disease Need for shingles vaccine Need for prophylactic vaccination and inoculation against other viral diseases Stage 3a chronic kidney disease (HCC) Gastroesophageal reflux disease without esophagitis Esophageal reflux Acquired hypothyroidism Unspecified hypothyroidism documented in this encounter [facility] note* Diagnosis Subacute cough- Primary Cough Bronchitis, mucopurulent recurrent (HCC) Mucopurulent chronic bronchitis Gastroesophageal reflux disease, unspecified whether esophagitis present documented in this encounter [facility] note* Diagnosis Subacute cough Cough [facility]* Diagnosis Subacute cough Cough [facility]* Diagnosis Insomnia, unspecified type documented in this encounter [facility] note* Diagnosis Wheezing- Primary Cough, unspecified type BURNETT (dyspnea on exertion) Other dyspnea and respiratory abnormality documented in this encounter [facility] noteNo assessment information availableWMarietta [facility]opathic [facility] Work Phone: Evaluation note* Diagnosis Idiopathic peripheral autonomic neuropathy Idiopathic peripheral autonomic neuropathy, unspecified documented in this encounter [facility] note* Diagnosis Chronic cough- Primary Cough Shortness of breath Wheeze Wheezing [facility]* Diagnosis Insomnia, unspecified type- Primary Dysfunction of both eustachian tubes Dysfunction of Eustachian tube Class 2 obesity due to excess calories without serious comorbidity with body mass index (BMI) of 38.0 to 38.9 in adult Stress due to illness of family member Other health problem within the family documented in this encounter [facility] note* Diagnosis Dysfunction of both eustachian tubes Dysfunction of Eustachian tube documented in this encounter [facility] note* Diagnosis Chronic cough Cough Shortness of breath Wheeze Wheezing documented in this encounter [facility] note* Diagnosis Insomnia, unspecified type documented in this encounter [facility] note* Diagnosis Acquired hypothyroidism Unspecified hypothyroidism documented in this encounter [facility] note* Diagnosis Chronic cough Cough Shortness of breath Wheeze Wheezing [facility]* Diagnosis Essential hypertension- Primary Unspecified essential hypertension IFG (impaired fasting glucose) Impaired fasting glucose Acquired hypothyroidism Unspecified hypothyroidism Class 2 obesity due to excess calories with body mass index (BMI) of 37.0 to 37.9 in adult, unspecified whether serious comorbidity present Elevated LDL cholesterol level Pure hypercholesterolemia Encounter for immunization Need for other specified prophylactic vaccination against single bacterial disease Encounter for long-term current use of medication Stage 3a chronic kidney disease (HCC) documented in this encounter [facility] note* Diagnosis Insomnia, unspecified type [facility]* Diagnosis Moderate persistent asthma with acute exacerbation- Primary Upper respiratory tract infection, unspecified type documented in this encounter [facility] note* Diagnosis BURNETT (dyspnea on exertion)- Primary Other dyspnea and respiratory abnormality Acquired hypothyroidism Unspecified hypothyroidism Encounter for long-term current use of medication [facility]* Diagnosis Precordial pain- Primary Shortness of breath Moderate persistent asthma without complication Unspecified asthma Essential hypertension Unspecified essential hypertension documented in this encounter [facility] note* Diagnosis Hiatal hernia- Primary Diaphragmatic hernia without mention of obstruction or gangrene Precordial pain Insomnia, unspecified type Essential hypertension Unspecified essential hypertension Moderate recurrent major depression (HCC) Major depressive disorder, recurrent episode, moderate Stage 3a chronic kidney disease (HCC) [facility]* Diagnosis Tortuous aorta (HCC) Stricture of artery [facility]* Diagnosis Stage 3a chronic kidney disease (HCC)- Primary Essential hypertension Unspecified essential hypertension Moderate persistent asthma without complication Unspecified asthma Gastroesophageal reflux disease without esophagitis Esophageal reflux documented in this encounter [facility] note* Diagnosis Moderate persistent asthma without complication- Primary Unspecified asthma Shortness of breath Acquired hypothyroidism Unspecified hypothyroidism BURNETT (dyspnea on exertion) Other dyspnea and respiratory abnormality [facility]* Diagnosis Essential hypertension- Primary Unspecified essential hypertension Situational mixed anxiety and depressive disorder Adjustment disorder with mixed anxiety and depressed mood Acquired hypothyroidism Unspecified hypothyroidism Insomnia, unspecified type Stage 3a chronic kidney disease (HCC) Gastroesophageal reflux disease without esophagitis Esophageal reflux Mild intermittent asthma without complication Unspecified asthma [facility]* Diagnosis Chronic cough Cough SOB (shortness of breath) Shortness of breath [facility]* Diagnosis Chronic cough Cough Wheeze Wheezing documented in this encounter [facility] note* Diagnosis Cough SOB (shortness of breath) Shortness of breath Wheezing documented in this encounter [facility] note* Diagnosis Moderate persistent asthma without complication Unspecified asthma Acquired hypothyroidism Unspecified hypothyroidism documented in this encounter [facility] note* Diagnosis Uncomplicated asthma, unspecified asthma severity, unspecified whether persistent documented in this encounter [facility] note* Diagnosis Uncomplicated asthma, unspecified asthma severity, unspecified whether persistent- Primary Allergic rhinitis, unspecified seasonality, unspecified trigger Gastroesophageal reflux disease, unspecified whether esophagitis present Uncomplicated asthma, unspecified asthma severity, unspecified whether persistent documented in this encounter [facility] note* Diagnosis Acquired hypothyroidism- Primary Unspecified hypothyroidism ANA on CPAP Obstructive sleep apnea (adult) (pediatric) Pedal edema Edema Encounter for immunization Need for other specified prophylactic vaccination against single bacterial disease Class 2 obesity due to excess calories without serious comorbidity with body mass index (BMI) of 37.0 to 37.9 in adult Other polyneuropathy Mild intermittent asthma without complication Unspecified asthma Encounter for long-term current use of medication Essential hypertension Unspecified essential hypertension documented in this encounter [facility] note* Diagnosis Encounter for screening mammogram for breast cancer documented in this encounter [facility] note* Diagnosis Encounter for screening mammogram for breast cancer- Primary Encounter for screening mammogram for breast cancer documented in this encounter [facility] note* Diagnosis Acquired hypothyroidism Unspecified hypothyroidism documented in this encounter [facility] note* Diagnosis Uncomplicated asthma, unspecified asthma severity, unspecified whether persistent [facility]* Diagnosis Essential hypertension Unspecified essential hypertension [facility]* Diagnosis Essential hypertension Unspecified essential hypertension documented in this encounter [facility] note* Diagnosis Uncomplicated asthma, unspecified asthma severity, unspecified whether persistent documented in this encounter [facility] note* Diagnosis Uncomplicated asthma, unspecified asthma severity, unspecified whether persistent Allergic rhinitis, unspecified seasonality, unspecified trigger documented in this encounter [facility] note* Diagnosis Cough variant asthma- Primary Gastroesophageal reflux disease, unspecified whether esophagitis present Class 2 obesity [facility]* Diagnosis Idiopathic peripheral autonomic neuropathy Idiopathic peripheral autonomic neuropathy, unspecified Panic disorder without agoraphobia [facility] Diagnosis Dysfunction of both eustachian tubes Dysfunction of Eustachian tube [facility] Diagnosis Insomnia, unspecified type- Primary ANA on CPAP Obstructive sleep apnea (adult) (pediatric) Moderate recurrent major depression (HCC) Major depressive disorder, recurrent episode, moderate Cognitive impairment Unspecified persistent mental disorders due to conditions classified elsewhere Essential hypertension Unspecified essential hypertension Stage 3a chronic kidney disease (HCC) Acquired hypothyroidism Unspecified hypothyroidism Moderate persistent asthma without complication (HCC) Unspecified asthma Encounter for therapeutic drug monitoring Vitamin D deficiency Unspecified vitamin D deficiency documented in this encounter [facility] note* Diagnosis Insomnia, unspecified type- Primary Vitamin D deficiency Unspecified vitamin D deficiency Essential hypertension Unspecified essential hypertension Moderate recurrent major depression (HCC) Major depressive disorder, recurrent episode, moderate Situational mixed anxiety and depressive disorder Adjustment disorder with mixed anxiety and depressed mood Acquired hypothyroidism Unspecified hypothyroidism Moderate persistent asthma without complication (HCC) Unspecified asthma documented in this encounter [facility] note* Diagnosis Cough variant asthma (HCC)- Primary Cough variant asthma Allergic rhinitis, unspecified seasonality, unspecified trigger Gastroesophageal reflux disease, unspecified whether esophagitis present documented in this encounter [facility] note* Diagnosis Cough variant asthma (HCC)- Primary Cough variant asthma Allergic rhinitis, unspecified seasonality, unspecified trigger Essential hypertension Unspecified essential hypertension documented in this encounter [facility] note* Diagnosis Essential hypertension- Primary Unspecified essential hypertension documented in this encounter [facility] note* Diagnosis Essential hypertension Unspecified essential hypertension [facility] Diagnostic Procedure Only (Routine) - Pending Review Specialty Diagnoses / Procedures Referred By Buster huang Referred To Contact [facility] Diagnoses Encounter for screening mammogram for breast cancer Procedures ANDRE SCREENING SCREENING MAMMOGRAPHY BI 2-VIEW BREAST INC Ton Hull APRN.CNS [address] [place] [address] [facility] [address] [place] [id number] Referral ID Status Reason Start Date Expiration Date Visits Requested Visits Authorized [id number] Pending Review Auto-Generat ed Referral 06/17/2021 07/17/2022 1 1 [facility] for referral (narrative)* Outpatient Procedure (Routine) - Authorized Specialty Diagnoses / Procedures Referred By Buster huang Referred To Contact [facility] Diagnoses Subacute cough Procedures NITRIC OXIDE, EXHALED NITRIC OXIDE GAS DETERMINATION Johanne Hutchinson MD [address] [facility] [place] [address] [facility] [place] [address] [place] [address] Referral ID Status Reason Start Date Expiration Date Visits Requested Visits Authorized [id number] Authorized Auto-Generat ed Referral 09/17/2021 10/17/2022 1 1 * Outpatient Procedure (Routine) - Authorized Specialty Diagnoses / Procedures Referred By Contac t Referred To Contact [facility] Diagnoses Subacute cough Procedures SPIROMETRY WITH DILATOR IF OBSTRUCTED BRNCDILAT RSPSE SPMTRY PRE&POST-BRNCDILAT ADMJohanne Hunt MD [address] [facility] [place] [id number] [facility] [place] [address] [place], [place] [id number] Referral ID Status Reason Start Date Expiration Date Visits Requested Visits Authorized [id number] Authorized Auto-Generat ed Referral 09/17/2021 10/17/2022 1 1 [facility] for referral (narrative)* Outpatient Procedure (Routine) - Pending Review Specialty Diagnoses / Procedures Referred By Contac t Referred To Contact [facility] Diagnoses Precordial pain Shortness of breath Procedures ECG COMPLETE ECG ROUTINE ECG W/LEAST 12 LDS W/[place] [address] [place] [id number] [facility] [place] [id number] Referral ID Status Reason Start Date Expiration Date Visits Requested Visits Authorized [id number] Pending Review Auto-Generat ed Referral 04/14/2023 04/13/2024 1 1 * Medication Prior Authorization - Closed Specialty Diagnoses / Procedures Referred By Contac t Referred To Contact Diagnoses Moderate persistent asthma without complication Racquel Centeno MD [address] [place] [address] Referral ID Status Reason Start Date Expiration Date Visits Re quested Visits Authorized [id number] Closed 1 1 * Outpatient Procedure (Routine) - Authorized Specialty Diagnoses / Procedures Referred By Buster t Referred To [facility] Diagnoses Precordial pain Shortness of breath Procedures STRESS ECHO TREADMILL ECHO TTHRC R-T 2D W/WO M-MODE [place]TE [place] [address] [place] [address] [facility] [place] [address] [place] [id number] Referral ID Status Reason Start Date Expiration Date Visits Requested Visits Authorized [id number] Authorized Auto-Generat ed Referral 04/14/2023 04/13/2024 1 1 [facility] for referral (narrative)* Diagnostic Procedure Only (Routine) - Pending Review Specialty Diagnoses / Procedures Referred By Buster huang Referred To Contact X[facility] IMAGING Diagnoses Hiatal hernia Procedures XR ESOPHAGRAM RADIOLOGIC EXAM ESOPHAGUS SINGLE CONTRAST STUDY Felipe Estrada APRN.CNP [address] [place] [address] [place] [address] Referral ID Status Reason Start Date Expiration Date Visits Requested Visits Authorized [id number] Pending Review Auto-Generat ed Referral 06/13/2023 07/12/2024 1 1 [facility] for referral (narrative)* Outpatient Procedure (Routine) - New Request Specialty Diagnoses / Procedures Referred By Buster t Referred To Contact [facility] Diagnoses Uncomplicated asthma, unspecified asthma severity, unspecified whether persistent Allergic rhinitis, unspecified seasonality, unspecified trigger Procedures NITRIC OXIDE, EXHALED NITRIC OXIDE GAS DETERMINATION Nisha Gross PA-C [address] [place] [address] [facility] [place] [facility] [place] [address] Referral ID Status Reason Start Date Expiration Date Visits Requested Visits Authorized [id number] New Request Auto-Generat ed Referral 01/18/2025 1 1 * Outpatient Procedure (Routine) - Authorized Specialty Diagnoses / Procedures Referred By Contac t Referred To Contact [facility] Diagnoses Uncomplicated asthma, unspecified asthma severity, unspecified whether persistent Procedures SPIROMETRY WITH DILATOR IF OBSTRUCTED BRNCDILAT RSPSE SPMTRY PRE&POST-BRNCDILAT ADMN Nisha Gross PA-C [address] [facility] [place] [address] [facility] [place] [address] [place] [address] Referral ID Status Reason Start Date Expiration Date Visits Requested Visits Authorized [id number] Authorized Auto-Generat ed Referral 01/18/2025 1 1 * Outpatient Procedure (Routine) - Closed Specialty Diagnoses / Procedures Referred By Contnick t Referred To Contact [facility] Diagnoses Uncomplicated asthma, unspecified asthma severity, unspecified whether persistent Procedures NITRIC OXIDE, EXHALED NITRIC OXIDE GAS DETERMINATION Nisha Gross PA-C [address] [place] [address] [address] Referral ID Status Reason Start Date Expiration Date V isits Requested Visits Authorized [id number] Closed Auto-Generate d Referral 12/20/2023 01/18/2025 1 1 [facility] for referral (narrative)* Diagnostic Procedure Only (Routine) - Closed Specialty Diagnoses / Procedures Referred By Contnick t Referred To Contact [facility] Diagnoses Encounter for screening mammogram for breast cancer Procedures ANDRE SCREENING SCREENING MAMMOGRAPHY BI 2-VIEW BREAST INC CAD Racquel Centeno MD [address] [place] [address] [facility] [address] [place] [address] Referral ID Status Reason Start Date Expiration Date V isits Requested Visits Authorized [id number] Closed Auto-Generate d Referral 12/28/2023 01/23/2025 1 1 [facility] Diagnostic Procedure Only (Routine) - Closed Specialty Diagnoses / Procedures Referred By Contnick huang Referred To Contact [facility] Diagnoses Encounter for screening mammogram for breast cancer Procedures ANDRE SCREENING SCREENING MAMMOGRAPHY BI 2-VIEW BREAST INC CAD Racquel Centeno MD [address] [place] [address] [facility] [address] [place] [address] Referral ID Status Reason Start Date Expiration Date V isits Requested Visits Authorized [id number] Closed Auto-Generate d Referral 12/28/2023 01/23/2025 1 1 [facility] Advance Directives No Advanced Directives Records FoundDocuments on File Type Date Recorded Patient Reconciling Clerk Expl anation Advance Directive(s) 09/10/2020 11:52 AM Advance Directive(s) 08/19/2020 8:14 AM Advance Directive(s) 08/01/2018 9:14 AM Advance Directive(s) 05/12/2016 1:34 PM Documents on File Type Date Recorded Patient Reconciling Clerk Expl anation Advance Directive(s) 09/10/2020 11:52 AM Advance Directive(s) 08/19/2020 8:14 AM Advance Directive(s) 08/01/2018 9:14 AM Advance Directive(s) 05/12/2016 1:34 PM Documents on File Type Date Recorded Patient Reconciling Clerk Expl anation Advance Directive(s) 08/01/2018 9:14 AM Documents on File Type Date Recorded Patient Reconciling Clerk Expl anation Advance Directive(s) 08/01/2018 9:14 AM Advance Directive Response Recorded Date/ Time Living Will Yes December 10 8:59am Power of Promotions Specialist Yes December 10, 2018 8:59am Reason for Referral Specialty Diagnoses / Procedures Referred By Contnick t Referred To Contact Diagnoses Insomnia, unspecified type Racquel Centeno MD [address] [place] [address] Referral ID Status Reason Start Date Expiration Date V isits Requested Visits Authorized [id number] Authorized 02/27/2021 09/22/2022 1 1 Specialty Diagnoses / Procedures Referred By Buster t Referred To Contact [facility] Diagnoses Moderate persistent asthma without complication Shortness of breath BURNETT (dyspnea on exertion) Procedures CONSULT TO PULM/CRITICAL CARE OFFICE/OUTPATIENT NEW HIGH MDM 60 MINUTES Felipe Estrada APRN.TICK SEWER [address] [place] [address] Referral ID Status Reason Start Date Expiration Date Visits Requested Visits Authorized [id number] Authorized PCP Requested Referral 09/25/2023 09/24/2024 1 1 Health Concerns Problem Noted Date High Risk Chronic Disease Home Monitorin g Problem 07/13/2022 Chief Complaint and Reason for Visit Chief Complaint HIATAL HERNIA Summary Purpose Family History No Family History Records FoundNo Family History Records Found Additional Source Comments Source Comments (unrecognize d section and content) In the event this informatio n is protected by the Federal Confidentiality of Alcohol and Drug Abuse Patient Records regulations: The Federal rules restrict any use of the information to criminally investigate or prosecute any alcohol or drug abuse patient.[facility] the event this information is protected by the Federal Confidentiality of Alcohol and Drug Abuse Patient Records regulations: The Federal rules restrict any use of the information to criminally investigate or prosecute any alcohol or drug abuse patient.[facility] the event this information is protected by the Federal Confidentiality of Alcohol and Drug Abuse Patient Records regulations: The Federal rules restrict any use of the information to criminally investigate or prosecute any alcohol or drug abuse patient.[facility] the event this information is protected by the Federal Confidentiality of Alcohol and Drug Abuse Patient Records regulations: The Federal rules restrict any use of the information to criminally investigate or prosecute any alcohol or drug abuse patient.[facility] the event this information is protected by the Federal Confidentiality of Alcohol and Drug Abuse Patient Records regulations: The Federal rules restrict any use of the information to criminally investigate or prosecute any alcohol or drug abuse patient.[facility] the event this information is protected by the Federal Confidentiality of Alcohol and Drug Abuse Patient Records regulations: The Federal rules restrict any use of the information to criminally investigate or prosecute any alcohol or drug abuse patient.[facility] the event this information is protected by the Federal Confidentiality of Alcohol and Drug Abuse Patient Records regulations: The Federal rules restrict any use of the information to criminally investigate or prosecute any alcohol or drug abuse patient.[facility] the event this information is protected by the Federal Confidentiality of Alcohol and Drug Abuse Patient Records regulations: The Federal rules restrict any use of the information to criminally investigate or prosecute any alcohol or drug abuse patient.[facility] the event this information is protected by the Federal Confidentiality of Alcohol and Drug Abuse Patient Records regulations: The Federal rules restrict any use of the information to criminally investigate or prosecute any alcohol or drug abuse patient.[facility] the event this information is protected by the Federal Confidentiality of Alcohol and Drug Abuse Patient Records regulations: The Federal rules restrict any use of the information to criminally investigate or prosecute any alcohol or drug abuse patient.[facility] Hospital[facility] the event this information is protected by the Federal Confidentiality of Alcohol and Drug Abuse Patient Records regulations: The Federal rules restrict any use of the information to criminally investigate or prosecute any alcohol or drug abuse patient.[facility] Hospital[facility] the event this information is protected by the Federal Confidentiality of Alcohol and Drug Abuse Patient Records regulations: The Federal rules restrict any use of the information to criminally investigate or prosecute any alcohol or drug abuse patient.[facility] Hospital[facility] the event this information is protected by the Federal Confidentiality of Alcohol and Drug Abuse Patient Records regulations: The Federal rules restrict any use of the information to criminally investigate or prosecute any alcohol or drug abuse patient.[facility] Hospital[facility] the event this information is protected by the Federal Confidentiality of Alcohol and Drug Abuse Patient Records regulations: The Federal rules restrict any use of the information to criminally investigate or prosecute any alcohol or drug abuse patient.[facility] Hospital[facility] the event this information is protected by the Federal Confidentiality of Alcohol and Drug Abuse Patient Records regulations: The Federal rules restrict any use of the information to criminally investigate or prosecute any alcohol or drug abuse patient.[facility] Hospital[facility] the event this information is protected by the Federal Confidentiality of Alcohol and Drug Abuse Patient Records regulations: The Federal rules restrict any use of the information to criminally investigate or prosecute any alcohol or drug abuse patient.[facility] Hospital[facility] the event this information is protected by the Federal Confidentiality of Alcohol and Drug Abuse Patient Records regulations: The Federal rules restrict any use of the information to criminally investigate or prosecute any alcohol or drug abuse patient.[facility] Hospital[facility] the event this information is protected by the Federal Confidentiality of Alcohol and Drug Abuse Patient Records regulations: The Federal rules restrict any use of the information to criminally investigate or prosecute any alcohol or drug abuse patient.[facility] HospitalIn the event this information is protected by the Federal Confidentiality of Alcohol and Drug Abuse Patient Records regulations: The Federal rules restrict any use of the information to criminally investigate or prosecute any alcohol or drug abuse patient.[facility] Hospital[facility] the event this information is protected by the Federal Confidentiality of Alcohol and Drug Abuse Patient Records regulations: The Federal rules restrict any use of the information to criminally investigate or prosecute any alcohol or drug abuse patient.[facility] Hospital[facility] the event this information is protected by the Federal Confidentiality of Alcohol and Drug Abuse Patient Records regulations: The Federal rules restrict any use of the information to criminally investigate or prosecute any alcohol or drug abuse patient.[facility] Hospital[facility] the event this information is protected by the Federal Confidentiality of Alcohol and Drug Abuse Patient Records regulations: The Federal rules restrict any use of the information to criminally investigate or prosecute any alcohol or drug abuse patient.[facility] Hospital[facility] the event this information is protected by the Federal Confidentiality of Alcohol and Drug Abuse Patient Records regulations: The Federal rules restrict any use of the information to criminally investigate or prosecute any alcohol or drug abuse patient.[facility] Hospital[facility] the event this information is protected by the Federal Confidentiality of Alcohol and Drug Abuse Patient Records regulations: The Federal rules restrict any use of the information to criminally investigate or prosecute any alcohol or drug abuse patient.[facility] Hospital[facility] the event this information is protected by the Federal Confidentiality of Alcohol and Drug Abuse Patient Records regulations: The Federal rules restrict any use of the information to criminally investigate or prosecute any alcohol or drug abuse patient.[facility] Hospital[facility] the event this information is protected by the Federal Confidentiality of Alcohol and Drug Abuse Patient Records regulations: The Federal rules restrict any use of the information to criminally investigate or prosecute any alcohol or drug abuse patient.[facility] HospitalIn the event this information is protected by the Federal Confidentiality of Alcohol and Drug Abuse Patient Records regulations: The Federal rules restrict any use of the information to criminally investigate or prosecute any alcohol or drug abuse patient.[facility] HospitalIn the event this information is protected by the Federal Confidentiality of Alcohol and Drug Abuse Patient Records regulations: The Federal rules restrict any use of the information to criminally investigate or prosecute any alcohol or drug abuse patient.[facility] HospitalIn the event this information is protected by the Federal Confidentiality of Alcohol and Drug Abuse Patient Records regulations: The Federal rules restrict any use of the information to criminally investigate or prosecute any alcohol or drug abuse patient.[facility]In the event this information is protected by the Federal Confidentiality of Alcohol and Drug Abuse Patient Records regulations: The Federal rules restrict any use of the information to criminally investigate or prosecute any alcohol or drug abuse patient.[facility] HospitalIn the event this information is protected by the Federal Confidentiality of Alcohol and Drug Abuse Patient Records regulations: The Federal rules restrict any use of the information to criminally investigate or prosecute any alcohol or drug abuse patient.[facility] HospitalIn the event this information is protected by the Federal Confidentiality of Alcohol and Drug Abuse Patient Records regulations: The Federal rules restrict any use of the information to criminally investigate or prosecute any alcohol or drug abuse patient.[facility] HospitalIn the event this information is protected by the Federal Confidentiality of Alcohol and Drug Abuse Patient Records regulations: The Federal rules restrict any use of the information to criminally investigate or prosecute any alcohol or drug abuse patient.[facility] HospitalIn the event this information is protected by the Federal Confidentiality of Alcohol and Drug Abuse Patient Records regulations: The Federal rules restrict any use of the information to criminally investigate or prosecute any alcohol or drug abuse patient.[facility] HospitalIn the event this information is protected by the Federal Confidentiality of Alcohol and Drug Abuse Patient Records regulations: The Federal rules restrict any use of the information to criminally investigate or prosecute any alcohol or drug abuse patient.[facility] HospitalIn the event this information is protected by the Federal Confidentiality of Alcohol and Drug Abuse Patient Records regulations: The Federal rules restrict any use of the information to criminally investigate or prosecute any alcohol or drug abuse patient.[facility] HospitalIn the event this information is protected by the Federal Confidentiality of Alcohol and Drug Abuse Patient Records regulations: The Federal rules restrict any use of the information to criminally investigate or prosecute any alcohol or drug abuse patient.[facility] HospitalIn the event this information is protected by the Federal Confidentiality of Alcohol and Drug Abuse Patient Records regulations: The Federal rules restrict any use of the information to criminally investigate or prosecute any alcohol or drug abuse patient.[facility] HospitalIn the event this information is protected by the Federal Confidentiality of Alcohol and Drug Abuse Patient Records regulations: The Federal rules restrict any use of the information to criminally investigate or prosecute any alcohol or drug abuse patient.[facility] HospitalIn the event this information is protected by the Federal Confidentiality of Alcohol and Drug Abuse Patient Records regulations: The Federal rules restrict any use of the information to criminally investigate or prosecute any alcohol or drug abuse patient.[facility] HospitalIn the event this information is protected by the Federal Confidentiality of Alcohol and Drug Abuse Patient Records regulations: The Federal rules restrict any use of the information to criminally investigate or prosecute any alcohol or drug abuse patient.[facility] HospitalIn the event this information is protected by the Federal Confidentiality of Alcohol and Drug Abuse Patient Records regulations: The Federal rules restrict any use of the information to criminally investigate or prosecute any alcohol or drug abuse patient.[facility] HospitalIn the event this information is protected by the Federal Confidentiality of Alcohol and Drug Abuse Patient Records regulations: The Federal rules restrict any use of the information to criminally investigate or prosecute any alcohol or drug abuse patient.[facility] HospitalIn the event this information is protected by the Federal Confidentiality of Alcohol and Drug Abuse Patient Records regulations: The Federal rules restrict any use of the information to criminally investigate or prosecute any alcohol or drug abuse patient.[facility] HospitalIn the event this information is protected by the Federal Confidentiality of Alcohol and Drug Abuse Patient Records regulations: The Federal rules restrict any use of the information to criminally investigate or prosecute any alcohol or drug abuse patient.[facility] HospitalIn the event this information is protected by the Federal Confidentiality of Alcohol and Drug Abuse Patient Records regulations: The Federal rules restrict any use of the information to criminally investigate or prosecute any alcohol or drug abuse patient.[facility] HospitalIn the event this information is protected by the Federal Confidentiality of Alcohol and Drug Abuse Patient Records regulations: The Federal rules restrict any use of the information to criminally investigate or prosecute any alcohol or drug abuse patient.[facility] HospitalIn the event this information is protected by the Federal Confidentiality of Alcohol and Drug Abuse Patient Records regulations: The Federal rules restrict any use of the information to criminally investigate or prosecute any alcohol or drug abuse patient.[facility] HospitalIn the event this information is protected by the Federal Confidentiality of Alcohol and Drug Abuse Patient Records regulations: The Federal rules restrict any use of the information to criminally investigate or prosecute any alcohol or drug abuse patient.[facility] HospitalIn the event this information is protected by the Federal Confidentiality of Alcohol and Drug Abuse Patient Records regulations: The Federal rules restrict any use of the information to criminally investigate or prosecute any alcohol or drug abuse patient.[facility] HospitalIn the event this information is protected by the Federal Confidentiality of Alcohol and Drug Abuse Patient Records regulations: The Federal rules restrict any use of the information to criminally investigate or prosecute any alcohol or drug abuse patient.[facility] HospitalIn the event this information is protected by the Federal Confidentiality of Alcohol and Drug Abuse Patient Records regulations: The Federal rules restrict any use of the information to criminally investigate or prosecute any alcohol or drug abuse patient.[facility] HospitalIn the event this information is protected by the Federal Confidentiality of Alcohol and Drug Abuse Patient Records regulations: The Federal rules restrict any use of the information to criminally investigate or prosecute any alcohol or drug abuse patient.[facility] HospitalIn the event this information is protected by the Federal Confidentiality of Alcohol and Drug Abuse Patient Records regulations: The Federal rules restrict any use of the information to criminally investigate or prosecute any alcohol or drug abuse patient.[facility] HospitalIn the event this information is protected by the Federal Confidentiality of Alcohol and Drug Abuse Patient Records regulations: The Federal rules restrict any use of the information to criminally investigate or prosecute any alcohol or drug abuse patient.[facility] HospitalIn the event this information is protected by the Federal Confidentiality of Alcohol and Drug Abuse Patient Records regulations: The Federal rules restrict any use of the information to criminally investigate or prosecute any alcohol or drug abuse patient.[facility] HospitalIn the event this information is protected by the Federal Confidentiality of Alcohol and Drug Abuse Patient Records regulations: The Federal rules restrict any use of the information to criminally investigate or prosecute any alcohol or drug abuse patient.[facility] HospitalIn the event this information is protected by the Federal Confidentiality of Alcohol and Drug Abuse Patient Records regulations: The Federal rules restrict any use of the information to criminally investigate or prosecute any alcohol or drug abuse patient.[facility] HospitalIn the event this information is protected by the Federal Confidentiality of Alcohol and Drug Abuse Patient Records regulations: The Federal rules restrict any use of the information to criminally investigate or prosecute any alcohol or drug abuse patient.[facility] HospitalIn the event this information is protected by the Federal Confidentiality of Alcohol and Drug Abuse Patient Records regulations: The Federal rules restrict any use of the information to criminally investigate or prosecute any alcohol or drug abuse patient.[facility] HospitalIn the event this information is protected by the Federal Confidentiality of Alcohol and Drug Abuse Patient Records regulations: The Federal rules restrict any use of the information to criminally investigate or prosecute any alcohol or drug abuse patient.[facility] HospitalIn the event this information is protected by the Federal Confidentiality of Alcohol and Drug Abuse Patient Records regulations: The Federal rules restrict any use of the information to criminally investigate or prosecute any alcohol or drug abuse patient.[facility] HospitalIn the event this information is protected by the Federal Confidentiality of Alcohol and Drug Abuse Patient Records regulations: The Federal rules restrict any use of the information to criminally investigate or prosecute any alcohol or drug abuse patient.[facility] HospitalIn the event this information is protected by the Federal Confidentiality of Alcohol and Drug Abuse Patient Records regulations: The Federal rules restrict any use of the information to criminally investigate or prosecute any alcohol or drug abuse patient.[facility] HospitalIn the event this information is protected by the Federal Confidentiality of Alcohol and Drug Abuse Patient Records regulations: The Federal rules restrict any use of the information to criminally investigate or prosecute any alcohol or drug abuse patient.[facility] HospitalIn the event this information is protected by the Federal Confidentiality of Alcohol and Drug Abuse Patient Records regulations: The Federal rules restrict any use of the information to criminally investigate or prosecute any alcohol or drug abuse patient.[facility] HospitalIn the event this information is protected by the Federal Confidentiality of Alcohol and Drug Abuse Patient Records regulations: The Federal rules restrict any use of the information to criminally investigate or prosecute any alcohol or drug abuse patient.[facility] HospitalIn the event this information is protected by the Federal Confidentiality of Alcohol and Drug Abuse Patient Records regulations: The Federal rules restrict any use of the information to criminally investigate or prosecute any alcohol or drug abuse patient.[facility] HospitalIn the event this information is protected by the Federal Confidentiality of Alcohol and Drug Abuse Patient Records regulations: The Federal rules restrict any use of the information to criminally investigate or prosecute any alcohol or drug abuse patient.[facility] HospitalIn the event this information is protected by the Federal Confidentiality of Alcohol and Drug Abuse Patient Records regulations: The Federal rules restrict any use of the information to criminally investigate or prosecute any alcohol or drug abuse patient.[facility] HospitalIn the event this information is protected by the Federal Confidentiality of Alcohol and Drug Abuse Patient Records regulations: The Federal rules restrict any use of the information to criminally investigate or prosecute any alcohol or drug abuse patient.[facility] HospitalIn the event this information is protected by the Federal Confidentiality of Alcohol and Drug Abuse Patient Records regulations: The Federal rules restrict any use of the information to criminally investigate or prosecute any alcohol or drug abuse patient.[facility] HospitalIn the event this information is protected by the Federal Confidentiality of Alcohol and Drug Abuse Patient Records regulations: The Federal rules restrict any use of the information to criminally investigate or prosecute any alcohol or drug abuse patient.[facility] HospitalIn the event this information is protected by the Federal Confidentiality of Alcohol and Drug Abuse Patient Records regulations: The Federal rules restrict any use of the information to criminally investigate or prosecute any alcohol or drug abuse patient.[facility] HospitalIn the event this information is protected by the Federal Confidentiality of Alcohol and Drug Abuse Patient Records regulations: The Federal rules restrict any use of the information to criminally investigate or prosecute any alcohol or drug abuse patient.[facility] HospitalIn the event this information is protected by the Federal Confidentiality of Alcohol and Drug Abuse Patient Records regulations: The Federal rules restrict any use of the information to criminally investigate or prosecute any alcohol or drug abuse patient.[facility] HospitalIn the event this information is protected by the Federal Confidentiality of Alcohol and Drug Abuse Patient Records regulations: The Federal rules restrict any use of the information to criminally investigate or prosecute any alcohol or drug abuse patient.[facility] HospitalIn the event this information is protected by the Federal Confidentiality of Alcohol and Drug Abuse Patient Records regulations: The Federal rules restrict any use of the information to criminally investigate or prosecute any alcohol or drug abuse patient.[facility] HospitalIn the event this information is protected by the Federal Confidentiality of Alcohol and Drug Abuse Patient Records regulations: The Federal rules restrict any use of the information to criminally investigate or prosecute any alcohol or drug abuse patient.[facility]In the event this information is protected by the Federal Confidentiality of Alcohol and Drug Abuse Patient Records regulations: The Federal rules restrict any use of the information to criminally investigate or prosecute any alcohol or drug abuse patient.[facility] HospitalIn the event this information is protected by the Federal Confidentiality of Alcohol and Drug Abuse Patient Records regulations: The Federal rules restrict any use of the information to criminally investigate or prosecute any alcohol or drug abuse patient.[facility] HospitalIn the event this information is protected by the Federal Confidentiality of Alcohol and Drug Abuse Patient Records regulations: The Federal rules restrict any use of the information to criminally investigate or prosecute any alcohol or drug abuse patient.[facility] HospitalIn the event this information is protected by the Federal Confidentiality of Alcohol and Drug Abuse Patient Records regulations: The Federal rules restrict any use of the information to criminally investigate or prosecute any alcohol or drug abuse patient.[facility] HospitalIn the event this information is protected by the Federal Confidentiality of Alcohol and Drug Abuse Patient Records regulations: The Federal rules restrict any use of the information to criminally investigate or prosecute any alcohol or drug abuse patient.[facility] HospitalIn the event this information is protected by the Federal Confidentiality of Alcohol and Drug Abuse Patient Records regulations: The Federal rules restrict any use of the information to criminally investigate or prosecute any alcohol or drug abuse patient.[facility] HospitalIn the event this information is protected by the Federal Confidentiality of Alcohol and Drug Abuse Patient Records regulations: The Federal rules restrict any use of the information to criminally investigate or prosecute any alcohol or drug abuse patient.[facility] HospitalIn the event this information is protected by the Federal Confidentiality of Alcohol and Drug Abuse Patient Records regulations: The Federal rules restrict any use of the information to criminally investigate or prosecute any alcohol or drug abuse patient.[facility] HospitalIn the event this information is protected by the Federal Confidentiality of Alcohol and Drug Abuse Patient Records regulations: The Federal rules restrict any use of the information to criminally investigate or prosecute any alcohol or drug abuse patient.[facility] HospitalIn the event this information is protected by the Federal Confidentiality of Alcohol and Drug Abuse Patient Records regulations: The Federal rules restrict any use of the information to criminally investigate or prosecute any alcohol or drug abuse patient.[facility] HospitalIn the event this information is protected by the Federal Confidentiality of Alcohol and Drug Abuse Patient Records regulations: The Federal rules restrict any use of the information to criminally investigate or prosecute any alcohol or drug abuse patient.[facility] HospitalIn the event this information is protected by the Federal Confidentiality of Alcohol and Drug Abuse Patient Records regulations: The Federal rules restrict any use of the information to criminally investigate or prosecute any alcohol or drug abuse patient.[facility] HospitalIn the event this information is protected by the Federal Confidentiality of Alcohol and Drug Abuse Patient Records regulations: The Federal rules restrict any use of the information to criminally investigate or prosecute any alcohol or drug abuse patient.[facility] HospitalIn the event this information is protected by the Federal Confidentiality of Alcohol and Drug Abuse Patient Records regulations: The Federal rules restrict any use of the information to criminally investigate or prosecute any alcohol or drug abuse patient.[facility] HospitalIn the event this information is protected by the Federal Confidentiality of Alcohol and Drug Abuse Patient Records regulations: The Federal rules restrict any use of the information to criminally investigate or prosecute any alcohol or drug abuse patient.[facility] HospitalIn the event this information is protected by the Federal Confidentiality of Alcohol and Drug Abuse Patient Records regulations: The Federal rules restrict any use of the information to criminally investigate or prosecute any alcohol or drug abuse patient.[facility] HospitalIn the event this information is protected by the Federal Confidentiality of Alcohol and Drug Abuse Patient Records regulations: The Federal rules restrict any use of the information to criminally investigate or prosecute any alcohol or drug abuse patient.[facility] HospitalIn the event this information is protected by the Federal Confidentiality of Alcohol and Drug Abuse Patient Records regulations: The Federal rules restrict any use of the information to criminally investigate or prosecute any alcohol or drug abuse patient.[facility] HospitalIn the event this information is protected by the Federal Confidentiality of Alcohol and Drug Abuse Patient Records regulations: The Federal rules restrict any use of the information to criminally investigate or prosecute any alcohol or drug abuse patient.[facility] HospitalIn the event this information is protected by the Federal Confidentiality of Alcohol and Drug Abuse Patient Records regulations: The Federal rules restrict any use of the information to criminally investigate or prosecute any alcohol or drug abuse patient.[facility] HospitalIn the event this information is protected by the Federal Confidentiality of Alcohol and Drug Abuse Patient Records regulations: The Federal rules restrict any use of the information to criminally investigate or prosecute any alcohol or drug abuse patient.[facility] HospitalIn the event this information is protected by the Federal Confidentiality of Alcohol and Drug Abuse Patient Records regulations: The Federal rules restrict any use of the information to criminally investigate or prosecute any alcohol or drug abuse patient.[facility] HospitalIn the event this information is protected by the Federal Confidentiality of Alcohol and Drug Abuse Patient Records regulations: The Federal rules restrict any use of the information to criminally investigate or prosecute any alcohol or drug abuse patient.[facility] HospitalIn the event this information is protected by the Federal Confidentiality of Alcohol and Drug Abuse Patient Records regulations: The Federal rules restrict any use of the information to criminally investigate or prosecute any alcohol or drug abuse patient.[facility] HospitalIn the event this information is protected by the Federal Confidentiality of Alcohol and Drug Abuse Patient Records regulations: The Federal rules restrict any use of the information to criminally investigate or prosecute any alcohol or drug abuse patient.[facility] HospitalIn the event this information is protected by the Federal Confidentiality of Alcohol and Drug Abuse Patient Records regulations: The Federal rules restrict any use of the information to criminally investigate or prosecute any alcohol or drug abuse patient.[facility] HospitalIn the event this information is protected by the Federal Confidentiality of Alcohol and Drug Abuse Patient Records regulations: The Federal rules restrict any use of the information to criminally investigate or prosecute any alcohol or drug abuse patient.[facility] HospitalIn the event this information is protected by the Federal Confidentiality of Alcohol and Drug Abuse Patient Records regulations: The Federal rules restrict any use of the information to criminally investigate or prosecute any alcohol or drug abuse patient.[facility] HospitalIn the event this information is protected by the Federal Confidentiality of Alcohol and Drug Abuse Patient Records regulations: The Federal rules restrict any use of the information to criminally investigate or prosecute any alcohol or drug abuse patient.[facility] HospitalIn the event this information is protected by the Federal Confidentiality of Alcohol and Drug Abuse Patient Records regulations: The Federal rules restrict any use of the information to criminally investigate or prosecute any alcohol or drug abuse patient.[facility] HospitalIn the event this information is protected by the Federal Confidentiality of Alcohol and Drug Abuse Patient Records regulations: The Federal rules restrict any use of the information to criminally investigate or prosecute any alcohol or drug abuse patient.[facility] HospitalIn the event this information is protected by the Federal Confidentiality of Alcohol and Drug Abuse Patient Records regulations: The Federal rules restrict any use of the information to criminally investigate or prosecute any alcohol or drug abuse patient.[facility] Reason for Visit (unrecogniz ed section and content) Reason Onset Date Comments community monitoring outreach 05/26/2021 en rollment Reason Comments Imm/Inj Reason Onset Date Comments community monitoring outreach 07/13/2021 ch [email or web address] Reason Onset Date Comments community monitoring outreach 07/13/2021 es calation Reason Comments Cough Pt reported intermit tent SOB, denied chest pain, chest congestion Reason Comments patient update/future apt Reason Onset Date Comments Refill Request 08/13/2021 Reason Onset Date Comments Refill Request 08/16/2021 Reason Comments Scheduling Reason Comments 4 month f/u Reason Comments Established Patient cough/wheezing Reason Comments Orders Reason Comments Spirometry Specialty Diagnoses / Procedures Referred By Contac t Referred [facility] Diagnoses Subacute cough Procedures SPIROMETRY WITH DILATOR IF OBSTRUCTED BRNCDILAT RSPSE SPMTRY PRE&POST-BRNCDILAT ADMN Johanne Hutchinson MD [address] [place] [address] [facility] [place] [address] [place] [address] Referral ID Status Reason Start Date Expiration Date V isits Requested Visits Authorized [id number] Closed Auto-Generate d Referral 09/17/2021 10/17/2022 1 1 Specialty Diagnoses / Procedures Referred By Contac t Referred To Contact [facility] Diagnoses Subacute cough Procedures NITRIC OXIDE, EXHALED NITRIC OXIDE GAS DETERMINATION Johanne Hutchinson MD [address] [place] [address] [facility] [place] [address] [place] [address] Referral ID Status Reason Start Date Expiration Date V isits Requested Visits Authorized [id number] Closed Auto-Generate d Referral 09/17/2021 10/17/2022 1 1 Reason Comments Wheezing Shortness of Breath with exertion Reason Onset Date Comments Refill Request 01/13/2022 Reason Onset Date Comments Refill Request 02/16/2022 Reason Onset Date Comments Community Monitoring Outreach 04/20/2022 CD M outreach engagement Reason Comments F/U 6 months Reason Onset Date Comments Refill Request 07/06/2022 Reason Onset Date Comments Refill Request 07/11/2022 Reason Onset Date Comments Population Health Navigation Outreach 08/31/2022 [facility] Reason Onset Date Comments community monitoring outreach 09/15/2022 CD M outreach engagement Reason Comments Refill Request Reason Onset Date Comments Refill Request 10/03/2022 Reason Onset Date Comments community monitoring outreach 10/14/2022 CD M outreach telephonic Reason Onset Date Comments communiy monitoring outreach 10/17/2022 CDM outreach telephonic Reason Onset Date Comments Refill Request 10/17/2022 Reason Onset Date Comments Refill Request 10/24/2022 Reason Onset Date Comments community monitoring outreach 11/14/2022 CD M outreach telephonic Reason Onset Date Comments Refill Request 11/21/2022 Reason Onset Date Comments Refill Request 12/14/2022 Refill Request 12/15/2022 Reason Onset Date Comments community monitoring outreach 12/19/2022 CD M outreach telephonic Reason Comments Insurance Authorization Reason Comments Ectropion Follow Up Reason Onset Date Comments community monitoring outreach 02/14/2023 CD M outreach telephonic Reason Onset Date Comments community monitoring outreach 04/05/2023 CD M outreach telephonic Reason Onset Date Comments community monitoring outreach 04/19/2023 CD M outreach telephonic Reason Comments Asthma Reason Onset Date Comments community monitoring outreach 05/17/2023 CD M outreach telephonic Reason Comments F/U 6 months would like results o f stress test explained to her. Reason Onset Date Comments community monitoring outreach 06/14/2023 CD M outreach telephonic Reason Onset Date Comments community monitoring outreach 07/17/2023 CD M outreach telephonic Reason Comments Radiology US Specialty Diagnoses / Procedures Referred By Contac t Referred To Contact US IMAGING Diagnoses Tortuous aorta (HCC) Procedures US ABD AORTA US RETROPERITONEAL REAL TIME W/IMAGE LIMITED Felipe Estrada APRN.TICK SEWER [address] [phone] Us Imaging [facility] Referral ID Status Reason Start Date Expiration Date V isits Requested Visits Authorized [id number] Closed Auto-Generate d Referral 06/23/2023 07/22/2024 1 1 Reason Comments Results Reason Onset Date Comments community monitoring outreach 08/16/2023 CD M outreach telephonic Reason Comments F/U 3 Month discuss lab results Reason Onset Date Comments community monitoring outreach 09/12/2023 CD M outreach telephonic Reason Onset Date Comments community monitoring outreach 10/10/2023 CD M outreach telephonic Reason Comments Medication Follow-up Reason Onset Date Comments community monitoring outreach 11/07/2023 Mo nthly cdm call Reason Onset Date Comments Refill Request 11/27/2023 Reason Onset Date Comments community monitoring outreach 12/01/2023 Mo nthly cdm call Specialty Diagnoses / Procedures Referred By Contac t Referred To Contact [facility] Diagnoses Uncomplicated asthma, unspecified asthma severity, unspecified whether persistent Procedures NITRIC OXIDE, EXHALED NITRIC OXIDE GAS DETERMINATION Nisha Gross, RAFA [address] [place] [address] [facility] [address] [place], [place] [id number] Referral ID Status Reason Start Date Expiration Date V isits Requested Visits Authorized [id number] Closed Auto-Generate d Referral 12/20/2023 01/18/2025 1 1 Reason Comments Established Patient Asthma Reason Onset Date Comments community monitoring outreach 01/02/2024 Mo nthly cdm call Reason Comments Patient Question Reason Onset Date Comments community monitoring outreach 01/30/2024 Mo nthly cdm call Reason Onset Date Comments Refill Request 03/01/2024 Reason Onset Date Comments Refill Request 03/03/2024 Reason Onset Date Comments Refill Request 03/11/2024 Reason Comments Pap compliance report after changes Specialty Diagnoses / Procedures Referred By Contac t Referred To Contact [facility] Diagnoses Uncomplicated asthma, unspecified asthma severity, unspecified whether persistent Procedures SPIROMETRY WITH DILATOR IF OBSTRUCTED BRNCDILAT RSPSE SPMTRY PRE&POST-BRNCDILAT ADMN Nisha Gross PA-C [address] [place] [address] [facility] [place] [address] [place] [address] Referral ID Status Reason Start Date Expiration Date V isits Requested Visits Authorized [id number] Closed Auto-Generate d Referral 12/20/2023 01/18/2025 1 1 Specialty Diagnoses / Procedures Referred By Contac t Referred To Contact [facility] Diagnoses Uncomplicated asthma, unspecified asthma severity, unspecified whether persistent Allergic rhinitis, unspecified seasonality, unspecified trigger Procedures NITRIC OXIDE, EXHALED NITRIC OXIDE GAS DETERMINATION Nisha Gross PA-C [address] [place] [address] [facility] [place] [address] [place] [address] Referral ID Status Reason Start Date Expiration Date V isits Requested Visits Authorized [id number] Closed Auto-Generate d Referral 12/20/2023 01/18/2025 1 1 Reason Comments Established Patient asthma Shortness of Breath Reason Onset Date Comments Population Health Navigation Outreach 04/01/2024 [facility] Reason Onset Date Comments Refill Request 04/02/2024 Reason Onset Date Comments Population Health Navigation Outreach 05/01/2024 [facility] Reason Comments Medicare Wellness Exam left shoulder harlan n discuss labs of elevated TSH and alkaline phosphate Reason Comments Follow Up 3 months Reason Comments Follow Up Reason Comments Established Patient 6 month follow up as thma Reason Comments Blood Pressure Hypertension Reason Onset Date Comments Refill Request 11/03/2024 Reason Comments Blood Pressure Check Care Teams (unrecognized sec tion and content) Inspector Finishing Relationship Specialty Start Date End Date Racquel Centeno MD [address] [place], [place] [id number] PCP - General Internal Medicine 12/30/14 Inspector Finishing Relationship Specialty Start Date End Date Racquel Centeno MD [address] [place] [address] PCP - General Internal Medicine 12/30/14 [place] [address] [place] [address] Skate Maker 06/09/21 Inspector Finishing Relationship Specialty Start Date End Date Racquel Centeno MD [address] [place] [address] PCP - General Internal Medicine 12/30/14 [place] [address] [place] [address] Skate Maker 06/09/21 Inspector Finishing Relationship Specialty Start Date End Date Racquel Centeno MD [address] [place] [address] PCP - General Internal Medicine 12/30/14 [place] [address] [place] [address] Skate Maker 06/09/21 Inspector Finishing Relationship Specialty Start Date End Date Racquel Centeno MD [address] [place] [address] PCP - General Internal Medicine 12/30/14 [place] [address] [place] [address] Skate Maker 06/09/21 Inspector Finishing Relationship Specialty Start Date End Date Racquel Centeno MD [address] [place] [address] PCP - General Internal Medicine 12/30/14 [place] [address] [place] [address] Skate Maker 06/09/21 Inspector Finishing Relationship Specialty Start Date End Date Racquel Centeno MD [address] [place] [address] PCP - General Internal Medicine 12/30/14 Seda Don RN [facility] 07/29/21 Inspector Finishing Relationship Specialty Start Date End Date Racquel Centeno MD [address] [place] [address] PCP - General Internal Medicine 12/30/14 Seda Don RN [facility] 07/29/21 Inspector Finishing Relationship Specialty Start Date End Date Racquel Centeno MD [address] [place] [address] PCP - General Internal Medicine 12/30/14 Seda Don RN [facility] 07/29/21 Inspector Finishing Relationship Specialty Start Date End Date Racquel Centeno MD [address] [place] [address] PCP - General Internal Medicine 12/30/14 Seda Don RN [facility] 07/29/21 Inspector Finishing Relationship Specialty Start Date End Date Racquel Centeno MD [address] [place] [address] PCP - General Internal Medicine 12/30/14 Seda Don RN [facility] 07/29/21 Inspector Finishing Relationship Specialty Start Date End Date Racquel Centeno MD [address] [place] [address] PCP - General Internal Medicine 12/30/14 Seda Don RN [facility] 07/29/21 Inspector Finishing Relationship Specialty Start Date End Date Racquel Centeno MD [address] [place] [address] PCP - General Internal Medicine 12/30/14 Seda Don RN [facility] 07/29/21 Inspector Finishing Relationship Specialty Start Date End Date Racquel Centeno MD [address] [place] [address] PCP - General Internal Medicine 12/30/14 Seda Don RN Skate Maker [facility] 07/29/21 Inspector Finishing Relationship Specialty Start Date End Date Racquel Centeno MD [address] [place] [address] PCP - General Internal Medicine 12/30/14 Seda Don RN Skate Maker [facility] 07/29/21 Inspector Finishing Relationship Specialty Start Date End Date Racquel Centeno MD [address] [place] [address] PCP - General Internal Medicine 12/30/14 Seda Don RN [facility] 07/29/21 Inspector Finishing Relationship Specialty Start Date End Date Racquel Centeno MD [address] [place] [address] PCP - General Internal Medicine 12/30/14 Seda Don RN [facility] 07/29/21 Inspector Finishing Relationship Specialty Start Date End Date Racquel Centeno MD [address] [place] [address] PCP - General Internal Medicine 12/30/14 Saima Vasquez, RN [address] [place] [address] [facility] 07/29/21 Inspector Finishing Relationship Specialty Start Date End Date Racquel Centeno MD [address] [place] [address] PCP - General Internal Medicine 12/30/14 Saima Vasquez, RN [address] [place] [address] Skate Maker Family [facility] 07/29/21 Inspector Finishing Relationship Specialty Start Date End Date Racquel Centeno MD [address] [place] [address] PCP - General Internal Medicine 12/30/14 Saima Vasquez, RN [address] [place] [address] Skate Maker [facility] 12/27/21 Inspector Finishing Relationship Specialty Start Date End Date Racquel Centeno MD [address] [place] [address] PCP - General Internal Medicine 12/30/14 Saima Vasquez, RN [address] [place] [address] Skate Maker [facility] 12/27/21 Inspector Finishing Relationship Specialty Start Date End Date Racquel Centeno MD [address] [place] [address] PCP - General Internal Medicine 12/30/14 Saima Vasquez, RN [address] [place] [address] [facility] 12/27/21 Inspector Finishing Relationship Specialty Start Date End Date Racquel Centeno MD [address] [place] [address] PCP - General Internal Medicine 12/30/14 Saima Vasquez, RN [address] [place] [address] [facility] 12/27/21 Inspector Finishing Relationship Specialty Start Date End Date Racquel Centeno MD [address] [place] [address] PCP - General Internal Medicine 12/30/14 Saima Vasquez, RN [address] [place] [address] Skate Maker [facility] 12/27/21 Inspector Finishing Relationship Specialty Start Date End Date Racquel Centeno MD [address] [place] [address] PCP - General Internal Medicine 12/30/14 Saima Vasquez, RN [address] [place] [address] Skate Maker [facility] 12/27/21 Inspector Finishing Relationship Specialty Start Date End Date Racquel Centeno MD [address] [place] [address] PCP - General Internal Medicine 12/30/14 Saima Vasquez, RN [address] [place] [address] Skate Maker [facility] 12/27/21 Inspector Finishing Relationship Specialty Start Date End Date Racquel Centeno MD [address] [place] [address] PCP - General Internal Medicine 12/30/14 Saima Vasquez, RN [address] [place] [address] Skate Maker [facility] 12/27/21 Inspector Finishing Relationship Specialty Start Date End Date Racquel Centeno MD [address] [place] [address] PCP - General Internal Medicine 12/30/14 Saima Vasquez, RN [address] [place] [address] Skate Maker Family [facility] 12/27/21 Inspector Finishing Relationship Specialty Start Date End Date Racquel Centeno MD [address] [place] [address] PCP - General Internal Medicine 12/30/14 Saima Vasquez, RN [address] [place] [address] Skate Maker Family [facility] 12/27/21 Inspector Finishing Relationship Specialty Start Date End Date Racquel Centeno MD [address] [place] [address] PCP - General Internal Medicine 12/30/14 Saima Vasquez, RN [address] [place] [address] Skate Maker [facility] 12/27/21 Inspector Finishing Relationship Specialty Start Date End Date Racquel Centeno MD [address] [place] [address] PCP - General Internal Medicine 12/30/14 Saima Vasquez, RN [address] [place] [address] [facility] 12/27/21 Inspector Finishing Relationship Specialty Start Date End Date Racquel Centeno MD [address] [place] [address] PCP - General Internal Medicine 12/30/14 Saima Vasquez, RN [address] [place] [address] Skate Maker Family [facility] 12/27/21 Inspector Finishing Relationship Specialty Start Date End Date Racquel Centeno MD [address] [place] [address] PCP - General Internal Medicine 12/30/14 Saima Vasquez, RN [address] [place] [address] Skate Maker [facility] 12/27/21 Inspector Finishing Relationship Specialty Start Date End Date Racquel Centeno MD [address] [place] [address] PCP - General Internal Medicine 12/30/14 Saima Vasquez, RN [address] [place] [address] Skate Maker [facility] 12/27/21 Inspector Finishing Relationship Specialty Start Date End Date Racquel Centeno MD [address] [place] [address] PCP - General Internal Medicine 12/30/14 Saima Vasquez, VALERIE [address] [place] [address] Skate Maker [facility] 12/27/21 Inspector Finishing Relationship Specialty Start Date End Date Racquel Centeno MD [address] [place] [address] PCP - General Internal Medicine 12/30/14 Saima Vasquez, RN [address] [place] [address] Skate Maker [facility] 12/27/21 Inspector Finishing Relationship Specialty Start Date End Date Racquel Centeno MD [address] [place] [address] PCP - General Internal Medicine 12/30/14 Saima Vasquez, RN [address] [place] [address] Skate Maker [facility] 12/27/21 Team Status: Active Member Role Status Dates Dr. Racquel Centeno MD Family Provider Active Dr. Racquel Centeno MD Primary Care Provider Active Team Status: Inactive Member Role Status Dates Dr. Racquel Centeno MD Primary Care Provider Active Felipe Estrada THERAPEUTIC CASE MANAGER, THERAPEUTIC CASE MANAGER-C Attending Provider, Referring Pr ovider Active Inspector Finishing Relationship Specialty Start Date End Date Racquel Centeno MD [address] [place] [address] PCP - General Internal Medicine 12/30/14 Saima Vasquez, RN [address] [place] [address] Skate Maker [facility] 12/27/21 Inspector Finishing Relationship Specialty Start Date End Date Racquel Centeno MD [address] [place] [address] PCP - General Internal Medicine 12/30/14 Saima Vasquez, RN [address] [place] [address] Skate Maker [facility] 12/27/21 Inspector Finishing Relationship Specialty Start Date End Date Racquel Centeno MD [address] [place] [address] PCP - General Internal Medicine 12/30/14 Saima Vasquez, RN [address] [place] [address] Skate Maker [facility] 12/27/21 Inspector Finishing Relationship Specialty Start Date End Date Racquel Centeno MD [address] [place] [address] PCP - General Internal Medicine 12/30/14 Saima Vasquez, RN [address] [place] [address] Skate Maker [facility] 12/27/21 Inspector Finishing Relationship Specialty Start Date End Date Racquel Centeno MD [address] [place] [address] PCP - General Internal Medicine 12/30/14 Arianna Lorenz, RN [address] [place] [address] Skate Maker 10/27/23 Inspector Finishing Relationship Specialty Start Date End Date Racquel Centeno MD [address] [place] [address] PCP - General Internal Medicine 12/30/14 Saima Vasquez, RN [address] [place] [address] Skate Maker [facility] 12/27/2109/28 Inspector Finishing Relationship Specialty Start Date End Date Racquel Centeno MD [address] [place] [address] PCP - General Internal Medicine 12/30/14 Seda Don RN Skate Maker [facility] 07/29/21 Inspector Finishing Relationship Specialty Start Date End Date Racquel Centeno MD [address] [place] [address] PCP - General Internal Medicine 12/30/14 Seda Don RN Skate Maker [facility] 07/29/21 Inspector Finishing Relationship Specialty Start Date End Date Racquel Centeno MD [address] [place] [address] PCP - General Internal Medicine 12/30/14 Arianna Lorenz, RN [address] [place] [address] Skate Maker 10/27/23 Inspector Finishing Relationship Specialty Start Date End Date Racquel Centeno MD [address] [place] [address] PCP - General Internal Medicine 12/30/14 Arianna Lorenz, RN [address] [place] [address] Skate Maker 10/27/23 Inspector Finishing Relationship Specialty Start Date End Date Racquel Centeno MD [address] [place] [address] PCP - General Internal Medicine 12/30/14 Arianna Lorenz, RN [address] [place] [address] Skate Maker 10/27/23 Inspector Finishing Relationship Specialty Start Date End Date Racquel Centeno MD [address] [place] [address] PCP - General Internal Medicine 12/30/14 Arianna Lorenz, RN [address] [place] [address] Skate Maker 10/27/23 Inspector Finishing Relationship Specialty Start Date End Date Racquel Centeno MD [address] [place] [address] PCP - General Internal Medicine 12/30/14 Arianna Lorenz, RN [address] [place] [address] Skate Maker 10/27/23 Inspector Finishing Relationship Specialty Start Date End Date Racquel Centeno MD [address] [place] [address] PCP - General Internal Medicine 12/30/14 Arianna Lorenz, RN [address] [place] [address] Skate Maker 10/27/23 Inspector Finishing Relationship Specialty Start Date End Date Racquel Centeno MD [address] [place] [address] PCP - General Internal Medicine 12/30/14 Arianna Lorenz, RN [address] [place] [address] Skate Maker 10/27/23 Inspector Finishing Relationship Specialty Start Date End Date Racquel Centeno MD [address] [place] [address] PCP - General Internal Medicine 12/30/14 Arianna Lorenz, VALERIE [address] [place] [id number] Skate Maker 10/27/23 Inspector Finishing Relationship Specialty Start Date End Date Racquel Centeno MD [address] [place] [address] PCP - General Internal Medicine 12/30/14 Arianna Lorenz RN [address] [id number] Skate Maker 10/27/23 Inspector Finishing Relationship Specialty Start Date End Date Racquel Centeno MD [address] [place] [address] PCP - General Internal Medicine 12/30/14 Inspector Finishing Relationship Specialty Start Date End Date Racquel Centeno MD [address] [place] [address] PCP - General Internal Medicine 12/30/14 Ton Gan, DIETITIAN TEACHER.MRI MANAGER [address] [place] [address] Event Decorator And Designer Internal Medicine 02/05/24 Felipe Estrada DIETITIAN TEACHER.TICK SEWER [address] [place] [address] Event Decorator And Designer Internal Medicine 02/05/24 Inspector Finishing Relationship Specialty Start Date End Date Racquel Centeno MD [address] [place] [address] PCP - General Internal Medicine 12/30/14 Ton Gan APRN.MRI MANAGER [address] [place] [address] Event Decorator And Designer Internal Medicine 02/05/24 Felipe Estrada APRN.TICK SEWER [address] [place] [address] Event Decorator And Designer Internal Medicine 02/05/24 Inspector Finishing Relationship Specialty Start Date End Date Racquel Centeno MD [address] [place] [address] PCP - General Internal Medicine 12/30/14 Ton Gan APRN.MRI MANAGER [address] [place] [address] Event Decorator And Designer Internal Medicine 02/05/24 Felipe Estrada APRN.TICK SEWER [address] [place] [address] [facility] Internal Medicine 02/05/24 Inspector Finishing Relationship Specialty Start Date End Date Racquel Centeno MD [address] [place] [address] PCP - General Internal Medicine 12/30/14 Ton Gan DIETITIAN TEACHER.MRI MANAGER [address] [place] [address] Event Decorator And Designer Internal Medicine 02/05/24 Felipe Estrada APRN.TICK SEWER [address] [place] [address] [facility] Internal Medicine 02/05/24 Inspector Finishing Relationship Specialty Start Date End Date Racquel Centeno MD [address] [place] [address] PCP - General Internal Medicine 12/30/14 Ton Gan, DIETITIAN TEACHER.MRI MANAGER [address] [place] [address] Event Decorator And Designer Internal Medicine 02/05/24 Felipe Estrada, DIETITIAN TEACHER.TICK SEWER [address] [place] [address] [facility] Internal Medicine 02/05/24 Inspector Finishing Relationship Specialty Start Date End Date Racquel Centeno MD [address] [place] [address] PCP - General Internal Medicine 12/30/14 Ton Gan, DIETITIAN TEACHER.MRI MANAGER [address] [place] [address] [facility] Internal Medicine 02/05/24 Felipe Estrada, DIETITIAN TEACHER.TICK SEWER [address] [place] [address] [facility] Internal Medicine 02/05/24 Inspector Finishing Relationship Specialty Start Date End Date Racquel Centeno MD [address] [place] [address] PCP - General Internal Medicine 12/30/14 Ton Gan, DIETITIAN TEACHER.MRI MANAGER [address] [place] [address] Event Decorator And Designer Internal Medicine 02/05/24 Felipe Estrada DIETITIAN TEACHER.TICK SEWER [address] [place] [address] [facility] Internal Medicine 02/05/24 Inspector Finishing Relationship Specialty Start Date End Date Racquel Centeno MD [address] [place] [address] PCP - General Internal Medicine 12/30/14 Ton Gan, DIETITIAN TEACHER.MRI MANAGER [address] [place] [address] [facility] Internal Medicine 02/05/24 Felipe Estrada DIETITIAN TEACHER.TICK SEWER [address] [place] [address] [facility] Internal Medicine 02/05/24 Inspector Finishing Relationship Specialty Start Date End Date Racquel Centeno MD [address] [place] [address] PCP - General Internal Medicine 12/30/14 Ton Gan, DIETITIAN TEACHER.MRI MANAGER [address] [place] [address] [facility] Internal Medicine 02/05/24 Felipe Estrada DIETITIAN TEACHER.TICK SEWER [address] [place] [address] [facility] Internal Medicine 02/05/24 Inspector Finishing Relationship Specialty Start Date End Date Racquel Centeno MD [address] [place] [address] PCP - General Internal Medicine 12/30/14 Ton Gan, DIETITIAN TEACHER.MRI MANAGER [address] [place] [address] Event Decorator And Designer Internal Medicine 02/05/24 Felipe Estrada APRN.TICK SEWER [address] [place] [address] Event Decorator And Designer Internal Medicine 05/21/24 Inspector Finishing Relationship Specialty Start Date End Date Racquel Centeno MD [address] [place] [address] PCP - General Internal Medicine 12/30/14 Ton Gan APRN.MRI MANAGER [address] [place] [address] Event Decorator And Designer Internal Medicine 02/05/24 07/16/24 Felipe Estrada APRN.TICK SEWER [address] [place] [address] Event Decorator And Designer Internal Medicine 05/21/24 Ton Gan APRN.MRI MANAGER [address] [place] [address] Event Decorator And Designer Internal Medicine 07/17/24 Inspector Finishing Relationship Specialty Start Date End Date Racquel Centeno MD [address] [place] [address] PCP - General Internal Medicine 12/30/14 Felipe Estrada APRN.TICK SEWER [address] [place] [address] Event Decorator And Designer Internal Medicine 05/21/24 Ton Gan APRN.MRI MANAGER [address] [place] [address] Event Decorator And Designer Internal Medicine 07/17/24 Inspector Finishing Relationship Specialty Start Date End Date Racquel Centeno MD [address] [place] [address] PCP - General Internal Medicine 12/30/14 Felipe Estrada APRN.TICK SEWER [address] [place] [address] Event Decorator And Designer Internal Medicine 05/21/24 Ton Gan APRN.MRI MANAGER [address] [place] [address] [facility] Internal Medicine 07/17/24 Inspector Finishing Relationship Specialty Start Date End Date Racquel Centeno MD [address] [place] [address] PCP - General Internal Medicine 12/30/14 Felipe Estrada APRN.TICK SEWER [address] [place] [address] Event Decorator And Designer Internal Medicine 05/21/24 Ton Gan, DIETITIAN TEACHER.MRI MANAGER [address] [place] [address] [facility] Internal Medicine 07/17/24 Inspector Finishing Relationship Specialty Start Date End Date Racquel Centeno MD [address] [place] [address] PCP - General Internal Medicine 12/30/14 Felipe Estrada DIETITIAN TEACHER.TICK SEWER [address] [place] [address] Event Decorator And Designer Internal Medicine 05/21/24 Ton Gan, DIETITIAN TEACHER.MRI MANAGER [address] [place] [address] [facility] Internal Medicine 07/17/24 Inspector Finishing Relationship Specialty Start Date End Date Racquel Centeno MD [address] [place] [address] PCP - General Internal Medicine 12/30/14 Felipe Estrada, DIETITIAN TEACHER.TICK SEWER [address] [place] [address] [facility] Internal Medicine 05/21/24 Ton Gan, DIETITIAN TEACHER.MRI MANAGER [address] [place] [address] [facility] Internal Medicine 07/17/24 Inspector Finishing Relationship Specialty Start Date End Date Racquel Centeno MD [address] [place] [address] PCP - General Internal Medicine 12/30/14 Felipe Estrada, DIETITIAN TEACHER.TICK SEWER [address] [place] [address] [facility] Internal Medicine 05/21/24 Ton Gan, DIETITIAN TEACHER.MRI MANAGER [address] [place] [address] [facility] Internal Medicine 07/17/24 Inspector Finishing Relationship Specialty Start Date End Date Racquel Centeno MD [address] [place] [address] PCP - General Internal Medicine 12/30/14 Felipe Estrada APRN.TICK SEWER [address] [place] [address] Event Decorator And Designer Internal Medicine 05/21/24 Ton Gan, VERONICA.MRI MANAGER [address] [place] [address] Event Decorator And Designer Internal Medicine 07/17/24 Goals (unrecognized section and content) Goals may be documented in a n alternate sectionGoals may be documented in an alternate section INFORMATION SOURCE (unrecogn ized section and content) DATE CREATED AUTHOR 06/29/2023 [facility] DATE CREATED AUTHOR AUTHOR'S RACHEL SERRANO 12/27/2024 [facility] FOR RECORDS PERTAINING TO PATIENTS WHO ARE OR HAVE BEEN ENROLLED IN A CHEMICAL DEPENDENCY/SUBSTANCEABUSE PROGRAM, SOME INFORMATION MAY BE OMITTED. This clinical summary was aggregated from multiple sources. Caution should be exercised in using it in the provision of clinical care. This summary normalizes information from multiple sources, and as a consequence, information in this document may materially change the coding, format and clinical context of patient data. In addition, data may be omitted in some cases. CLINICAL DECISIONS SHOULD BE BASED ON THE PRIMARY CLINICAL RECORDS. [employer] provides no warranty or guarantee of the accuracy or completeness of information in this document.
[2025-01-31 22:55] VITALS: BP 168/94; PULSE 82; RESP 20; O2SAT 94
[2025-01-31 22:57] LABS: Hematocrit 43.6 % (37-47); Hemoglobin 14.6 g/dL (12.0-15.0); Immature Granulocytes Count 0.080 X10^3/uL (0.0-0.0); Mean Corp Hgb Conc 33.5 g/dL (32-36); Mean Corpuscular Volume 82.6 fL (81-99); Mean Platelet Vol. 9.9 fl (6.2-12.0); NRBC Flagged by Analyzer 0 % (0-5); Platelet Count 214 K/mm3 (150-450); RBC Distribution Width CV 14.2 % (11.6-14.6); RBC Distribution Width SD 42.1 fl (35.1-43.9); Red Blood Count 5.28 M/mm3 (4.2-5.4); White Blood Count 6.8 K/mm3 (4.4-11.0)
--- NOTE | 2025-01-31 23:00 | RAD_ITS ---
PROCEDURE: CHEST 1 VIEW (PORTABLE) 01/31/2025 REASON FOR EXAM: CHEST PAIN TECHNIQUE: Frontal view of the chest. COMPARISON: None. FINDINGS: Lungs/Pleura: Clear. Heart/Mediastinum: Within normal limits. Bones/Soft tissues: Mild degenerative changes of the spine. RAD/Chest 1 View (Portable) IMPRESSION: No acute cardiopulmonary disease. Reading Location: [id number]
--- NOTE | 2025-01-31 23:10 | EX.ED.DYSGE1 ---
HPI History of Present Illness Chief Complaint: Hypertension Narrative Narrative: Patient was seen and examined after presenting to ED for hypertension and blurred vision she is on medications for hypertension with valsartan and 2.5 mg of amlodipine. [facility] Medical History Carpal tunnel syndrome of right wrist Carpal tunnel syndrome of left wrist Asthma Neuropathy Hypothyroid GERD (gastroesophageal reflux disease) Hypertension Home Medications ?Medication ?Instructions ?Recorded ?Last Taken ?Type cyanocobalamin (vitamin B-12) 1,000 mcg PO DAILY 09/20/15 Unknown History 1,000 mcg tablet,extended release gabapentin 600 mg tablet,extended 600 tab PO BID 09/20/15 Unknown History release 24 hr (Gralise) levothyroxine 150 mcg tablet 150 mcg PO DAILY 09/20/15 12/11/18 06:00 History paroxetine HCl 20 mg tablet 20 mg PO QHS 09/20/15 Unknown History zolpidem 10 mg tablet (Ambien) 10 mg PO QHS 09/20/15 Unknown History amlodipine 2.5 mg tablet 2.5 mg PO DAILY 01/31/25 Unknown History fluticasone propionate 50 2 spray intranasal DAILY PRN 01/31/25 Unknown History mcg/actuation nasal allergy symptoms spray,suspension (24 Hour Allergy Relief) pantoprazole 40 mg tablet,delayed 40 mg PO DAILY 01/31/25 Unknown History release valsartan 160 mg tablet (Diovan) 160 mg PO BID 01/31/25 Unknown History amlodipine 5 mg tablet 5 mg PO DAILY #30 tabs 02/01/25 Unknown Rx Allergy/AdvReac Type Severity Reaction Status Date / Time atenolol Allergy Unknown Verified 01/31/25 22:25 tramadol Allergy Unknown Verified 01/31/25 22:25 doxepin AdvReac Unknown Verified 01/31/25 22:25 Surgical History H/O tubal ligation Social History Smoking Status: Never smoker ROS ROS ED ROS Narrative Pertinent Positives: Blurred vision headache hypertension Pertinent Negatives: Chest pain pressure shortness of breath vomiting fevers The remainder of review of systems negative unless otherwise stated in the HPI above. Systems reviewed including constitutional, psychiatric, cardiovascular, respiratory, integument, HENT, gastrointestinal. EXAM Physical Exam Narrative Exam Narrative: Patient is afebrile blood pressure she had initially with triple digit both systolic and diastolic numbers from 180 systolic up to over 200 systolic. She had intact and equal MSPs her abdomen was soft nontender nondistended no palpable pulsatile mass. No lower extremity edema or calf tenderness. Oxygenating well with a normal heart rate as well does not appear toxic or in distress pupils equal round reactive to light Const Vital Signs: 01/31/25 22:23 01/31/25 22:26 01/31/25 22:26 Temperature 97.6 F L Temperature Source Oral Pulse Rate 92 88 Respiratory Rate 17 14 Respiratory Effort Normal Respiratory Pattern Normal Blood Pressure 221/133 H 181/116 H Blood Pressure Mean 162 137 Pulse Ox 97 97 Oxygen Delivery Method Room Air Room Air 01/31/25 22:55 01/31/25 22:55 01/31/25 23:26 Temperature Temperature Source Pulse Rate 82 81 Respiratory Rate 20 H 13 Respiratory Effort Respiratory Pattern Blood Pressure 168/94 H 165/104 H Blood Pressure Mean 118 124 Pulse Ox 94 92 Oxygen Delivery Method Room Air Room Air Room Air 02/01/25 00:00 02/01/25 00:30 02/01/25 00:45 Temperature Temperature Source Pulse Rate 77 74 71 Respiratory Rate 16 18 17 Respiratory Effort Respiratory Pattern Blood Pressure 156/87 H 162/96 H 161/86 H Blood Pressure Mean 105 114 109 Pulse Ox 94 91 94 Oxygen Delivery Method Room Air Room Air Room Air MDM MDM MDM Narrative Medical decision making narrative: Nursing notes, triage notes, available previous documentation, and vital signs were reviewed. Any discrepancies noted were addressed. Differential Diagnoses: We will evaluate for evidence of endorgan damage for like hypertensive urgency or emergency situation lower suspicion for aortic etiology or ACS Interventions: Hydralazine was ordered however patient's blood pressure ended up improving to 168/94 without intervention Labs Reviewed: No leukocytosis leukopenia or anemia. No electrolyte abnormality or evidence of renal insufficiency or transaminitis initial troponin is 11 delta troponin pending. Imaging Reviewed: Personally reviewed and interpreted by me: CT of the head I do not see any obvious mass or intracranial bleed. On my own review and interpretation patient's chest x-ray no pneumonia edema widened mediastinum or pneumothoraces. Official CT head and chest x-ray without acute pathology EKG: Normal sinus rhythm rate of 81. I do not see evidence of ACS. No evidence of prolonged QT syndrome. No evidence of AV Block. No short MO intervals, wide QRS, or Delta waves indicative of WPW. No evidence of dagger-like q waves or LVH indicative of Hypertrophic Cardiomyopathy. No evidence of Brugada Syndrome. EKG interpretation is noted and agreed to in the EMR. The interpretation of this patient's EKG contributed directly to the care and management of this patient. Previous Documentation Reviewed: None available or applicable at this time. ED Course: Patient presenting with hypertension she is already on medications but she is also having symptoms with headache and blurred vision so we will check for endorgan damage. We do have room to go with her amlodipine however. 0004: Patient's labs so far unremarkable delta troponin is currently pending. Barring a significant complications we will likely increase her dose of amlodipine up to 5 mg. 0143: Delta troponin is 10 we are going to increase amlodipine to 5 mg daily from 2.5 return precautions follow-up recommendations provided patient stable for discharge home This note was made utilizing voice recognition software. All attempts were made to correct spelling or other errors prior to note completion. However, due to the fast-paced nature of emergency medicine, some errors may still be present. Lab Data Labs: Laboratory Results - last 24 hr 01/31/25 02/01/25 22:30 00:41 WBC 6.8 RBC 5.28 Hgb 14.6 Hct 43.6 MCV 82.6 MCH 27.7 MCHC 33.5 RDW Std Deviation 42.1 RDW Coeff of Janna 14.2 Plt Count 214 MPV 9.9 Immature Gran % (Auto) 1.200 H Neut % (Auto) 57.6 Lymph % (Auto) 31.3 [place] % (Auto) 6.7 Eos % (Auto) 2.3 Baso % (Auto) 0.9 Absolute Neuts (auto) 3.9 Absolute Lymphs (auto) 2.14 Nucleated RBC % 0 Sodium 139 Potassium 3.5 Chloride 103 Carbon Dioxide 24.1 Anion Gap 12 BUN 20 H Creatinine 0.92 Estim Creat Clear Calc 63.84 Est GFR (MDRD) Non-Af 63 BUN/Creatinine Ratio 21.6 H Glucose 141 H Calcium 9.4 Total Bilirubin 0.57 AST 15 ALT 10 Alkaline Phosphatase 114 H Troponin T High Sens 11 Troponin T Hi Sens 2 Hr 10 NT pro BNP II 87 Total Protein 7.7 Albumin 4.2 Globulin 3.5 Albumin/Globulin Ratio 1.2 Radiography Diagnostic Testing: Clinical Impression(s) from Imaging Studies Brain CT 01/31/25 22:44 IMPRESSION: No acute intracranial abnormality. Reading Location: [facility] Chest X-Ray 01/31/25 23:00 IMPRESSION: No acute cardiopulmonary disease. Reading Location: [facility] Discharge Plan Triage Chief Complaint: Hypertension ED Provider: Christa Haynes Dx/Rx/DC Orders Clinical Impression: Hypertension, Blurred vision, Headache Instructions: ED High Blood Pressure Hypertension Prescriptions: New amlodipine 5 mg tablet 5 mg PO DAILY Qty: 30 0RF No Action cyanocobalamin (vitamin B-12) 1,000 MCG tablet extended release 1,000 mcg PO DAILY paroxetine HCl 20 MG tablet 20 mg PO QHS levothyroxine 150 MCG tablet 150 mcg PO DAILY zolpidem [Ambien] 10 MG tablet 10 mg PO QHS gabapentin [Gralise] 600 MG tablet extended release 24 hr 600 tab PO BID pantoprazole 40 mg tablet,delayed release (DR/EC) 40 mg PO DAILY amlodipine 2.5 mg tablet 2.5 mg PO DAILY fluticasone propionate [24 Hour Allergy Relief] 50 mcg/actuation spray,suspension 2 spray intranasal DAILY PRN (Reason: allergy symptoms) Rx Instructions: administer into each nostril valsartan [Diovan] 160 mg tablet 160 mg PO BID Primary Care Provider: Pau Hart Referrals: Pau Hart MD [Primary Care Provider, Internal Medicine] Activity Restrictions/Additional Instructions: We are increasing your dose of the amlodipine from 2.5 mg to 5 mg take this daily keep a blood pressure log however if you are starting to feel more symptomatic and dizzy and lightheaded or your blood pressure is too low then please discontinue this dose Print Language: Lao Disposition Disposition: Home, Self Care
[2025-01-31 23:20] LABS: AST(SGOT) 15 U/L (<=31); Alanine Aminotransfer ALT/SGPT 10 U/L (<=34); Albumin, Serum 4.2 g/dL (3.4-4.8); Alkaline Phosphatase 114 U/L (35-104); Anion Gap 12 (5-15); BUN 20 mg/dL (4-19); BUN/Creat Ratio 21.6 RATIO (10-20); Calcium,Total 9.4 mg/dL (7.6-11.0); Carbon Dioxide 24.1 mmol/L (21.0-32.0); Chloride 103 mmol/L (98-108); Estimated Creatinine Clearance 63.84 ml/min (50-250); Globulin 3.5 g/dL (2.2-4.2); Glucose 141 mg/dL (70-99); Potassium 3.5 mmol/L (3.3-5.1); Pro- Brain NATRIURETIC PEPTIDE 87 pg/mL (<=1800); Troponin T High Sensitivity 11 ng/L (<=14)
[2025-01-31 23:26] VITALS: BP 165/104; PULSE 81; RESP 13; O2SAT 92
[2025-02-01] VITALS: BP 156/87; PULSE 77; RESP 16; O2SAT 94
[2025-02-01 00:30] VITALS: BP 162/96; PULSE 74; RESP 18; O2SAT 91
[2025-02-01 00:45] VITALS: BP 161/86; PULSE 71; RESP 17; O2SAT 94
[2025-02-01 01:41] LABS: Troponin T High Sens 2 HR 10 ng/L (<=14)
[2025-02-01 01:57] VITALS: BP 153/96; PULSE 72; RESP 27; TEMP 36.8; O2SAT 100
== END 2025-02-01 01:58 | disposition home or self-care (01) ==
PROVIDERS: Emergency Provider Specialist/Technologist Athletic Trainer; PCP Internal Medicine; Visit Provider Specialist/Technologist Athletic Trainer
DX: I10 Essential (primary) hypertension (principal); Z79.899 Other long term (current) drug therapy
CPT/HCPCS: 70450; 71045; 80053; 83880; 84484; 85025; 93005; 99284; A4216